=== PATIENT | female | born 1940 | race Caucasian/White ===

== ENCOUNTER 2017-02-24 09:08 | Emergency (ER) | payer OTHER, MEDICARE ==
[2017-02-24 09:20] VITALS: BP 153/80; PULSE 53; TEMP 98.2; BMI 24.5
--- NOTE | 2017-02-24 10:25 | PDOC ---
Attending Attestation - HPI HPI: 02/24/17 10:55 77 y/o F with a PMHx of HTN, DM presents to the ED with intermittent nasal bleeding since yesterday. Patient has no other complaints. Denies chest pain, SOB. Denies nausea, vomiting, diarrhea. Denies headache, dizziness. - Physicial Exam PE: 02/24/17 10:55 Vitals: Triage Vital signs reviewed General Appearance: no acute distress, well nourished well developed Nose: no active bleeding, left nostril with dried blood Throat: Posterior oropharynx without erythema, mucous membranes moist, No bleeding or dripping into the posterior oropharynx - Medical Decision Making 02/24/17 10:55 Documentation prepared by Tamia Barreto, acting as medical editor for Babar Mendoza MD. <Tamia Barreto - Last Filed: 02/24/17 10:55> - Resident Resident Name: Dick Singh - ED Attending Attestation I have performed the following: I have examined & evaluated the patient, The case was reviewed & discussed with the resident, I agree w/resident's findings & plan, Exceptions are as noted - Medical Decision Making 02/24/17 18:06 Well appearing no apparent distress no active bleeding no indication for packing at this time. Patient provided with ENT follow-up and strict return instructions Findings, the need for follow-up and strict return instructions discussed with patient. <Babar Mendoza - Last Filed: 02/24/17 18:06>
--- NOTE | 2017-02-24 10:27 | PDOC ---
History of Present Illness - General Chief Complaint: Nasal Bleeding Stated Complaint: NASAL BLEED Time Seen by Provider: 02/24/17 09:52 History Source: Patient, Significant Other Exam Limitations: No Limitations - History of Present Illness Initial Comments: 02/24/17 10:26 Patient is a 77 year old with history of Afib (on eloquist), NIDDM, GERD, HLD and Parkinson's presented to the ED with 1 day of nose bleeding. Patient states the bleeding started 22 hours ago while she was grooming her nose hairs. She attempted peroxide, and cotton packing and was able to stop the bleeding but it kept returning when she removed the packing. Did not bleed significantly overnight but restarted this AM after removed the packing. Denies history of nose bleeds. Denies fever, chills, chest pain, abdominal pain, nausea, vomiting , diarrhes, diaphoresis. Past History - Past Medical History Allergies/Adverse Reactions: Allergies Allergy/AdvReac Type Severity Reaction Status Date / Time No Known Drug Allergies Allergy Verified 02/24/17 09:16 Home Medications: Ambulatory Orders Atorvastatin Ca [Lipitor] 20 mg PO HS 11/02/11 Metformin HCl [Glucophage Xr] 500 mg PO DAILY 11/02/11 Zolpidem Tartrate [Ambien] 10 mg PO HS 10/23/15 Diltiazem HCl [Diltiazem 24Hr Cd] 120 mg PO BID #0 cap.er.24h 10/24/15 Apixaban [Eliquis] 5 mg PO DAILY 02/24/17 Carbidopa/Levodopa [Carbidopa-Levo ER 50-200 Tab] 1 each PO TID 02/24/17 Furosemide [Lasix -] 20 mg PO DAILY 02/24/17 Pramipexole Dihydrochloride [Mirapex -] 5 mg PO DAILY 02/24/17 Anemia: No Asthma: No Cancer: No Cardiac Disorders: Yes CVA: No COPD: No CHF: No Dementia: No Diabetes: Yes GI Disorders: No Disorders: No HTN: Yes Hypercholesterolemia: No Liver Disease: No Seizures: No Thyroid Disease: No - Surgical History Abdominal Surgery: No Appendectomy: No Cardiac Surgery: No Cholecystectomy: No Lung Surgery: No Neurologic Surgery: Yes (BRAIN TUMOR REMOVED 2008) Orthopedic Surgery: No - Suicide/Smoking/Psychosocial Hx Smoking History: Never smoked Have you smoked in the past 12 months: No Hx Alcohol Use: No Drug/Substance Use Hx: No Substance Use Type: None Hx Substance Use Treatment: No Review of Systems - Review of Systems Able to Perform ROS?: Yes Comments:: GEN: Denies fever, chills, recent illness HEENTM: Denies sore throat, neck pain, changes in vision, changes in hearing, ear pain, tinnitus Respiratory: +shortness of breath Denies cough, wheezing Cardiac: Denies chest pain, palpitations, lightheadedness, diaphoresis ABD/GI: +constipation; Denies abdominal pain, nausea, vomiting, diarrhea : Denies dysuria, burning on urination, increased frequency of urination Musculoskeletal: Denies pain and swelling of muscles and joints Integumentary: Denies rashes, bruises Neurological: Denies WEST, weakness, dizziness, loss of consciousness, tingling, numbness Hematologic/Lymphatic: Denies anemia, easy bleeding, history of blood clots. All Other Systems Reviewed and Negative Is the patient limited Fijian proficient: No *Physical Exam - Vital Signs Last Vital Signs Temp Pulse Resp BP Pulse Ox 98.2 F 53 L 19 153/80 96 02/24/17 09:16 02/24/17 09:16 02/24/17 09:16 02/24/17 09:16 02/24/17 09:16 - Physical Exam Comments: GENERAL: AAOx3, nourished and generally well appearing, NAD HEAD: NCAT EYES: PERRLA, EOMI, sclera anicteric, conjunctiva clear ENT: Auricles normal inspection, hearing grossly normal, right naris patent, left naris clotted with dried blood, no active bleeding, oropharynx clear without exudates, mild blood in posterior oropharynx, MMM NECK: supple, normal ROM, no LAD, no JVD, no masses RESP: speaking in full sentences, lungs CTAB, symmetrical chest expansion, no respiratory distress HEART: Bradycardic (56), regular rhythm, normal S1-S2, no MRG, peripheral pulses normal and equal bilaterally ABDOMEN: soft, NTND, nlBSx4, no guarding, no rebound, no masses MUSCULOSKELETAL: no CVA Tenderness EXTREMITIES: normal inspection, moving all extremities, full ROM, strength 5/5, sensation grossly intact NEUROLOGICAL: CN II-XII grossly intact, normal speech, normal gait, no focal sensorimotor deficits SKIN: warm, dry, normal turgor, no rashes or lesions noted. Medical Decision Making - Medical Decision Making 77 year old female on blood thinner with intermittent traumatic epistaxis for one day. Bleeding spontaneously stops with packing and restarts when disturbed. No active bleeding on physical exam ddx includes but is not limited to anterior epistaxis monitor and reassess educate patient on proper techniques to stop bleeding. Instruct patient to not disturb discharge with ENT followup Patient educated on applying pressure and to not clear or clean nose for several days Return precautions given and patient expressed understanding and agreement with the plan ENT referral given *DC/Admit/Observation/Transfer Diagnosis at time of Disposition: Anterior epistaxis - Discharge Dispostion Disposition: HOME Admit: No - Referrals Referrals: Denis Kelley MD [Primary Care Provider] - Khadar Christopher MD [Staff Physician] - - Patient Instructions Printed Discharge Instructions: DI for Nosebleed Additional Instructions: Make an appointment with Dr. Christophre for an ENT evaluation If you nose starts to bleed again you should place pressure on your nose as instructed in the ED for at least 30 mintues. Do not clean or blow your nose once the bleeding stops. Do not drink with straws. Avoid coughing and sneezing. If you are unable to stop the bleeding with pressure after several attempts or you become weak or dizzy or loose consciousness you need to return to the emergency room immediately. Print Language: GUAMANIAN
== END 2017-02-24 10:45 | disposition home or self-care (01) ==
LOC: JER 09:08 → SUPCPDRO 09:08 → JER 10:45
PROC: 2Y41X5Z Packing of Nasal Region using Packing Material (ICD-10-PCS; principal; 2017-02-24)
DX: R04.0 Epistaxis (principal); I48.91 Unspecified atrial fibrillation; Z79.01 Long term (current) use of anticoagulants; E11.9 Type 2 diabetes mellitus without complications; Z79.84 Long term (current) use of oral hypoglycemic drugs; K21.9 Gastro-esophageal reflux disease without esophagitis; E78.00 Pure hypercholesterolemia, unspecified; G20 Parkinson's disease
CPT/HCPCS: 99281-25

== ENCOUNTER 2017-04-29 16:36 | Inpatient (IN) | payer OTHER, MEDICARE ==
--- NOTE | 2017-04-29 16:45 | PDOC ---
Rapid Medical Evaluation Time Seen by Provider: 04/29/17 16:42 Medical Evaluation: Allergies Allergy/AdvReac Type Severity Reaction Status Date / Time No Known Drug Allergies Allergy Verified 04/29/17 16:41 04/29/17 16:42 I have performed a brief in-person evaluation of this patient. The patient presents with a chief complaint of: sent for evaluation of Afib with RVR Pertinent physical exam findings: CARD: irregularly irregular. 2+ pedal edema. No murmurs. PULM: Respirations even and unlabored. Lungs CTAB I have ordered the following: EKG, cardiac profile, coags, cbc, cmp, mg, ua, u cx, cxr The patient will proceed to the ED for further evaluation. Discharge Disposition - Diagnosis SOB (shortness of breath) - Referrals - Patient Instructions - Post Discharge Activity
--- NOTE | 2017-04-29 16:52 | PDOC ---
History of Present Illness - General Chief Complaint: Irregular Heart Beat Stated Complaint: FATIGUE Time Seen by Provider: 04/29/17 16:42 - History of Present Illness Initial Comments: 04/29/17 17:15 The patient is a 77 year old female with a history of parkinson's and afib who presents from urgent care for evaluation of afib with RVR. The patient reports that she has a recent URI with cough and began feeling more fatigued over the past 2-3 days prompting her to present to urgent care where she was found to be in afib with RVR. She reports previous admissions for afib with RVR and takes her diltiazem and elaquis on a daily basis. She denies chest pain, fevers, chills, SOB, abdominal pain, nausea, vomiting, or changes with urination or bowel movements. Past History - Past Medical History Allergies/Adverse Reactions: Allergies Allergy/AdvReac Type Severity Reaction Status Date / Time No Known Drug Allergies Allergy Verified 04/29/17 16:41 Home Medications: Ambulatory Orders Atorvastatin Ca [Lipitor] 20 mg PO HS 11/02/11 Metformin HCl [Glucophage Xr] 500 mg PO DAILY 11/02/11 Zolpidem Tartrate [Ambien] 10 mg PO HS 10/23/15 Diltiazem HCl [Diltiazem 24Hr Cd] 120 mg PO BID #0 cap.er.24h 10/24/15 Apixaban [Eliquis] 5 mg PO DAILY 02/24/17 Carbidopa/Levodopa [Carbidopa-Levo ER 50-200 Tab] 1 each PO TID 02/24/17 Furosemide [Lasix -] 20 mg PO DAILY 02/24/17 Pramipexole Dihydrochloride [Mirapex -] 5 mg PO DAILY 02/24/17 Anemia: No Asthma: No Cancer: No Cardiac Disorders: Yes (A Fib) CVA: No COPD: No CHF: No DVT: No Dementia: No Diabetes: Yes GI Disorders: No Disorders: No HTN: Yes Hypercholesterolemia: No Liver Disease: No Seizures: No Thyroid Disease: No Other medical history: [place]'s - Surgical History Abdominal Surgery: No Appendectomy: No Cardiac Surgery: No Cholecystectomy: No Lung Surgery: No Neurologic Surgery: Yes (BRAIN TUMOR REMOVED 2008) Orthopedic Surgery: No - Suicide/Smoking/Psychosocial Hx Smoking History: Never smoked Have you smoked in the past 12 months: No Information on smoking cessation initiated: No Hx Alcohol Use: No Drug/Substance Use Hx: No Substance Use Type: None Hx Substance Use Treatment: No Review of Systems - Review of Systems Comments:: 04/29/17 17:19 Constitutional: Fatigue. No fevers, chills, malaise HEENT: No Rhinorrhea, nasal congestion, visual changes Cardiovascular: Palpitations. No chest pain, syncope, lightheadedness Respiratory: Cough. No SOB, Hemoptysis, Gastrointestinal: No Abdominal pain, Nausea, Vomiting, Constipation, Diarrhea, Melena Genitourinary: No Dysuria, Frequency, Urgency, Hesitancy, Hematuria, Flank pain Musculoskeletal: No Myalgia, arthralgia Skin: No rashes, bruising, pallor Neurologic: No Headache, Dizziness, Numbness, Weakness, or Tingling Psychiatric: No Hallucinations. No SI or HI *Physical Exam - Vital Signs Last Vital Signs Temp Pulse Resp BP Pulse Ox 97.5 F L 138 H 18 148/81 97 04/29/17 16:41 04/29/17 16:41 04/29/17 16:41 04/29/17 16:41 04/29/17 16:41 - Physical Exam Comments: 04/29/17 17:20 General Appearance: Nourished. No Apparent Distress HEENT: EOMI, CHELSEY. No Pharyngeal Erythema, Tonsillar Exudate, Tonsillar Erythema Neck: No Cervical Lymphadenopathy Respiratory/Chest: Lungs Clear, Normal Breath Sounds. No Crackles, Rales, Rhonchi, Wheezing Cardiovascular: Tachycardic with irregularly irregular rhythm. No Murmur, Gallops, Rubs Gastrointestinal/Abdominal: Normal Bowel Sounds, Soft. No Guarding, Rebound, Tenderness Musculoskeletal: No CVA Tenderness Extremity: Normal Capillary Refill Integumentary: Normal Color, Dry, Warm Neurologic: Fully Oriented, Alert, Normal Mood/Affect, Normal Response, Heart Score/ECG Review #1 ECG reviewed & interpreted by me at: 17:00 (Afib with RVR Rate of 178) General ECG Interpretation: Normal Intervals, No acute ischemic changes ED Treatment Course - LABORATORY CBC & Chemistry Diagram: 04/30/17 05:15 04/30/17 05:15 Medical Decision Making - Medical Decision Making 04/29/17 17:20 The patient is a 77 year old female with a history of parkinson's and afib who presents from urgent care for evaluation of afib with RVR. EKG done in triage demonstrates afib with rvr with a ventricular rate of 178. The patient's bp is stable and mildly hypertensive. Her symptoms are likely due to her URI instigating her afib. We will obtain a cbc, cmp, troponin, bnp, chest plain film, ua to evaluate for other possible etiologies. We will treat the patient with 20mg of iv diltiazem and a diltiazem drip as well as iv fluids. We will continue to monitor and reassess. The patient will likely require admission for further management. 04/29/17 18:00 Patient's BP has dropped to 90s systolic after dose of diltiazem and diltiazem drip. We have discussed the case with Dr. Jordan who recommended that we continue to hydrate the patient with IV fluids. If the patient's BP improves with fluids, we can restart the diltiazem drip. Otherwise we may start Digoxen 0.5. CBC demonstrates an elevated wbc to 16. Cmp, troponin is unremarkable. BNP is elevated to 3000+. We will continue to monitor and reassess. 04/29/17 19:05 Discussed the case with Dr. Kelley who accepted the patient for admission. 04/29/17 20:57 Patient's BP improved after second bolus of iv fluids. Diltiazem drip restarted without improvement in HR. Will give second bolus of 10mg diltiazem and if unsuccessful, will start digoxen per cardiology recs. Chest plain film demonstrates concerns for pneumonia which could have contributed to the patient' s afib with rvr. We will start ceftriaxone and azithromycin to treat and obtain blood cultures. Will reassess and monitor. 04/29/17 23:11 Patient's HR continues to be elevated to 160s despite second bolus of diltiazem and drip at 10mg. Patient's bp continued to drop to systolics of 80s. We have stopped the patient's diltiazem drip and will start digoxen 0.5. Given the patient's persistent tachycardia despite treatment, we believe that she requires ICU management at this time. 04/29/17 23:42 Discussed with the ICU team who accepted the patient for ICU. *DC/Admit/Observation/Transfer Diagnosis at time of Disposition: SOB (shortness of breath), Atrial fibrillation with rapid ventricular response - Discharge Dispostion Condition at time of disposition: Guarded Admit: Yes - Referrals - Patient Instructions - Post Discharge Activity
--- NOTE | 2017-04-29 16:55 | PDOC ---
Attending Attestation - HPI HPI: 04/29/17 17:15 The patient is a 77 year old female presenting with her , with a significant past medical history of Afib (on eloquist), NIDDM, GERD, HTN, HLD and Parkinson's, who presents to the emergency department with shortness of breath and fatigue. She reports that she went to urgent care center for evaluation and was sent to the ED for further evaluation of AFIB with RVR. She reports that she has had these kind of symptoms in the past and has been worked up previously, with the first time being last year. She notes that she was recently sick with an upper respiratory infection which is what prompted her to go to the urgent care. She does report a dry cough associated with her chief complaint, as well as bilateral lower extremity swelling. She denies any recent travel. The patient denies chest pain, headache and dizziness. Denies fever, chills, nausea, vomit, diarrhea and constipation. Denies dysuria, frequency, urgency and hematuria. Allergies: None Past surgical history: Brain tumor removal Social history: No alcohol, tobacco or drug use reported PMD: Dr. Denis Kelley - Physicial Exam PE: 04/29/17 17:15 Vitals: Triage vital signs reviewed General Appearance: No acute distress, well nourished, well developed Head: Atraumatic Neck: Supple; No nuchal rigidity Chest Wall: Nontender Cardiac: (+) Irregularly irregular, no murmurs, no rubs, no gallops Lungs: Clear to auscultation bilateral, good air movement bilaterally Abdomen: Soft, nondistended, normal bowel sounds, nontender to palpation Genitourinary: Rectal: Exam deferred Extremities: Full range of motion to all extremities, no cyanosis, clubbing, or edema Skin: Warm and dry, no rashes or lesions, no rash, no petechiae Neuro: AOX3; Cranial Nerves 2-12 grossly intact, Strength intact to all extremities, Sensation intact to all extremities Psych: Normal mood, normal affect - Medical Decision Making 04/29/17 17:18 The patient is a 77 year old female presenting with her , with a significant past medical history of Afib (on eloquist), NIDDM, GERD, HTN, HLD and Parkinson's, who presents to the emergency department with shortness of breath and fatigue. <Olman Jarrett - Last Filed: 04/29/17 17:14> - Resident Resident Name: Sarabjit Maldonado - ED Attending Attestation I have performed the following: I have examined & evaluated the patient, The case was reviewed & discussed with the resident, I agree w/resident's findings & plan, Exceptions are as noted - Critical Care Time Total Critical Care Time: 45 Critical Care Statement: The care of this patient involved high complexity decision making to prevent further life threatening deterioration of the patient 's condition and/or to evaluate & treat vital organ system(s) failure or risk of failure. - Medical Decision Making 04/29/17 20:57 A. fib with RVR diltiazem bolus diltiazem drip ordered X-ray with evidence of infiltrate given infiltrate white count and + symptoms we 'll treat for community acquired pneumonia with ceftriaxone and azithromycin. Reevaluation patient became transiently hypotensive with systolic of 90 diltiazem drip stopped after IV fluids patient on normotensive in the 120s case discussed with cardiology Recommends repeat bolus of diltiazem. If no improvement after repeat bolus of diltiazem we'll try digoxin Status post placing patient back on diltiazem drip no improvement in heart rate Reevaluation status post second dose IV diltiazem, patient again became transiently hyptensive Additional IV fluids ordered. At this time patient's heart rate does not seem to be improving with diltiazem. We'll stop diltiazem at this point IV load with Digoxin period. Given persistence of A. fib with RVR with persistent tachycardia and borderline hypotension we'll admit to ICU for further management. Cardiology to consult, Dr. Jordan 04/30/17 01:34 <Babar Mendoza - Last Filed: 04/30/17 01:35>
[2017-04-29] MEDS ORDERED: dilTIAZem HCL 50 MG/10 ML - 10 ML VIAL IVPUSH ONE ×2 (17:03→20:47)
[2017-04-29] MEDS ORDERED: SODIUM CHLORIDE 1,000 ML IV STA ×3 (17:03→22:50)
[2017-04-29] MEDS ORDERED: DILTIAZEM INJECTION 125 MG in DEXTROSE 5%-WATER - 100 ML IVPB SCH (17:15)
[2017-04-29] MEDS ORDERED: dilTIAZem HCL 50 MG/10 ML - 10 ML VIAL ONE (17:18)
[2017-04-29] MEDS ORDERED: dilTIAZem HCL 125 MG/25 ML - 25 ML VIAL ONE ×2 (17:18→21:56)
[2017-04-29 17:28] LABS: BASO % 0.7 % (0-2.0); EOS % 0.4 % (0-4.5); HEMATOCRIT 42.3 % (32.4-45.2); HEMOGLOBIN 14.2 GM/dL (10.7-15.3); LYMPH % 13.9 % (8-40); MCH 32.1 pg (25.7-33.7); MCHC 33.5 g/dl (32.0-36.0); MEAN CELL VOLUME 95.9 fl (80-96); MEAN PLT VOLUME 9.7 fl (7.5-11.1); MONO % 8.4 % (3.8-10.2); NEUT % 76.6 % (42.8-82.8); PLATELET COUNT 359 K/MM3 (134-434); RBC 4.41 M/mm3 (3.60-5.2); RDW 13.1 % (11.6-15.6)
[2017-04-29 17:45] LABS: INR 1.81 (0.82-1.09); PROTHROMBIN TIME (PATIENT) 20.4 SEC (9.98-11.88)
[2017-04-29] MEDS ORDERED: ONDANSETRON 4 MG/2 ML VIAL IVPUSH ONE (18:02)
[2017-04-29 18:06] LABS: ALBUMIN 3.2 g/dl (3.4-5.0); ANION GAP 12 (8-16); BILIRUBIN,TOTAL 0.6 mg/dL (0.2-1.0); BLOOD UREA NITROGEN 42 mg/dL (7-18); CALCIUM 8.7 mg/dL (8.5-10.1); CHLORIDE 104 mmol/L (98-107); CO2 21 mmol/L (21-32); CREATININE 0.9 mg/dL (0.55-1.02); GLUCOSE,RANDOM 259 mg/dL (74-106); SGPT/ALT 30 U/L (12-78); SODIUM 137 mmol/L (136-145); TOT PROT 6.5 g/dl (6.4-8.2)
[2017-04-29 18:08] LABS: ALK PHOS 177 U/L (45-117); N-TERMINAL BNP 3145.73 pg/ml (5-450)
[2017-04-29 18:11] LABS: MAGNESIUM 2.1 mg/dL (1.8-2.4); SGOT/AST 97 U/L (15-37)
[2017-04-29 18:12] LABS: POTASSIUM 4.5 mmol/L (3.5-5.1)
[2017-04-29] MEDS ORDERED: ONDANSETRON 4 MG/2 ML VIAL ONE (18:38)
[2017-04-29] MEDS ORDERED: CEFTRIAXONE 1 GM in DEXTROSE 5%-WATER - 50 ML IVPB ONE (21:14)
[2017-04-29] MEDS ORDERED: AZITHROMYCIN IVPB 500 MG in DEXTROSE 5%-WATER - 250 ML IVPB ONE (21:14)
[2017-04-29] MEDS ORDERED: AZITHROMYCIN IVPB 250 ML IVPB ONE ×2 (21:56→21:57)
[2017-04-29] MEDS ORDERED: CEFTRIAXONE 1 GM/50 ML BAG ONE ×2 (21:56→21:58)
[2017-04-29] MEDS ORDERED: DIGOXIN 0.5 MG/2 ML AMPUL IVPUSH ONE (22:25)
[2017-04-29] MEDS ORDERED: DIGOXIN 0.5 MG/2 ML AMPUL ONE (22:48)
[2017-04-30] MEDS ORDERED: AMIODARONE HCL 150 MG/3 ML VIAL ONE (01:50)
--- NOTE | 2017-04-30 02:03 | CONSULT ---
Consult Consult Specialty:: Pulm/CCM Reason for Consultation:: A-fib with RVR - History of Present Illness Chief Complaint: Cough History of Present Illness: 77yow with PMHx of Afib (on eloquist), NIDDM, GERD, HTN, HLD and Parkinson's, who presents to the emergency department with c/o SOB and fatigue. She initially went to urgent care facility with c/o cough and SOB adn was referred to ED. In ED found to be in A-fib with RVR to 170's refractory to diltiazem pushes and c/b hypotension. Cardiology consulted. Digoxin load initiated without result. labs Notable for WBC 16.0, BNP 3145. Fluid boluses given for hypotension. She was transferred to ICU for further management. 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: Other (Parkinson's disease) Cardio/Vascular: Yes: AFIB, HTN Gastrointestinal: Yes: Constipation Psych: Yes: Depression Musculoskeletal: Yes: Other (right leg and lower back pains blamed on Parkinson' s disease) Endocrine: Yes: Diabetes Mellitus Dermatology: Yes: Squamous Cell - Past Surgical History Past Surgical History: Yes: Colonoscopy, Upper Endoscopy - Alcohol/Substance Use Hx Alcohol Use: No History of Substance Use: reports: None - Smoking History Smoking history: Never smoked Have you smoked in the past 12 months: No - Social History Usual Living Arrangement: With Spouse Home Medications - Allergies Allergies/Adverse Reactions: Allergies Allergy/AdvReac Type Severity Reaction Status Date / Time No Known Drug Allergies Allergy Verified 04/29/17 16:41 - Home Medications Home Medications: Ambulatory Orders Atorvastatin Ca [Lipitor] 20 mg PO HS 11/02/11 Metformin HCl [Glucophage Xr] 500 mg PO DAILY 11/02/11 Zolpidem Tartrate [Ambien] 10 mg PO HS 10/23/15 Diltiazem HCl [Diltiazem 24Hr Cd] 120 mg PO BID #0 cap.er.24h 10/24/15 Apixaban [Eliquis] 5 mg PO DAILY 02/24/17 Carbidopa/Levodopa [Carbidopa-Levo ER 50-200 Tab] 1 each PO TID 02/24/17 Furosemide [Lasix -] 20 mg PO DAILY 02/24/17 Pramipexole Dihydrochloride [Mirapex -] 5 mg PO DAILY 02/24/17 Family Disease History - Family Disease History Family Disease History: CA: Daughter (b reast) Review of Systems - Review of Systems Constitutional: reports: Weakness Eyes: reports: No Symptoms HENT: reports: No Symptoms Neck: reports: No Symptoms Cardiovascular: reports: No Symptoms Respiratory: reports: Cough, SOB Gastrointestinal: reports: No Symptoms Genitourinary: reports: No Symptoms Musculoskeletal: reports: No Symptoms Integumentary: reports: No Symptoms Neurological: reports: No Symptoms Endocrine: reports: No Symptoms Hematology/Lymphatic: reports: No Symptoms Psychiatric: reports: No Symptoms Physical Exam Vital Signs: Vital Signs Temperature 98.1 F 04/30/17 01:22 Pulse Rate 142 H 04/30/17 01:22 Respiratory Rate 24 04/30/17 01:22 Blood Pressure 127/92 04/30/17 01:22 O2 Sat by Pulse Oximetry (%) 98 04/30/17 01:22 Constitutional: Yes: Well Nourished, No Distress, Calm Eyes: Yes: Conjunctiva Clear HENT: Yes: Atraumatic, Normocephalic Neck: Yes: Supple, Trachea Midline Cardiovascular: Yes: Tachycardia, Pulse Irregular, S1, S2 Respiratory: Yes: On Nasal O2, Rales Gastrointestinal: Yes: Normal Bowel Sounds, Soft Musculoskeletal: Yes: WNL Edema: Yes Edema: LLE: 2+, RLE: 2+ Peripheral Pulses WNL: Yes Integumentary: Yes: WNL Neurological: Yes: Alert, Oriented ...Motor Strength: WNL Psychiatric: Yes: Alert, Oriented Labs: CBC, BMP 04/29/17 17:00 04/29/17 17:00 CBC,CMP WBC 16.0 K/mm3 (4.0-10.0) H D 04/29/17 17:00 RBC 4.41 M/mm3 (3.60-5.2) 04/29/17 17:00 Hgb 14.2 GM/dL (10.7-15.3) 04/29/17 17:00 Hct 42.3 % (32.4-45.2) 04/29/17 17:00 MCV 95.9 fl (80-96) 04/29/17 17:00 MCH 32.1 pg (25.7-33.7) 04/29/17 17:00 MCHC 33.5 g/dl (32.0-36.0) 04/29/17 17:00 RDW 13.1 % (11.6-15.6) 04/29/17 17:00 Plt Count 359 K/MM3 (134-434) 04/29/17 17:00 MPV 9.7 fl (7.5-11.1) D 04/29/17 17:00 Neutrophils % 76.6 % (42.8-82.8) D 04/29/17 17:00 Lymphocytes % 13.9 % (8-40) D 04/29/17 17:00 Monocytes % 8.4 % (3.8-10.2) 04/29/17 17:00 Eosinophils % 0.4 % (0-4.5) 04/29/17 17:00 Basophils % 0.7 % (0-2.0) 04/29/17 17:00 Sodium 137 mmol/L (136-145) 04/29/17 17:00 Potassium 4.5 mmol/L (3.5-5.1) 04/29/17 17:00 Chloride 104 mmol/L (98-107) 04/29/17 17:00 Carbon Dioxide 21 mmol/L (21-32) 04/29/17 17:00 Anion Gap 12 (8-16) 04/29/17 17:00 BUN 42 mg/dL (7-18) H D 04/29/17 17:00 Creatinine 0.9 mg/dL (0.55-1.02) D 04/29/17 17:00 Creat Clearance w eGFR > 60 (>60) 04/29/17 17:00 Random Glucose 259 mg/dL (74-106) H D 04/29/17 17:00 Calcium 8.7 mg/dL (8.5-10.1) 04/29/17 17:00 Magnesium 2.1 mg/dL (1.8-2.4) 04/29/17 17:00 Total Bilirubin 0.6 mg/dL (0.2-1.0) D 04/29/17 17:00 AST 97 U/L (15-37) H D 04/29/17 17:00 ALT 30 U/L (12-78) D 04/29/17 17:00 Alkaline Phosphatase 177 U/L (45-117) H D 04/29/17 17:00 Creatine Kinase 118 IU/L (26-192) 04/29/17 17:00 Troponin I < 0.02 ng/ml (0.00-0.05) 04/29/17 17:00 B-Natriuretic Peptide 3145.73 pg/ml (5-450) H 04/29/17 17:00 Total Protein 6.5 g/dl (6.4-8.2) 04/29/17 17:00 Albumin 3.2 g/dl (3.4-5.0) L 04/29/17 17:00 TSH 1.68 uIU/ml (0.358-3.74) D 04/29/17 17:00 Initial Vital Signs Temp Pulse Resp BP Pulse Ox 97.5 F L 138 H 18 148/81 97 04/29/17 16:41 04/29/17 16:41 04/29/17 16:41 04/29/17 16:41 04/29/17 16:41 Active Medications Diltiazem HCl 125 mg/ Dextrose 125 mls @ 5 mls/hr IVPB TITR PALMER; 5 MG/HR PRN Reason: Protocol Last Titration: 04/29/17 22:58 Dose: 0 mg/hr, 0 mls/hr Amiodarone HCl/Dextrose (Nexterone 360 Mg/200 Ml Bag) 360 mg in 200 mls @ 33.333 mls/hr IVPB TITR PALMER; 1 MG/MIN PRN Reason: Protocol Imaging - Results Chest X-ray: Report Reviewed EKG: Report Reviewed Problem List - Problems (1) Atrial fibrillation with rapid ventricular response Code(s): I48.91 - UNSPECIFIED ATRIAL FIBRILLATION (2) SOB (shortness of breath) Code(s): R06.02 - SHORTNESS OF BREATH (3) CHF (congestive heart failure) Code(s): I50.9 - HEART FAILURE, UNSPECIFIED (4) Diabetes Code(s): E11.9 - TYPE 2 DIABETES MELLITUS WITHOUT COMPLICATIONS (5) Paroxysmal atrial fibrillation Code(s): I48.0 - PAROXYSMAL ATRIAL FIBRILLATION Assessment/Plan 77yow with PMHx of Afib (on eloquist), NIDDM, GERD, HTN, HLD and Parkinson's now admitted to ICU with A-fib with RVR in the setting of an CAP c/b CHF exacerbation. Plan: CV: A-fib with RVR: on Eliquis; CHF exacerbation -Cardiology consult -Amiodarone bolus and drip x24h load -Lasix drip for net neg -Cont Eliquis -Hold anti HTN meds while hypotensive -ECG -TTE Pulm/ID: Leukocytosis e/o CAP -NC O2 support for O2sat>92% -f/u cultures and viral/Flu swab -Cont empiric Azithro and Ceftriaxone -Pulm toilet Endo: DMII -Cont DM regimen Proph: DVT and GI Allison Zacarias, ACNP CC time 35mins
[2017-04-30] MEDS ORDERED: AMIODARONE HCL 150 MG/3 ML VIAL IVPUSH ONE (02:04)
[2017-04-30] MEDS ORDERED: FUROSEMIDE 40 MG/4 ML INJECTABLE VIAL IVPUSH ONE (02:05)
[2017-04-30 02:10] VITALS: BMI 21.0
[2017-04-30] MEDS ORDERED: AMIODARONE IN DEXTROSE,ISO-OSM 360 MG/200 ML BAG IVPB SCH ×2 (02:15→04:15)
[2017-04-30] MEDS ORDERED: AMIODARONE HCL INJECTION 450 MG in DEXTROSE 5%-WATER - 241 ML IVPB SCH (02:30)
[2017-04-30] MEDS ORDERED: BISACODYL 10 MG SUPP.RECT PR ONE (04:48)
[2017-04-30 06:40] LABS: HEMATOCRIT 41.9 % (32.4-45.2); MCHC 33.3 g/dl (32.0-36.0); MEAN CELL VOLUME 96.1 fl (80-96); PLATELET COUNT 363 K/MM3 (134-434); RBC 4.37 M/mm3 (3.60-5.2); RDW 13.4 % (11.6-15.6); WHITE BLOOD COUNT 17.4 K/mm3 (4.0-10.0)
[2017-04-30 07:01] LABS: ALBUMIN 2.9 g/dl (3.4-5.0); ALK PHOS 197 U/L (45-117); ANION GAP 8 (8-16); BILIRUBIN,TOTAL 0.7 mg/dL (0.2-1.0); BLOOD UREA NITROGEN 31 mg/dL (7-18); CALCIUM 7.9 mg/dL (8.5-10.1); CHLORIDE 106 mmol/L (98-107); CO2 25 mmol/L (21-32); CREATININE 0.8 mg/dL (0.55-1.02); GLUCOSE,RANDOM 223 mg/dL (74-106); POTASSIUM 4.2 mmol/L (3.5-5.1); SGOT/AST 118 U/L (15-37); SGPT/ALT 123 U/L (12-78); SODIUM 139 mmol/L (136-145); TOT PROT 5.8 g/dl (6.4-8.2)
[2017-04-30 07:48] LABS: N-TERMINAL BNP 2566.42 pg/ml (5-450)
--- NOTE | 2017-04-30 07:53 | PN ---
Progress Note, Physician Chief Complaint: ID Full note dictated Patient admitted to ICU not felling well with rapid atrial fibrillation Complains of lower abd pain and constitpation for 5 days No fever or chills but WBC up 17 K - Current Medication List Current Medications: Active Medications Apixaban (Eliquis -) 5 mg PO BID PALMER Atorvastatin Calcium (Lipitor -) 20 mg PO HS PALMER Carbidopa/Levodopa (Sinemet *Cr* 25/100 -) 1 combo PO TID PALMER Diltiazem HCl 125 mg/ Dextrose 125 mls @ 5 mls/hr IVPB TITR PALMER; 5 MG/HR PRN Reason: Protocol Last Titration: 04/29/17 22:58 Dose: 0 mg/hr, 0 mls/hr Amiodarone HCl/Dextrose (Nexterone 360 Mg/200 Ml Bag) 360 mg in 200 mls @ 33.333 mls/hr IVPB TITR PALMER; 1 MG/MIN PRN Reason: Protocol - Objective Vital Signs: Vital Signs Temperature 98.1 F 04/30/17 01:22 Pulse Rate 146 H 04/30/17 06:00 Respiratory Rate 28 H 04/30/17 06:00 Blood Pressure 83/62 04/30/17 06:00 O2 Sat by Pulse Oximetry (%) 98 04/30/17 01:22 Constitutional: Yes: Mild Distress Neck: Yes: WNL, Supple Cardiovascular: Yes: Tachycardia, S1, S2 Respiratory: Yes: WNL, Regular, CTA Bilaterally. No: Rales, Rhonchi Gastrointestinal: Yes: Normal Bowel Sounds, Soft, Tenderness. No: Tenderness, Rebound Labs: CBC, BMP 04/30/17 05:15 04/30/17 05:15 INR, PTT INR 1.81 (0.82-1.09) H D 04/29/17 17:00 Problem List - Problems (1) Sepsis Code(s): A41.9 - SEPSIS, UNSPECIFIED ORGANISM (2) Diabetes Code(s): E11.9 - TYPE 2 DIABETES MELLITUS WITHOUT COMPLICATIONS (3) Abdominal pain Code(s): R10.9 - UNSPECIFIED ABDOMINAL PAIN Assessment/Plan Laboratory Tests 04/30/17 04/30/17 05:15 05:15 WBC 17.4 H Hgb 14.0 Plt Count 363 AST 118 H D Alkaline Phosphatase 197 H Assessment Rapid atrial fibrillation possibly precipitated by acute intrabdominal infection Differential diagnosis would include Diverticulitis Cholecystitis Appendicitis I do not think this is a pulmonary infection or pneumonia She is diabetic and high risk for infection Plan Lactic acid CRP Cover with Zosyn CT abd pelvis Blood and urine c/s Discussed with Dr Kelley Critical care time spent 40 minutes Lawson CHANG
--- NOTE | 2017-04-30 09:33 | CON.CARD ---
Consult Consult Specialty:: cardiology Reason for Consultation:: AF with RVR; BP fluctuation - History of Present Illness Chief Complaint: Pt alert; anxious; no chest pain;; occasional abdominal discomfort History of Present Illness: The patient is a 77 year old female (mesfin Ballard), with a history of parkinson' s and afib, who presents from urgent care for evaluation of afib with RVR. The patient reports that she has a recent URI with cough and began feeling more fatigued over the past 2-3 days prompting her to present to urgent care where she was found to be in afib with RVR. She reports previous admissions for this , and takes diltiazem and apixaban on a daily basis. She denies chest pain, fevers, chills, SOB, abdominal pain, nausea, vomiting, or changes with urination or bowel movements. 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: Other (Parkinson's disease) Cardio/Vascular: Yes: AFIB, HTN Gastrointestinal: Yes: Constipation ...: No Psych: Yes: Depression Musculoskeletal: Yes: Other (right leg and lower back pains blamed on Parkinson' s disease) Endocrine: Yes: Diabetes Mellitus Dermatology: Yes: Squamous Cell - Past Surgical History Past Surgical History: Yes: Colonoscopy, Upper Endoscopy - Alcohol/Substance Use Hx Alcohol Use: No History of Substance Use: reports: None - Smoking History Smoking history: Never smoked Have you smoked in the past 12 months: No - Social History Usual Living Arrangement: With Spouse Home Medications - Allergies Allergies/Adverse Reactions: Allergies Allergy/AdvReac Type Severity Reaction Status Date / Time No Known Drug Allergies Allergy Verified 04/29/17 16:41 - Home Medications Home Medications: Ambulatory Orders Atorvastatin Ca [Lipitor] 20 mg PO HS 11/02/11 Metformin HCl [Glucophage Xr] 500 mg PO DAILY 11/02/11 Zolpidem Tartrate [Ambien] 10 mg PO HS 10/23/15 Diltiazem HCl [Diltiazem 24Hr Cd] 120 mg PO BID #0 cap.er.24h 10/24/15 Apixaban [Eliquis] 5 mg PO DAILY 02/24/17 Carbidopa/Levodopa [Carbidopa-Levo ER 50-200 Tab] 1 each PO TID 02/24/17 Furosemide [Lasix -] 20 mg PO DAILY 02/24/17 Pramipexole Dihydrochloride [Mirapex -] 5 mg PO DAILY 02/24/17 Family Disease History - Family Disease History Family Disease History: CA: Daughter (b reast) Vital Signs: Vital Signs Temperature 98.0 F 04/30/17 06:00 Pulse Rate 128 H 04/30/17 08:00 Respiratory Rate 28 H 04/30/17 08:00 Blood Pressure 118/85 04/30/17 08:00 O2 Sat by Pulse Oximetry (%) 98 04/30/17 01:22 - Other Data Labs, Other Data: CBC, BMP 04/30/17 05:15 04/30/17 05:15 INR, PTT INR 1.81 (0.82-1.09) H D 04/29/17 17:00 Troponin, BNP 04/29/17 04/30/17 04/30/17 17:00 05:15 05:15 Troponin I < 0.02 < 0.02 B-Natriuretic Peptide 3145.73 H 2566.42 H Troponin, BNP 04/29/17 04/30/17 04/30/17 17:00 05:15 05:15 Troponin I < 0.02 < 0.02 B-Natriuretic Peptide 3145.73 H 2566.42 H
--- NOTE | 2017-04-30 09:46 | CON.CARD ---
Consult Consult Specialty:: cardiology Reason for Consultation:: AF with RVR; BP flucturation - History of Present Illness Chief Complaint: A&Ox3; anxious; productive cough with occasional sharp chest pain when she coughs. History of Present Illness: The patient is a 77 year old woman (mesfin Ballard), with a PMhistory of parkinson' s, afib\\, HTN, who presents from urgent care for evaluation of afib with RVR. The patient reports that she has a recent URI with cough and began feeling more fatigued over the past 2-3 days prompting her to present to urgent care where she was found to be in afib with RVR. She reports previous admissions for AF, and takes diltiazem and elaquis on a daily basis (reportedly did not take diltiazem today). She denies chest pain, fevers, chills, SOB, nausea, vomiting , or changes with urination or bowel movements; occasssional abdominal discomfort for "gallbladder problem". 10/2015: Persantine stress MIBI negative for ischemia; normal LVEF 10/2015 ECHO: normal LVEF; mild aortic root dilatation; moderate MR and TR; mild MN; mild biatrial enlargement. 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: Other (Parkinson's) Cardio/Vascular: Yes: AFIB, CHF, HTN Gastrointestinal: Yes: Constipation Renal/: Yes: Renal Inusuff Reproductive: Yes: Postmenopausal ...: No Psych: Yes: Depression Musculoskeletal: Yes: Other (right leg and lower back pains blamed on Parkinson' s disease) Endocrine: Yes: Diabetes Mellitus Dermatology: Yes: Squamous Cell - Past Surgical History Past Surgical History: Yes: Colonoscopy, Upper Endoscopy - Alcohol/Substance Use Hx Alcohol Use: No History of Substance Use: reports: None - Smoking History Smoking history: Never smoked Have you smoked in the past 12 months: No - Social History Usual Living Arrangement: With Spouse Home Medications - Allergies Allergies/Adverse Reactions: Allergies Allergy/AdvReac Type Severity Reaction Status Date / Time No Known Drug Allergies Allergy Verified 04/29/17 16:41 - Home Medications Home Medications: Ambulatory Orders Atorvastatin Ca [Lipitor] 20 mg PO HS 11/02/11 Metformin HCl [Glucophage Xr] 500 mg PO DAILY 11/02/11 Zolpidem Tartrate [Ambien] 10 mg PO HS 10/23/15 Diltiazem HCl [Diltiazem 24Hr Cd] 120 mg PO BID #0 cap.er.24h 10/24/15 Apixaban [Eliquis] 5 mg PO DAILY 02/24/17 Carbidopa/Levodopa [Carbidopa-Levo ER 50-200 Tab] 1 each PO TID 02/24/17 Furosemide [Lasix -] 20 mg PO DAILY 02/24/17 Pramipexole Dihydrochloride [Mirapex -] 5 mg PO DAILY 02/24/17 Family Disease History - Family Disease History Family Disease History: CA: Daughter (b reast) Review of Systems - Review of Systems Constitutional: reports: Diaphoresis, Loss of Appetite Eyes: reports: No Symptoms HENT: reports: No Symptoms Neck: reports: No Symptoms Cardiovascular: reports: Palpitations, Shortness of Breath Respiratory: reports: Cough, SOB on Exertion. denies: Wheezing Gastrointestinal: reports: Abdominal Pain Genitourinary: reports: No Symptoms Breasts: reports: No Symptoms Reported Musculoskeletal: reports: Muscle Pain, Muscle Weakness Neurological: reports: Weakness Psychiatric: reports: Anxiety - Risk Factors Known Risk Factors: Yes: Age, Hypertension, Physical Inactivity, Other (AF; CHF) Vital Signs: Vital Signs Temperature 98.0 F 04/30/17 06:00 Pulse Rate 128 H 04/30/17 08:00 Respiratory Rate 28 H 04/30/17 08:00 Blood Pressure 118/85 04/30/17 08:00 O2 Sat by Pulse Oximetry (%) 98 04/30/17 01:22 Constitutional: Yes: Anxious Eyes: Yes: WNL HENT: Yes: WNL Neck: Yes: WNL Respiratory: Yes: Diminished, SOB on Exertion Gastrointestinal: Yes: Soft Renal/: No: Anuria Cardiovascular: Yes: Tachycardia, Pulse Irregular JVD: Yes Carotid Bruit: No PMI: Non-Displaced Heart Sounds: Yes: S1 (varies in intensity) Murmur: Yes: Systolic Murmur (2/6 systolic murmur, LSB-->apex) Musculoskeletal: Yes: Muscle Weakness Extremities: Yes: Cool Edema: Yes Edema: LLE: 1+, RLE: 1+ Peripheral Pulses WNL: Yes Integumentary: Yes: Venous Stasis Changes Neurological: Yes: Alert, Oriented, Weakness Psychiatric: Yes: WNL - Other Data Labs, Other Data: CBC, BMP 04/30/17 05:15 04/30/17 05:15 INR, PTT INR 1.81 (0.82-1.09) H D 04/29/17 17:00 Troponin, BNP 04/29/17 04/30/17 04/30/17 17:00 05:15 05:15 Troponin I < 0.02 < 0.02 B-Natriuretic Peptide 3145.73 H 2566.42 H Troponin, BNP 04/29/17 04/30/17 04/30/17 17:00 05:15 05:15 Troponin I < 0.02 < 0.02 B-Natriuretic Peptide 3145.73 H 2566.42 H Imaging - Results Chest X-ray: Image Reviewed (CHF) EKG: Image Reviewed (AF with RVR) Problem List - Problems (1) Abdominal pain Code(s): R10.9 - UNSPECIFIED ABDOMINAL PAIN (2) Atrial fibrillation with rapid ventricular response Assessment/Plan: Pt did not take morning diltiazem. Would continue IV diltiazem; if BP drops, consider digoxin loading. (Amiodarone may be problematic in the face of elevated LFTs; if this medication is started, f/u LFTs serially). TSH WNL. ECHO 2015 showed LVEF WNL; would repeat this study. F/u BUN/Cr, electrolytes, I and Os, daily weight. Code(s): I48.91 - UNSPECIFIED ATRIAL FIBRILLATION (3) SOB (shortness of breath) Code(s): R06.02 - SHORTNESS OF BREATH (4) Sepsis Assessment/Plan: Antibiotics per pulmonary and ID. Code(s): A41.9 - SEPSIS, UNSPECIFIED ORGANISM (5) CHF (congestive heart failure) Assessment/Plan: see "AF" Code(s): I50.9 - HEART FAILURE, UNSPECIFIED (6) Depressed affect Code(s): R45.89 - OTHER SYMPTOMS AND SIGNS INVOLVING EMOTIONAL STATE (7) Diabetes Code(s): E11.9 - TYPE 2 DIABETES MELLITUS WITHOUT COMPLICATIONS (8) Hyperlipidemia Assessment/Plan: f/u lipid panel Code(s): E78.5 - HYPERLIPIDEMIA, UNSPECIFIED (9) Insomnia Code(s): G47.00 - INSOMNIA, UNSPECIFIED (10) Leukocytosis Code(s): D72.829 - ELEVATED WHITE BLOOD CELL COUNT, UNSPECIFIED (11) Parkinson disease Code(s): G20 - PARKINSON'S DISEASE (12) Elevated LFTs Assessment/Plan: f/u serially Consider abdominal studies to r/o GB disease. TSH WNL. Caution if considering amiodarone for AF control. Code(s): R79.89 - OTHER SPECIFIED ABNORMAL FINDINGS OF BLOOD CHEMISTRY
--- NOTE | 2017-04-30 10:16 | PN ---
Progress Note, Physician Chief Complaint: Pt A&Ox3; anxious; no chest pain except when she coughs. Shortness of breath on mild exertion. History of Present Illness: The patient is a 77 year old woman (mesfin Ballard), with a PMhistory of parkinson' s, afib\\, HTN, who presents from urgent care for evaluation of afib with RVR. The patient reports that she has a recent URI with cough and began feeling more fatigued over the past 2-3 days prompting her to present to urgent care where she was found to be in afib with RVR. She reports previous admissions for AF, and takes diltiazem and elaquis on a daily basis (reportedly did not take diltiazem today). She denies chest pain, fevers, chills, SOB, nausea, vomiting , or changes with urination or bowel movements; occasssional abdominal discomfort for "gallbladder problem". 10/2015: Persantine stress MIBI negative for ischemia; normal LVEF 10/2015 ECHO: normal LVEF; mild aortic root dilatation; moderate MR and TR; mild RI; mild biatrial enlargement. - Current Medication List Current Medications: Active Medications Apixaban (Eliquis -) 5 mg PO BID PALMER Atorvastatin Calcium (Lipitor -) 20 mg PO HS PALMER Carbidopa/Levodopa (Sinemet *Cr* 25/100 -) 1 combo PO TID PALMER Diltiazem HCl 125 mg/ Dextrose 125 mls @ 5 mls/hr IVPB TITR PALMER; 5 MG/HR PRN Reason: Protocol Last Titration: 04/29/17 22:58 Dose: 0 mg/hr, 0 mls/hr Amiodarone HCl/Dextrose (Nexterone 360 Mg/200 Ml Bag) 360 mg in 200 mls @ 33.333 mls/hr IVPB TITR PALMER; 1 MG/MIN PRN Reason: Protocol Piperacillin/Tazobactam/Dextrose (Zosyn 4.5gm Ivpb (Premix)) 4.5 gm in 100 mls @ 200 mls/hr IVPB Q8H-IV PALMER PRN Reason: Protocol - Objective Vital Signs: Vital Signs Temperature 97.6 F 04/30/17 10:00 Pulse Rate 123 H 04/30/17 10:00 Respiratory Rate 28 H 04/30/17 10:00 Blood Pressure 111/69 04/30/17 10:00 O2 Sat by Pulse Oximetry (%) 98 04/30/17 01:22 Constitutional: Yes: Anxious Eyes: Yes: WNL HENT: Yes: WNL Neck: Yes: WNL Cardiovascular: Yes: S1 (varies in intensity), S2 Respiratory: Yes: Tachypnea Gastrointestinal: Yes: Soft Labs: CBC, BMP 04/30/17 05:15 04/30/17 05:15 INR, PTT INR 1.81 (0.82-1.09) H D 04/29/17 17:00 Problem List - Problems (1) Abdominal pain Code(s): R10.9 - UNSPECIFIED ABDOMINAL PAIN (2) Atrial fibrillation with rapid ventricular response Assessment/Plan: Diltiazem IV was stopped yesterday, and amiodarone started due to relative hypotension. LFTs are rising; BP now WNL. Will d/c amiodarone and restart diltiazem. . Code(s): I48.91 - UNSPECIFIED ATRIAL FIBRILLATION (3) SOB (shortness of breath) Code(s): R06.02 - SHORTNESS OF BREATH (4) Sepsis Assessment/Plan: Antibiotics per pulmonary and ID. Code(s): A41.9 - SEPSIS, UNSPECIFIED ORGANISM (5) CHF (congestive heart failure) Code(s): I50.9 - HEART FAILURE, UNSPECIFIED (6) Depressed affect Code(s): R45.89 - OTHER SYMPTOMS AND SIGNS INVOLVING EMOTIONAL STATE (7) Diabetes Code(s): E11.9 - TYPE 2 DIABETES MELLITUS WITHOUT COMPLICATIONS (8) Hyperlipidemia Code(s): E78.5 - HYPERLIPIDEMIA, UNSPECIFIED (9) Insomnia Code(s): G47.00 - INSOMNIA, UNSPECIFIED (10) Leukocytosis Code(s): D72.829 - ELEVATED WHITE BLOOD CELL COUNT, UNSPECIFIED (11) Parkinson disease Code(s): G20 - PARKINSON'S DISEASE (12) Elevated LFTs Code(s): R79.89 - OTHER SPECIFIED ABNORMAL FINDINGS OF BLOOD CHEMISTRY
[2017-04-30] MEDS: PIPERACILLIN/TAZOB 4.5 GM 4.5 GM/100 ML BAG IVPB SCH ×2 (10:20→18:04)
[2017-04-30] MEDS ORDERED: dilTIAZem HCL 50 MG/10 ML - 10 ML VIAL IVPUSH ONE (11:20)
[2017-04-30 11:47] LABS: MAGNESIUM 1.8 mg/dL (1.8-2.4)
[2017-04-30] MEDS: DILTIAZEM INJECTION 125 MG in DEXTROSE 5%-WATER - 100 ML IVPB SCH (12:20)
[2017-04-30] MEDS ORDERED: dilTIAZem HCL 125 MG/25 ML - 5 ML VIAL ONE ×2 (14:14→23:02)
[2017-04-30 15:43] LABS: URINE APPEARANCE CLEAR; URINE BILIRUBIN NEGATIVE (NEGATIVE); URINE BLOOD NEGATIVE (NEGATIVE); URINE COLOR LTYELLOW; URINE GLUCOSE (UA) 2+ (NEGATIVE); URINE KETONE NEGATIVE (NEGATIVE); URINE LEUK ESTERASE NEGATIVE (NEGATIVE); URINE NITRITE NEGATIVE (NEGATIVE); URINE PROTEIN NEGATIVE (NEGATIVE); URINE UROBILINOGEN NEGATIVE mg/dL (0.2-1.0)
--- NOTE | 2017-04-30 15:49 | CONS ---
INFECTIOUS DISEASE CONSULTATION DATE OF CONSULTATION: 04/30/2017 This is a 77-year-old diabetic female with a history of hypertension and atrial fibrillation who I am asked to see in the ICU for evaluation of an elevated WBC count. She lives at home with her and had apparently gone to an urgent care center with complaints of shortness of breath and generalized weakness for several days. Mention is made of cough in her admitting notes, but the patient denied any cough, coryza, sore throat, fever or chills to me. In the emergency room, she was found to be in atrial fibrillation with a ventricular response in the 170s refractory to diltiazem pushes and also intermittently hypotensive. Her white count was notable for 16,000. She was seen by the nurse practitioner overnight and thought perhaps to have a respiratory infection with pneumonia and given a dose of ceftriaxone and azithromycin. Today, her white count remains elevated at 17,000. She is still short of breath, in rapid atrial fibrillation. She denies any chest pain, palpitations, or syncope. She does complain of constipation and lower abdominal discomfort which she says has been present for about 5 days. Note is made of the fact that on admission, her liver enzymes were noted to be elevated, particularly the alkaline phosphatase. She has no history of prior gallbladder surgery and her only other surgery was a hysterectomy. PAST MEDICAL HISTORY: Includes [id number]-[id number] diabetes, atrial fibrillation, GERD, hypertension, hyperlipidemia, and Parkinson disease. MEDICATIONS: Atorvastatin; metformin; diltiazem; Eliquis; Sinemet; Lasix; Mirapex. ALLERGIES: None known. SOCIAL HISTORY: Lives with her . Never smoked. No history of alcohol use. FAMILY HISTORY: Reviewed and to the extent patient can remember noncontributory. REVIEW OF SYSTEMS: Respiratory: Shortness of breath. No cough, hemoptysis. Cardiac: No chest pain, palpitations, syncope. History of atrial fibrillation. Gastrointestinal: Constipation. Lower abdominal discomfort. No vomiting, diarrhea, blood per rectum. Genitourinary: No dysuria, hematuria, or urinary frequency. PHYSICAL EXAMINATION: General: She was an elderly woman lying in bed in mild respiratory distress. Vital signs: The temperature was 98.1, pulse 150, blood pressure 83/62, and respirations 28. Neck: Supple without adenopathy. Lungs: Clear to percussion with diminished breath sounds, but no rales or rhonchi noted. Heart: S1, S2. Tachycardiac without audible murmur. Abdomen: Soft. Positive bowel sounds. Tenderness noted on direct palpation in the lower quadrants and suprapubic area, but no guarding or rebound. Extremities: Without clubbing, cyanosis, or edema. The white count was 17.4, with a hemoglobin of 14, and a platelet count of 363. BUN of 31, creatinine 0.8, glucose 223. Bilirubin 0.7, AST 118, ALT 123, alkaline phosphatase 197. TSH 168. Urinalysis has not been yet obtained. Chest x-ray was reviewed. Shows a small pleural effusion with some pulmonary congestion and no obvious infiltrate seen. ASSESSMENT: A 77-year-old lady presents with rapid atrial fibrillation from home, complaining of constipation and lower abdominal discomfort with mild tenderness on examination. This is significant, in light of her elevated white blood cell count, and may represent an acute intra-abdominal process. The differential diagnosis would include acute diverticulitis, as well as acute cholecystitis, and appendicitis. I do not think that the source of the infection is related to a pneumonia. She will be empirically treated, after blood and urine cultures, with piperacillin and tazobactam, to cover intra-abdominal organisms. A CRP and a lactic acid will be obtained, as part of a sepsis protocol, and a CAT scan of the abdomen and pelvis has been ordered this morning. My findings were discussed with Dr. Kelley by phone who was in agreement with the recommendations. Critical Care time spent today 40 minutes. CARMEN HARO M.D. [id number]
--- NOTE | 2017-04-30 16:28 | EKG ---
Test Reason : Blood Pressure : / mmHG Vent. Rate : 178 BPM Atrial Rate : 133 BPM P-R Int : 000 ms QRS Dur : 094 ms QT Int : 248 ms P-R-T Axes : 000 -23 -11 degrees QTc Int : 426 ms ATRIAL FIBRILLATION WITH RAPID VENTRICULAR RESPONSE INCOMPLETE RIGHT BUNDLE BRANCH BLOCK NONSPECIFIC ST AND T WAVE ABNORMALITY ABNORMAL ECG WHEN COMPARED WITH ECG OF 24-OCT-2015 08:37, ATRIAL FIBRILLATION HAS REPLACED SINUS RHYTHM VENT. RATE HAS INCREASED BY 123 BPM INCOMPLETE RIGHT BUNDLE BRANCH BLOCK IS NOW PRESENT Confirmed by SILVERIO LINDSEY MD ([id number]) on 04/30/2017 4:28:22 PM Referred By: Confirmed By:SILVERIO LINDSEY MD
--- NOTE | 2017-04-30 17:42 | HP ---
Admitting History and Physical - Primary Care Physician PCP: Denis Kelley - Admission Chief Complaint: Rapid Afib. Generalized weakness. Leukocytosis History of Present Illness: 77 y/o white female who went to urgent care for cough and not feeling well.She was referred to ED from urgent care due to rapid AFib. She denies any fever ,shaking chills, abdominal pain ,N/V. Has been constipated.Lab showed leukocytosis [id number].LFTs were elevated but US of GB was negative and liver did not show any abnormality. Was seen by BREANNA Jones who felt could be abdominal pathology and ordered a CT of abdomen whi was performed this afternoon. She is a known diabetic, Parkinson's disease, HLD and severe osteoarthritis of the LS spine. 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 - Smoking History Smoking history: Never smoked Have you smoked in the past 12 months: No - Alcohol/Substance Use Hx Alcohol Use: No History of Substance Use: reports: None Home Medications - Allergies Allergies/Adverse Reactions: Allergies Allergy/AdvReac Type Severity Reaction Status Date / Time No Known Drug Allergies Allergy Verified 04/29/17 16:41 - Home Medications Home Medications: Ambulatory Orders Atorvastatin Ca [Lipitor] 20 mg PO HS 11/02/11 Metformin HCl [Glucophage Xr] 500 mg PO DAILY 11/02/11 Zolpidem Tartrate [Ambien] 10 mg PO HS 10/23/15 Diltiazem HCl [Diltiazem 24Hr Cd] 120 mg PO BID #0 cap.er.24h 10/24/15 Apixaban [Eliquis] 5 mg PO DAILY 02/24/17 Carbidopa/Levodopa [Carbidopa-Levo ER 50-200 Tab] 1 each PO TID 02/24/17 Furosemide [Lasix -] 20 mg PO DAILY 02/24/17 Pramipexole Dihydrochloride [Mirapex -] 5 mg PO DAILY 02/24/17 Apixaban [Eliquis -] 5 mg PO BID tablet 05/08/17 Diltiazem [Cardizem -] 30 mg PO TID #90 tablet 05/08/17 Metformin Xr [Glucophage Xr -] 500 mg PO DAILY@0700 tab.sr.24h 05/08/17 Potassium Chloride [K-Dur -] 20 meq PO DAILY #90 tablet.er 05/08/17 Family Disease History - Family Disease History Family Disease History: CA: Daughter (b reast) Review of Systems - Review of Systems Constitutional: reports: Weakness Eyes: reports: No Symptoms HENT: reports: Throat Pain Neck: reports: No Symptoms Cardiovascular: reports: Palpitations Respiratory: reports: Cough Gastrointestinal: reports: Constipation Genitourinary: reports: No Symptoms Breasts: reports: No Symptoms Reported Musculoskeletal: reports: Back Pain Integumentary: reports: No Symptoms Neurological: reports: No Symptoms Endocrine: reports: Increased Thirst Hematology/Lymphatic: reports: No Symptoms Psychiatric: reports: Depression Physical Examination Vital Signs: Vital Signs Temperature 97.6 F 04/30/17 10:00 Pulse Rate 148 H 04/30/17 14:00 Respiratory Rate 28 H 04/30/17 14:00 Blood Pressure 114/87 04/30/17 14:00 O2 Sat by Pulse Oximetry (%) 98 04/30/17 10:00 Constitutional: Yes: Well Nourished, Calm Eyes: Yes: WNL HENT: Yes: Pharyngeal Erythema Neck: Yes: Supple Cardiovascular: Yes: Tachycardia, S1, S2 Respiratory: Yes: CTA Bilaterally Gastrointestinal: Yes: Soft, Tenderness, Other (slight right lower quadrant tenderness) Renal/: Yes: WNL Breast(s): Yes: WNL Musculoskeletal: Yes: Back Pain Extremities: Yes: WNL Edema: No Peripheral Pulses WNL: Yes Integumentary: Yes: WNL Neurological: Yes: Alert, Oriented ...Motor Strength: WNL Psychiatric: Yes: Alert, Oriented Labs: CBC, BMP 04/30/17 05:15 04/30/17 05:15 Imaging - Results Chest X-ray: Report Reviewed, Image Reviewed Cat Scan: Pending Ultrasound: Report Reviewed EKG: Report Reviewed, Image Reviewed Problem List - Problems (1) Atrial fibrillation with rapid ventricular response Assessment/Plan: To continue IV Diltiazem for control of VR Code(s): I48.91 - UNSPECIFIED ATRIAL FIBRILLATION (2) Elevated LFTs Assessment/Plan: LFT s are elevated suggestive of possible GB or CBD disease ,CT scan of abdomen ordered Code(s): R79.89 - OTHER SPECIFIED ABNORMAL FINDINGS OF BLOOD CHEMISTRY (3) SOB (shortness of breath) Assessment/Plan: Has CHF with pulmonary congestion with elevated BNP and small peural effusion Code(s): R06.02 - SHORTNESS OF BREATH (4) Sepsis Assessment[place] [id number] being treated with IV Zosyn Code(s): A41.9 - SEPSIS, UNSPECIFIED ORGANISM (5) CHF (congestive heart failure) Code(s): I50.9 - HEART FAILURE, UNSPECIFIED Assessment/Plan To continue IV Zosyn, case discussed with To continue Diltiazem to control HR and IV Lasix for CHF.
[2017-04-30] MEDS ORDERED: DEXTROSE 5%-0.45% SALINE 1,000 ML IV SCH (17:45)
[2017-04-30] MEDS: METOPROLOL SUCCINATE 25 MG TAB.SR.24H (FP) PO SCH ×2 (17:58→21:45)
[2017-04-30] MEDS ORDERED: PT OWN MED DRAWER 7, Y5N ONE ×3 (18:01→21:15)
--- NOTE | 2017-04-30 19:28 | CON.GI ---
Consult Consult Specialty:: Gastroenterology Referred by:: Dr Bansal - History of Present Illness History of Present Illness: 77 y/o F was assked to be seen because of abdominal pain. SHe was admitted with rapid AFIB associated with hypotension and abominal pain. She vomited her clear liquid diet this evening. She denies abdominal pain, rectal bleeding and melena. SHe is chonically constipated associated with excessive boating. Catscan was reviewed awaiting officail reading. Patient has bilateral infiltrates with bilateral effusion. There were was no evidence of appendicitis and mesenteric ischemia. 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 Cardio/Vascular: Yes: AFIB, CHF, HTN, Hyperlipdemia Gastrointestinal: Yes: Constipation Renal/: Yes: Renal Inusuff ...: No Psych: Yes: Depression Musculoskeletal: Yes: Other (right leg and lower back pains blamed on Parkinson' s disease) Endocrine: Yes: Diabetes Mellitus Dermatology: Yes: Squamous Cell - Past Surgical History Past Surgical History: Yes: Colonoscopy, Upper Endoscopy - Alcohol/Substance Use Hx Alcohol Use: No History of Substance Use: reports: None - Smoking History Smoking history: Never smoked Have you smoked in the past 12 months: No - Social History Usual Living Arrangement: With Spouse Home Medications - Allergies Allergies/Adverse Reactions: Allergies Allergy/AdvReac Type Severity Reaction Status Date / Time No Known Drug Allergies Allergy Verified 04/29/17 16:41 - Home Medications Home Medications: Ambulatory Orders Atorvastatin Ca [Lipitor] 20 mg PO HS 11/02/11 Metformin HCl [Glucophage Xr] 500 mg PO DAILY 11/02/11 Zolpidem Tartrate [Ambien] 10 mg PO HS 10/23/15 Diltiazem HCl [Diltiazem 24Hr Cd] 120 mg PO BID #0 cap.er.24h 10/24/15 Apixaban [Eliquis] 5 mg PO DAILY 02/24/17 Carbidopa/Levodopa [Carbidopa-Levo ER 50-200 Tab] 1 each PO TID 02/24/17 Furosemide [Lasix -] 20 mg PO DAILY 02/24/17 Pramipexole Dihydrochloride [Mirapex -] 5 mg PO DAILY 02/24/17 Family Disease History - Family Disease History Family Disease History: CA: Daughter (b reast) Physical Exam-GI Vital Signs: Vital Signs Temperature 97.6 F 04/30/17 10:00 Pulse Rate 144 H 04/30/17 18:00 Respiratory Rate 20 04/30/17 18:00 Blood Pressure 109/83 04/30/17 18:00 O2 Sat by Pulse Oximetry (%) 98 04/30/17 10:00 Constitutional: Yes: Well Nourished Eyes: Yes: Conjunctiva Clear HENT: Yes: Atraumatic Neck: Yes: Trachea Midline Cardiovascular: Yes: Regular Rate and Rhythm Respiratory: Yes: CTA Bilaterally Gastrointestinal Inspection: No: Distention ...Palpate: Yes: Soft. No: Firm/Rigid, Guarding, Hepatomegaly, Mass, Pulsatile Mass, Splenomegaly, Tenderness, Tenderness, Epigastium, Tenderness, Rebound ...Percussion: Yes: Tympanitic Labs: CBC, BMP 04/30/17 05:15 04/30/17 05:15 INR, PTT INR 1.81 (0.82-1.09) H D 04/29/17 17:00 Imaging - Results Cat Scan: Image Reviewed ( await official read see above) Problem List - Problems (1) Dyspepsia Assessment/Plan: R> Famotidine 150mg daily Reglan 5mg 30 min ac Code(s): R10.13 - EPIGASTRIC PAIN (2) IBS (irritable bowel syndrome) Assessment/Plan: Miralax 34 grams daily clear liquids advance as tolerated Code(s): K58.9 - IRRITABLE BOWEL SYNDROME WITHOUT DIARRHEA
[2017-04-30] MEDS: RANITIDINE HCL 150 MG TABLET (FP) PO SCH (21:45)
[2017-04-30] MEDS: METOCLOPRAMIDE HCL 10 MG TABLET (FP) PO SCH (21:45)
[2017-04-30] MEDS ORDERED: ATORVASTATIN CA 20 MG TABLET (FP) PO SCH (22:00)
[2017-05-01] MEDS: PIPERACILLIN/TAZOB 4.5 GM 4.5 GM/100 ML BAG IVPB SCH ×3 (01:30→17:07)
[2017-05-01 06:29] LABS: BASO % 0.5 % (0-2.0); EOS % 1.1 % (0-4.5); HEMATOCRIT 37.9 % (32.4-45.2); HEMOGLOBIN 12.8 GM/dL (10.7-15.3); LYMPH % 13.7 % (8-40); MCH 32.2 pg (25.7-33.7); MCHC 33.7 g/dl (32.0-36.0); MEAN CELL VOLUME 95.7 fl (80-96); MEAN PLT VOLUME 9.1 fl (7.5-11.1); MONO % 8.7 % (3.8-10.2); PLATELET COUNT 312 K/MM3 (134-434); RBC 3.96 M/mm3 (3.60-5.2); RDW 13.3 % (11.6-15.6); WHITE BLOOD COUNT 12.2 K/mm3 (4.0-10.0)
[2017-05-01] MEDS: METOCLOPRAMIDE HCL 10 MG TABLET (FP) PO SCH ×3 (06:35→15:34)
[2017-05-01 06:55] LABS: ALBUMIN 2.4 g/dl (3.4-5.0); ANION GAP 11 (8-16); BLOOD UREA NITROGEN 13 mg/dL (7-18); CALCIUM 7.8 mg/dL (8.5-10.1); CHLORIDE 104 mmol/L (98-107); CO2 24 mmol/L (21-32); GLUCOSE,RANDOM 200 mg/dL (74-106); MAGNESIUM 1.9 mg/dL (1.8-2.4); POTASSIUM 3.6 mmol/L (3.5-5.1); SODIUM 139 mmol/L (136-145)
[2017-05-01 06:59] LABS: ALK PHOS 139 U/L (45-117); BILIRUBIN,TOTAL 0.8 mg/dL (0.2-1.0); CREATININE 0.6 mg/dL (0.55-1.02); SGOT/AST 46 U/L (15-37); SGPT/ALT 36 U/L (12-78)
--- NOTE | 2017-05-01 07:21 | PN ---
Progress Note, Physician Chief Complaint: ID Pulse rate still rapid Offers no complaints Denies abd pain today Afebrile Zosyn day 2 - Current Medication List Current Medications: Active Medications Apixaban (Eliquis -) 5 mg PO BID [facility] Carbidopa/Levodopa (Sinemet *Cr* 25/100 -) 1 combo PO TID [facility] Last Admin: 05/01/17 06:35 Dose: 1 combo Piperacillin/Tazobactam/Dextrose (Zosyn 4.5gm Ivpb (Premix)) 4.5 gm in 100 mls @ 200 mls/hr IVPB Q8H-IV [facility] PRN Reason: Protocol Last Admin: 05/01/17 01:30 Dose: 200 mls/hr Diltiazem HCl 125 mg/ Dextrose 125 mls @ 5 mls/hr IVPB TITR [facility]; 5 MG/HR PRN Reason: Protocol Last Admin: 04/30/17 12:20 Dose: 10 mg/hr, 10 mls/hr Dextrose/Sodium Chloride (D5-1/2ns -) 1,000 mls @ 75 mls/hr IV ASDIR [facility] Last Admin: 04/30/17 17:58 Dose: 75 mls/hr Metoclopramide HCl (Reglan -) 5 mg PO TIDAC [facility] Last Admin: 05/01/17 06:35 Dose: 5 mg Metoprolol Succinate (Toprol Xl -) 25 mg PO BID [facility] Last Admin: 04/30/17 21:45 Dose: 25 mg Ranitidine HCl (Zantac -) 150 mg PO BID [facility] Last Admin: 04/30/17 21:45 Dose: 150 mg - Objective Vital Signs: Vital Signs Temperature 98.2 F 05/01/17 06:00 Pulse Rate 142 H 05/01/17 06:00 Respiratory Rate 20 05/01/17 06:00 Blood Pressure 90/70 05/01/17 06:00 O2 Sat by Pulse Oximetry (%) 98 04/30/17 21:00 Constitutional: Yes: Well Nourished, No Distress HENT: Yes: WNL, Atraumatic, Other (facial erythema) Neck: Yes: WNL, Supple Cardiovascular: Yes: Tachycardia, S1, S2. No: Murmur Respiratory: Yes: WNL, Regular, CTA Bilaterally. No: Rales, Rhonchi Gastrointestinal: Yes: WNL, Normal Bowel Sounds, Soft. No: Distention, Tenderness, Tenderness, Rebound Extremities: No: Cold, Cool, Cyanosis Edema: Yes Labs: CBC, BMP 05/01/17 05:00 05/01/17 05:00 INR, PTT INR 1.81 (0.82-1.09) H D 04/29/17 17:00 Problem List - Problems (1) Sepsis Code(s): A41.9 - SEPSIS, UNSPECIFIED ORGANISM (2) Diabetes Code(s): E11.9 - TYPE 2 DIABETES MELLITUS WITHOUT COMPLICATIONS (3) Abdominal pain Code(s): R10.9 - UNSPECIFIED ABDOMINAL PAIN Assessment/Plan Microbiology 04/30/17 02:51 Nasopharyngeal Swab Influenza Types A,B Antigen (JORGE) - Final 04/30/17 02:51 Nasopharyngeal Swab - Final 04/29/17 22:16 Blood - Peripheral Venous Blood Culture - Preliminary NO GROWTH OBTAINED AFTER 24 HOURS, INCUBATION TO CONTINUE FOR 4 DAYS. 04/29/17 22:16 Blood - Peripheral Venous Blood Culture - Preliminary NO GROWTH OBTAINED AFTER 24 HOURS, INCUBATION TO CONTINUE FOR 4 DAYS. Laboratory Tests 04/30/17 05/01/17 05/01/17 05:15 05:00 05:00 WBC 17.4 H 12.2 H Hgb 12.8 Hct 37.9 Plt Count 312 Total Bilirubin 0.8 Alkaline Phosphatase 139 H D Assessment Major issue rapid atrial fibrillation Leukocytosis ? respiratory CT reviewed unofficial shows bilateral pleural effusions minimal infiltrate Lactic acid normal LFTs improving SONO neg stones Plan Continue Zosyn another day then can switch po Await reading on CT scan lesia Pathak MD
--- NOTE | 2017-05-01 09:06 | PN ---
Progress Note, Physician Chief Complaint: Pt A&Ox3; less anxious; no palpitations. Slept well; good appetite. History of Present Illness: The patient is a 77 year old woman (mesfin Ballard), with a PMhistory of parkinson' s, afib\\, HTN, who presents from urgent care for evaluation of afib with RVR. The patient reports that she has a recent URI with cough and began feeling more fatigued over the past 2-3 days prompting her to present to urgent care where she was found to be in afib with RVR. She reports previous admissions for AF, and takes diltiazem and elaquis on a daily basis (reportedly did not take diltiazem today). She denies chest pain, fevers, chills, SOB, nausea, vomiting , or changes with urination or bowel movements; occasssional abdominal discomfort for "gallbladder problem". 10/2015: Persantine stress MIBI negative for ischemia; normal LVEF 10/2015 ECHO: normal LVEF; mild aortic root dilatation; moderate MR and TR; mild AK; mild biatrial enlargement. - Current Medication List Current Medications: Active Medications Apixaban (Eliquis -) 5 mg PO BID [facility] Carbidopa/Levodopa (Sinemet *Cr* 25/100 -) 1 combo PO TID [facility] Last Admin: 05/01/17 06:35 Dose: 1 combo Piperacillin/Tazobactam/Dextrose (Zosyn 4.5gm Ivpb (Premix)) 4.5 gm in 100 mls @ 200 mls/hr IVPB Q8H-IV [facility] PRN Reason: Protocol Last Admin: 05/01/17 01:30 Dose: 200 mls/hr Diltiazem HCl 125 mg/ Dextrose 125 mls @ 5 mls/hr IVPB TITR [facility]; 5 MG/HR PRN Reason: Protocol Last Admin: 04/30/17 12:20 Dose: 10 mg/hr, 10 mls/hr Dextrose/Sodium Chloride (D5-1/2ns -) 1,000 mls @ 75 mls/hr IV ASDIR [facility] Last Admin: 04/30/17 17:58 Dose: 75 mls/hr Metoclopramide HCl (Reglan -) 5 mg PO TIDAC [facility] Last Admin: 05/01/17 06:35 Dose: 5 mg Metoprolol Succinate (Toprol Xl -) 25 mg PO BID [facility] Last Admin: 04/30/17 21:45 Dose: 25 mg Ranitidine HCl (Zantac -) 150 mg PO BID [facility] Last Admin: 04/30/17 21:45 Dose: 150 mg - Objective Vital Signs: Vital Signs Temperature 97.5 F L 05/01/17 07:46 Pulse Rate 135 H 05/01/17 07:46 Respiratory Rate 18 05/01/17 07:46 Blood Pressure 86/57 05/01/17 07:46 O2 Sat by Pulse Oximetry (%) 95 05/01/17 07:55 Constitutional: Yes: Anxious Eyes: Yes: WNL HENT: Yes: WNL Neck: Yes: WNL Cardiovascular: Yes: Tachycardia, Pulse Irregular, S1 (varies) Respiratory: Yes: Diminished Gastrointestinal: Yes: Soft ...Rectal Exam: Yes: Deferred Genitourinary: No: Anuria Breast(s): Yes: WNL Musculoskeletal: Yes: Muscle Weakness Extremities: Yes: WNL Edema: No Peripheral Pulses WNL: Yes Integumentary: Yes: WNL Neurological: Yes: WNL Psychiatric: Yes: WNL Labs: CBC, BMP 05/01/17 05:00 05/01/17 05:00 INR, PTT INR 1.81 (0.82-1.09) H D 04/29/17 17:00 Abnormal Lab Results 05/01/17 05/01/17 05:00 05:00 WBC 12.2 H Random Glucose 200 H Calcium 7.8 L AST 46 H D Alkaline Phosphatase 139 H D Total Protein 5.0 L Albumin 2.4 L - ....Imaging Chest X-ray: Image Reviewed (significant CHF (increased from yesterday)) Other: Image Reviewed (telemetry: AF; generally rapid VR to 150 bpm) Problem List - Problems (1) Abdominal pain Code(s): R10.9 - UNSPECIFIED ABDOMINAL PAIN (2) Atrial fibrillation with rapid ventricular response Assessment/Plan: On diltiazem IV; metoprolol ER 25 mg bid PO was added last night. LFTs have improved; pt has been off amiodarone since last night. Will add digoxin (normal renal parameters); will load 0.5 mg IV x 1, followed by 0.25 mg q6hr x 3, then start 0.125 mg PO in am (when levels are checked, keep at 0.5-1.0). Keep K 4-4.5, Mg 2-2.3, PO4 2.5-3.5 (supplements given). Continue apixaban. CXR showed significant CHF. Discontinue IV fluids; give furosemide. Serial Is and Os, BUN/Cr; daily weight, electrolytes. . Code(s): I48.91 - UNSPECIFIED ATRIAL FIBRILLATION (3) SOB (shortness of breath) Code(s): R06.02 - SHORTNESS OF BREATH (4) Sepsis Assessment/Plan: Antibiotics per pulmonary and ID. Code(s): A41.9 - SEPSIS, UNSPECIFIED ORGANISM (5) CHF (congestive heart failure) Assessment/Plan: see "AF" Code(s): I50.9 - HEART FAILURE, UNSPECIFIED (6) Depressed affect Code(s): R45.89 - OTHER SYMPTOMS AND SIGNS INVOLVING EMOTIONAL STATE (7) Diabetes Code(s): E11.9 - TYPE 2 DIABETES MELLITUS WITHOUT COMPLICATIONS (8) Hyperlipidemia Assessment/Plan: Total cholesterol 101 mg/dL (apparently not on medication). Code(s): E78.5 - HYPERLIPIDEMIA, UNSPECIFIED (9) Insomnia Code(s): G47.00 - INSOMNIA, UNSPECIFIED (10) Leukocytosis Code(s): D72.829 - ELEVATED WHITE BLOOD CELL COUNT, UNSPECIFIED (11) Parkinson disease Code(s): G20 - PARKINSON'S DISEASE (12) Elevated LFTs Code(s): R79.89 - OTHER SPECIFIED ABNORMAL FINDINGS OF BLOOD CHEMISTRY
[2017-05-01] MEDS: METOPROLOL SUCCINATE 25 MG TAB.SR.24H (FP) PO SCH ×2 (09:14→21:26)
[2017-05-01] MEDS: RANITIDINE HCL 150 MG TABLET (FP) PO SCH ×2 (09:14→21:24)
[2017-05-01] MEDS ORDERED: PT OWN MED DRAWER 7, Y5N ONE ×3 (09:21→20:36)
[2017-05-01] MEDS: APIXABAN 5 MG TABLET PO SCH ×2 (09:22→21:47)
[2017-05-01] MEDS ORDERED: DIGOXIN 0.5 MG/2 ML AMPUL IVPUSH ONE (10:00)
[2017-05-01] MEDS ORDERED: POTASSIUM CHLORIDE TABS 20 MEQ TABLET.ER (FP) PO SCH (10:00)
--- NOTE | 2017-05-01 10:26 | PN ---
Progress Note (short form) - Note Progress Note: PULMONARY/CCM Pt seen and examined in the ICU. Abdominal pain improving. Heart rates still rapid. Some shortness of breath. Last Vital Signs Temp Pulse Resp BP Pulse Ox 97.5 F L 138 H 18 100/86 95 05/01/17 07:46 05/01/17 09:32 05/01/17 07:46 05/01/17 09:01 05/01/17 07:55 Intake & Output 04/28/17 04/29/17 04/30/17 05/01/17 23:59 23:59 23:59 23:59 Intake Total 2250 585 695 Output Total 2100 1200 Balance 2250 -2355 -505 Weight 55.6 kg 54.119 kg Gen: mildly tachypneic at rest Heart: tachycardic, irregular Lung: basilar rales, rhonchi Abd: soft, nontender Ext: + edema CBC, BMP 05/01/17 05:00 05/01/17 05:00 Active Medications Apixaban (Eliquis -) 5 mg PO BID [facility] Last Admin: 05/01/17 09:22 Dose: 5 mg Carbidopa/Levodopa (Sinemet *Cr* 25/100 -) 1 combo PO TID [facility] Last Admin: 05/01/17 06:35 Dose: 1 combo Piperacillin/Tazobactam/Dextrose (Zosyn 4.5gm Ivpb (Premix)) 4.5 gm in 100 mls @ 200 mls/hr IVPB Q8H-IV [facility] PRN Reason: Protocol Last Admin: 05/01/17 09:14 Dose: 200 mls/hr Diltiazem HCl 125 mg/ Dextrose 125 mls @ 5 mls/hr IVPB TITR [facility]; 5 MG/HR PRN Reason: Protocol Last Admin: 04/30/17 12:20 Dose: 10 mg/hr, 10 mls/hr Magnesium Oxide (Mag-Ox -) 400 mg PO ONCE ONE Stop: 05/01/17 11:01 Last Admin: 05/01/17 10:21 Dose: 400 mg Metoclopramide HCl (Reglan -) 5 mg PO TIDAC [facility] Last Admin: 05/01/17 10:21 Dose: 5 mg Metoprolol Succinate (Toprol Xl -) 25 mg PO BID [facility] Last Admin: 05/01/17 09:14 Dose: 25 mg Potassium Chloride (K-Dur -) 20 meq PO BID [facility] Stop: 05/01/17 22:01 Last Admin: 05/01/17 10:21 Dose: 20 meq Ranitidine HCl (Zantac -) 150 mg PO BID [facility] Last Admin: 05/01/17 09:14 Dose: 150 mg A/P Acute on Chronic Diastolic Heart Failure Atrial Fibrillation with RVR HTN DM Hyperlipidemia Parkinsons Disease Elevated LFTs improving - on empiric antibiotics - f/u cultures - rate control with cardizem gtt, metoprolol - agree with starting digoxin - IV lasix today - continue anticoagulation - replete lytes - O2 to keep SpO2 >90% - continue ICU monitoring critical care time spent in reviewing chart, evaluating patient and formulating pln 35 min
[2017-05-01] MEDS ORDERED: MAGNESIUM OXIDE 400 MG TABLET (FP) PO ONE (11:00)
[2017-05-01] MEDS ORDERED: dilTIAZem HCL 125 MG/25 ML - 5 ML VIAL ONE (12:21)
[2017-05-01] MEDS: DILTIAZEM INJECTION 125 MG in DEXTROSE 5%-WATER - 100 ML IVPB SCH (12:44)
[2017-05-01] MEDS: DIGOXIN 0.5 MG/2 ML AMPUL IVPUSH SCH ×2 (15:31→21:46)
[2017-05-01] MEDS ORDERED: FUROSEMIDE 40 MG/4 ML INJECTABLE VIAL IVPUSH STA (16:04)
--- NOTE | 2017-05-01 18:28 | PN ---
Progress Note, Physician History of Present Illness: Has been hoarse and coughing up yellow purulent sputum. Denies any wheezing or SOB. Denies any chest pain. - Current Medication List Current Medications: Active Medications Apixaban (Eliquis -) 5 mg PO BID [facility] Last Admin: 05/01/17 09:22 Dose: 5 mg Carbidopa/Levodopa (Sinemet *Cr* 25/100 -) 1 combo PO TID [facility] Last Admin: 05/01/17 13:10 Dose: 1 combo Digoxin (Lanoxin Injection -) 0.25 mg IVPUSH Q6H [facility] Last Admin: 05/01/17 15:31 Dose: 0.25 mg Digoxin (Lanoxin -) 0.125 mg PO DAILY [facility] Piperacillin/Tazobactam/Dextrose (Zosyn 4.5gm Ivpb (Premix)) 4.5 gm in 100 mls @ 200 mls/hr IVPB Q8H-IV [facility] PRN Reason: Protocol Last Admin: 05/01/17 17:07 Dose: 200 mls/hr Metoclopramide HCl (Reglan -) 5 mg PO TIDAC [facility] Last Admin: 05/01/17 15:34 Dose: 5 mg Metoprolol Succinate (Toprol Xl -) 25 mg PO BID [facility] Last Admin: 05/01/17 09:14 Dose: 25 mg Potassium Chloride (K-Dur -) 20 meq PO DAILY [facility] Ranitidine HCl (Zantac -) 150 mg PO BID [facility] Last Admin: 05/01/17 09:14 Dose: 150 mg - Objective Vital Signs: Vital Signs Temperature 98 F 05/01/17 18:18 Pulse Rate 130 H 05/01/17 18:18 Respiratory Rate 18 05/01/17 18:18 Blood Pressure 131/88 05/01/17 18:18 O2 Sat by Pulse Oximetry (%) 95 05/01/17 07:55 Constitutional: Yes: No Distress, Calm Eyes: Yes: WNL HENT: Yes: WNL Neck: Yes: Supple Cardiovascular: Yes: Tachycardia, S1, S2 Respiratory: Yes: Regular, Rales Gastrointestinal: Yes: Normal Bowel Sounds, Soft Genitourinary: Yes: WNL Breast(s): Yes: WNL Musculoskeletal: Yes: Back Pain Extremities: Yes: WNL Edema: No Peripheral Pulses WNL: Yes Integumentary: Yes: WNL ...Motor Strength: WNL Psychiatric: Yes: Alert, Oriented Labs: CBC, BMP 05/01/17 05:00 05/01/17 05:00 INR, PTT INR 1.81 (0.82-1.09) H D 04/29/17 17:00 - ....Imaging Chest X-ray: Report Reviewed, Image Reviewed Problem List - Problems (1) Atrial fibrillation with rapid ventricular response Assessment/Plan: VR continues to be rapid inspita of Toprol. Not responding to Cardizem drip and it D/C.Digoxin added. Code(s): I48.91 - UNSPECIFIED ATRIAL FIBRILLATION (2) Elevated LFTs Assessment/Plan: LFTs have improved.Etioogy to be determined. Code(s): R79.89 - OTHER SPECIFIED ABNORMAL FINDINGS OF BLOOD CHEMISTRY (3) SOB (shortness of breath) Assessment/Plan: CHF is worse as chest XRay shows more biletarl fluid. IV Lasix given. Code(s): R06.02 - SHORTNESS OF BREATH (4) Sepsis Assessment/Plan: Cultures are negative so far. Most likely URI or possibility of pneumonia Code(s): A41.9 - SEPSIS, UNSPECIFIED ORGANISM (5) CHF (congestive heart failure) Assessment/Plan: IV Lasix given as chest XRAY shows worsening effusion. Code(s): I50.9 - HEART FAILURE, UNSPECIFIED Assessment/Plan Continue IV antibiotics with Zosyn as leukocytosis improving and she remains afebrile. AFIB with RVR being controlled with Toprol and Dig. Co
[2017-05-01] MEDS ORDERED: dilTIAZem HCL 50 MG/10 ML - 10 ML VIAL IVPUSH ONE (20:15)
[2017-05-01] MEDS ORDERED: METOPROLOL SUCCINATE 25 MG TAB.SR.24H (FP) PO STA (23:47)
[2017-05-02] MEDS ORDERED: FUROSEMIDE 40 MG/4 ML INJECTABLE VIAL IVPUSH ONE ×2 (00:07→18:00)
[2017-05-02] MEDS: PIPERACILLIN/TAZOB 4.5 GM 4.5 GM/100 ML BAG IVPB SCH ×3 (02:38→18:01)
[2017-05-02] MEDS ORDERED: dilTIAZem HCL 50 MG/10 ML - 10 ML VIAL IVPUSH ONE (02:50)
[2017-05-02] MEDS: DIGOXIN 0.5 MG/2 ML AMPUL IVPUSH SCH (03:12)
[2017-05-02 05:55] LABS: BASO % 0.5 % (0-2.0); EOS % 0.7 % (0-4.5); HEMOGLOBIN 13.9 GM/dL (10.7-15.3); LYMPH % 9.9 % (8-40); MCHC 33.8 g/dl (32.0-36.0); MEAN CELL VOLUME 94.6 fl (80-96); MEAN PLT VOLUME 8.5 fl (7.5-11.1); MONO % 8.1 % (3.8-10.2); NEUT % 80.8 % (42.8-82.8); PLATELET COUNT 357 K/MM3 (134-434); RBC 4.34 M/mm3 (3.60-5.2); RDW 13.1 % (11.6-15.6); WHITE BLOOD COUNT 14.6 K/mm3 (4.0-10.0)
[2017-05-02] MEDS ORDERED: PT OWN MED DRAWER 7, Y5N ONE ×6 (06:07→21:06)
[2017-05-02 06:19] LABS: ALBUMIN 2.6 g/dl (3.4-5.0); ANION GAP 12 (8-16); BLOOD UREA NITROGEN 10 mg/dL (7-18); CALCIUM 8.6 mg/dL (8.5-10.1); CHLORIDE 97 mmol/L (98-107); CO2 28 mmol/L (21-32); GLUCOSE,RANDOM 200 mg/dL (74-106); MAGNESIUM 1.7 mg/dL (1.8-2.4); PHOSPHOROUS 3.8 mg/dL (2.5-4.9); POTASSIUM 3.9 mmol/L (3.5-5.1); SODIUM 137 mmol/L (136-145)
[2017-05-02 06:22] LABS: ALK PHOS 136 U/L (45-117); BILIRUBIN,TOTAL 0.8 mg/dL (0.2-1.0); CREATININE 0.7 mg/dL (0.55-1.02); SGOT/AST 27 U/L (15-37); SGPT/ALT 34 U/L (12-78); TOT PROT 5.4 g/dl (6.4-8.2)
[2017-05-02] MEDS: METOCLOPRAMIDE HCL 10 MG TABLET (FP) PO SCH ×3 (06:35→18:00)
[2017-05-02] MEDS ORDERED: FUROSEMIDE 40 MG/4 ML INJECTABLE VIAL IVPUSH STA ×2 (08:08→09:03)
[2017-05-02] MEDS: DIGOXIN 0.125 MG TABLET (FP) PO SCH (09:38)
[2017-05-02] MEDS: METOPROLOL SUCCINATE 25 MG TAB.SR.24H (FP) PO SCH (09:39)
[2017-05-02] MEDS: RANITIDINE HCL 150 MG TABLET (FP) PO SCH ×2 (09:39→21:42)
[2017-05-02] MEDS: POTASSIUM CHLORIDE TABS 20 MEQ TABLET.ER (FP) PO SCH (09:39)
[2017-05-02] MEDS ORDERED: METOPROLOL TARTRATE 5 MG/5 ML VIAL IVPUSH ONE (09:45)
--- NOTE | 2017-05-02 09:50 | PN ---
Progress Note (short form) - Note Progress Note: PULMONARY/CCM Pt seen and examined in the ICU. Heart rates remain rapid, cardizem gtt stopped. Diuresed well with lasix, states breathing is better. Denies chest pain. Abdominal pain resolved. Last Vital Signs Temp Pulse Resp BP Pulse Ox 99 F 144 H 21 114/46 95 05/02/17 06:00 05/02/17 09:42 05/02/17 06:00 05/02/17 06:00 05/01/17 21:00 Intake & Output 04/29/17 04/30/17 05/01/17 05/02/17 23:59 23:59 23:59 23:59 Intake Total 2250 585 1815 200 Output Total 2100 4200 1700 Balance 2250 -1515 -2385 -1500 Weight 55.6 kg 54.119 kg 68.991 kg Gen: mildly tachypneic at rest Heart: tachycardic, irregular Lung: basilar rales, rhonchi Abd: soft, nontender Ext: + edema CBC, BMP 05/02/17 05:10 05/02/17 05:10 Active Medications Apixaban (Eliquis -) 5 mg PO BID [facility] Last Admin: 05/01/17 21:47 Dose: 5 mg Carbidopa/Levodopa (Sinemet *Cr* 25/100 -) 1 combo PO TID [facility] Last Admin: 05/02/17 06:12 Dose: 1 combo Digoxin (Lanoxin -) 0.125 mg PO DAILY [facility] Last Admin: 05/02/17 09:38 Dose: 0.125 mg Piperacillin/Tazobactam/Dextrose (Zosyn 4.5gm Ivpb (Premix)) 4.5 gm in 100 mls @ 200 mls/hr IVPB Q8H-IV [facility] PRN Reason: Protocol Last Admin: 05/02/17 09:39 Dose: 200 mls/hr Metoclopramide HCl (Reglan -) 5 mg PO TIDAC [facility] Last Admin: 05/02/17 06:35 Dose: 5 mg Metoprolol Succinate (Toprol Xl -) 25 mg PO BID [facility] Last Admin: 05/02/17 09:39 Dose: 25 mg Mirtazapine (Remeron -) 45 mg PO [facility] Potassium Chloride (K-Dur -) 20 meq PO DAILY [facility] Last Admin: 05/02/17 09:39 Dose: 20 meq Ranitidine HCl (Zantac -) 150 mg PO BID [facility] Last Admin: 05/02/17 09:39 Dose: 150 mg A/P Acute on Chronic Diastolic Heart Failure Atrial Fibrillation with RVR HTN DM Hyperlipidemia Parkinsons Disease Elevated LFTs improving - on empiric antibiotics - f/u cultures - rate control, titrate metoprolol up - continue digoxin - continue IV lasix today - continue anticoagulation - replete lytes - O2 to keep SpO2 >90% - continue ICU monitoring critical care time spent in reviewing chart, evaluating patient and formulating plan 35 min
[2017-05-02] MEDS ORDERED: METOPROLOL TARTRATE 5 MG/5 ML VIAL IVPUSH PRN (09:51)
[2017-05-02] MEDS ORDERED: MAGNESIUM OXIDE 400 MG TABLET (FP) PO ONE (10:00)
[2017-05-02] MEDS ORDERED: MAGNESIUM SULF 50% (8.12 MEQ/2 ML-1 GM VIAL) IVPB ONE (10:00)
--- NOTE | 2017-05-02 10:13 | PN ---
Progress Note, Physician Chief Complaint: Pt A&Ox3; denies shortness of breath, palpitations, or chest pain. History of Present Illness: The patient is a 77 year old woman (mesfin Nellie), with a PMhistory of parkinson' s, afib\\, HTN, who presents from urgent care for evaluation of afib with RVR. The patient reports that she has a recent URI with cough and began feeling more fatigued over the past 2-3 days prompting her to present to urgent care where she was found to be in afib with RVR. She reports previous admissions for AF, and takes diltiazem and elaquis on a daily basis (reportedly did not take diltiazem today). She denies chest pain, fevers, chills, SOB, nausea, vomiting , or changes with urination or bowel movements; occasssional abdominal discomfort for "gallbladder problem". 10/2015: Persantine stress MIBI negative for ischemia; normal LVEF 10/2015 ECHO: normal LVEF; mild aortic root dilatation; moderate MR and TR; mild MO; mild biatrial enlargement. - Current Medication List Current Medications: Active Medications Apixaban (Eliquis -) 5 mg PO BID [facility] Last Admin: 05/01/17 21:47 Dose: 5 mg Carbidopa/Levodopa (Sinemet *Cr* 25/100 -) 1 combo PO TID [facility] Last Admin: 05/02/17 06:12 Dose: 1 combo Digoxin (Lanoxin -) 0.125 mg PO DAILY [facility] Last Admin: 05/02/17 09:38 Dose: 0.125 mg Furosemide (Lasix Injection -) 40 mg IVPUSH ONCE ONE Stop: 05/02/17 18:01 Piperacillin/Tazobactam/Dextrose (Zosyn 4.5gm Ivpb (Premix)) 4.5 gm in 100 mls @ 200 mls/hr IVPB Q8H-IV [facility] PRN Reason: Protocol Last Admin: 05/02/17 09:39 Dose: 200 mls/hr Metoclopramide HCl (Reglan -) 5 mg PO TIDAC [facility] Last Admin: 05/02/17 06:35 Dose: 5 mg Metoprolol Tartrate (Lopressor -) 50 mg PO TID [facility] Metoprolol Tartrate (Lopressor Injection -) 5 mg IVPUSH Q4H PRN PRN Reason: HR > 120 Mirtazapine (Remeron -) 45 mg PO HS [facility] Potassium Chloride (K-Dur -) 20 meq PO DAILY [facility] Last Admin: 05/02/17 09:39 Dose: 20 meq Ranitidine HCl (Zantac -) 150 mg PO BID [facility] Last Admin: 05/02/17 09:39 Dose: 150 mg Zolpidem Tartrate (Ambien -) 5 mg PO HS PRN PRN Reason: INSOMNIA - Objective Vital Signs: Vital Signs Temperature 99 F 05/02/17 06:00 Pulse Rate 144 H 05/02/17 09:42 Respiratory Rate 20 05/02/17 10:00 Blood Pressure 115/66 05/02/17 09:00 O2 Sat by Pulse Oximetry (%) 95 05/02/17 10:00 Constitutional: Yes: Anxious Eyes: Yes: WNL HENT: Yes: WNL Neck: Yes: WNL Cardiovascular: Yes: S1 (varies in intensity), S2 Respiratory: Yes: Diminished Gastrointestinal: Yes: Soft ...Rectal Exam: Yes: Deferred Genitourinary: No: Anuria Musculoskeletal: Yes: Muscle Weakness Extremities: Yes: Cool Edema: No Peripheral Pulses WNL: No Integumentary: Yes: WNL Neurological: Yes: Weakness Psychiatric: Yes: Alert, Oriented Labs: CBC, BMP 05/02/17 05:10 05/02/17 05:10 INR, PTT INR 1.81 (0.82-1.09) H D 04/29/17 17:00 Problem List - Problems (1) Abdominal pain Code(s): R10.9 - UNSPECIFIED ABDOMINAL PAIN (2) Atrial fibrillation with rapid ventricular response Assessment/Plan: Off diltiazem; continue metoprolol and digoxin. Pt for furosemide bid today (remains with significant CXR CHF changes, though comfortable (not dyspneic), no JVD). . Code(s): I48.91 - UNSPECIFIED ATRIAL FIBRILLATION (3) SOB (shortness of breath) Code(s): R06.02 - SHORTNESS OF BREATH (4) Sepsis Assessment/Plan: Antibiotics per pulmonary and ID. Code(s): A41.9 - SEPSIS, UNSPECIFIED ORGANISM (5) CHF (congestive heart failure) Assessment/Plan: see "AF" Code(s): I50.9 - HEART FAILURE, UNSPECIFIED (6) Depressed affect Code(s): R45.89 - OTHER SYMPTOMS AND SIGNS INVOLVING EMOTIONAL STATE (7) Diabetes Code(s): E11.9 - TYPE 2 DIABETES MELLITUS WITHOUT COMPLICATIONS (8) Hyperlipidemia Assessment/Plan: Total cholesterol 101 mg/dL (apparently not on medication). Code(s): E78.5 - HYPERLIPIDEMIA, UNSPECIFIED (9) Insomnia Code(s): G47.00 - INSOMNIA, UNSPECIFIED (10) Leukocytosis Code(s): D72.829 - ELEVATED WHITE BLOOD CELL COUNT, UNSPECIFIED (11) Parkinson disease Code(s): G20 - PARKINSON'S DISEASE (12) Elevated LFTs Code(s): R79.89 - OTHER SPECIFIED ABNORMAL FINDINGS OF BLOOD CHEMISTRY
[2017-05-02] MEDS: APIXABAN 5 MG TABLET PO SCH ×2 (11:16→21:41)
[2017-05-02] MEDS: METOPROLOL TARTRATE 50 MG TABLET (FP) PO SCH ×2 (15:09→21:40)
--- NOTE | 2017-05-02 15:21 | EKG ---
Test Reason : Blood Pressure : / mmHG Vent. Rate : 148 BPM Atrial Rate : 159 BPM P-R Int : 000 ms QRS Dur : 092 ms QT Int : 274 ms P-R-T Axes : 000 007 -59 degrees QTc Int : 430 ms ATRIAL FIBRILLATION WITH RAPID VENTRICULAR RESPONSE NONSPECIFIC T WAVE ABNORMALITY ABNORMAL ECG WHEN COMPARED WITH ECG OF 29-APR-2017 16:44, NO SIGNIFICANT CHANGE WAS FOUND Confirmed by MARYBETH ADAIR MD ([id number]) on 05/02/2017 3:21:04 PM Referred By: SILVERIO CASTORENA Confirmed By:MARYBETH ADAIR MD
[2017-05-02] MEDS ORDERED: LEVOFLOXACIN 500 MG IVPB 500 MG/100 ML BAG IVPB ONE (15:30)
[2017-05-02] MEDS: MIRTAZAPINE 15 MG TABLET (FP) PO SCH (21:40)
[2017-05-02] MEDS: ZOLPIDEM TARTRATE 5 MG TABLET PO PRN (21:41)
[2017-05-03] MEDS: PIPERACILLIN/TAZOB 4.5 GM 4.5 GM/100 ML BAG IVPB SCH (02:51)
[2017-05-03] MEDS: METOPROLOL TARTRATE 50 MG TABLET (FP) PO SCH ×3 (06:10→21:25)
[2017-05-03 06:17] LABS: BASO % 0.5 % (0-2.0); EOS % 1.6 % (0-4.5); HEMATOCRIT 43.2 % (32.4-45.2); HEMOGLOBIN 14.5 GM/dL (10.7-15.3); MCH 32.1 pg (25.7-33.7); MCHC 33.6 g/dl (32.0-36.0); MEAN CELL VOLUME 95.5 fl (80-96); MEAN PLT VOLUME 8.6 fl (7.5-11.1); MONO % 9.7 % (3.8-10.2); NEUT % 73.2 % (42.8-82.8); PLATELET COUNT 420 K/MM3 (134-434); RBC 4.52 M/mm3 (3.60-5.2); RDW 13.3 % (11.6-15.6); WHITE BLOOD COUNT 14.1 K/mm3 (4.0-10.0)
[2017-05-03 06:26] LABS: ALBUMIN 2.5 g/dl (3.4-5.0); ANION GAP 11 (8-16); BLOOD UREA NITROGEN 15 mg/dL (7-18); CALCIUM 8.7 mg/dL (8.5-10.1); CHLORIDE 97 mmol/L (98-107); CO2 30 mmol/L (21-32); GLUCOSE,RANDOM 216 mg/dL (74-106); MAGNESIUM 2.2 mg/dL (1.8-2.4); PHOSPHOROUS 4.4 mg/dL (2.5-4.9); POTASSIUM 3.8 mmol/L (3.5-5.1); SGOT/AST 23 U/L (15-37); SODIUM 138 mmol/L (136-145)
[2017-05-03 06:28] LABS: ALK PHOS 128 U/L (45-117); BILIRUBIN,TOTAL 0.8 mg/dL (0.2-1.0); CREATININE 0.7 mg/dL (0.55-1.02); SGPT/ALT 22 U/L (12-78); TOT PROT 5.6 g/dl (6.4-8.2)
[2017-05-03] MEDS: METOCLOPRAMIDE HCL 10 MG TABLET (FP) PO SCH ×3 (07:28→17:30)
--- NOTE | 2017-05-03 09:35 | PN ---
Progress Note (short form) - Note Progress Note: no abdominal pain less sob still with cough with yellow sputum Vital Signs Period Temp Pulse Resp BP Sys/Jerry Pulse Ox Last 24 Hr 98.6 F-98.8 F 108-151 17-21 93-120/46-81 95-95 cor-rrr, tachy llungs bilateral rhonchi abd soft,nt ext no edema CBC, BMP 05/03/17 05:05 05/03/17 05:05 Microbiology 04/29/17 22:16 Blood - Peripheral Venous Blood Culture - Preliminary NO GROWTH OBTAINED AFTER 72 HOURS, INCUBATION TO CONTINUE FOR 2 DAYS. 04/29/17 22:16 Blood - Peripheral Venous Blood Culture - Preliminary NO GROWTH OBTAINED AFTER 72 HOURS, INCUBATION TO CONTINUE FOR 2 DAYS. 04/30/17 02:51 Nasopharyngeal Swab Influenza Types A,B Antigen (JORGE) - Final 04/30/17 02:51 Nasopharyngeal Swab - Final Current Medications Apixaban (Eliquis -) 5 mg PO BID [facility] Last Admin: 05/02/17 21:41 Dose: 5 mg Carbidopa/Levodopa (Sinemet *Cr* 25/100 -) 1 combo PO TID [facility] Last Admin: 05/03/17 06:10 Dose: 1 combo Digoxin (Lanoxin -) 0.125 mg PO DAILY [facility] Last Admin: 05/02/17 09:38 Dose: 0.125 mg Piperacillin/Tazobactam/Dextrose (Zosyn 4.5gm Ivpb (Premix)) 4.5 gm in 100 mls @ 200 mls/hr IVPB Q8H-IV [facility] PRN Reason: Protocol Last Admin: 05/03/17 02:51 Dose: 200 mls/hr Levofloxacin (Levaquin 500 Mg Premixed Ivpb -) 500 mg in 100 mls @ 100 mls/hr IVPB DAILY [facility] Metoclopramide HCl (Reglan -) 5 mg PO TIDAC [facility] Last Admin: 05/03/17 07:28 Dose: 5 mg Metoprolol Tartrate (Lopressor -) 50 mg PO TID [facility] Last Admin: 05/03/17 06:10 Dose: 50 mg Metoprolol Tartrate (Lopressor Injection -) 5 mg IVPUSH Q4H PRN PRN Reason: HR > 120 Mirtazapine (Remeron -) 45 mg PO HS [facility] Last Admin: 05/02/17 21:40 Dose: 45 mg Potassium Chloride (K-Dur -) 20 meq PO DAILY [facility] Last Admin: 05/02/17 09:39 Dose: 20 meq Ranitidine HCl (Zantac -) 150 mg PO BID [facility] Last Admin: 05/02/17 21:42 Dose: 150 mg Zolpidem Tartrate (Ambien -) 5 mg PO HS PRN PRN Reason: INSOMNIA Last Admin: 05/02/17 21:41 Dose: [address] scan abd/pelvis- no acute process a/p lelukocytosis ?pneumonia CHF rapid afib started on levaquin yesterday d/c zosyn check sputum culture check legionella urinary antigen
[2017-05-03] MEDS ORDERED: LEVOFLOXACIN 500 MG IVPB 500 MG/100 ML BAG IVPB SCH (10:00)
[2017-05-03] MEDS ORDERED: CEFUROXIME AXETIL 500 MG TABLET PO SCH (10:45)
[2017-05-03] MEDS ORDERED: PT OWN MED DRAWER 7, Y5N ONE (10:46)
[2017-05-03] MEDS: APIXABAN 5 MG TABLET PO SCH ×2 (11:32→21:24)
[2017-05-03] MEDS: RANITIDINE HCL 150 MG TABLET (FP) PO SCH ×2 (11:32→21:29)
[2017-05-03] MEDS: POTASSIUM CHLORIDE TABS 20 MEQ TABLET.ER (FP) PO SCH (11:32)
[2017-05-03] MEDS: DIGOXIN 0.125 MG TABLET (FP) PO SCH (11:40)
[2017-05-03] MEDS: FUROSEMIDE 40 MG/4 ML INJECTABLE VIAL IVPUSH SCH (12:49)
--- NOTE | 2017-05-03 12:49 | PN ---
Teaching Attending Note Name of Resident: Anayeli Dupont ATTENDING PHYSICIAN STATEMENT I saw and evaluated the patient. I reviewed the resident's note and discussed the case with the resident. I agree with the resident's findings and plan as documented. SUBJECTIVE: Patient seen and examined in the ICU. Heart rates remain rapid. Diuresed well with lasix yesterday. Reports breathing is better. Denies chest pain. No abdominal pain. Intake & Output 04/30/17 05/01/17 05/02/17 05/03/17 23:59 23:59 23:59 23:59 Intake Total 585 1815 300 150 Output Total 2100 4200 4500 900 Balance -1515 -2385 -4200 -750 Weight 119 lb 5 oz 152 lb 1.6 oz 145 lb 1.027 oz Last Vital Signs Temp Pulse Resp BP Pulse Ox 98.6 F 135 H 20 93/46 95 05/03/17 05:58 05/03/17 11:40 05/03/17 05:58 05/03/17 05:58 05/02/17 21:00 Active Medications Apixaban (Eliquis -) 5 mg PO BID [facility] Last Admin: 05/03/17 11:32 Dose: 5 mg Carbidopa/Levodopa (Sinemet *Cr* 25/100 -) 1 combo PO TID [facility] Last Admin: 05/03/17 06:10 Dose: 1 combo Cefuroxime Axetil (Ceftin -) 500 mg PO BID [facility] Last Admin: 05/03/17 11:40 Dose: 500 mg Digoxin (Lanoxin -) 0.125 mg PO DAILY [facility] Last Admin: 05/03/17 11:40 Dose: 0.125 mg Furosemide (Lasix Injection -) 40 mg IVPUSH DAILY [facility] Insulin Aspart (Novolog Vial Sliding Scale -) 1 vial SQ ACHS [facility] PRN Reason: Protocol Metoclopramide HCl (Reglan -) 5 mg PO TIDAC [facility] Last Admin: 05/03/17 11:33 Dose: 5 mg Metoprolol Tartrate (Lopressor -) 50 mg PO TID [facility] Last Admin: 05/03/17 06:10 Dose: 50 mg Metoprolol Tartrate (Lopressor Injection -) 5 mg IVPUSH Q4H PRN PRN Reason: HR > 120 Mirtazapine (Remeron -) 45 mg PO HS [facility] Last Admin: 05/02/17 21:40 Dose: 45 mg Potassium Chloride (K-Dur -) 20 meq PO DAILY [facility] Last Admin: 05/03/17 11:32 Dose: 20 meq Ranitidine HCl (Zantac -) 150 mg PO BID [facility] Last Admin: 05/03/17 11:32 Dose: 150 mg Zolpidem Tartrate (Ambien -) 5 mg PO HS PRN PRN Reason: INSOMNIA Last Admin: 05/02/17 21:41 Dose: 5 mg Gen: Awake and alert, mildly tachypneic at rest Heart: tachycardic, irregular Lung: basilar rales, rhonchi Abd: soft, nontender Ext: + edema Laboratory Results - last 24 hr 05/03/17 05/03/17 05:05 05:05 WBC 14.1 H RBC 4.52 Hgb 14.5 Hct 43.2 MCV 95.5 MCH 32.1 MCHC 33.6 RDW 13.3 Plt Count 420 MPV 8.6 Neutrophils % 73.2 Lymphocytes % 15.0 D Monocytes % 9.7 Eosinophils % 1.6 D Basophils % 0.5 Sodium 138 Potassium 3.8 Chloride 97 L Carbon Dioxide 30 Anion Gap 11 BUN 15 D Creatinine 0.7 Creat Clearance w eGFR > 60 Random Glucose 216 H Calcium 8.7 Phosphorus 4.4 Magnesium 2.2 D Total Bilirubin 0.8 AST 23 ALT 22 D Alkaline Phosphatase 128 H Total Protein 5.6 L Albumin 2.5 L IMP: Acute on Chronic Diastolic Heart Failure Atrial Fibrillation with RVR HTN DM Hyperlipidemia Parkinsons Disease Elevated LFTs improving - Ceftin PO - f/u cultures - rate control per Cardiology - continue digoxin - continue IV lasix today - continue anticoagulation - replete lytes - O2 to keep SpO2 >90% - Cardiac Telemetry monitoring Dr Calhoun Critical care time spent in reviewing chart, evaluating patient and formulating plan 40 min
--- NOTE | 2017-05-03 13:20 | PN ---
Physical Exam: SUBJECTIVE: Patient seen and examined. No more abdominal pain, no chest pain. Still has productive cough OBJECTIVE: Vital Signs Period Temp Pulse Resp BP Sys/Jerry Pulse Ox Last 24 Hr 98.6 F-98.8 F 108-151 17-21 93-120/46-81 95 GENERAL: The patient is awake, alert, and fully oriented, in no acute distress. HEAD: Normal with no signs of trauma. EYES: PERRL, anicteric, not pale ENT: oropharynx clear without exudates, moist mucous membranes. NECK: No elevated JVD, full range of motion, supple. LUNGS: Breath sounds equal, clear to auscultation bilaterally, no wheezes, no crackles, no accessory muscle use. HEART: Tachycardic, S1, S2 without murmur, rub or gallop. ABDOMEN: Soft, nontender, nondistended, normoactive bowel sounds EXTREMITIES: 2+ pulses, warm, well-perfused, no edema. NEUROLOGICAL: Muscle strength 4/5 RLE, 5/5 LLE, Normal speech, gait not observed. PSYCH: Normal mood, normal affect. SKIN: Warm, dry, normal turgor, no rashes or lesions noted : Cantrell catheter in place- Laboratory Results - last 24 hr 05/03/17 05/03/17 05:05 05:05 WBC 14.1 H RBC 4.52 Hgb 14.5 Hct 43.2 MCV 95.5 MCH 32.1 MCHC 33.6 RDW 13.3 Plt Count 420 MPV 8.6 Neutrophils % 73.2 Lymphocytes % 15.0 D Monocytes % 9.7 Eosinophils % 1.6 D Basophils % 0.5 Sodium 138 Potassium 3.8 Chloride 97 L Carbon Dioxide 30 Anion Gap 11 BUN 15 D Creatinine 0.7 Creat Clearance w eGFR > 60 Random Glucose 216 H Calcium 8.7 Phosphorus 4.4 Magnesium 2.2 D Total Bilirubin 0.8 AST 23 ALT 22 D Alkaline Phosphatase 128 H Total Protein 5.6 L Albumin 2.5 L Active Medications Generic Name Dose Route Start Last Admin Trade Name Freq PRN Reason Stop Dose Admin Apixaban 5 mg 04/30/17 10:00 05/03/17 11:32 Eliquis - PO 5 mg BID [facility] Administration Carbidopa/Levodopa 1 combo 04/30/17 08:30 05/03/17 06:10 Sinemet *Cr* 25/100 - PO 1 combo TID [facility] Administration Cefuroxime Axetil 500 mg 05/03/17 10:45 05/03/17 11:40 Ceftin - PO 500 mg BID [facility] Administration Digoxin 0.125 mg 05/02/17 10:00 05/03/17 11:40 Lanoxin - PO 0.125 mg DAILY [facility] Administration Furosemide 40 mg 05/03/17 12:15 05/03/17 12:49 Lasix Injection - IVPUSH 40 mg DAILY [facility] Administration Metformin HCl 500 mg 05/03/17 13:00 Glucophage Xr - PO DAILY@0700 [facility] Metoclopramide HCl 5 mg 04/30/17 20:00 05/03/17 11:33 Reglan - PO 5 mg TIDAC [facility] Administration Metoprolol Tartrate 50 mg 05/02/17 14:00 05/03/17 06:10 Lopressor - PO 50 mg TID [facility] Administration Metoprolol Tartrate 5 mg 05/02/17 09:51 Lopressor Injection - IVPUSH Q4H PRN HR > 120 Mirtazapine 45 mg 05/02/17 22:00 05/02/17 21:40 Remeron - PO 45 mg HS [facility] Administration Potassium Chloride 20 meq 05/02/17 10:00 05/03/17 11:32 K-Dur - PO 20 meq DAILY [facility] Administration Ranitidine HCl 150 mg 04/30/17 22:00 05/03/17 11:32 Zantac - PO 150 mg BID [facility] Administration Zolpidem Tartrate 5 mg 05/02/17 09:57 05/02/17 21:41 Ambien - PO 5 mg HS PRN Administration INSOMNIA ASSESSMENT/PLAN: 77 yo F with PMHx of DM, Parkinson's disease, HLD and severe osteoarthritis of the LS spine being managed in ICU for Afib with RVR following a presentation of abdominal pain and s/p URTI. Cardio: Still in RVR Improved hypotension Pulmonary edema/CHF on CXR Improving symptoms on diuresis D/w Dr Calhoun and Dr Felton Continue Lopressor 50mg tid iv lopressor 5mg PRN Diltiazem on hold for now Continue digoxin 0.125mg daily iv digoxin 40mg daily Eliquis 5mg bid CXR Tele monitoring Cont Eliquis 5mg bid Lipitor 20mg daily Respiration: Remains extubated on 2L [place] oxygen Start ceftin 500mg bid (received zosyn x 3 days) Stop Levaquin (considering her afib in RVR) Neuro/psych AAOx 3 Parkinsons Carbidopa/levodopa 25/100 PO tid Ambien 5mg HS Mirtazapine 45 mg PO HS Endo: DM BGMs Patient declined ISS Continue Metformin 500mg daily / lytes/lines: Cantrell catheter- to be removed NC-2L peripheral lines Kdur 20meq PO BMP GI/Nutrition: zantac 150 PO bid Prophylaxis: Zantac Continue Eliquis Dispo: Transfer to telemetry Visit type - Emergency Visit Emergency Visit: Yes ED Registration Date: 04/29/17 Care time: The patient presented to the Emergency Department on the above date and was hospitalized for further evaluation of their emergent condition. - New Patient This patient is new to me today: Yes Date on this admission: 05/03/17 - Critical Care Critical Care patient: Yes Total Critical Care Time (in minutes): 41 Critical Care Statement: The care of this patient involved high complexity decision making to prevent further life threatening deterioration of the patient 's condition and/or to evaluate & treat vital organ system(s) failure or risk of failure. - Discharge Referral Referred to [facility] No
[2017-05-03] MEDS ORDERED: INSULIN SLIDING SCALE (NOVOLOG) 1 VIAL SQ SCH (16:30)
--- NOTE | 2017-05-03 18:27 | PN ---
Progress Note, Physician History of Present Illness: Continues to have cough with purulent sputum.No fever or shaking chills. AFIB with RVR continues but this morning rate had gone down to 105. - Current Medication List Current Medications: Active Medications Apixaban (Eliquis -) 5 mg PO BID [facility] Last Admin: 05/03/17 11:32 Dose: 5 mg Carbidopa/Levodopa (Sinemet *Cr* 25/100 -) 1 combo PO TID [facility] Last Admin: 05/03/17 06:10 Dose: 1 combo Digoxin (Lanoxin -) 0.125 mg PO DAILY [facility] Last Admin: 05/03/17 11:40 Dose: 0.125 mg Furosemide (Lasix Injection -) 40 mg IVPUSH DAILY [facility] Last Admin: 05/03/17 12:49 Dose: 40 mg Levofloxacin (Levaquin 500 Mg Premixed Ivpb -) 500 mg in 100 mls @ 100 mls/hr IVPB DAILY [facility] Metformin HCl (Glucophage Xr -) 500 mg PO DAILY@0700 [facility] Metoclopramide HCl (Reglan -) 5 mg PO TIDAC [facility] Last Admin: 05/03/17 11:33 Dose: 5 mg Metoprolol Tartrate (Lopressor -) 50 mg PO TID [facility] Last Admin: 05/03/17 06:10 Dose: 50 mg Metoprolol Tartrate (Lopressor Injection -) 5 mg IVPUSH Q4H PRN PRN Reason: HR > 120 Mirtazapine (Remeron -) 45 mg PO HS [facility] Last Admin: 05/02/17 21:40 Dose: 45 mg Potassium Chloride (K-Dur -) 20 meq PO DAILY [facility] Last Admin: 05/03/17 11:32 Dose: 20 meq Ranitidine HCl (Zantac -) 150 mg PO BID [facility] Last Admin: 05/03/17 11:32 Dose: 150 mg Zolpidem Tartrate (Ambien -) 5 mg PO HS PRN PRN Reason: INSOMNIA Last Admin: 05/02/17 21:41 Dose: 5 mg - Objective Vital Signs: Vital Signs Temperature 98.6 F 05/03/17 05:58 Pulse Rate 135 H 05/03/17 11:40 Respiratory Rate 20 05/03/17 05:58 Blood Pressure 93/46 05/03/17 05:58 O2 Sat by Pulse Oximetry (%) 96 05/03/17 09:00 Constitutional: Yes: Well Nourished, No Distress, Calm Eyes: Yes: Conjunctiva Clear HENT: Yes: WNL Neck: Yes: Supple Cardiovascular: Yes: Tachycardia, Pulse Irregular, S1, S2 Respiratory: Yes: Rales Gastrointestinal: Yes: Normal Bowel Sounds, Soft Genitourinary: Yes: WNL Musculoskeletal: Yes: Back Pain Extremities: Yes: WNL Edema: No Peripheral Pulses WNL: Yes Integumentary: Yes: WNL Neurological: Yes: Alert, Oriented ...Motor Strength: WNL Psychiatric: Yes: Alert, Oriented Labs: CBC, BMP 05/03/17 05:05 05/03/17 05:05 INR, PTT INR 1.81 (0.82-1.09) H D 04/29/17 17:00 - ....Imaging Chest X-ray: Report Reviewed, Image Reviewed Problem List - Problems (1) Atrial fibrillation with rapid ventricular response Assessment/Plan: AFib continues with RVR even with increasing doses of Toprol and Digoxin PO Code(s): I48.91 - UNSPECIFIED ATRIAL FIBRILLATION (2) Elevated LFTs Code(s): R79.89 - OTHER SPECIFIED ABNORMAL FINDINGS OF BLOOD CHEMISTRY (3) SOB (shortness of breath) Code(s): R06.02 - SHORTNESS OF BREATH (4) Sepsis Assessment/Plan: Blood cultures have been negativew and leukocytosis persists at 12 [place] [id number].Was on Zosyn which was d/c and switched to Levaquin for better coverage to include Mycoplasma Code(s): A41.9 - SEPSIS, UNSPECIFIED ORGANISM (5) CHF (congestive heart failure) Assessment/Plan: Continues to have bilateral pleural effusion and is being given IV Lasix 40mg BID Code(s): I50.9 - HEART FAILURE, UNSPECIFIED Assessment/Plan Continue IV Levaquin to include coverage for mycoplasma, cold agglutinins sent. Continue Toprol and Digoxin for control of RVR
[2017-05-03] MEDS: LEVOFLOXACIN 500 MG IVPB 500 MG/100 ML BAG IVPB SCH (19:07)
[2017-05-03] MEDS: MIRTAZAPINE 15 MG TABLET (FP) PO SCH (21:29)
[2017-05-03] MEDS: INSULIN SLIDING SCALE (NOVOLOG) 1 VIAL SQ SCH (22:00)
[2017-05-03] MEDS: ZOLPIDEM TARTRATE 5 MG TABLET PO PRN (22:14)
[2017-05-04 06:06] LABS: BASO % 0.8 % (0-2.0); HEMATOCRIT 43.9 % (32.4-45.2); HEMOGLOBIN 14.7 GM/dL (10.7-15.3); LYMPH % 18.4 % (8-40); MCH 31.7 pg (25.7-33.7); MCHC 33.5 g/dl (32.0-36.0); MEAN CELL VOLUME 94.7 fl (80-96); MONO % 9.7 % (3.8-10.2); NEUT % 69.1 % (42.8-82.8); PLATELET COUNT 441 K/MM3 (134-434); RBC 4.63 M/mm3 (3.60-5.2); RDW 13.1 % (11.6-15.6); WHITE BLOOD COUNT 12.8 K/mm3 (4.0-10.0)
[2017-05-04] MEDS: INSULIN SLIDING SCALE (NOVOLOG) 1 VIAL SQ SCH ×3 (06:20→17:00)
[2017-05-04 06:33] LABS: ALBUMIN 2.7 g/dl (3.4-5.0); ALK PHOS 119 U/L (45-117); ANION GAP 12 (8-16); BILIRUBIN,TOTAL 0.5 mg/dL (0.2-1.0); BLOOD UREA NITROGEN 23 mg/dL (7-18); CALCIUM 9.1 mg/dL (8.5-10.1); CHLORIDE 102 mmol/L (98-107); CO2 27 mmol/L (21-32); CREATININE 0.7 mg/dL (0.55-1.02); GLUCOSE,RANDOM 161 mg/dL (74-106); PHOSPHOROUS 4.1 mg/dL (2.5-4.9); POTASSIUM 4.1 mmol/L (3.5-5.1); SGOT/AST 30 U/L (15-37); SGPT/ALT 39 U/L (12-78); SODIUM 141 mmol/L (136-145); TOT PROT 5.7 g/dl (6.4-8.2)
[2017-05-04] MEDS: METOPROLOL TARTRATE 50 MG TABLET (FP) PO SCH ×3 (06:38→21:55)
[2017-05-04] MEDS: METOCLOPRAMIDE HCL 10 MG TABLET (FP) PO SCH ×3 (06:38→17:00)
--- NOTE | 2017-05-04 08:16 | PN ---
Progress Note, Physician Chief Complaint: Pt A&Ox3; family at bedside. Pt has cough with copious phlegm. History of Present Illness: The patient is a 77 year old woman (mesfin Ballard), with a PMhistory of parkinson' s, afib\\, HTN, who presents from urgent care for evaluation of afib with RVR. The patient reports that she has a recent URI with cough and began feeling more fatigued over the past 2-3 days prompting her to present to urgent care where she was found to be in afib with RVR. She reports previous admissions for AF, and takes diltiazem and elaquis on a daily basis (reportedly did not take diltiazem today). She denies chest pain, fevers, chills, SOB, nausea, vomiting , or changes with urination or bowel movements; occasssional abdominal discomfort for "gallbladder problem". 10/2015: Persantine stress MIBI negative for ischemia; normal LVEF 10/2015 ECHO: normal LVEF; mild aortic root dilatation; moderate MR and TR; mild OH; mild biatrial enlargement. - Current Medication List Current Medications: Active Medications Apixaban (Eliquis -) 5 mg PO BID [facility] Last Admin: 05/03/17 21:24 Dose: 5 mg Carbidopa/Levodopa (Sinemet *Cr* 25/100 -) 1 combo PO TID [facility] Last Admin: 05/04/17 06:38 Dose: 1 combo Digoxin (Lanoxin -) 0.125 mg PO DAILY [facility] Last Admin: 05/03/17 11:40 Dose: 0.125 mg Furosemide (Lasix Injection -) 40 mg IVPUSH DAILY [facility] Last Admin: 05/03/17 12:49 Dose: 40 mg Levofloxacin (Levaquin 500 Mg Premixed Ivpb -) 500 mg in 100 mls @ 100 mls/hr IVPB DAILY [facility] Last Admin: 05/03/17 19:07 Dose: 100 mls/hr Insulin Aspart (Novolog Vial Sliding Scale -) 1 vial SQ TIDAC [facility] PRN Reason: Protocol Last Admin: 05/04/17 06:20 Dose: Not Given Metoclopramide HCl (Reglan -) 5 mg PO TIDAC [facility] Last Admin: 05/04/17 06:38 Dose: 5 mg Metoprolol Tartrate (Lopressor -) 50 mg PO TID [facility] Last Admin: 05/04/17 06:38 Dose: 50 mg Metoprolol Tartrate (Lopressor Injection -) 5 mg IVPUSH Q4H PRN PRN Reason: HR > 120 Mirtazapine (Remeron -) 45 mg PO HS [facility] Last Admin: 05/03/17 21:29 Dose: 45 mg Potassium Chloride (K-Dur -) 20 meq PO DAILY [facility] Last Admin: 05/03/17 11:32 Dose: 20 meq Ranitidine HCl (Zantac -) 150 mg PO BID [facility] Last Admin: 05/03/17 21:29 Dose: 150 mg Zolpidem Tartrate (Ambien -) 5 mg PO HS PRN PRN Reason: INSOMNIA Last Admin: 05/03/17 22:14 Dose: 5 mg - Objective Vital Signs: Vital Signs Temperature 98.9 F 05/04/17 06:00 Pulse Rate 130 H 05/04/17 06:00 Respiratory Rate 22 05/04/17 06:00 Blood Pressure 88/66 05/04/17 06:00 O2 Sat by Pulse Oximetry (%) 96 05/03/17 20:07 Constitutional: Yes: Calm Eyes: Yes: WNL Cardiovascular: Yes: S1 (varies in intensity) Respiratory: Yes: Diminished Gastrointestinal: Yes: Soft ...Rectal Exam: Yes: Deferred Genitourinary: No: Anuria Breast(s): Yes: WNL Musculoskeletal: Yes: Muscle Weakness Extremities: Yes: Cool Edema: Yes Edema: LLE: Trace, RLE: Trace Peripheral Pulses WNL: No Neurological: Yes: WNL Psychiatric: Yes: WNL Labs: CBC, BMP 05/04/17 05:55 05/04/17 05:55 INR, PTT INR 1.81 (0.82-1.09) H D 04/29/17 17:00 Problem List - Problems (1) Abdominal pain Code(s): R10.9 - UNSPECIFIED ABDOMINAL PAIN (2) Atrial fibrillation with rapid ventricular response Assessment/Plan: Off diltiazem; continue metoprolol and digoxin (f/u level of digoxin, and keep at 0.5-1.0). Pt for furosemide bid IV (remains with significant CXR CHF changes, though comfortable (not dyspneic), no JVD). Increase metoprolol if HR does not respond to CHF therapy despite furosemide increase. Code(s): I48.91 - UNSPECIFIED ATRIAL FIBRILLATION (3) SOB (shortness of breath) Code(s): R06.02 - SHORTNESS OF BREATH (4) Sepsis Assessment/Plan: Antibiotic change per ID. Code(s): A41.9 - SEPSIS, UNSPECIFIED ORGANISM (5) CHF (congestive heart failure) Assessment/Plan: see "AF" Code(s): I50.9 - HEART FAILURE, UNSPECIFIED (6) Depressed affect Code(s): R45.89 - OTHER SYMPTOMS AND SIGNS INVOLVING EMOTIONAL STATE (7) Diabetes Code(s): E11.9 - TYPE 2 DIABETES MELLITUS WITHOUT COMPLICATIONS (8) Hyperlipidemia Assessment/Plan: Total cholesterol 101 mg/dL (apparently not on medication). Code(s): E78.5 - HYPERLIPIDEMIA, UNSPECIFIED (9) Insomnia Code(s): G47.00 - INSOMNIA, UNSPECIFIED (10) Leukocytosis Code(s): D72.829 - ELEVATED WHITE BLOOD CELL COUNT, UNSPECIFIED (11) Parkinson disease Code(s): G20 - PARKINSON'S DISEASE (12) Elevated LFTs Code(s): R79.89 - OTHER SPECIFIED ABNORMAL FINDINGS OF BLOOD CHEMISTRY
--- NOTE | 2017-05-04 09:05 | PN ---
Progress Note (short form) - Note Progress Note: oob in chair, less cough Vital Signs Period Temp Pulse Resp BP Sys/Jerry Pulse Ox Last 24 Hr 98.6 F-98.9 F 109-147 16- 88-124/54-85 96 cor-tachycardic lungs decreased bs at bases abd soft,nt ext no edema CBC, BMP 05/04/17 05:55 05/04/17 05:55 Microbiology 04/29/17 22:16 Blood - Peripheral Venous Blood Culture - Preliminary NO GROWTH OBTAINED AFTER 96 HOURS, INCUBATION TO CONTINUE FOR 1 DAYS. 04/29/17 22:16 Blood - Peripheral Venous Blood Culture - Preliminary NO GROWTH OBTAINED AFTER 96 HOURS, INCUBATION TO CONTINUE FOR 1 DAYS. 04/30/17 02:51 Nasopharyngeal Swab Influenza Types A,B Antigen (JORGE) - Final 04/30/17 02:51 Nasopharyngeal Swab - Final cxray improved ct scan abd/pelvis- no acute process a/p leukocytosis-improved ?pneumonia CHF improved rapid afib levaquin day #3 to continue check sputum culture check legionella urinary antigen
[2017-05-04] MEDS ORDERED: PT OWN MED DRAWER 7, Y5N ONE ×2 (09:21→14:33)
--- NOTE | 2017-05-04 10:41 | PN ---
Physical Exam: SUBJECTIVE: Patient seen and examined. No new complaint. Heart rate still high- up to 140 today. No chest pain. Patient did not get metformin and sugars were in 300s so received insulin. Now in agreement with insulin OBJECTIVE: Vital Signs Period Temp Pulse Resp BP Sys/Jerry Pulse Ox Last 24 Hr 98.6 F-98.9 F 109-147 16-23 88-124/54-85 96 GENERAL: The patient is awake, alert, and fully oriented, in no acute distress. Patient sitting up in chair HEAD: Normal with no signs of trauma. EYES: PERRL, anicteric, not pale ENT: oropharynx clear without exudates, moist mucous membranes. NECK: No elevated JVD, full range of motion, supple. LUNGS: Few coarse creps, more on L HEART: Tachycardic, irregular, S1, S2 without murmur, rub or gallop. ABDOMEN: Soft, nontender, nondistended, normoactive bowel sounds EXTREMITIES: 2+ pulses, warm, well-perfused, no edema. NEUROLOGICAL: Muscle strength 4/5 RLE, 5/5 LLE, Normal speech, gait not observed. PSYCH: Normal mood, normal affect. SKIN: Warm, dry, normal turgor, no rashes or lesions noted Laboratory Results - last 24 hr 05/03/17 05/03/17 05/03/17 05:26 12:08 21:50 WBC RBC Hgb Hct MCV MCH MCHC RDW Plt Count MPV Neutrophils % Lymphocytes % Monocytes % Eosinophils % Basophils % Sodium Potassium Chloride Carbon Dioxide Anion Gap BUN Creatinine Creat Clearance w eGFR POC Glucometer [phone] [phone] Random Glucose Calcium Phosphorus Magnesium Total Bilirubin AST ALT Alkaline Phosphatase Total Protein Albumin 05/04/17 05/04/17 05:55 05:55 WBC 12.8 H RBC 4.63 Hgb 14.7 Hct 43.9 MCV 94.7 MCH 31.7 MCHC 33.5 RDW 13.1 Plt Count 441 H MPV 8.0 Neutrophils % 69.1 Lymphocytes % 18.4 D Monocytes % 9.7 Eosinophils % 2.0 Basophils % 0.8 Sodium 141 Potassium 4.1 Chloride 102 Carbon Dioxide 27 Anion Gap 12 BUN 23 H D Creatinine 0.7 Creat Clearance w eGFR > 60 POC Glucometer Random Glucose 161 H D Calcium 9.1 Phosphorus 4.1 Magnesium 2.0 Total Bilirubin 0.5 D AST 30 D ALT 39 D Alkaline Phosphatase 119 H Total Protein 5.7 L Albumin 2.7 L Active Medications Generic Name Dose Route Start Last Admin Trade Name Freq PRN Reason Stop Dose Admin Apixaban 5 mg 04/30/17 10:00 05/03/17 21:24 Eliquis - PO 5 mg BID [facility] Administration Carbidopa/Levodopa 1 combo 04/30/17 08:30 05/04/17 06:38 Sinemet *Cr* 25/100 - PO 1 combo TID [facility] Administration Digoxin 0.125 mg 05/02/17 10:00 05/03/17 11:40 Lanoxin - PO 0.125 mg DAILY [facility] Administration Furosemide 40 mg 05/03/17 12:15 05/03/17 12:49 Lasix Injection - IVPUSH 40 mg DAILY [facility] Administration Levofloxacin 500 mg in 100 mls @ 100 mls/hr 05/03/17 17:35 05/03/17 19:07 Levaquin 500 Mg Premixed Ivpb - IVPB 100 mls/hr DAILY [facility] Administration Insulin Aspart 1 vial 05/03/17 22:00 05/04/17 06:20 Novolog Vial Sliding Scale - SQ Not Given TIDAC [facility] Protocol Metoclopramide HCl 5 mg 04/30/17 20:00 05/04/17 06:38 Reglan - PO 5 mg TIDAC [facility] Administration Metoprolol Tartrate 5 mg 05/02/17 09:51 Lopressor Injection - IVPUSH Q4H PRN HR > 120 Metoprolol Tartrate 75 mg 05/04/17 14:00 Lopressor - PO TID [facility] Mirtazapine 45 mg 05/02/17 22:00 05/03/17 21:29 Remeron - PO 45 mg HS [facility] Administration Potassium Chloride 20 meq 05/02/17 10:00 05/03/17 11:32 K-Dur - PO 20 meq DAILY [facility] Administration Ranitidine HCl 150 mg 04/30/17 22:00 05/03/17 21:29 Zantac - PO 150 mg BID [facility] Administration Zolpidem Tartrate 5 mg 05/02/17 09:57 05/03/17 22:14 Ambien - PO 5 mg HS PRN Administration INSOMNIA ASSESSMENT/PLAN: 77 yo F with PMHx of DM, Parkinson's disease, HLD , osteoarthritis of LS spine, in ICU for Afib with RVR following a presentation of abdominal pain and s/p URTI. 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 - to transition to PO digoxin 0.125mg daily- to stop per cardiology iv digoxin 40mg daily Eliquis 5mg bid CXR Tele monitoring Cont Eliquis 5mg bid Lipitor 20mg daily ECHO - shows biatrial dilatation, ventricles are normal and EF Check a dig level -pending (0.5-1 goal) per cardiology - Dr Felton Respiration: Levaquin continued by primary EKG- R/O long QTC Neuro/psych AAOx 3 Parkinsons Carbidopa/levodopa 25/100 PO tid Ambien 5mg HS Mirtazapine 45 mg PO HS Endo: DM BGMs Patient now on ISS / lytes/lines: NC-2L peripheral lines Kdur 20meq PO BMP GI/Nutrition: zantac 150 PO bid Prophylaxis: Zantac Continue Eliquis Dispo: Transfer to telemetry Visit type - Emergency Visit Emergency Visit: Yes ED Registration Date: 04/29/17 Care time: The patient presented to the Emergency Department on the above date and was hospitalized for further evaluation of their emergent condition. - New Patient This patient is new to me today: No - Critical Care Critical Care patient: Yes Total Critical Care Time (in minutes): 40 Critical Care Statement: The care of this patient involved high complexity decision making to prevent further life threatening deterioration of the patient 's condition and/or to evaluate & treat vital organ system(s) failure or risk of failure.
[2017-05-04] MEDS: LEVOFLOXACIN 500 MG IVPB 500 MG/100 ML BAG IVPB SCH (10:43)
[2017-05-04] MEDS: POTASSIUM CHLORIDE TABS 20 MEQ TABLET.ER (FP) PO SCH (10:50)
[2017-05-04] MEDS: APIXABAN 5 MG TABLET PO SCH ×2 (10:50→21:55)
[2017-05-04] MEDS: RANITIDINE HCL 150 MG TABLET (FP) PO SCH ×2 (10:51→21:56)
[2017-05-04] MEDS: DIGOXIN 0.125 MG TABLET (FP) PO SCH (10:51)
[2017-05-04] MEDS: FUROSEMIDE 40 MG/4 ML INJECTABLE VIAL IVPUSH SCH (11:10)
--- NOTE | 2017-05-04 11:25 | PN ---
Progress Note, Physician History of Present Illness: The patient is a 77 year old woman (mesfin Nellie), with a PMhistory of parkinson' s, afib\\, HTN, who presents from urgent care for evaluation of afib with RVR. The patient reports that she has a recent URI with cough and began feeling more fatigued over the past 2-3 days prompting her to present to urgent care where she was found to be in afib with RVR. She reports previous admissions for AF, and takes diltiazem and elaquis on a daily basis (reportedly did not take diltiazem today). She denies chest pain, fevers, chills, SOB, nausea, vomiting , or changes with urination or bowel movements; occasssional abdominal discomfort for "gallbladder problem". 10/2015: Persantine stress MIBI negative for ischemia; normal LVEF 10/2015 ECHO: normal LVEF; mild aortic root dilatation; moderate MR and TR; mild MI; mild biatrial enlargement. - Current Medication List Current Medications: Active Medications Apixaban (Eliquis -) 5 mg PO BID [facility] Last Admin: 05/04/17 10:50 Dose: 5 mg Carbidopa/Levodopa (Sinemet *Cr* 25/100 -) 1 combo PO TID [facility] Last Admin: 05/04/17 06:38 Dose: 1 combo Digoxin (Lanoxin -) 0.125 mg PO DAILY [facility] Last Admin: 05/04/17 10:51 Dose: 0.125 mg Furosemide (Lasix Injection -) 40 mg IVPUSH DAILY [facility] Last Admin: 05/04/17 11:10 Dose: 40 mg Levofloxacin (Levaquin 500 Mg Premixed Ivpb -) 500 mg in 100 mls @ 100 mls/hr IVPB DAILY [facility] Last Admin: 05/04/17 10:43 Dose: 100 mls/hr Insulin Aspart (Novolog Vial Sliding Scale -) 1 vial SQ TIDAC [facility] PRN Reason: Protocol Last Admin: 05/04/17 06:20 Dose: Not Given Metoclopramide HCl (Reglan -) 5 mg PO TIDAC [facility] Last Admin: 05/04/17 10:51 Dose: Not Given Metoprolol Tartrate (Lopressor Injection -) 5 mg IVPUSH Q4H PRN PRN Reason: HR > 120 Last Admin: 05/04/17 11:10 Dose: 5 mg Metoprolol Tartrate (Lopressor -) 75 mg PO TID [facility] Mirtazapine (Remeron -) 45 mg PO HS [facility] Last Admin: 05/03/17 21:29 Dose: 45 mg Potassium Chloride (K-Dur -) 20 meq PO DAILY [facility] Last Admin: 05/04/17 10:50 Dose: 20 meq Ranitidine HCl (Zantac -) 150 mg PO BID [facility] Last Admin: 05/04/17 10:51 Dose: 150 mg Zolpidem Tartrate (Ambien -) 5 mg PO HS PRN PRN Reason: INSOMNIA Last Admin: 05/03/17 22:14 Dose: 5 mg - Objective Vital Signs: Vital Signs Temperature 98.9 F 05/04/17 06:00 Pulse Rate 144 H 05/04/17 11:14 Respiratory Rate 20 05/04/17 10:00 Blood Pressure 113/97 05/04/17 11:10 O2 Sat by Pulse Oximetry (%) 95 05/04/17 11:14 Eyes: Yes: WNL, Conjunctiva Clear, EOM Intact HENT: Yes: WNL, Atraumatic, Normocephalic Neck: Yes: WNL, Supple, Trachea Midline Cardiovascular: Yes: Pulse Irregular, S1, S2 Respiratory: Yes: WNL, Regular, CTA Bilaterally Gastrointestinal: Yes: WNL, Normal Bowel Sounds Genitourinary: Yes: WNL Musculoskeletal: Yes: WNL Extremities: Yes: WNL Edema: No Integumentary: Yes: WNL Neurological: Yes: WNL, Alert, Oriented ...Motor Strength: WNL Psychiatric: Yes: WNL Labs: CBC, BMP 05/04/17 05:55 05/04/17 05:55 INR, PTT INR 1.81 (0.82-1.09) H D 04/29/17 17:00 Laboratory Tests 04/29/17 04/29/17 04/29/17 17:00 17:00 17:00 WBC 16.0 H D RBC 4.41 Hgb 14.2 Hct 42.3 MCV 95.9 MCH 32.1 MCHC 33.5 RDW 13.1 Plt Count 359 MPV 9.7 D Neutrophils % 76.6 D Lymphocytes % 13.9 D Monocytes % 8.4 Eosinophils % 0.4 Basophils % 0.7 PT with INR 20.40 H INR 1.81 H D Sodium 137 Potassium 4.5 Chloride 104 Carbon Dioxide 21 Anion Gap 12 BUN 42 H D Creatinine 0.9 D Creat Clearance w eGFR > 60 POC Glucometer Random Glucose 259 H D Lactic Acid Calcium 8.7 Phosphorus Magnesium 2.1 Total Bilirubin 0.6 D AST 97 H D ALT 30 D Alkaline Phosphatase 177 H D Creatine Kinase 118 Troponin I < 0.02 C-Reactive Protein B-Natriuretic Peptide 3145.73 H Total Protein 6.5 Albumin 3.2 L Triglycerides Cholesterol Total LDL Cholesterol HDL Cholesterol Total Amylase TSH Urine Color Urine Appearance Urine pH Ur Specific [place] Urine Protein Urine Glucose (UA) Urine Ketones Urine Blood Urine Nitrite Urine Bilirubin Urine Urobilinogen Ur Leukocyte Esterase 04/29/17 04/30/17 04/30/17 17:00 05:15 05:15 WBC 17.4 H RBC 4.37 Hgb 14.0 Hct 41.9 MCV 96.1 H MCH 32.0 MCHC 33.3 RDW 13.4 Plt Count 363 MPV 10.0 Neutrophils % Lymphocytes % Monocytes % Eosinophils % Basophils % PT with INR INR Sodium 139 Potassium 4.2 Chloride 106 Carbon Dioxide 25 Anion Gap 8 BUN 31 H D Creatinine 0.8 Creat Clearance w eGFR > 60 POC Glucometer Random Glucose 223 H Lactic Acid Calcium 7.9 L Phosphorus Magnesium Total Bilirubin 0.7 AST 118 H D ALT 123 H D Alkaline Phosphatase 197 H Creatine Kinase 80 Troponin I < 0.02 C-Reactive Protein B-Natriuretic Peptide Total Protein 5.8 L Albumin 2.9 L Triglycerides Cholesterol Total LDL Cholesterol HDL Cholesterol Total Amylase TSH 1.68 D Urine Color Urine Appearance Urine pH Ur Specific [place] Urine Protein Urine Glucose (UA) Urine Ketones Urine Blood Urine Nitrite Urine Bilirubin Urine Urobilinogen Ur Leukocyte Esterase 04/30/17 04/30/17 04/30/17 05:15 05:15 05:15 WBC RBC Hgb Hct MCV MCH MCHC RDW Plt Count MPV Neutrophils % Lymphocytes % Monocytes % Eosinophils % Basophils % PT with INR INR Sodium Potassium Chloride Carbon Dioxide Anion Gap BUN Creatinine Creat Clearance w eGFR POC Glucometer Random Glucose Lactic Acid Calcium Phosphorus Magnesium Total Bilirubin AST ALT Alkaline Phosphatase Creatine Kinase Troponin I C-Reactive Protein 9.0 H Cancelled B-Natriuretic Peptide 2566.42 H Total Protein Albumin Triglycerides Cholesterol Total LDL Cholesterol HDL Cholesterol Total Amylase 20 L Cancelled TSH Urine Color Urine Appearance Urine pH Ur Specific [place] Urine Protein Urine Glucose (UA) Urine Ketones Urine Blood Urine Nitrite Urine Bilirubin Urine Urobilinogen Ur Leukocyte Esterase 04/30/17 04/30/17 04/30/17 09:16 09:16 09:16 WBC RBC Hgb Hct MCV MCH MCHC RDW Plt Count MPV Neutrophils % Lymphocytes % Monocytes % Eosinophils % Basophils % PT with INR INR Sodium Potassium Chloride Carbon Dioxide Anion Gap BUN Creatinine Creat Clearance w eGFR POC Glucometer Random Glucose Lactic Acid 1.5 Calcium Phosphorus Magnesium 1.8 Cancelled Total Bilirubin AST ALT Alkaline Phosphatase Creatine Kinase Troponin I C-Reactive Protein B-Natriuretic Peptide Total Protein Albumin Triglycerides 115 D Cholesterol 101 D Total LDL Cholesterol 49 HDL Cholesterol 42 D Total Amylase TSH Urine Color Urine Appearance Urine pH Ur Specific [place] Urine Protein Urine Glucose (UA) Urine Ketones Urine Blood Urine Nitrite Urine Bilirubin Urine Urobilinogen Ur Leukocyte Esterase 04/30/17 05/01/17 05/01/17 13:14 05:00 05:00 WBC 12.2 H RBC 3.96 Hgb 12.8 Hct 37.9 MCV 95.7 MCH 32.2 MCHC 33.7 RDW 13.3 Plt Count 312 MPV 9.1 Neutrophils % 76.0 Lymphocytes % 13.7 Monocytes % 8.7 Eosinophils % 1.1 D Basophils % 0.5 PT with INR INR Sodium 139 Potassium 3.6 Chloride 104 Carbon Dioxide 24 Anion Gap 11 BUN 13 D Creatinine 0.6 D Creat Clearance w eGFR > 60 POC Glucometer Random Glucose 200 H Lactic Acid Calcium 7.8 L Phosphorus 3.0 Magnesium 1.9 Total Bilirubin 0.8 AST 46 H D ALT 36 D Alkaline Phosphatase 139 H D Creatine Kinase Troponin I C-Reactive Protein B-Natriuretic Peptide Total Protein 5.0 L Albumin 2.4 L Triglycerides Cholesterol Total LDL Cholesterol HDL Cholesterol Total Amylase TSH Urine Color Ltyellow Urine Appearance Clear Urine pH 5.0 D Ur Specific [place] 1.011 Urine Protein Negative Urine Glucose (UA) 2+ H Urine Ketones Negative Urine Blood Negative Urine Nitrite Negative Urine Bilirubin Negative Urine Urobilinogen Negative Ur Leukocyte Esterase Negative 05/02/17 05/02/17 05/03/17 05:10 05:10 05:05 WBC 14.6 H 14.1 H RBC 4.34 4.52 Hgb 13.9 14.5 Hct 41.0 43.2 MCV 94.6 95.5 MCH 32.0 32.1 MCHC 33.8 33.6 RDW 13.1 13.3 Plt Count 357 420 MPV 8.5 8.6 Neutrophils % 80.8 73.2 Lymphocytes % 9.9 D 15.0 D Monocytes % 8.1 9.7 Eosinophils % 0.7 1.6 D Basophils % 0.5 0.5 PT with INR INR Sodium 137 Potassium 3.9 Chloride 97 L Carbon Dioxide 28 Anion Gap 12 BUN 10 D Creatinine 0.7 Creat Clearance w eGFR > 60 POC Glucometer Random Glucose 200 H Lactic Acid Calcium 8.6 Phosphorus 3.8 D Magnesium 1.7 L Total Bilirubin 0.8 AST 27 D ALT 34 Alkaline Phosphatase 136 H Creatine Kinase Troponin I C-Reactive Protein B-Natriuretic Peptide Total Protein 5.4 L Albumin 2.6 L Triglycerides Cholesterol Total LDL Cholesterol HDL Cholesterol Total Amylase TSH Urine Color Urine Appearance Urine pH Ur Specific [place] Urine Protein Urine Glucose (UA) Urine Ketones Urine Blood Urine Nitrite Urine Bilirubin Urine Urobilinogen Ur Leukocyte Esterase 05/03/17 05/03/17 05/03/17 05:05 05:26 12:08 WBC RBC Hgb Hct MCV MCH MCHC RDW Plt Count MPV Neutrophils % Lymphocytes % Monocytes % Eosinophils % Basophils % PT with INR INR Sodium 138 Potassium 3.8 Chloride 97 L Carbon Dioxide 30 Anion Gap 11 BUN 15 D Creatinine 0.7 Creat Clearance w eGFR > 60 POC Glucometer 224.39559 305.24639 Random Glucose 216 H Lactic Acid Calcium 8.7 Phosphorus 4.4 Magnesium 2.2 D Total Bilirubin 0.8 AST 23 ALT 22 D Alkaline Phosphatase 128 H Creatine Kinase Troponin I C-Reactive Protein B-Natriuretic Peptide Total Protein 5.6 L Albumin 2.5 L Triglycerides Cholesterol Total LDL Cholesterol HDL Cholesterol Total Amylase TSH Urine Color Urine Appearance Urine pH Ur Specific [place] Urine Protein Urine Glucose (UA) Urine Ketones Urine Blood Urine Nitrite Urine Bilirubin Urine Urobilinogen Ur Leukocyte Esterase 05/03/17 05/04/17 05/04/17 21:50 05:55 05:55 WBC 12.8 H RBC 4.63 Hgb 14.7 Hct 43.9 MCV 94.7 MCH 31.7 MCHC 33.5 RDW 13.1 Plt Count 441 H MPV 8.0 Neutrophils % 69.1 Lymphocytes % 18.4 D Monocytes % 9.7 Eosinophils % 2.0 Basophils % 0.8 PT with INR INR Sodium 141 Potassium 4.1 Chloride 102 Carbon Dioxide 27 Anion Gap 12 BUN 23 H D Creatinine 0.7 Creat Clearance w eGFR > 60 POC Glucometer 356.97569 Random Glucose 161 H D Lactic Acid Calcium 9.1 Phosphorus 4.1 Magnesium 2.0 Total Bilirubin 0.5 D AST 30 D ALT 39 D Alkaline Phosphatase 119 H Creatine Kinase Troponin I C-Reactive Protein B-Natriuretic Peptide Total Protein 5.7 L Albumin 2.7 L Triglycerides Cholesterol Total LDL Cholesterol HDL Cholesterol Total Amylase TSH Urine Color Urine Appearance Urine pH Ur Specific [place] Urine Protein Urine Glucose (UA) Urine Ketones Urine Blood Urine Nitrite Urine Bilirubin Urine Urobilinogen Ur Leukocyte Esterase Problem List - Problems (1) Abdominal pain Code(s): R10.9 - UNSPECIFIED ABDOMINAL PAIN (2) Atrial fibrillation with rapid ventricular response Code(s): I48.91 - UNSPECIFIED ATRIAL FIBRILLATION (3) Dyspepsia Code(s): R10.13 - EPIGASTRIC PAIN (4) Elevated LFTs Code(s): R79.89 - OTHER SPECIFIED ABNORMAL FINDINGS OF BLOOD CHEMISTRY (5) IBS (irritable bowel syndrome) Code(s): K58.9 - IRRITABLE BOWEL SYNDROME WITHOUT DIARRHEA (6) SOB (shortness of breath) Code(s): R06.02 - SHORTNESS OF BREATH (7) Sepsis Code(s): A41.9 - SEPSIS, UNSPECIFIED ORGANISM (8) Anterior epistaxis Code(s): R04.0 - EPISTAXIS (9) CHF (congestive heart failure) Code(s): I50.9 - HEART FAILURE, UNSPECIFIED (10) Depressed affect Code(s): R45.89 - OTHER SYMPTOMS AND SIGNS INVOLVING EMOTIONAL STATE (11) Diabetes Code(s): E11.9 - TYPE 2 DIABETES MELLITUS WITHOUT COMPLICATIONS (12) Diabetes 1.5, managed as type 2 Code(s): E13.9 - OTHER SPECIFIED DIABETES MELLITUS WITHOUT COMPLICATIONS (13) HTN (hypertension) Code(s): I10 - ESSENTIAL (PRIMARY) HYPERTENSION (14) Hyperlipidemia Code(s): E78.5 - HYPERLIPIDEMIA, UNSPECIFIED (15) Insomnia Code(s): G47.00 - INSOMNIA, UNSPECIFIED (16) Leukocytosis Code(s): D72.829 - ELEVATED WHITE BLOOD CELL COUNT, UNSPECIFIED (17) Parkinson disease Code(s): G20 - PARKINSON'S DISEASE (18) Paroxysmal atrial fibrillation Code(s): I48.0 - PAROXYSMAL ATRIAL FIBRILLATION Assessment/Plan (1) Abdominal pain Code(s): R10.9 - UNSPECIFIED ABDOMINAL PAIN (2) Atrial fibrillation with rapid ventricular response Assessment/Plan: AF rate poorly controlled (VR 160-170) with metoprolol and digoxin (f/u level of digoxin, and keep at 0.5-1.0). Will add IV cardizem and transition to PO when rate is controlled BP stable, EF is normal. Since patient was on Cardizem prior to admission will restart cardizem PO will d/c digoxin cont furosemide Code(s): I48.91 - UNSPECIFIED ATRIAL FIBRILLATION (3) SOB (shortness of breath) Code(s): R06.02 - SHORTNESS OF BREATH (4) Sepsis Assessment/Plan: Antibiotic change per ID. Code(s): A41.9 - SEPSIS, UNSPECIFIED ORGANISM (5) CHF (congestive heart failure) Assessment/Plan: will need w/u to r/o Code(s): I50.9 - HEART FAILURE, UNSPECIFIED (6) Depressed affect Code(s): R45.89 - OTHER SYMPTOMS AND SIGNS INVOLVING EMOTIONAL STATE (7) Diabetes Code(s): E11.9 - TYPE 2 DIABETES MELLITUS WITHOUT COMPLICATIONS (8) Hyperlipidemia Assessment/Plan: Total cholesterol 101 mg/dL (apparently not on medication). Code(s): E78.5 - HYPERLIPIDEMIA, UNSPECIFIED (9) Insomnia Code(s): G47.00 - INSOMNIA, UNSPECIFIED (10) Leukocytosis Code(s): D72.829 - ELEVATED WHITE BLOOD CELL COUNT, UNSPECIFIED (11) Parkinson disease Code(s): G20 - PARKINSON'S DISEASE (12) Elevated LFTs Code(s): R79.89 - OTHER SPECIFIED ABNORMAL FINDINGS OF BLOOD CHEMISTRY
[2017-05-04] MEDS ORDERED: dilTIAZem HCL 50 MG/10 ML - 10 ML VIAL IVPUSH ONE (11:29)
[2017-05-04] MEDS ORDERED: DILTIAZEM INJECTION 125 MG in DEXTROSE 5%-WATER - 100 ML IVPB SCH (11:30)
--- NOTE | 2017-05-04 11:59 | PN ---
Teaching Attending Note Name of Resident: Anayeli Dupont ATTENDING PHYSICIAN STATEMENT I saw and evaluated the patient. I reviewed the resident's note and discussed the case with the resident. I agree with the resident's findings and plan as documented. SUBJECTIVE: Patient seen and examined in the ICU. Heart rates remain rapid. Diuresed well with lasix yesterday. Reports breathing is better. Denies chest pain. No abdominal pain. Intake & Output 05/01/17 05/02/17 05/03/17 05/04/17 23:59 23:59 23:59 23:59 Intake Total 1815 300 700 Output Total 4200 4500 1500 Balance -2385 -4200 -800 Weight 119 lb 5 oz 152 lb 1.6 oz 145 lb 1.027 oz 148 lb 1.6 oz Last Vital Signs Temp Pulse Resp BP Pulse Ox 98.9 F 144 H 20 113/97 95 05/04/17 06:00 05/04/17 11:14 05/04/17 10:00 05/04/17 11:10 05/04/17 11:14 Active Medications Apixaban (Eliquis -) 5 mg PO BID [facility] Last Admin: 05/04/17 10:50 Dose: 5 mg Carbidopa/Levodopa (Sinemet *Cr* 25/100 -) 1 combo PO TID [facility] Last Admin: 05/04/17 06:38 Dose: 1 combo Furosemide (Lasix Injection -) 40 mg IVPUSH DAILY [facility] Last Admin: 05/04/17 11:10 Dose: 40 mg Levofloxacin (Levaquin 500 Mg Premixed Ivpb -) 500 mg in 100 mls @ 100 mls/hr IVPB DAILY [facility] Last Admin: 05/04/17 10:43 Dose: 100 mls/hr Diltiazem HCl 125 mg/ Dextrose 125 mls @ 5 mls/hr IVPB TITR [facility]; 5 MG/HR PRN Reason: Protocol Insulin Aspart (Novolog Vial Sliding Scale -) 1 vial SQ TIDAC [facility] PRN Reason: Protocol Last Admin: 05/04/17 11:27 Dose: 8 units Metoclopramide HCl (Reglan -) 5 mg PO TIDAC [facility] Last Admin: 05/04/17 10:51 Dose: Not Given Metoprolol Tartrate (Lopressor Injection -) 5 mg IVPUSH Q4H PRN PRN Reason: HR > 120 Last Admin: 12/27/17 11:10 Dose: 5 mg Metoprolol Tartrate (Lopressor -) 75 mg PO TID [facility] Mirtazapine (Remeron -) 45 mg PO HS [facility] Last Admin: 05/03/17 21:29 Dose: 45 mg Potassium Chloride (K-Dur -) 20 meq PO DAILY [facility] Last Admin: 05/04/17 10:50 Dose: 20 meq Ranitidine HCl (Zantac -) 150 mg PO BID [facility] Last Admin: 05/04/17 10:51 Dose: 150 mg Zolpidem Tartrate (Ambien -) 5 mg PO HS PRN PRN Reason: INSOMNIA Last Admin: 05/03/17 22:14 Dose: 5 mg Gen: Awake and alert, Less tachypneic at rest Heart: tachycardic, irregular Lung: basilar rales, rhonchi Abd: soft, nontender Ext: + edema Laboratory Results - last 24 hr 05/03/17 05/03/17 05/03/17 05:26 12:08 21:50 WBC RBC Hgb Hct MCV MCH MCHC RDW Plt Count MPV Neutrophils % Lymphocytes % Monocytes % Eosinophils % Basophils % Sodium Potassium Chloride Carbon Dioxide Anion Gap BUN Creatinine Creat Clearance w eGFR POC Glucometer 224.78617 305.85924 356.72401 Random Glucose Calcium Phosphorus Magnesium Total Bilirubin AST ALT Alkaline Phosphatase Total Protein Albumin 05/04/17 05/04/17 05:55 05:55 WBC 12.8 H RBC 4.63 Hgb 14.7 Hct 43.9 MCV 94.7 MCH 31.7 MCHC 33.5 RDW 13.1 Plt Count 441 H MPV 8.0 Neutrophils % 69.1 Lymphocytes % 18.4 D Monocytes % 9.7 Eosinophils % 2.0 Basophils % 0.8 Sodium 141 Potassium 4.1 Chloride 102 Carbon Dioxide 27 Anion Gap 12 BUN 23 H D Creatinine 0.7 Creat Clearance w eGFR > 60 POC Glucometer Random Glucose 161 H D Calcium 9.1 Phosphorus 4.1 Magnesium 2.0 Total Bilirubin 0.5 D AST 30 D ALT 39 D Alkaline Phosphatase 119 H Total Protein 5.7 L Albumin 2.7 L IMP: Acute on Chronic Diastolic Heart Failure Atrial Fibrillation with RVR HTN DM Hyperlipidemia Parkinsons Disease Elevated LFTs improving - ABX per Primary team - f/u sputum cultures - rate control per Cardiology - continue digoxin - IV lasix - Anticoagulation - Replete lytes - O2 to keep SpO2 >90% - Cardiac Telemetry monitoring Dr Calhoun Critical care time spent in reviewing chart, evaluating patient and formulating plan 40 min
--- NOTE | 2017-05-04 13:10 | EKG ---
Test Reason : Blood Pressure : / mmHG Vent. Rate : 144 BPM Atrial Rate : 166 BPM P-R Int : 000 ms QRS Dur : 092 ms QT Int : 280 ms P-R-T Axes : 000 -12 -49 degrees QTc Int : 433 ms ATRIAL FIBRILLATION WITH RAPID VENTRICULAR RESPONSE ABNORMAL ECG WHEN COMPARED WITH ECG OF 02-MAY-2017 08:59, NO SIGNIFICANT CHANGE WAS FOUND PATIENT SITTING IN CHAIR DURING EKG Confirmed by LÓPEZ BRICE MD ([id number]) on 05/04/2017 1:09:44 PM Referred By: Michael AYERS Confirmed By:LÓPEZ BRICE MD
[2017-05-04] MEDS ORDERED: BISACODYL 10 MG SUPP.RECT PR ONE (13:37)
[2017-05-04] MEDS ORDERED: METOPROLOL TARTRATE 5 MG/5 ML VIAL IVPUSH PRN (13:37)
[2017-05-04] MEDS: dilTIAZem HCL 60 MG TABLET (FP) PO SCH (17:46)
--- NOTE | 2017-05-04 20:34 | PN ---
Progress Note, Physician History of Present Illness: Feels better with less cough and much less sputum. Denies chest pain, SOB. - Current Medication List Current Medications: Active Medications Apixaban (Eliquis -) 5 mg PO BID [facility] Carbidopa/Levodopa (Sinemet *Cr* 25/100 -) 1 combo PO TID [facility] Last Admin: 05/04/17 16:08 Dose: 1 combo Diltiazem HCl (Cardizem -) 60 mg PO Q6HPO [facility] Last Admin: 05/04/17 17:46 Dose: 60 mg Furosemide (Lasix Injection -) 40 mg IVPUSH DAILY [facility] Levofloxacin (Levaquin 500 Mg Premixed Ivpb -) 500 mg in 100 mls @ 100 mls/hr IVPB DAILY [facility] Last Admin: 05/04/17 10:43 Dose: 100 mls/hr Diltiazem HCl 125 mg/ Dextrose 125 mls @ 5 mls/hr IVPB TITR [facility]; 5 MG/HR PRN Reason: Protocol Last Admin: 05/04/17 12:15 Dose: 5 mg/hr, 5 mls/hr Insulin Aspart (Novolog Vial Sliding Scale -) 1 vial SQ TIDAC [facility] PRN Reason: Protocol Last Admin: 05/04/17 17:00 Dose: Not Given Metoclopramide HCl (Reglan -) 5 mg PO TIDAC [facility] Last Admin: 05/04/17 17:00 Dose: 5 mg Metoprolol Tartrate (Lopressor -) 75 mg PO TID [facility] Last Admin: 05/04/17 16:06 Dose: 75 mg Metoprolol Tartrate (Lopressor Injection -) 5 mg IVPUSH Q4H PRN PRN Reason: HR > 120 Mirtazapine (Remeron -) 45 mg PO HS [facility] Potassium Chloride (K-Dur -) 20 meq PO DAILY [facility] Ranitidine HCl (Zantac -) 150 mg PO BID [facility] Zolpidem Tartrate (Ambien -) 5 mg PO HS PRN PRN Reason: INSOMNIA - Objective Vital Signs: Vital Signs Temperature 98.2 F 05/04/17 14:00 Pulse Rate 85 05/04/17 16:00 Respiratory Rate 16 05/04/17 16:00 Blood Pressure 93/72 05/04/17 16:00 O2 Sat by Pulse Oximetry (%) 95 05/04/17 11:14 Constitutional: Yes: No Distress, Calm Eyes: Yes: WNL HENT: Yes: WNL Neck: Yes: Supple Cardiovascular: Yes: Pulse Irregular, S1, S2 Respiratory: Yes: Regular, CTA Bilaterally Gastrointestinal: Yes: Normal Bowel Sounds, Soft Genitourinary: Yes: WNL Musculoskeletal: Yes: Back Pain Extremities: Yes: WNL Edema: No Peripheral Pulses WNL: Yes Integumentary: Yes: WNL Neurological: Yes: Alert, Oriented ...Motor Strength: WNL Psychiatric: Yes: Alert, Oriented Labs: CBC, BMP 05/04/17 05:55 05/04/17 05:55 INR, PTT INR 1.81 (0.82-1.09) H D 04/29/17 17:00 - ....Imaging Chest X-ray: Report Reviewed Problem List - Problems (1) Atrial fibrillation with rapid ventricular response Assessment/Plan: VR is controlled with Metoprolol and diltiazem Code(s): I48.91 - UNSPECIFIED ATRIAL FIBRILLATION (2) Elevated LFTs Code(s): R79.89 - OTHER SPECIFIED ABNORMAL FINDINGS OF BLOOD CHEMISTRY (3) SOB (shortness of breath) Code(s): R06.02 - SHORTNESS OF BREATH (4) Sepsis Assessment/Plan: Was started on IV Levaquin and sputum has markedly improved as well as leukocytosis Code(s): A41.9 - SEPSIS, UNSPECIFIED ORGANISM (5) CHF (congestive heart failure) Assessment/Plan: Plumonary congestion as well as pleural effusion has improved Code(s): I50.9 - HEART FAILURE, UNSPECIFIED Assessment/Plan Continue Toprol and Diltiazem for control of VR Continue IV Leaquin.
[2017-05-04] MEDS ORDERED: HEMOQUE TEST 1 EACH EACH ONE (21:14)
[2017-05-04] MEDS: MIRTAZAPINE 15 MG TABLET (FP) PO SCH (21:55)
[2017-05-05] MEDS: dilTIAZem HCL 60 MG TABLET (FP) PO SCH ×2 (00:04→05:31)
[2017-05-05] MEDS: METOPROLOL TARTRATE 50 MG TABLET (FP) PO SCH (05:31)
[2017-05-05 06:26] LABS: BASO % 0.7 % (0-2.0); EOS % 1.4 % (0-4.5); HEMATOCRIT 41.2 % (32.4-45.2); HEMOGLOBIN 13.7 GM/dL (10.7-15.3); LYMPH % 16.1 % (8-40); MCH 31.5 pg (25.7-33.7); MCHC 33.2 g/dl (32.0-36.0); MEAN CELL VOLUME 94.9 fl (80-96); MEAN PLT VOLUME 8.1 fl (7.5-11.1); MONO % 8.4 % (3.8-10.2); NEUT % 73.4 % (42.8-82.8); PLATELET COUNT 475 K/MM3 (134-434); RBC 4.34 M/mm3 (3.60-5.2); RDW 13.2 % (11.6-15.6); WHITE BLOOD COUNT 12.6 K/mm3 (4.0-10.0)
[2017-05-05] MEDS: INSULIN SLIDING SCALE (NOVOLOG) 1 VIAL SQ SCH ×3 (06:28→17:04)
[2017-05-05] MEDS: METOCLOPRAMIDE HCL 10 MG TABLET (FP) PO SCH ×3 (06:29→17:05)
[2017-05-05 07:15] LABS: ALBUMIN 2.5 g/dl (3.4-5.0); ANION GAP 8 (8-16); BILIRUBIN,TOTAL 0.7 mg/dL (0.2-1.0); BLOOD UREA NITROGEN 24 mg/dL (7-18); CHLORIDE 102 mmol/L (98-107); CO2 28 mmol/L (21-32); CREATININE 0.7 mg/dL (0.55-1.02); GLUCOSE,RANDOM 251 mg/dL (74-106); MAGNESIUM 2.1 mg/dL (1.8-2.4); PHOSPHOROUS 3.3 mg/dL (2.5-4.9); POTASSIUM 4.3 mmol/L (3.5-5.1); SGOT/AST 20 U/L (15-37); SGPT/ALT 25 U/L (12-78); SODIUM 138 mmol/L (136-145); TOT PROT 5.5 g/dl (6.4-8.2)
[2017-05-05 07:16] LABS: ALK PHOS 103 U/L (45-117)
--- NOTE | 2017-05-05 07:47 | PN ---
Progress Note (short form) - Note Progress Note: ID Levofloxacin day 6 antibiotics Afebrile ( has been since admission) Selected Entries 05/05/17 06:00 Temperature 98.8 F Pulse Rate 54 L Respiratory 18 Rate Blood Pressure 118/66 Lung Clear P/A Cor S1 S2 RR Abd Soft nontender Ext No edema Laboratory Tests 05/05/17 05/05/17 05:10 05:10 WBC 12.6 H Plt Count 475 H BUN 24 H Assessment Source of this WBC elevation unclear PNA perhaps? Plan Finish Levoflox today Lawson CHANG Problem List - Problems (1) Sepsis Code(s): A41.9 - SEPSIS, UNSPECIFIED ORGANISM (2) Diabetes Code(s): E11.9 - TYPE 2 DIABETES MELLITUS WITHOUT COMPLICATIONS (3) Abdominal pain Code(s): R10.9 - UNSPECIFIED ABDOMINAL PAIN
[2017-05-05] MEDS ORDERED: LEVOFLOXACIN 250 MG TABLET (FP) PO ONE (08:15)
--- NOTE | 2017-05-05 09:39 | PN ---
Progress Note, Physician Chief Complaint: Pt A&Ox3; family at bedside.Feeling better (less dyspneic; no chest pain; good appetite). History of Present Illness: The patient is a 77 year old woman (rosalinaDomenico Ballard), with a PMhistory of parkinson' s, afib\\, HTN, who presents from urgent care for evaluation of afib with RVR. The patient reports that she has a recent URI with cough and began feeling more fatigued over the past 2-3 days prompting her to present to urgent care where she was found to be in afib with RVR. She reports previous admissions for AF, and takes diltiazem and elaquis on a daily basis (reportedly did not take diltiazem today). She denies chest pain, fevers, chills, SOB, nausea, vomiting , or changes with urination or bowel movements; occasssional abdominal discomfort for "gallbladder problem". 10/2015: Persantine stress MIBI negative for ischemia; normal LVEF 10/2015 ECHO: normal LVEF; mild aortic root dilatation; moderate MR and TR; mild [place]; mild biatrial enlargement. - Current Medication List Current Medications: Active Medications Apixaban (Eliquis -) 5 mg PO BID [facility] Last Admin: 05/04/17 21:55 Dose: 5 mg Carbidopa/Levodopa (Sinemet *Cr* 25/100 -) 1 combo PO TID [facility] Last Admin: 05/05/17 06:28 Dose: 1 combo Furosemide (Lasix Injection -) 40 mg IVPUSH DAILY [facility] Diltiazem HCl 125 mg/ Dextrose 125 mls @ 5 mls/hr IVPB TITR [facility]; 5 MG/HR PRN Reason: Protocol Last Titration: 05/05/17 07:10 Dose: 0 mg/hr, 0 mls/hr Insulin Aspart (Novolog Vial Sliding Scale -) 1 vial SQ TIDAC [facility] PRN Reason: Protocol Last Admin: 05/05/17 06:28 Dose: 4 units Metoclopramide HCl (Reglan -) 5 mg PO TIDAC [facility] Last Admin: 05/05/17 06:29 Dose: 5 mg Metoprolol Tartrate (Lopressor Injection -) 5 mg IVPUSH Q4H PRN PRN Reason: HR > 120 Mirtazapine (Remeron -) 45 mg PO HS [facility] Last Admin: 05/04/17 21:55 Dose: 45 mg Potassium Chloride (K-Dur -) 20 meq PO DAILY [facility] Ranitidine HCl (Zantac -) 150 mg PO BID [facility] Last Admin: 05/04/17 21:56 Dose: 150 mg Zolpidem Tartrate (Ambien -) 5 mg PO HS PRN PRN Reason: INSOMNIA - Objective Vital Signs: Vital Signs Temperature 98.8 F 05/05/17 06:00 Pulse Rate 54 L 05/05/17 06:00 Respiratory Rate 18 05/05/17 06:00 Blood Pressure 118/66 05/05/17 06:00 O2 Sat by Pulse Oximetry (%) 100 05/05/17 09:00 Constitutional: Yes: Calm Eyes: Yes: WNL HENT: Yes: WNL Neck: Yes: WNL Cardiovascular: Yes: Regular Rate and Rhythm Respiratory: Yes: Diminished Gastrointestinal: Yes: Soft ...Rectal Exam: Yes: Deferred Genitourinary: Yes: Anuria Breast(s): Yes: WNL Musculoskeletal: Yes: Muscle Weakness Extremities: Yes: Cool Edema: Yes Edema: LLE: Trace, RLE: Trace Peripheral Pulses WNL: Yes Integumentary: Yes: WNL Neurological: Yes: Alert, Oriented, Weakness Psychiatric: Yes: WNL Labs: CBC, BMP 05/05/17 05:10 05/05/17 05:10 INR, PTT INR 1.81 (0.82-1.09) H D 04/29/17 17:00 Abnormal Lab Results 05/07/17 06:15 Plt Count 470 H - ....Imaging Other: Image Reviewed (telemetry: sinus bradycardia) Problem List - Problems (1) Abdominal pain Code(s): R10.9 - UNSPECIFIED ABDOMINAL PAIN (2) Atrial fibrillation with rapid ventricular response Assessment/Plan: Now off digoxin, on diltiazem and metoprolol. AF has converted to sinus rhythm. Adjust medications accordingly (periods of marked bradycardia). Code(s): I48.91 - UNSPECIFIED ATRIAL FIBRILLATION (3) SOB (shortness of breath) Code(s): R06.02 - SHORTNESS OF BREATH (4) Sepsis Assessment/Plan: Antibiotic change per ID. Code(s): A41.9 - SEPSIS, UNSPECIFIED ORGANISM (5) CHF (congestive heart failure) Assessment/Plan: see "AF" Code(s): I50.9 - HEART FAILURE, UNSPECIFIED (6) Depressed affect Code(s): R45.89 - OTHER SYMPTOMS AND SIGNS INVOLVING EMOTIONAL STATE (7) Diabetes Code(s): E11.9 - TYPE 2 DIABETES MELLITUS WITHOUT COMPLICATIONS (8) Hyperlipidemia Assessment/Plan: Total cholesterol 101 mg/dL (apparently not on medication). Code(s): E78.5 - HYPERLIPIDEMIA, UNSPECIFIED (9) Insomnia Code(s): G47.00 - INSOMNIA, UNSPECIFIED (10) Leukocytosis Code(s): D72.829 - ELEVATED WHITE BLOOD CELL COUNT, UNSPECIFIED (11) Parkinson disease Code(s): G20 - PARKINSON'S DISEASE (12) Elevated LFTs Code(s): R79.89 - OTHER SPECIFIED ABNORMAL FINDINGS OF BLOOD CHEMISTRY
[2017-05-05] MEDS ORDERED: dilTIAZem HCL 30 MG TABLET (FP) PO SCH (10:00)
[2017-05-05] MEDS ORDERED: PT OWN MED DRAWER 7, Y5N ONE ×3 (10:15→21:47)
[2017-05-05] MEDS: POTASSIUM CHLORIDE TABS 20 MEQ TABLET.ER (FP) PO SCH (10:17)
[2017-05-05] MEDS: APIXABAN 5 MG TABLET PO SCH ×2 (10:17→22:57)
[2017-05-05] MEDS: METOPROLOL TARTRATE 25 MG TABLET (FP) PO SCH ×2 (10:19→22:57)
[2017-05-05] MEDS: RANITIDINE HCL 150 MG TABLET (FP) PO SCH ×2 (10:19→22:57)
[2017-05-05] MEDS: FUROSEMIDE 40 MG/4 ML INJECTABLE VIAL IVPUSH SCH (10:20)
--- NOTE | 2017-05-05 12:30 | EKG ---
Test Reason : Blood Pressure : / mmHG Vent. Rate : 056 BPM Atrial Rate : 056 BPM P-R Int : 156 ms QRS Dur : 108 ms QT Int : 430 ms P-R-T Axes : 042 -07 -56 degrees QTc Int : 414 ms SINUS BRADYCARDIA ABNORMAL ECG WHEN COMPARED WITH ECG OF 04-MAY-2017 11:41, SINUS RHYTHM HAS REPLACED ATRIAL FIBRILLATION VENT. RATE HAS DECREASED BY 88 BPM Confirmed by IRENA RODRIGES MD ([id number]) on 05/05/2017 12:30:37 PM Referred By: CÉSAR SAWYER DR Confirmed By:IRENA RODRIGES MD
[2017-05-05] MEDS: dilTIAZem HCL 30 MG TABLET (FP) PO SCH ×3 (14:10→23:24)
--- NOTE | 2017-05-05 19:20 | PN ---
Progress Note, Physician History of Present Illness: Feels much better. Denies any chest pain, SOB or any palpitations. No cough or any expectoration - Current Medication List Current Medications: Active Medications Apixaban (Eliquis -) 5 mg PO BID [facility] Last Admin: 05/05/17 10:17 Dose: 5 mg Carbidopa/Levodopa (Sinemet *Cr* 25/100 -) 1 combo PO TID [facility] Last Admin: 05/05/17 14:11 Dose: 1 combo Diltiazem HCl (Cardizem -) 30 mg PO Q6HPO [facility] Last Admin: 05/05/17 17:07 Dose: 30 mg Furosemide (Lasix Injection -) 40 mg IVPUSH DAILY [facility] Last Admin: 05/05/17 10:20 Dose: 40 mg Insulin Aspart (Novolog Vial Sliding Scale -) 1 vial SQ TIDAC [facility] PRN Reason: Protocol Last Admin: 05/05/17 17:04 Dose: Not Given Metoclopramide HCl (Reglan -) 5 mg PO TIDAC [facility] Last Admin: 05/05/17 17:05 Dose: 5 mg Metoprolol Tartrate (Lopressor Injection -) 5 mg IVPUSH Q4H PRN PRN Reason: HR > 120 Metoprolol Tartrate (Lopressor -) 25 mg PO BID [facility] Last Admin: 05/05/17 10:19 Dose: 25 mg Mirtazapine (Remeron -) 45 mg PO HS [facility] Last Admin: 05/04/17 21:55 Dose: 45 mg Potassium Chloride (K-Dur -) 20 meq PO DAILY [facility] Last Admin: 05/05/17 10:17 Dose: 20 meq Ranitidine HCl (Zantac -) 150 mg PO BID [facility] Last Admin: 05/05/17 10:19 Dose: 150 mg Zolpidem Tartrate (Ambien -) 5 mg PO HS PRN PRN Reason: INSOMNIA - Objective Vital Signs: Vital Signs Temperature 98.2 F 05/05/17 14:00 Pulse Rate 56 L 05/05/17 16:00 Respiratory Rate 18 05/05/17 16:00 Blood Pressure 99/68 05/05/17 16:00 O2 Sat by Pulse Oximetry (%) 100 05/05/17 09:00 Constitutional: Yes: Well Nourished, No Distress, Calm Eyes: Yes: Conjunctiva Clear, EOM Intact HENT: Yes: WNL Neck: Yes: Supple Cardiovascular: Yes: Regular Rate and Rhythm, S1, S2 Respiratory: Yes: Regular, CTA Bilaterally Gastrointestinal: Yes: Normal Bowel Sounds, Soft Genitourinary: Yes: WNL Musculoskeletal: Yes: Back Pain Extremities: Yes: WNL Edema: No Peripheral Pulses WNL: Yes Integumentary: Yes: WNL Neurological: Yes: Alert, Oriented ...Motor Strength: WNL Psychiatric: Yes: Alert, Oriented Labs: CBC, BMP 05/05/17 05:10 05/05/17 05:10 INR, PTT INR 1.81 (0.82-1.09) H D 04/29/17 17:00 - ....Imaging Chest X-ray: Report Reviewed, Image Reviewed EKG: Report Reviewed, Image Reviewed Problem List - Problems (1) Atrial fibrillation with rapid ventricular response Assessment/Plan: She is now in SR and HR has been between 55 and 70. Dose of Cardizem and Metoprolol adjusted by Code(s): I48.91 - UNSPECIFIED ATRIAL FIBRILLATION (2) Elevated LFTs Code(s): R79.89 - OTHER SPECIFIED ABNORMAL FINDINGS OF BLOOD CHEMISTRY (3) SOB (shortness of breath) Code(s): R06.02 - SHORTNESS OF BREATH (4) Sepsis Assessment/Plan: She responded well to Levaquin and now much improved. Code(s): A41.9 - SEPSIS, UNSPECIFIED ORGANISM (5) CHF (congestive heart failure) Assessment/Plan: She reponded well to IV Lasix and today's XRAY show complete clearance of congestion and pleural effusions Code(s): I50.9 - HEART FAILURE, UNSPECIFIED Assessment/Plan Levaquin was d/c as she has improved. Dose of Cardizem and Metoprolol being adjusted by . She is now in SR at 58 to 70/mt. Will be discharged home once this is done. EKG shows inverted T precordial leads and will get serial EKG
[2017-05-05] MEDS: MIRTAZAPINE 15 MG TABLET (FP) PO SCH (22:57)
[2017-05-05] MEDS: ZOLPIDEM TARTRATE 5 MG TABLET PO PRN (23:23)
[2017-05-06] MEDS: dilTIAZem HCL 30 MG TABLET (FP) PO SCH ×4 (06:29→21:36)
[2017-05-06] MEDS: INSULIN SLIDING SCALE (NOVOLOG) 1 VIAL SQ SCH ×3 (06:30→16:42)
[2017-05-06] MEDS: METOCLOPRAMIDE HCL 10 MG TABLET (FP) PO SCH ×3 (06:31→16:42)
[2017-05-06] MEDS ORDERED: PT OWN MED DRAWER 7, Y5N ONE ×2 (06:37→20:52)
--- NOTE | 2017-05-06 09:20 | EKG ---
Test Reason : Blood Pressure : / mmHG Vent. Rate : 052 BPM Atrial Rate : 052 BPM P-R Int : 158 ms QRS Dur : 110 ms QT Int : 448 ms P-R-T Axes : 043 -08 -25 degrees QTc Int : 416 ms SINUS BRADYCARDIA RIGHT BUNDLE BRANCH BLOCK NONSPECIFIC T WAVE ABNORMALITY ABNORMAL ECG Confirmed by SULEMA SUAREZ MD ([id number]) on 05/06/2017 9:19:35 AM Referred By: Confirmed By:SULEMA SUAREZ MD
[2017-05-06] MEDS: FUROSEMIDE 40 MG/4 ML INJECTABLE VIAL IVPUSH SCH (09:50)
[2017-05-06] MEDS: APIXABAN 5 MG TABLET PO SCH ×2 (09:50→22:18)
[2017-05-06] MEDS: RANITIDINE HCL 150 MG TABLET (FP) PO SCH ×2 (09:50→21:34)
[2017-05-06] MEDS: POTASSIUM CHLORIDE TABS 20 MEQ TABLET.ER (FP) PO SCH (09:50)
[2017-05-06] MEDS: METOPROLOL TARTRATE 25 MG TABLET (FP) PO SCH ×3 (10:56→21:34)
--- NOTE | 2017-05-06 12:53 | PN ---
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 History of Present Illness: The patient is a 77 year old woman (mesfin Nellie), with a PMhistory of parkinson' s, afib\\, HTN, who presents from urgent care for evaluation of afib with RVR. The patient reports that she has a recent URI with cough and began feeling more fatigued over the past 2-3 days prompting her to present to urgent care where she was found to be in afib with RVR. She reports previous admissions for AF, and takes diltiazem and elaquis on a daily basis (reportedly did not take diltiazem today). She denies chest pain, fevers, chills, SOB, nausea, vomiting , or changes with urination or bowel movements; occasssional abdominal discomfort for "gallbladder problem". 10/2015: Persantine stress MIBI negative for ischemia; normal LVEF 10/2015 ECHO: normal LVEF; mild aortic root dilatation; moderate MR and TR; mild [place]; mild biatrial enlargement. - Current Medication List Current Medications: Active Medications Apixaban (Eliquis -) 5 mg PO BID [facility] Last Admin: 05/06/17 09:50 Dose: 5 mg Carbidopa/Levodopa (Sinemet *Cr* 25/100 -) 1 combo PO TID [facility] Last Admin: 05/06/17 06:30 Dose: 1 combo Diltiazem HCl (Cardizem -) 30 mg PO Q6HPO [facility] Last Admin: 05/06/17 06:29 Dose: Not Given Furosemide (Lasix Injection -) 40 mg IVPUSH DAILY [facility] Last Admin: 05/06/17 09:50 Dose: 40 mg Insulin Aspart (Novolog Vial Sliding Scale -) 1 vial SQ TIDAC [facility] PRN Reason: Protocol Last Admin: 05/06/17 12:35 Dose: Not Given Metoclopramide HCl (Reglan -) 5 mg PO TIDAC [facility] Last Admin: 05/06/17 06:31 Dose: 5 mg Metoprolol Tartrate (Lopressor Injection -) 5 mg IVPUSH Q4H PRN PRN Reason: HR > 120 Metoprolol Tartrate (Lopressor -) 25 mg PO BID [facility] Last Admin: 05/06/17 10:56 Dose: Not Given Mirtazapine (Remeron -) 45 mg PO HS [facility] Last Admin: 05/05/17 22:57 Dose: 45 mg Potassium Chloride (K-Dur -) 20 meq PO DAILY [facility] Last Admin: 05/06/17 09:50 Dose: 20 meq Ranitidine HCl (Zantac -) 150 mg PO BID [facility] Last Admin: 05/06/17 09:50 Dose: 150 mg Zolpidem Tartrate (Ambien -) 5 mg PO HS PRN PRN Reason: INSOMNIA Last Admin: 05/05/17 23:23 Dose: 5 mg - Objective Vital Signs: Vital Signs Temperature 98.1 F 05/06/17 10:00 Pulse Rate 54 L 05/06/17 10:00 Respiratory Rate 18 05/06/17 10:00 Blood Pressure 112/62 05/06/17 10:00 O2 Sat by Pulse Oximetry (%) 94 L 05/06/17 10:00 Constitutional: Yes: No Distress Eyes: Yes: WNL HENT: Yes: WNL Neck: Yes: WNL Cardiovascular: Yes: Bradycardia Respiratory: Yes: Diminished Gastrointestinal: Yes: Soft ...Rectal Exam: Yes: Deferred Genitourinary: No: Anuria Breast(s): Yes: WNL Musculoskeletal: Yes: Muscle Weakness Extremities: Yes: Cool Edema: No Peripheral Pulses WNL: Yes Integumentary: Yes: WNL Neurological: Yes: Alert, Oriented, Weakness Psychiatric: Yes: WNL Labs: CBC, BMP 05/05/17 05:10 05/05/17 05:10 INR, PTT INR 1.81 (0.82-1.09) H D 04/29/17 17:00 Abnormal Lab Results 05/07/17 06:15 Plt Count 470 H - ....Imaging EKG: Image Reviewed (sinus bradycardia; RBBB; nonspecific T wave changes.) Other: Image Reviewed (telemetry: sinus bradycardia (usually in mid-50s bpm; 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 AF has converted to sinus rhythm. Adjust medications accordingly (periods of marked bradycardia while asleep in early am). Diltiazem lowered to 30 mg tid; metoprolol lowered to 12.5 mg bid. F/u HR overnight. Ideally, would assess HR response to ambulation. Code(s): I48.91 - UNSPECIFIED ATRIAL FIBRILLATION (3) SOB (shortness of breath) Code(s): R06.02 - SHORTNESS OF BREATH (4) Sepsis Assessment/Plan: Antibiotic change per ID. Code(s): A41.9 - SEPSIS, UNSPECIFIED ORGANISM (5) CHF (congestive heart failure) Code(s): I50.9 - HEART FAILURE, UNSPECIFIED (6) Depressed affect Code(s): R45.89 - OTHER SYMPTOMS AND SIGNS INVOLVING EMOTIONAL STATE (7) Diabetes Code(s): E11.9 - TYPE 2 DIABETES MELLITUS WITHOUT COMPLICATIONS (8) Hyperlipidemia Code(s): E78.5 - HYPERLIPIDEMIA, UNSPECIFIED (9) Insomnia Code(s): G47.00 - INSOMNIA, UNSPECIFIED (10) Leukocytosis Code(s): D72.829 - ELEVATED WHITE BLOOD CELL COUNT, UNSPECIFIED (11) Parkinson disease Code(s): G20 - PARKINSON'S DISEASE (12) Elevated LFTs Code(s): R79.89 - OTHER SPECIFIED ABNORMAL FINDINGS OF BLOOD CHEMISTRY
[2017-05-06] MEDS ORDERED: dilTIAZem HCL 30 MG TABLET (FP) PO SCH (14:00)
--- NOTE | 2017-05-06 15:31 | PN ---
Progress Note (short form) - Note Progress Note: Overall appears better. Some residual cough. No CP. Intake & Output 05/03/17 05/04/17 05/05/17 05/06/17 23:59 23:59 23:59 23:59 Intake Total 700 560 300 330 Output Total 1500 Balance -800 560 300 330 Weight 145 lb 1.027 oz 148 lb 1.6 oz 144 lb 142 lb 10.225 oz Last Vital Signs Temp Pulse Resp BP Pulse Ox 98.1 F 54 L 18 112/62 94 L 05/06/17 10:00 05/06/17 10:00 05/06/17 10:00 05/06/17 10:00 05/06/17 10:00 Active Medications Apixaban (Eliquis -) 5 mg PO BID [facility] Last Admin: 05/06/17 09:50 Dose: 5 mg Carbidopa/Levodopa (Sinemet *Cr* 25/100 -) 1 combo PO TID [facility] Last Admin: 05/06/17 14:14 Dose: 1 combo Diltiazem HCl (Cardizem -) 30 mg PO TID [facility] Furosemide (Lasix Injection -) 40 mg IVPUSH DAILY [facility] Last Admin: 05/06/17 09:50 Dose: 40 mg Insulin Aspart (Novolog Vial Sliding Scale -) 1 vial SQ TIDAC [facility] PRN Reason: Protocol Last Admin: 05/06/17 12:35 Dose: Not Given Metoclopramide HCl (Reglan -) 5 mg PO TIDAC [facility] Last Admin: 05/06/17 13:45 Dose: Not Given Metoprolol Tartrate (Lopressor Injection -) 5 mg IVPUSH Q4H PRN PRN Reason: HR > 120 Metoprolol Tartrate (Lopressor -) 12.5 mg PO BID [facility] Last Admin: 05/06/17 14:14 Dose: 12.5 mg Mirtazapine (Remeron -) 45 mg PO HS [facility] Last Admin: 05/05/17 22:57 Dose: 45 mg Potassium Chloride (K-Dur -) 20 meq PO DAILY [facility] Last Admin: 05/06/17 09:50 Dose: 20 meq Ranitidine HCl (Zantac -) 150 mg PO BID [facility] Last Admin: 05/06/17 09:50 Dose: 150 mg Zolpidem Tartrate (Ambien -) 5 mg PO HS PRN PRN Reason: INSOMNIA Last Admin: 05/05/17 23:23 Dose: 5 mg Gen: Awake and alert, NAD Heart: irregular Lung: scattered basilar rales, rhonchi Abd: soft, nontender Ext: less edema Laboratory Results - last 24 hr 05/06/17 06:17 POC Glucometer [id number] IMP: Acute on Chronic Diastolic Heart Failure Atrial Fibrillation with RVR HTN DM Hyperlipidemia Parkinsons Disease Elevated LFTs improving - ABX per Primary team/ID - rate control per Cardiology - Lasix - AC - O2 to keep SpO2 >90% Dr Calhoun
--- NOTE | 2017-05-06 18:20 | PN ---
Progress Note, Physician History of Present Illness: Feels better. Denies chest pain, SOB or PND. - Current Medication List Current Medications: Active Medications Apixaban (Eliquis -) 5 mg PO BID [facility] Last Admin: 05/06/17 09:50 Dose: 5 mg Carbidopa/Levodopa (Sinemet *Cr* 25/100 -) 1 combo PO TID [facility] Last Admin: 05/06/17 14:14 Dose: 1 combo Diltiazem HCl (Cardizem -) 30 mg PO TID [facility] Last Admin: 05/06/17 16:41 Dose: 30 mg Furosemide (Lasix Injection -) 40 mg IVPUSH DAILY [facility] Last Admin: 05/06/17 09:50 Dose: 40 mg Insulin Aspart (Novolog Vial Sliding Scale -) 1 vial SQ TIDAC [facility] PRN Reason: Protocol Last Admin: 05/06/17 16:42 Dose: Not Given Metoclopramide HCl (Reglan -) 5 mg PO TIDAC [facility] Last Admin: 05/06/17 16:42 Dose: 5 mg Metoprolol Tartrate (Lopressor Injection -) 5 mg IVPUSH Q4H PRN PRN Reason: HR > 120 Metoprolol Tartrate (Lopressor -) 12.5 mg PO BID [facility] Last Admin: 05/06/17 14:14 Dose: 12.5 mg Mirtazapine (Remeron -) 45 mg PO HS [facility] Last Admin: 05/05/17 22:57 Dose: 45 mg Potassium Chloride (K-Dur -) 20 meq PO DAILY [facility] Last Admin: 05/06/17 09:50 Dose: 20 meq Ranitidine HCl (Zantac -) 150 mg PO BID [facility] Last Admin: 05/06/17 09:50 Dose: 150 mg Zolpidem Tartrate (Ambien -) 5 mg PO HS PRN PRN Reason: INSOMNIA Last Admin: 05/05/17 23:23 Dose: 5 mg - Objective Vital Signs: Vital Signs Temperature 98.1 F 05/06/17 10:00 Pulse Rate 54 L 05/06/17 10:00 Respiratory Rate 18 05/06/17 10:00 Blood Pressure 112/62 05/06/17 10:00 O2 Sat by Pulse Oximetry (%) 94 L 05/06/17 10:00 Constitutional: Yes: Well Nourished, No Distress, Calm Eyes: Yes: WNL HENT: Yes: WNL Neck: Yes: Supple Cardiovascular: Yes: Regular Rate and Rhythm, S1, S2 Respiratory: Yes: Regular, CTA Bilaterally Gastrointestinal: Yes: Normal Bowel Sounds, Soft Genitourinary: Yes: WNL Musculoskeletal: Yes: Back Pain Extremities: Yes: WNL Edema: No Peripheral Pulses WNL: Yes Labs: CBC, BMP 05/05/17 05:10 05/05/17 05:10 INR, PTT INR 1.81 (0.82-1.09) H D 04/29/17 17:00 Problem List - Problems (1) Atrial fibrillation with rapid ventricular response Assessment/Plan: she is now in SR at 54 /mt. Code(s): I48.91 - UNSPECIFIED ATRIAL FIBRILLATION (2) Elevated LFTs Code(s): R79.89 - OTHER SPECIFIED ABNORMAL FINDINGS OF BLOOD CHEMISTRY (3) SOB (shortness of breath) Code(s): R06.02 - SHORTNESS OF BREATH (4) Sepsis Code(s): A41.9 - SEPSIS, UNSPECIFIED ORGANISM (5) CHF (congestive heart failure) Assessment/Plan: CHF well controlled with IV Lasix. Code(s): I50.9 - HEART FAILURE, UNSPECIFIED (6) Diabetes 1.5, managed as type 1 Code(s): E10.9 - TYPE 1 DIABETES MELLITUS WITHOUT COMPLICATIONS (7) Diabetes Assessment/Plan: Has been on Metformin and BGM are slightly elevated Code(s): E11.9 - TYPE 2 DIABETES MELLITUS WITHOUT COMPLICATIONS (8) Diabetes Code(s): E11.9 - TYPE 2 DIABETES MELLITUS WITHOUT COMPLICATIONS Assessment/Plan Continues to be bradycardic , last night HR went down to 40 and presently around 54. Case discussed with , who has decreased the dose of toprol to 12.5 BID and cardizem to 30 mg Q8H.Patient denies any dizzinesss and is fully alert. Started to cough again with some sputum and have restarted PO Levaquin 500mg. Plan is to discharge home once HR is controlled.
[2017-05-06] MEDS: MIRTAZAPINE 15 MG TABLET (FP) PO SCH (21:34)
[2017-05-06] MEDS: LEVOFLOXACIN 500 MG TABLET (FP) PO SCH (21:34)
[2017-05-06] MEDS ORDERED: METOPROLOL TARTRATE 25 MG TABLET (FP) PO SCH (22:00)
[2017-05-06] MEDS: ZOLPIDEM TARTRATE 5 MG TABLET PO PRN (22:18)
[2017-05-07] MEDS: METOCLOPRAMIDE HCL 10 MG TABLET (FP) PO SCH ×2 (06:30→13:00)
[2017-05-07] MEDS: INSULIN SLIDING SCALE (NOVOLOG) 1 VIAL SQ SCH ×2 (06:31→12:56)
[2017-05-07] MEDS: dilTIAZem HCL 30 MG TABLET (FP) PO SCH ×3 (06:31→22:17)
[2017-05-07 06:38] LABS: BASO % 0.9 % (0-2.0); EOS % 2.3 % (0-4.5); HEMATOCRIT 42.3 % (32.4-45.2); HEMOGLOBIN 14.3 GM/dL (10.7-15.3); LYMPH % 16.9 % (8-40); MCH 32.1 pg (25.7-33.7); MCHC 33.9 g/dl (32.0-36.0); MEAN CELL VOLUME 94.9 fl (80-96); MEAN PLT VOLUME 7.8 fl (7.5-11.1); MONO % 9.4 % (3.8-10.2); NEUT % 70.5 % (42.8-82.8); PLATELET COUNT 470 K/MM3 (134-434); RBC 4.46 M/mm3 (3.60-5.2); RDW 13.1 % (11.6-15.6); WHITE BLOOD COUNT 9.5 K/mm3 (4.0-10.0)
[2017-05-07 07:17] LABS: ALBUMIN 2.8 g/dl (3.4-5.0); ANION GAP 7 (8-16); BLOOD UREA NITROGEN 25 mg/dL (7-18); CALCIUM 8.5 mg/dL (8.5-10.1); CHLORIDE 103 mmol/L (98-107); CO2 28 mmol/L (21-32); CREATININE 0.8 mg/dL (0.55-1.02); GLUCOSE,RANDOM 164 mg/dL (74-106); POTASSIUM 4.5 mmol/L (3.5-5.1); SGOT/AST 21 U/L (15-37); SGPT/ALT 22 U/L (12-78); SODIUM 138 mmol/L (136-145)
[2017-05-07 07:19] LABS: ALK PHOS 98 U/L (45-117); BILIRUBIN,TOTAL 0.5 mg/dL (0.2-1.0); TOT PROT 5.9 g/dl (6.4-8.2)
[2017-05-07] MEDS ORDERED: PT OWN MED DRAWER 7, Y5N ONE ×2 (09:12→12:59)
[2017-05-07] MEDS: FUROSEMIDE 40 MG/4 ML INJECTABLE VIAL IVPUSH SCH (09:14)
[2017-05-07] MEDS: METOPROLOL TARTRATE 25 MG TABLET (FP) PO SCH ×2 (09:15→23:33)
[2017-05-07] MEDS: POTASSIUM CHLORIDE TABS 20 MEQ TABLET.ER (FP) PO SCH (09:15)
[2017-05-07] MEDS: RANITIDINE HCL 150 MG TABLET (FP) PO SCH ×2 (09:15→23:33)
[2017-05-07] MEDS: LEVOFLOXACIN 500 MG TABLET (FP) PO SCH (09:15)
[2017-05-07] MEDS: APIXABAN 5 MG TABLET PO SCH ×2 (09:16→22:17)
--- NOTE | 2017-05-07 12:05 | PN ---
Progress Note (short form) - Note Progress Note: Overall better. Some residual cough. No CP. Intake & Output 05/04/17 05/05/17 05/06/17 05/07/17 23:59 23:59 23:59 23:59 Intake Total 560 300 330 240 Balance 560 300 330 240 Weight 148 lb 1.6 oz 144 lb 142 lb 10.225 oz 142 lb 11.2 oz Last Vital Signs Temp Pulse Resp BP Pulse Ox 98.7 F 63 18 117/56 94 L 05/07/17 06:47 05/07/17 06:47 05/07/17 09:00 05/07/17 06:47 05/07/17 09:00 Active Medications Apixaban (Eliquis -) 5 mg PO BID [facility] Last Admin: 05/07/17 09:16 Dose: 5 mg Carbidopa/Levodopa (Sinemet *Cr* 25/100 -) 1 combo PO TID [facility] Last Admin: 05/07/17 06:31 Dose: 1 combo Diltiazem HCl (Cardizem -) 30 mg PO TID [facility] Last Admin: 05/07/17 06:31 Dose: 30 mg Furosemide (Lasix Injection -) 40 mg IVPUSH DAILY [facility] Last Admin: 05/07/17 09:14 Dose: 40 mg Insulin Aspart (Novolog Vial Sliding Scale -) 1 vial SQ TIDAC [facility] PRN Reason: Protocol Last Admin: 05/07/17 06:31 Dose: Not Given Levofloxacin (Levaquin -) 500 mg PO DAILY [facility] Last Admin: 05/07/17 09:15 Dose: 500 mg Metformin HCl (Glucophage Xr -) 500 mg PO DAILY@0700 [facility] Last Admin: 05/07/17 06:31 Dose: 500 mg Metoclopramide HCl (Reglan -) 5 mg PO TIDAC [facility] Last Admin: 05/07/17 06:30 Dose: 5 mg Metoprolol Tartrate (Lopressor Injection -) 5 mg IVPUSH Q4H PRN PRN Reason: HR > 120 Metoprolol Tartrate (Lopressor -) 12.5 mg PO BID [facility] Last Admin: 05/07/17 09:15 Dose: 12.5 mg Mirtazapine (Remeron -) 45 mg PO HS [facility] Last Admin: 05/06/17 21:34 Dose: 45 mg Potassium Chloride (K-Dur -) 20 meq PO DAILY [facility] Last Admin: 05/07/17 09:15 Dose: 20 meq Ranitidine HCl (Zantac -) 150 mg PO BID [facility] Last Admin: 05/07/17 09:15 Dose: 150 mg Zolpidem Tartrate (Ambien -) 5 mg PO HS PRN PRN Reason: INSOMNIA Last Admin: 05/06/17 22:18 Dose: 5 mg Gen: Awake and alert, NAD Heart: irregular Lung: scattered basilar rales, rhonchi Abd: soft, nontender Ext: less edema Laboratory Results - last 24 hr 05/07/17 05/07/17 06:15 06:15 WBC 9.5 RBC 4.46 Hgb 14.3 Hct 42.3 MCV 94.9 MCH 32.1 MCHC 33.9 RDW 13.1 Plt Count 470 H MPV 7.8 Neutrophils % 70.5 Lymphocytes % 16.9 Monocytes % 9.4 Eosinophils % 2.3 Basophils % 0.9 Sodium 138 Potassium 4.5 Chloride 103 Carbon Dioxide 28 Anion Gap 7 L BUN 25 H Creatinine 0.8 Creat Clearance w eGFR > 60 Random Glucose 164 H D Calcium 8.5 Total Bilirubin 0.5 D AST 21 ALT 22 Alkaline Phosphatase 98 Total Protein 5.9 L Albumin 2.8 L IMP: Acute on Chronic Diastolic Heart Failure Atrial Fibrillation with RVR HTN DM Hyperlipidemia Parkinsons Disease Elevated LFTs improving - ABX per Primary team/ID - rate control per Cardiology - Lasix - AC - O2 to keep SpO2 >90% Dr Calhoun
--- NOTE | 2017-05-07 13:09 | PN ---
Progress Note, Physician History of Present Illness: seen and examined today in nad. no overnight events. no new complaints. - Current Medication List Current Medications: Active Medications Apixaban (Eliquis -) 5 mg PO BID [facility] Last Admin: 05/07/17 09:16 Dose: 5 mg Carbidopa/Levodopa (Sinemet *Cr* 25/100 -) 1 combo PO TID [facility] Last Admin: 05/07/17 13:01 Dose: 1 combo Diltiazem HCl (Cardizem -) 30 mg PO TID [facility] Last Admin: 05/07/17 13:00 Dose: 30 mg Furosemide (Lasix Injection -) 40 mg IVPUSH DAILY [facility] Last Admin: 05/07/17 09:14 Dose: 40 mg Insulin Aspart (Novolog Vial Sliding Scale -) 1 vial SQ TIDAC [facility] PRN Reason: Protocol Last Admin: 05/07/17 12:56 Dose: 4 units Levofloxacin (Levaquin -) 500 mg PO DAILY [facility] Last Admin: 05/07/17 09:15 Dose: 500 mg Metformin HCl (Glucophage Xr -) 500 mg PO DAILY@0700 [facility] Last Admin: 05/07/17 06:31 Dose: 500 mg Metoclopramide HCl (Reglan -) 5 mg PO TIDAC [facility] Last Admin: 05/07/17 13:00 Dose: 5 mg Metoprolol Tartrate (Lopressor Injection -) 5 mg IVPUSH Q4H PRN PRN Reason: HR > 120 Metoprolol Tartrate (Lopressor -) 12.5 mg PO BID [facility] Last Admin: 05/07/17 09:15 Dose: 12.5 mg Mirtazapine (Remeron -) 45 mg PO HS [facility] Last Admin: 05/06/17 21:34 Dose: 45 mg Potassium Chloride (K-Dur -) 20 meq PO DAILY [facility] Last Admin: 05/07/17 09:15 Dose: 20 meq Ranitidine HCl (Zantac -) 150 mg PO BID [facility] Last Admin: 05/07/17 09:15 Dose: 150 mg Zolpidem Tartrate (Ambien -) 5 mg PO HS PRN PRN Reason: INSOMNIA Last Admin: 05/06/17 22:18 Dose: 5 mg - Objective Vital Signs: Vital Signs Temperature 98.7 F 05/07/17 06:47 Pulse Rate 63 05/07/17 06:47 Respiratory Rate 18 05/07/17 09:00 Blood Pressure 117/56 05/07/17 06:47 O2 Sat by Pulse Oximetry (%) 94 L 05/07/17 09:00 Constitutional: Yes: No Distress, Calm Eyes: Yes: Conjunctiva Clear, EOM Intact HENT: Yes: Atraumatic, Normocephalic Neck: Yes: Supple, Trachea Midline Cardiovascular: Yes: Regular Rate and Rhythm, S1, S2. No: Bradycardia, Tachycardia, Pulse Irregular, Bruit, JVD, Gallop, Murmur, Rub, S3, S4, Varicosities Respiratory: Yes: Regular, CTA Bilaterally. No: Rales, Rhonchi, Wheezes Gastrointestinal: Yes: Normal Bowel Sounds, Soft. No: Distention, Tenderness Extremities: Yes: WNL Edema: No Peripheral Pulses WNL: Yes Neurological: Yes: Alert, Oriented Psychiatric: Yes: Alert, Oriented Labs: CBC, BMP 05/07/17 06:15 05/07/17 06:15 INR, PTT INR 1.81 (0.82-1.09) H D 04/29/17 17:00 - ....Imaging Chest X-ray: Report Reviewed, Image Reviewed EKG: Report Reviewed, Image Reviewed Other: Report Reviewed, Image Reviewed (tele-nsr, pvcs, apcs) Assessment/Plan 77 year old woman with a history of parkinson's, pafib, HTN, admitted with afib with RVR. Atrial fibrillation with rapid ventricular response -back on NSR -bradycardia yesterday -Now off digoxin, on diltiazem and metoprolol. -Diltiazem was lowered to 30 mg tid; metoprolol was lowered to 12.5 mg bid. -assess HR response to ambulation. -if HR remains adequately controlled pt can be followed closely as outpatient -cont eliquis 5mg bid SOB-acute diastolic chf likely due to afib with RVR -currently euvolemic -can transition to po lasix HTN-low normal -cont current medical regimen
--- NOTE | 2017-05-07 15:58 | PN ---
Progress Note, Physician History of Present Illness: Feel better with very occasional cough without sputum. Denies chest pain, SOB or palpitations - Current Medication List Current Medications: Active Medications Apixaban (Eliquis -) 5 mg PO BID [facility] Last Admin: 05/07/17 09:16 Dose: 5 mg Carbidopa/Levodopa (Sinemet *Cr* 25/100 -) 1 combo PO TID [facility] Last Admin: 05/07/17 13:01 Dose: 1 combo Diltiazem HCl (Cardizem -) 30 mg PO TID [facility] Last Admin: 05/07/17 13:00 Dose: 30 mg Furosemide (Lasix -) 40 mg PO DAILY [facility] Levofloxacin (Levaquin -) 500 mg PO DAILY [facility] Last Admin: 05/07/17 09:15 Dose: 500 mg Metformin HCl (Glucophage Xr -) 500 mg PO DAILY@0700 [facility] Last Admin: 05/07/17 06:31 Dose: 500 mg Metoprolol Tartrate (Lopressor Injection -) 5 mg IVPUSH Q4H PRN PRN Reason: HR > 120 Metoprolol Tartrate (Lopressor -) 12.5 mg PO BID [facility] Last Admin: 05/07/17 09:15 Dose: 12.5 mg Mirtazapine (Remeron -) 45 mg PO HS [facility] Last Admin: 05/06/17 21:34 Dose: 45 mg Potassium Chloride (K-Dur -) 20 meq PO DAILY [facility] Last Admin: 05/07/17 09:15 Dose: 20 meq Ranitidine HCl (Zantac -) 150 mg PO BID [facility] Last Admin: 05/07/17 09:15 Dose: 150 mg - Objective Vital Signs: Vital Signs Temperature 98.1 F 05/07/17 14:00 Pulse Rate 55 L 05/07/17 14:00 Respiratory Rate 20 05/07/17 14:00 Blood Pressure 124/71 05/07/17 14:00 O2 Sat by Pulse Oximetry (%) 94 L 05/07/17 09:00 Constitutional: Yes: Well Nourished, No Distress, Calm Eyes: Yes: WNL HENT: Yes: WNL Neck: Yes: Supple Cardiovascular: Yes: Regular Rate and Rhythm, S1, S2 Respiratory: Yes: Regular, CTA Bilaterally Gastrointestinal: Yes: Normal Bowel Sounds, Soft Genitourinary: Yes: WNL Musculoskeletal: Yes: Back Pain Extremities: Yes: WNL Edema: No Peripheral Pulses WNL: Yes Integumentary: Yes: WNL Neurological: Yes: Alert, Oriented ...Motor Strength: WNL Psychiatric: Yes: Alert, Oriented Labs: CBC, BMP 05/07/17 06:15 05/07/17 06:15 INR, PTT INR 1.81 (0.82-1.09) H D 04/29/17 17:00 Problem List - Problems (1) Atrial fibrillation with rapid ventricular response Assessment/Plan: Continues to be in SR at VR of 55 to 58 on Diltiazem and Toprol Code(s): I48.91 - UNSPECIFIED ATRIAL FIBRILLATION (2) Elevated LFTs Code(s): R79.89 - OTHER SPECIFIED ABNORMAL FINDINGS OF BLOOD CHEMISTRY (3) SOB (shortness of breath) Code(s): R06.02 - SHORTNESS OF BREATH (4) Sepsis Assessment/Plan: URI controlled with Levaquin with normal CBC Code(s): A41.9 - SEPSIS, UNSPECIFIED ORGANISM (5) CHF (congestive heart failure) Assessment/Plan: CHF is well controlled with CXRAY without any congestion Code(s): I50.9 - HEART FAILURE, UNSPECIFIED (6) Diabetes 1.5, managed as type 1 Code(s): E10.9 - TYPE 1 DIABETES MELLITUS WITHOUT COMPLICATIONS (7) Diabetes Assessment/Plan: Controlled with Metformin Code(s): E11.9 - TYPE 2 DIABETES MELLITUS WITHOUT COMPLICATIONS Assessment/Plan Will observe next 24 hours and D?C in AM if stable
[2017-05-07] MEDS: MIRTAZAPINE 15 MG TABLET (FP) PO SCH (22:20)
[2017-05-08] MEDS: dilTIAZem HCL 30 MG TABLET (FP) PO SCH (06:16)
[2017-05-08] MEDS: APIXABAN 5 MG TABLET PO SCH (09:29)
[2017-05-08] MEDS: RANITIDINE HCL 150 MG TABLET (FP) PO SCH (09:29)
[2017-05-08] MEDS: METOPROLOL TARTRATE 25 MG TABLET (FP) PO SCH (09:29)
[2017-05-08] MEDS: LEVOFLOXACIN 500 MG TABLET (FP) PO SCH (09:29)
[2017-05-08] MEDS: POTASSIUM CHLORIDE TABS 20 MEQ TABLET.ER (FP) PO SCH (09:29)
[2017-05-08 09:33] VITALS: BP 136/62; TEMP 98
[2017-05-08] MEDS ORDERED: FUROSEMIDE 40 MG TABLET (FP) PO SCH (10:00)
[2017-05-08 10:06] VITALS: PULSE 53
--- NOTE | 2017-05-08 10:11 | PN ---
Progress Note (short form) - Note Progress Note: Overall better. Some residual cough. No CP. Intake & Output 05/05/17 05/06/17 05/07/17 05/08/17 23:59 23:59 23:59 23:59 Intake Total 076 429 5210 Balance 175 813 3822 Weight 144 lb 142 lb 10.225 oz 142 lb 11.2 oz 143 lb Last Vital Signs Temp Pulse Resp BP Pulse Ox 98 F 53 L 16 136/62 96 05/08/17 09:31 05/08/17 10:05 05/08/17 09:31 05/08/17 09:31 05/08/17 10:05 Active Medications Apixaban (Eliquis -) 5 mg PO BID [facility] Last Admin: 05/08/17 09:29 Dose: 5 mg Carbidopa/Levodopa (Sinemet *Cr* 25/100 -) 1 combo PO TID [facility] Last Admin: 05/08/17 06:16 Dose: 1 combo Diltiazem HCl (Cardizem -) 30 mg PO TID [facility] Last Admin: 05/08/17 06:16 Dose: 30 mg Furosemide (Lasix -) 40 mg PO DAILY [facility] Last Admin: 05/08/17 09:30 Dose: 40 mg Levofloxacin (Levaquin -) 500 mg PO DAILY [facility] Last Admin: 05/08/17 09:29 Dose: 500 mg Metformin HCl (Glucophage Xr -) 500 mg PO DAILY@0700 [facility] Last Admin: 05/08/17 06:16 Dose: 500 mg Metoprolol Tartrate (Lopressor Injection -) 5 mg IVPUSH Q4H PRN PRN Reason: HR > 120 Metoprolol Tartrate (Lopressor -) 12.5 mg PO BID [facility] Last Admin: 05/08/17 09:29 Dose: 12.5 mg Mirtazapine (Remeron -) 45 mg PO HS [facility] Last Admin: 05/07/17 22:20 Dose: 45 mg Potassium Chloride (K-Dur -) 20 meq PO DAILY [facility] Last Admin: 05/08/17 09:29 Dose: 20 meq Ranitidine HCl (Zantac -) 150 mg PO BID [facility] Last Admin: 05/08/17 09:29 Dose: 150 mg Gen: Awake and alert, NAD Heart: irregular Lung: scattered basilar rales, rhonchi Abd: soft, nontender Ext: less edema Laboratory Results - last 24 hr 05/07/17 05/07/17 05:42 12:17 POC Glucometer [phone] IMP: Acute on Chronic Diastolic Heart Failure Atrial Fibrillation with RVR HTN DM Hyperlipidemia Parkinsons Disease Elevated LFTs improving - ABX per Primary team/ID - rate control per Cardiology - Lasix - AC - No Pulmonary contraindication for D/C home Dr Calhoun
--- NOTE | 2017-05-08 11:58 | PN ---
Progress Note, Physician History of Present Illness: seen and examined today in nad. no overnight events. no new complaints. - Current Medication List Current Medications: Active Medications Apixaban (Eliquis -) 5 mg PO BID [facility] Last Admin: 05/08/17 09:29 Dose: 5 mg Carbidopa/Levodopa (Sinemet *Cr* 25/100 -) 1 combo PO TID [facility] Last Admin: 05/08/17 06:16 Dose: 1 combo Diltiazem HCl (Cardizem -) 30 mg PO TID [facility] Last Admin: 05/08/17 06:16 Dose: 30 mg Furosemide (Lasix -) 40 mg PO DAILY [facility] Last Admin: 05/08/17 09:30 Dose: 40 mg Levofloxacin (Levaquin -) 500 mg PO DAILY [facility] Last Admin: 05/08/17 09:29 Dose: 500 mg Metformin HCl (Glucophage Xr -) 500 mg PO DAILY@0700 [facility] Last Admin: 05/08/17 06:16 Dose: 500 mg Metoprolol Tartrate (Lopressor Injection -) 5 mg IVPUSH Q4H PRN PRN Reason: HR > 120 Metoprolol Tartrate (Lopressor -) 12.5 mg PO BID [facility] Last Admin: 05/08/17 09:29 Dose: 12.5 mg Mirtazapine (Remeron -) 45 mg PO HS [facility] Last Admin: 05/07/17 22:20 Dose: 45 mg Potassium Chloride (K-Dur -) 20 meq PO DAILY [facility] Last Admin: 05/08/17 09:29 Dose: 20 meq Ranitidine HCl (Zantac -) 150 mg PO BID [facility] Last Admin: 05/08/17 09:29 Dose: 150 mg - Objective Vital Signs: Vital Signs Temperature 98 F 05/08/17 09:31 Pulse Rate 53 L 05/08/17 10:05 Respiratory Rate 16 05/08/17 09:31 Blood Pressure 136/62 05/08/17 09:31 O2 Sat by Pulse Oximetry (%) 96 05/08/17 10:05 Constitutional: Yes: No Distress, Calm Eyes: Yes: Conjunctiva Clear, EOM Intact, PERRL HENT: Yes: WNL, Atraumatic, Normocephalic Neck: Yes: Supple, Trachea Midline Cardiovascular: Yes: Bradycardia, S1, S2. No: Regular Rate and Rhythm, Tachycardia, Pulse Irregular, Bruit, JVD, Gallop, Murmur, Rub, S3, S4, Varicosities Respiratory: Yes: Regular, CTA Bilaterally. No: Rales, Rhonchi, Wheezes Gastrointestinal: Yes: Normal Bowel Sounds, Soft. No: Distention, Tenderness Musculoskeletal: Yes: WNL Extremities: Yes: WNL Edema: No Peripheral Pulses WNL: Yes Peripheral Pulses: Left Doralis Pedis: 2+, Right Dorsalis Pedis: 2+ Neurological: Yes: Alert, Oriented Psychiatric: Yes: Alert, Oriented Labs: CBC, BMP 05/07/17 06:15 05/07/17 06:15 INR, PTT INR 1.81 (0.82-1.09) H D 04/29/17 17:00 - ....Imaging Chest X-ray: Report Reviewed, Image Reviewed EKG: Report Reviewed, Image Reviewed Other: Report Reviewed, Image Reviewed (tele-Sinus bradycardia 50s, no arrhythmias) Assessment/Plan 77 year old woman with a history of parkinson's, pafib, HTN, admitted with afib with RVR. Atrial fibrillation with rapid ventricular response -converted back in NSR -sinus bradycardia now but in 50s with no significant pauses -Now off digoxin, on diltiazem and metoprolol. -Diltiazem was lowered to 30 mg tid; metoprolol was lowered to 12.5 mg bid. -assess HR response to ambulation. -pt is acceptable for discharge from a cardiac standpoint with plan for close outpatient f/up -cont eliquis 5mg bid SOB-acute diastolic chf likely due to afib with RVR -currently euvolemic -cont po lasix HTN-wnl -cont current medical regimen
--- NOTE | 2017-05-08 15:23 | DS ---
Physical Examination Vital Signs: Vital Signs Temperature 98 F 05/08/17 09:31 Pulse Rate 53 L 05/08/17 10:05 Respiratory Rate 16 05/08/17 09:31 Blood Pressure 136/62 05/08/17 09:31 O2 Sat by Pulse Oximetry (%) 96 05/08/17 10:05 Findings/Remarks: Denies SOB, dizziness, chest pain. Constitutional: Yes: No Distress, Calm Eyes: Yes: Conjunctiva Clear, EOM Intact HENT: Yes: WNL Neck: Yes: Supple Cardiovascular: Yes: Bradycardia, S1, S2 Respiratory: Yes: CTA Bilaterally Labs: CBC, BMP 05/07/17 06:15 05/07/17 06:15 Discharge Summary Reason For Visit: SHORTNESS OF BREATH, A-FIB Condition: Guarded - Instructions Diet, Activity, Other Instructions: you need to continue metoprolol 12.5mg po bid and Lasix 40mg po as per dr. marshall. Disposition: HOME - Home Medications Comprehensive Discharge Medication List: Ambulatory Orders Atorvastatin Ca [Lipitor] 20 mg PO HS 11/02/11 Metformin HCl [Glucophage Xr] 500 mg PO DAILY 11/02/11 Zolpidem Tartrate [Ambien] 10 mg PO HS 10/23/15 Diltiazem HCl [Diltiazem 24Hr Cd] 120 mg PO BID #0 cap.er.24h 10/24/15 Apixaban [Eliquis] 5 mg PO DAILY 02/24/17 Carbidopa/Levodopa [Carbidopa-Levo ER 50-200 Tab] 1 each PO TID 02/24/17 Furosemide [Lasix -] 20 mg PO DAILY 02/24/17 Pramipexole Dihydrochloride [Mirapex -] 5 mg PO DAILY 02/24/17 Apixaban [Eliquis -] 5 mg PO BID tablet 05/08/17 Diltiazem [Cardizem -] 30 mg PO TID #90 tablet 05/08/17 Metformin Xr [Glucophage Xr -] 500 mg PO DAILY@0700 tab.sr.24h 05/08/17 Potassium Chloride [K-Dur -] 20 meq PO DAILY #90 tablet.er 05/08/17
--- NOTE | 2017-05-08 15:55 | DS ---
Physical Examination Vital Signs: Vital Signs Temperature 98 F 05/08/17 09:31 Pulse Rate 53 L 05/08/17 10:05 Respiratory Rate 16 05/08/17 09:31 Blood Pressure 136/62 05/08/17 09:31 O2 Sat by Pulse Oximetry (%) 96 05/08/17 10:05 Findings/Remarks: denies SOB, chest pain, dizziness. Constitutional: Yes: Well Nourished, No Distress, Calm Eyes: Yes: Conjunctiva Clear HENT: Yes: WNL Neck: Yes: Supple Cardiovascular: Yes: Bradycardia, S1, S2 Respiratory: Yes: Regular, CTA Bilaterally Gastrointestinal: Yes: Normal Bowel Sounds, Soft Renal/: Yes: WNL Breast(s): Yes: WNL Musculoskeletal: Yes: Back Pain Extremities: Yes: WNL Edema: No Peripheral Pulses WNL: Yes Integumentary: Yes: WNL Neurological: Yes: Alert, Oriented ...Motor Strength: WNL Psychiatric: Yes: Alert, Oriented Labs: CBC, BMP 05/07/17 06:15 05/07/17 06:15 Discharge Summary Reason For Visit: SHORTNESS OF BREATH, A-FIB Procedures: Principal: CT scan abd,. chest xray,. echocardiogram Hospital Course: Was referred from urgent care due to AFIB with RVR, Was seen in the ED and found to have RVR. Also c/o of cough and of couple of days and not feeling well.Chest Xray showed moderate pulmonary congestion with small pleural effusion, [place] a [place] [address] and elevated LFTs. started pt on ZOSYN IV for possible sepsis. She was given IV Diltiazem in the ED but HR remained elevated inspite of multiple IV doses.She also had lety ated BNP of 3000. A diagnosis of AFIB with RVR and CHF was made. She was transferred to ICU. Was given Lasix IV .She was given Metoprolol VR remained elevated for couple of days then Digoxin was added. This combination also did not control rate .Dig was D/C and Diltiazem and Metoprolol combination finally controlled rate. CT of abdomen was negative and it was felt that leukocytosis was due to resp infection. She was maintained on Zosyn but WBC remained elevated and then Levaquin was started and Zosyn d/c. She felt much improved with this and count normalized. Diabetes, Parkinson's disease and her depression was maintained on her regular meds Condition: Improved - Instructions Diet, Activity, Other Instructions: you need to continue metoprolol 12.5mg po bid and Lasix 40mg po as per dr. marshall. Disposition: HOME - Home Medications Comprehensive Discharge Medication List: Ambulatory Orders Atorvastatin Ca [Lipitor] 20 mg PO HS 11/02/11 Metformin HCl [Glucophage Xr] 500 mg PO DAILY 11/02/11 Zolpidem Tartrate [Ambien] 10 mg PO HS 10/23/15 Diltiazem HCl [Diltiazem 24Hr Cd] 120 mg PO BID #0 cap.er.24h 10/24/15 Apixaban [Eliquis] 5 mg PO DAILY 02/24/17 Carbidopa/Levodopa [Carbidopa-Levo ER 50-200 Tab] 1 each PO TID 02/24/17 Furosemide [Lasix -] 20 mg PO DAILY 02/24/17 Pramipexole Dihydrochloride [Mirapex -] 5 mg PO DAILY 02/24/17 Apixaban [Eliquis -] 5 mg PO BID tablet 05/08/17 Diltiazem [Cardizem -] 30 mg PO TID #90 tablet 05/08/17 Metformin Xr [Glucophage Xr -] 500 mg PO DAILY@0700 tab.sr.24h 05/08/17 Potassium Chloride [K-Dur -] 20 meq PO DAILY #90 tablet.er 05/08/17
== END 2017-05-08 13:10 | disposition home or self-care (01) | DRG 871 ==
LOC: JER 16:36 → JERBED 19:03 → JICU 04-30 01:49 → J2W 05-04 13:34
PROVIDERS: ADMIT Internal Medicine Hematology & Oncology; ATTEND Internal Medicine Hematology & Oncology
DX: A41.9 Sepsis, unspecified organism (principal); J18.9 Pneumonia, unspecified organism; I50.33 Acute on chronic diastolic (congestive) heart failure; G20 Parkinson's disease; Z79.01 Long term (current) use of anticoagulants; K21.9 Gastro-esophageal reflux disease without esophagitis; E78.5 Hyperlipidemia, unspecified; I34.0 Nonrheumatic mitral (valve) insufficiency; I36.1 Nonrheumatic tricuspid (valve) insufficiency; I11.0 Hypertensive heart disease with heart failure; E11.9 Type 2 diabetes mellitus without complications; Z79.84 Long term (current) use of oral hypoglycemic drugs; G47.00 Insomnia, unspecified; R79.89 Other specified abnormal findings of blood chemistry; I48.0 Paroxysmal atrial fibrillation; K59.00 Constipation, unspecified; R10.13 Epigastric pain; K58.9 Irritable bowel syndrome, unspecified; M47.9 Spondylosis, unspecified
CPT/HCPCS: 36415; 71010-TC; 74176-TC; 76705-TC; 80048; 80053; 80061; 80162; 81003; 82150; 82550; 83605; 83721; 83735; 83880; 84100; 84443; 84484; 85025; 85027; 85610; 86140; 86157; 87040; 87070; 87077; 87205; 87804; 87899; 93005; 93010; 93306-TC; 97116-GP; 97161-GP; 99284-25

== ENCOUNTER 2017-12-04 13:50 | Inpatient (IN) | payer OTHER, MEDICARE ==
--- NOTE | 2017-12-04 14:19 | PDOC ---
History of Present Illness - General Chief Complaint: Edema Stated Complaint: LEG AND FOOT SWOLLEN Time Seen by Provider: 12/04/17 14:16 History Source: Patient - History of Present Illness Timing/Duration: reports: other, week Severity: reports: severe Associated Symptoms: reports: shortness of breath. denies: chest pain/soreness , cough, fever/chills, wheezing Past History - Past Medical History Allergies/Adverse Reactions: Allergies Allergy/AdvReac Type Severity Reaction Status Date / Time No Known Drug Allergies Allergy Verified 12/04/17 13:58 Home Medications: Ambulatory Orders Atorvastatin Ca [Lipitor] 10 mg PO HS 11/02/11 Zolpidem Tartrate [Ambien] 10 mg PO HS 10/23/15 Carbidopa/Levodopa [Carbidopa-Levo ER 50-200 Tab] 1 each PO QID 02/24/17 Furosemide [Lasix -] 40 mg PO BID 02/24/17 Pramipexole Dihydrochloride [Mirapex -] 45 mg PO DAILY 02/24/17 Apixaban [Eliquis -] 5 mg PO BID tablet 05/08/17 Potassium Chloride [K-Dur -] 20 meq PO DAILY #90 tablet.er 05/08/17 Diltiazem HCl [Diltiazem 24Hr Cd] 120 mg PO DAILY 12/04/17 Metoprolol Succinate 25 mg PO BID 12/04/17 metFORMIN XR [Glucophage Xr -] 500 mg PO BID 12/04/17 Anemia: No Asthma: No Cancer: No Cardiac Disorders: Yes (A Fib) CVA: No COPD: No CHF: No DVT: No Dementia: No Diabetes: Yes GI Disorders: No Disorders: No HTN: Yes Hypercholesterolemia: No Liver Disease: No Seizures: No Thyroid Disease: No - Surgical History Abdominal Surgery: No Appendectomy: No Cardiac Surgery: No Cholecystectomy: No Lung Surgery: No Neurologic Surgery: Yes (BRAIN TUMOR REMOVED 2008) Orthopedic Surgery: No - Suicide/Smoking/Psychosocial Hx Smoking History: Never smoked Have you smoked in the past 12 months: No Hx Alcohol Use: No Drug/Substance Use Hx: No Substance Use Type: None Hx Substance Use Treatment: No Review of Systems - Review of Systems Constitutional: No: Fever *Physical Exam - Vital Signs Last Vital Signs Temp Pulse Resp BP Pulse Ox 97.4 F L 139 H 20 120/45 96 12/04/17 13:54 12/04/17 13:54 12/04/17 13:54 12/04/17 13:54 12/04/17 13:54 - Physical Exam General Appearance: Yes: Appropriately Dressed. No: Apparent Distress HEENT: positive: Normal Voice Respiratory/Chest: positive: Crackles (diffusely). negative: Respiratory Distress Cardiovascular: positive: Irregularly Irregular Gastrointestinal/Abdominal: positive: Soft. negative: Tender Musculoskeletal: negative: CVA Tenderness Extremity: positive: Pedal Edema (b/l) Integumentary: positive: Dry, Warm Neurologic: positive: Fully Oriented, Alert, Normal Mood/Affect ED Treatment Course - LABORATORY CBC & Chemistry Diagram: 12/04/17 14:20 12/04/17 14:20 - RADIOLOGY Radiology Studies Ordered: Category Date Time Status CHEST X-RAY PORTABLE* [RAD] Stat Radiology 12/04/17 14:16 Ordered Medical Decision Making - Medical Decision Making 12/04/17 14:18 77-year-old female, h/o PD,depression, DM, CHF on lasix, afib on dig and eliquis , BIB for shortness of breath and worsening bilateral pedal edema over past several days per . Denies any chest pain, diaphoresis, palpitations , nausea, vomiting, cough, f/c. As per , pt's front end drupal developer is Dr. Felton and PMD is Dr Kelley See exam AFIB w/ RVR on EKG Tachy to 160s and hypertensive -cardizem IV/po -lasix given crackles/edema on exam -CXR -labs -cards c/s -admit 12/04/17 14:58 HR now 96-120s after cardizem, improved from 169 on monitor, will continue to reassess and manage as needed. CXR w/ new congestive changes and ?atelectasis or infiltrate at R base. BNP 2035. Dose of lasix given. Clinical suspicion for PNA very low given no cough or fever. Mild leukocytosis noted though. Will hold on on abx in ER. Case d/w cards who agrees w/ ER management and will see inhouse. Dr Kelley made aware and pt admitted to MD's service 12/04/17 17:03 HR in the 140s/150s on monitor. Dr Ou aware and placed order for beta linda. Will continue to reassess *DC/Admit/Observation/Transfer Diagnosis at time of Disposition: SOB (shortness of breath), Hyperglycemia Afib Qualifiers: Atrial fibrillation type: unspecified Qualified Code(s): I48.91 - Unspecified atrial fibrillation Edema Qualifiers: Edema type: unspecified Qualified Code(s): R60.9 - Edema, unspecified CHF (congestive heart failure) Qualifiers: Heart failure type: unspecified Heart failure chronicity: chronic Qualified Code(s): I50.9 - Heart failure, unspecified - Discharge Dispostion Condition at time of disposition: Fair Decision to Admit order: Yes - Referrals - Patient Instructions - Post Discharge Activity
[2017-12-04] MEDS ORDERED: dilTIAZem HCL 30 MG TABLET (FP) PO ONE (14:24)
[2017-12-04] MEDS ORDERED: dilTIAZem HCL 50 MG/10 ML - 10 ML VIAL IVPUSH ONE (14:24)
[2017-12-04] MEDS ORDERED: dilTIAZem HCL 125 MG/25 ML - 25 ML VIAL ONE (14:28)
[2017-12-04] MEDS ORDERED: dilTIAZem HCL 30 MG TABLET (FP) ONE (14:28)
[2017-12-04 14:30] LABS: BASO % 0.3 % (0-2.0); EOS % 0.2 % (0-4.5); HEMOGLOBIN 15.4 GM/dL (10.7-15.3); LYMPH % 11.6 % (8-40); MCH 31.9 pg (25.7-33.7); MCHC 33.5 g/dl (32.0-36.0); MEAN CELL VOLUME 95.1 fl (80-96); MEAN PLT VOLUME 9.1 fl (7.5-11.1); NEUT % 79.9 % (42.8-82.8); PLATELET COUNT 355 K/MM3 (134-434); RBC 4.84 M/mm3 (3.60-5.2); RDW 14.2 % (11.6-15.6); WHITE BLOOD COUNT 14.2 K/mm3 (4.0-10.0)
[2017-12-04] MEDS ORDERED: FUROSEMIDE 40 MG/4 ML INJECTABLE VIAL IVPUSH ONE (14:38)
[2017-12-04 14:44] LABS: CHLORIDE 104 mmol/L (98-107); POTASSIUM 4.2 mmol/L (3.5-5.1); SODIUM 137 mmol/L (136-145)
[2017-12-04 14:49] LABS: ALBUMIN 3.1 g/dl (3.4-5.0); ANION GAP 13 (8-16); BILIRUBIN,TOTAL 0.7 mg/dL (0.2-1.0); BLOOD UREA NITROGEN 43 mg/dL (7-18); CALCIUM 8.4 mg/dL (8.5-10.1); CO2 20 mmol/L (21-32); SGOT/AST 56 U/L (15-37); SGPT/ALT 24 U/L (12-78); TOT PROT 5.7 g/dl (6.4-8.2)
[2017-12-04 14:51] LABS: ALK PHOS 159 U/L (45-117)
[2017-12-04 14:53] LABS: GLUCOSE,RANDOM 309 mg/dL (74-106)
[2017-12-04 15:02] LABS: N-TERMINAL BNP 2036 pg/ml (5-450)
[2017-12-04] MEDS ORDERED: FUROSEMIDE 40 MG/4 ML INJECTABLE VIAL ONE (15:03)
[2017-12-04] MEDS ORDERED: dilTIAZem HCL 50 MG/10 ML - 10 ML VIAL ONE ×2 (16:08→21:05)
[2017-12-04] MEDS: dilTIAZem HCL 50 MG/10 ML - 10 ML VIAL IVPUSH PRN ×2 (16:15→21:23)
[2017-12-04] MEDS ORDERED: metoPROLOL SUCCINATE 25 MG TAB.SR.24H (FP) PO ONE (16:44)
[2017-12-04] MEDS ORDERED: METOPROLOL TARTRATE 25 MG TABLET (FP) ONE (16:50)
[2017-12-04 17:49] LABS: URINE APPEARANCE CLOUDY; URINE BILIRUBIN NEGATIVE (<2.0 mg/dL); URINE COLOR LTYELLOW; URINE GLUCOSE (UA) NEGATIVE (NEGATIVE); URINE KETONE NEGATIVE (NEGATIVE); URINE NITRITE NEGATIVE (NEGATIVE); URINE PROTEIN NEGATIVE (NEGATIVE); URINE UROBILINOGEN NEGATIVE mg/dL (0.2-1.0)
[2017-12-04 17:56] LABS: URINE LEUK ESTERASE 3+ (NEGATIVE)
[2017-12-04 17:59] LABS: EPI CELLS RARE /HPF (FEW); URINE HYALINE CAST 4 /lpf; URINE MUCUS RARE
[2017-12-04] MEDS ORDERED: ATORVASTATIN CA 10 MG TABLET (FP) ONE (22:18)
[2017-12-04] MEDS: ATORVASTATIN CA 20 MG TABLET (FP) PO SCH (22:44)
[2017-12-04] MEDS: APIXABAN 5 MG TABLET PO SCH (22:44)
[2017-12-04] MEDS: MIRTAZAPINE 15 MG TABLET (FP) PO SCH (22:44)
[2017-12-04] MEDS: CARBIDOPA/LEVODOPA 25/100 TABLET (FP) PO SCH (22:44)
[2017-12-04] MEDS ORDERED: CEPHALEXIN MONOHYDRATE 500 MG CAPSULE (UD) ONE (23:05)
[2017-12-04] MEDS: CEPHALEXIN MONOHYDRATE 500 MG CAPSULE (UD) PO SCH (23:07)
[2017-12-05] MEDS ORDERED: CEPHALEXIN MONOHYDRATE 500 MG CAPSULE (UD) ONE ×2 (00:12→06:04)
[2017-12-05] MEDS ORDERED: dilTIAZem HCL 30 MG TABLET (FP) ONE ×2 (00:12→06:04)
[2017-12-05] MEDS ORDERED: ZOLPIDEM TARTRATE 5 MG TABLET ONE (00:12)
[2017-12-05] MEDS: dilTIAZem HCL 30 MG TABLET (FP) PO SCH ×5 (00:19→23:19)
[2017-12-05] MEDS: ZOLPIDEM TARTRATE 5 MG TABLET PO PRN ×2 (00:20→23:19)
[2017-12-05] MEDS: CEPHALEXIN MONOHYDRATE 500 MG CAPSULE (UD) PO SCH ×5 (00:20→23:19)
[2017-12-05] MEDS: dilTIAZem HCL 50 MG/10 ML - 10 ML VIAL IVPUSH PRN (01:11)
[2017-12-05] MEDS ORDERED: dilTIAZem HCL 50 MG/10 ML - 10 ML VIAL IVPUSH ONE (05:33)
[2017-12-05] MEDS ORDERED: dilTIAZem HCL 125 MG/25 ML - 25 ML VIAL ONE (05:37)
[2017-12-05] MEDS ORDERED: DILTIAZEM INJECTION 125 MG in SODIUM CHLORIDE 100 ML IVPB SCH (05:45)
[2017-12-05] MEDS ORDERED: FUROSEMIDE 40 MG/4 ML INJECTABLE VIAL ONE (06:04)
[2017-12-05] MEDS: FUROSEMIDE 40 MG/4 ML INJECTABLE VIAL IVPUSH SCH ×2 (06:10→13:33)
[2017-12-05 08:27] LABS: GLUCOSE,FASTING 256 mg/dL (70-105)
[2017-12-05] MEDS ORDERED: PT OWN MED DRAWER 7, Y5N ONE ×2 (08:34→16:34)
[2017-12-05] MEDS ORDERED: INSULIN SLIDING SCALE (NOVOLOG) 1 VIAL SQ SCH ×2 (08:45→11:00)
[2017-12-05 08:52] LABS: BASO % 0.4 % (0-2.0); EOS % 0.3 % (0-4.5); HEMATOCRIT 45.9 % (32.4-45.2); HEMOGLOBIN 15.2 GM/dL (10.7-15.3); LYMPH % 13.5 % (8-40); MCH 31.5 pg (25.7-33.7); MCHC 33.2 g/dl (32.0-36.0); MEAN PLT VOLUME 9.2 fl (7.5-11.1); MONO % 8.6 % (3.8-10.2); NEUT % 77.2 % (42.8-82.8); PLATELET COUNT 373 K/MM3 (134-434); RBC 4.84 M/mm3 (3.60-5.2); RDW 14.1 % (11.6-15.6); WHITE BLOOD COUNT 15.4 K/mm3 (4.0-10.0)
[2017-12-05] MEDS: INSULIN SLIDING SCALE (NOVOLOG) 1 VIAL SQ SCH ×4 (08:55→21:20)
[2017-12-05] MEDS ORDERED: DIGOXIN 0.5 MG/2 ML AMPUL IVPUSH ONE (09:06)
[2017-12-05 09:24] LABS: ALBUMIN 3.3 g/dl (3.4-5.0); ANION GAP 11 (8-16); BILIRUBIN,TOTAL 0.6 mg/dL (0.2-1.0); BLOOD UREA NITROGEN 43 mg/dL (7-18); CALCIUM 8.7 mg/dL (8.5-10.1); CHLORIDE 101 mmol/L (98-107); CO2 24 mmol/L (21-32); CREATININE 1.1 mg/dL (0.55-1.02); GLUCOSE,RANDOM 242 mg/dL (74-106); MAGNESIUM 2.2 mg/dL (1.8-2.4); PHOSPHOROUS 4.8 mg/dL (2.5-4.9); POTASSIUM 3.7 mmol/L (3.5-5.1); SGOT/AST 46 U/L (15-37); SGPT/ALT 44 U/L (12-78); SODIUM 136 mmol/L (136-145); TOT PROT 5.9 g/dl (6.4-8.2)
[2017-12-05] MEDS: APIXABAN 5 MG TABLET PO SCH ×2 (09:41→21:07)
[2017-12-05] MEDS: CARBIDOPA/LEVODOPA 25/100 TABLET (FP) PO SCH ×4 (09:41→21:07)
[2017-12-05 09:50] LABS: ALK PHOS 162 U/L (45-117)
--- NOTE | 2017-12-05 10:18 | EKG ---
Test Reason : Blood Pressure : / mmHG Vent. Rate : 156 BPM Atrial Rate : 127 BPM P-R Int : 000 ms QRS Dur : 096 ms QT Int : 298 ms P-R-T Axes : 000 -31 -27 degrees QTc Int : 480 ms ATRIAL FIBRILLATION WITH RAPID VENTRICULAR RESPONSE LEFT AXIS DEVIATION INCOMPLETE RIGHT BUNDLE BRANCH BLOCK NONSPECIFIC ST AND T WAVE ABNORMALITY ABNORMAL ECG WHEN COMPARED WITH ECG OF 06-MAY-2017 08:36, ATRIAL FIBRILLATION HAS REPLACED SINUS RHYTHM VENT. RATE HAS INCREASED BY 104 BPM Confirmed by DORIS MOONEY MD ([id number]) on 12/05/2017 10:17:51 AM Referred By: Confirmed By:DORIS MOONEY MD
--- NOTE | 2017-12-05 11:39 | PN ---
Teaching Attending Note Name of Resident: Jarek Silvestre ATTENDING PHYSICIAN STATEMENT I saw and evaluated the patient. I reviewed the resident's note and discussed the case with the resident. I agree with the resident's findings and plan as documented. SUBJECTIVE: 77 F, Parkisnons, depression, DM, CHF on lasix, AFib previously on digoxin and cardizem and eliquis. Reports that she saw her drain technician 2 weeks ago and started her on Metoprolol. Admitted via the ER due to shortness of breath and worsening bilateral pedal edema over past several days. Denies any chest pain, diaphoresis, palpitations , nausea, vomiting, cough, or fever. No travel history or sick contacts. CXR: Bilateral congestive changes / right pleural effusion. Intake & Output 12/02/17 12/03/17 12/04/17 12/05/17 23:59 23:59 23:59 23:59 Intake Total 100 Output Total 150 Balance -50 Weight 154 lb Last Vital Signs Temp Pulse Resp BP Pulse Ox 97.7 F 137 H 24 104/75 97 12/05/17 07:35 12/05/17 09:53 12/05/17 07:35 12/05/17 09:53 12/05/17 09:00 Active Medications Apixaban (Eliquis -) 5 mg PO BID [facility] Last Admin: 12/05/17 09:41 Dose: 5 mg Atorvastatin Calcium (Lipitor -) 20 mg PO HS [facility] Last Admin: 12/04/17 22:44 Dose: 20 mg Carbidopa/Levodopa (Sinemet 25/100 -) 1 each PO QID [facility] Last Admin: 12/05/17 09:41 Dose: 1 each Cephalexin HCl (Keflex -) 500 mg PO Q6HPO [facility] Last Admin: 12/05/17 06:10 Dose: 500 mg Diltiazem HCl (Cardizem Injection -) 10 mg IVPUSH Q4H PRN PRN Reason: TACHYCARDIA Last Admin: 12/05/17 01:11 Dose: 10 mg Diltiazem HCl (Cardizem -) 30 mg PO Q6HPO [facility] Last Admin: 12/05/17 06:10 Dose: 30 mg Furosemide (Lasix Injection -) 40 mg IVPUSH BID@0600,1400 [facility] Last Admin: 12/05/17 06:10 Dose: 40 mg Diltiazem HCl 125 mg/ Sodium (Chloride) 125 mls @ 5 mls/hr IVPB TITR [facility]; Protocol Last Titration: 12/05/17 09:53 Dose: 10 mg/hr, 10 mls/hr Insulin Aspart (Novolog Vial Sliding Scale -) 1 vial SQ ACHS [facility]; Protocol Last Admin: 12/05/17 08:55 Dose: 6 units Metoprolol Succinate (Toprol Xl -) 50 mg PO BID [facility] Last Admin: 12/05/17 09:42 Dose: Not Given Mirtazapine (Remeron -) 45 mg PO HS [facility] Last Admin: 12/04/17 22:44 Dose: 45 mg Potassium Chloride (K-Dur -) 10 meq PO DAILY [facility] Zolpidem Tartrate (Ambien -) 5 mg PO HS PRN PRN Reason: INSOMNIA Last Admin: 12/05/17 00:20 Dose: 5 mg General Appearance: Yes: awake and alert. No: Apparent Distress HEENT: positive: Normal Voice, (+) Slight JVD Respiratory/Chest: positive: bilateral rales. negative: Respiratory Distress Cardiovascular: positive: Irregularly Irregular Gastrointestinal/Abdominal: positive: Soft. negative: Tender Musculoskeletal: negative: CVA Tenderness Extremity: positive: Pedal Edema (b/l) Integumentary: positive: Dry, Warm Neurologic: positive: Fully Oriented, Alert Laboratory Results - last 24 hr 12/04/17 12/04/17 12/04/17 14:20 14:20 14:20 WBC 14.2 H RBC 4.84 Hgb 15.4 H Hct 46.0 H MCV 95.1 MCH 31.9 MCHC 33.5 RDW 14.2 Plt Count 355 D MPV 9.1 D Absolute Neuts (auto) 11.4 Neutrophils % 79.9 Lymphocytes % 11.6 D Monocytes % 8.0 Eosinophils % 0.2 D Basophils % 0.3 Nucleated RBC % 0 Sodium 137 Potassium 4.2 Chloride 104 Carbon Dioxide 20 L Anion Gap 13 BUN 43 H Creatinine 1.0 Creat Clearance w eGFR 53.76 POC Glucometer Random Glucose 309 H* Fasting Glucose Hemoglobin A1c % Calcium 8.4 L Phosphorus Magnesium Total Bilirubin 0.7 AST 56 H ALT 24 Alkaline Phosphatase 159 H Creatine Kinase 74 Troponin I < 0.02 B-Natriuretic Peptide Cancelled 2036 H Total Protein 5.7 L Albumin 3.1 L TSH Urine Color Urine Appearance Urine pH Ur Specific [place] Urine Protein Urine Glucose (UA) Urine Ketones Urine Blood Urine Nitrite Urine Bilirubin Urine Urobilinogen Ur Leukocyte Esterase Urine WBC (Auto) Urine RBC (Auto) Ur Epithelial Cells Hyaline Casts Urine Mucus Digoxin 12/04/17 12/04/17 12/05/17 17:40 19:00 07:45 WBC RBC Hgb Hct MCV MCH MCHC RDW Plt Count MPV Absolute Neuts (auto) Neutrophils % Lymphocytes % Monocytes % Eosinophils % Basophils % Nucleated RBC % Sodium 136 Potassium 3.7 Chloride 101 Carbon Dioxide 24 Anion Gap 11 BUN 43 H Creatinine 1.1 H Creat Clearance w eGFR 48.16 POC Glucometer Random Glucose 242 H Fasting Glucose 256 H Hemoglobin A1c % Calcium 8.7 Phosphorus 4.8 Magnesium 2.2 Total Bilirubin 0.6 AST 46 H ALT 44 Alkaline Phosphatase 162 H Creatine Kinase Troponin I B-Natriuretic Peptide Total Protein 5.9 L Albumin 3.3 L TSH 3.08 Urine Color Ltyellow Urine Appearance Cloudy Urine pH 5.0 Ur Specific [place] 1.011 Urine Protein Negative Urine Glucose (UA) Negative Urine Ketones Negative Urine Blood 2+ H Urine Nitrite Negative Urine Bilirubin Negative Urine Urobilinogen Negative Ur Leukocyte Esterase 3+ H Urine WBC (Auto) 215 Urine RBC (Auto) 4 Ur Epithelial Cells Rare Hyaline Casts 4 Urine Mucus Rare Digoxin 0.09 L 12/05/17 12/05/17 12/05/17 07:45 08:17 08:40 WBC 15.4 H RBC 4.84 Hgb 15.2 Hct 45.9 H MCV 95.0 MCH 31.5 MCHC 33.2 RDW 14.1 Plt Count 373 MPV 9.2 Absolute Neuts (auto) 11.9 Neutrophils % 77.2 Lymphocytes % 13.5 Monocytes % 8.6 Eosinophils % 0.3 Basophils % 0.4 Nucleated RBC % 0 Sodium Potassium Chloride Carbon Dioxide Anion Gap BUN Creatinine Creat Clearance w eGFR POC Glucometer [phone] Random Glucose Fasting Glucose Hemoglobin A1c % 8.4 H Calcium Phosphorus Magnesium Total Bilirubin AST ALT Alkaline Phosphatase Creatine Kinase Troponin I B-Natriuretic Peptide Total Protein Albumin TSH Urine Color Urine Appearance Urine pH Ur Specific [place] Urine Protein Urine Glucose (UA) Urine Ketones Urine Blood Urine Nitrite Urine Bilirubin Urine Urobilinogen Ur Leukocyte Esterase Urine WBC (Auto) Urine RBC (Auto) Ur Epithelial Cells Hyaline Casts Urine Mucus Digoxin 12/05/17 08:40 WBC RBC Hgb Hct MCV MCH MCHC RDW Plt Count MPV Absolute Neuts (auto) Neutrophils % Lymphocytes % Monocytes % Eosinophils % Basophils % Nucleated RBC % Sodium Cancelled Potassium Cancelled Chloride Cancelled Carbon Dioxide Cancelled Anion Gap Cancelled BUN Cancelled Creatinine Cancelled Creat Clearance w eGFR Cancelled POC Glucometer Random Glucose Cancelled Fasting Glucose Hemoglobin A1c % Calcium Cancelled Phosphorus Cancelled Magnesium Cancelled Total Bilirubin Cancelled AST Cancelled ALT Cancelled Alkaline Phosphatase Cancelled Creatine Kinase Troponin I B-Natriuretic Peptide Total Protein Cancelled Albumin Cancelled TSH Cancelled Urine Color Urine Appearance Urine pH Ur Specific [place] Urine Protein Urine Glucose (UA) Urine Ketones Urine Blood Urine Nitrite Urine Bilirubin Urine Urobilinogen Ur Leukocyte Esterase Urine WBC (Auto) Urine RBC (Auto) Ur Epithelial Cells Hyaline Casts Urine Mucus Digoxin IMP: Rapid AFib Decompensated CHF Parkinsons Depression DM PLAN: Cardizem drip for rate control Digoxin O2 as needed Lasix Daily weight Strict I & O ECHO Cardiology consult ICU monitoring Dr Calhoun Critical care time spent in reviewing chart, evaluating patient and formulating plan - 36 minutes.
[2017-12-05] MEDS: POTASSIUM CHLORIDE TABS 10 MEQ TABLET.ER (FP) PO SCH (12:26)
--- NOTE | 2017-12-05 13:23 | CON.CARD ---
Consult Consult Specialty:: cardiology Reason for Consultation:: af rvr - History of Present Illness Chief Complaint: sob History of Present Illness: 77 F, Parkisnons, depression, DM, CHF on lasix, AFib previously on digoxin and cardizem and eliquis. Reports that she saw her health promoter 2 weeks ago and started her on Metoprolol. Admitted via the ER due to shortness of breath and worsening bilateral pedal edema over past several days. Denies any chest pain, diaphoresis, palpitations , nausea, vomiting, cough, or fever. No travel history or sick contacts. CXR: Bilateral congestive changes / right pleural effusion. - History Source History Provided By: Patient, Medical Record - Past Medical History [employer]: Yes: Parkinson's Cardio/Vascular: Yes: AFIB, CHF, HTN, Hyperlipdemia Gastrointestinal: Yes: Constipation Renal/: Yes: Renal Inusuff ...: No Psych: Yes: Depression Musculoskeletal: Yes: Other (right leg and lower back pains blamed on Parkinson' s disease) Endocrine: Yes: Diabetes Mellitus Dermatology: Yes: Squamous Cell - Past Surgical History Past Surgical History: Yes: Colonoscopy, Hysterectomy, Upper Endoscopy - Alcohol/Substance Use Hx Alcohol Use: No History of Substance Use: reports: None - Smoking History Smoking history: Never smoked Have you smoked in the past 12 months: No - Social History Usual Living Arrangement: With Spouse Home Medications - Allergies Allergies/Adverse Reactions: Allergies Allergy/AdvReac Type Severity Reaction Status Date / Time No Known Drug Allergies Allergy Verified 12/04/17 13:58 - Home Medications Home Medications: Ambulatory Orders Atorvastatin Ca [Lipitor] 10 mg PO HS 11/02/11 Zolpidem Tartrate [Ambien] 10 mg PO HS 10/23/15 Carbidopa/Levodopa [Carbidopa-Levo ER 50-200 Tab] 1 each PO QID 02/24/17 Furosemide [Lasix -] 40 mg PO BID 02/24/17 Pramipexole Dihydrochloride [Mirapex -] 45 mg PO DAILY 02/24/17 Apixaban [Eliquis -] 5 mg PO BID tablet 05/08/17 Potassium Chloride [K-Dur -] 20 meq PO DAILY #90 tablet.er 05/08/17 Diltiazem HCl [Diltiazem 24Hr Cd] 120 mg PO DAILY 12/04/17 Metoprolol Succinate 25 mg PO BID 12/04/17 metFORMIN XR [Glucophage Xr -] 500 mg PO BID 12/04/17 Family Disease History - Family Disease History Family Disease History: CA: Daughter (b reast) Review of Systems - Review of Systems Constitutional: reports: No Symptoms Eyes: reports: No Symptoms HENT: reports: No Symptoms Neck: reports: No Symptoms Cardiovascular: reports: Edema, Shortness of Breath Respiratory: reports: SOB, SOB on Exertion Gastrointestinal: reports: No Symptoms Genitourinary: reports: No Symptoms Breasts: reports: No Symptoms Reported Musculoskeletal: reports: No Symptoms Integumentary: reports: No Symptoms Neurological: reports: No Symptoms Endocrine: reports: No Symptoms Hematology/Lymphatic: reports: No Symptoms Psychiatric: reports: No Symptoms Vital Signs: Vital Signs Temperature 97.7 F 12/05/17 07:35 Pulse Rate 137 H 12/05/17 09:53 Respiratory Rate 24 12/05/17 07:35 Blood Pressure 104/75 12/05/17 09:53 O2 Sat by Pulse Oximetry (%) 97 12/05/17 09:00 Constitutional: Yes: Well Nourished, No Distress, Calm Eyes: Yes: WNL, Conjunctiva Clear, EOM Intact HENT: Yes: WNL, Atraumatic, Normocephalic Neck: Yes: WNL, Supple, Trachea Midline Respiratory: Yes: Diminished, Rales Gastrointestinal: Yes: WNL, Normal Bowel Sounds Renal/: Yes: WNL Cardiovascular: Yes: WNL, Pulse Irregular Heart Sounds: Yes: S1, S2 Musculoskeletal: Yes: WNL Extremities: Yes: WNL Integumentary: Yes: WNL Neurological: Yes: WNL, Alert, Oriented ...Motor Strength: WNL Psychiatric: Yes: WNL, Alert, Oriented - Other Data Labs, Other Data: CBC, BMP 12/05/17 08:40 12/05/17 08:40 Troponin, BNP 12/04/17 12/04/17 14:20 14:20 Troponin I < 0.02 B-Natriuretic Peptide Cancelled 2036 H Troponin, BNP 12/04/17 12/04/17 14:20 14:20 Troponin I < 0.02 B-Natriuretic Peptide Cancelled 2036 H Imaging - Results Chest X-ray: Image Reviewed (chf) EKG: Image Reviewed (af rvr incomplete, rbbb,) Problem List - Problems (1) Afib Code(s): I48.91 - UNSPECIFIED ATRIAL FIBRILLATION Qualifiers: Atrial fibrillation type: unspecified Qualified Code(s): I48.91 - Unspecified atrial fibrillation (2) CHF (congestive heart failure) Code(s): I50.9 - HEART FAILURE, UNSPECIFIED Qualifiers: Heart failure type: unspecified Heart failure chronicity: chronic Qualified Code(s): I50.9 - Heart failure, unspecified (3) Edema Code(s): R60.9 - EDEMA, UNSPECIFIED Qualifiers: Edema type: unspecified Qualified Code(s): R60.9 - Edema, unspecified (4) Hyperglycemia Code(s): R73.9 - HYPERGLYCEMIA, UNSPECIFIED (5) SOB (shortness of breath) Code(s): R06.02 - SHORTNESS OF BREATH (6) Abdominal pain Code(s): R10.9 - UNSPECIFIED ABDOMINAL PAIN (7) Anterior epistaxis Code(s): R04.0 - EPISTAXIS (8) Atrial fibrillation with rapid ventricular response Code(s): I48.91 - UNSPECIFIED ATRIAL FIBRILLATION (9) Depressed affect Code(s): R45.89 - OTHER SYMPTOMS AND SIGNS INVOLVING EMOTIONAL STATE (10) Diabetes Code(s): E11.9 - TYPE 2 DIABETES MELLITUS WITHOUT COMPLICATIONS (11) Diabetes Code(s): E11.9 - TYPE 2 DIABETES MELLITUS WITHOUT COMPLICATIONS (12) Diabetes 1.5, managed as type 1 Code(s): E10.9 - TYPE 1 DIABETES MELLITUS WITHOUT COMPLICATIONS (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, managed as type 2 Code(s): E13.9 - OTHER SPECIFIED DIABETES MELLITUS WITHOUT COMPLICATIONS (14) Dyspepsia Code(s): R10.13 - EPIGASTRIC PAIN (15) Elevated LFTs Code(s): R79.89 - OTHER SPECIFIED ABNORMAL FINDINGS OF BLOOD CHEMISTRY (16) HTN (hypertension) Code(s): I10 - ESSENTIAL (PRIMARY) HYPERTENSION (17) Hyperlipidemia Code(s): E78.5 - HYPERLIPIDEMIA, UNSPECIFIED (18) IBS (irritable bowel syndrome) Code(s): K58.9 - IRRITABLE BOWEL SYNDROME WITHOUT DIARRHEA (19) Insomnia Code(s): G47.00 - INSOMNIA, UNSPECIFIED (20) Leukocytosis Code(s): D72.829 - ELEVATED WHITE BLOOD CELL COUNT, UNSPECIFIED (21) Parkinson disease Code(s): G20 - PARKINSON'S DISEASE (22) Paroxysmal atrial fibrillation Code(s): I48.0 - PAROXYSMAL ATRIAL FIBRILLATION (23) Sepsis Code(s): A41.9 - SEPSIS, UNSPECIFIED ORGANISM Assessment/Plan chf af rvr noncompliance dm parkinsons hlp plan ECHO restart po cardizem , try to taper off drip beta blockers stop digoxin if hr controlled with above lasix- may need IV w/u for elevated WBC ICU monitoring cont AC cc time spent 70 min
--- NOTE | 2017-12-05 14:49 | PN ---
Physical Exam: SUBJECTIVE: Patient seen and examined today in icu. Pt resting in bed, c/o sob and tachycardia earlier today. Pt seen this afternoon, states that sob has resolved, not as anxious as earlier this am. denies cp, rojas, fever, nausea, or vomiting. OBJECTIVE: Vital Signs Period Temp Pulse Resp BP Sys/Jerry Pulse Ox Last 24 Hr 95.3 F-97.7 F 119-159 18-30 95-153/45-119 91-98 GENERAL: AAOx3. NAD. HEAD: NC/AT EYES: Glasses. EOMI. ENT: WNL NECK: No JVD. LUNGS: Rales B/L. HEART: Irregular, Tachycardia. ABDOMEN: NT, ND, No HSM EXTREMITIES: 3-4+ pitting edema b/l lower extremities NEUROLOGICAL: No Neuro Deficits PSYCH: Normal mood, normal affect. SKIN: Extremities upper/lower cool to touch. Laboratory Results - last 24 hr 12/04/17 12/04/17 12/04/17 14:20 14:20 14:20 WBC 14.2 H RBC 4.84 Hgb 15.4 H Hct 46.0 H MCV 95.1 MCH 31.9 MCHC 33.5 RDW 14.2 Plt Count 355 D MPV 9.1 D Absolute Neuts (auto) 11.4 Neutrophils % 79.9 Lymphocytes % 11.6 D Monocytes % 8.0 Eosinophils % 0.2 D Basophils % 0.3 Nucleated RBC % 0 Sodium 137 Potassium 4.2 Chloride 104 Carbon Dioxide 20 L Anion Gap 13 BUN 43 H Creatinine 1.0 Creat Clearance w eGFR 53.76 POC Glucometer Random Glucose 309 H* Fasting Glucose Hemoglobin A1c % Calcium 8.4 L Phosphorus Magnesium Total Bilirubin 0.7 AST 56 H ALT 24 Alkaline Phosphatase 159 H Creatine Kinase 74 Troponin I < 0.02 B-Natriuretic Peptide Cancelled 2036 H Total Protein 5.7 L Albumin 3.1 L TSH Urine Color Urine Appearance Urine pH Ur Specific [place] Urine Protein Urine Glucose (UA) Urine Ketones Urine Blood Urine Nitrite Urine Bilirubin Urine Urobilinogen Ur Leukocyte Esterase Urine WBC (Auto) Urine RBC (Auto) Ur Epithelial Cells Hyaline Casts Urine Mucus Digoxin 12/04/17 12/04/17 12/05/17 17:40 19:00 07:45 WBC RBC Hgb Hct MCV MCH MCHC RDW Plt Count MPV Absolute Neuts (auto) Neutrophils % Lymphocytes % Monocytes % Eosinophils % Basophils % Nucleated RBC % Sodium 136 Potassium 3.7 Chloride 101 Carbon Dioxide 24 Anion Gap 11 BUN 43 H Creatinine 1.1 H Creat Clearance w eGFR 48.16 POC Glucometer Random Glucose 242 H Fasting Glucose 256 H Hemoglobin A1c % Calcium 8.7 Phosphorus 4.8 Magnesium 2.2 Total Bilirubin 0.6 AST 46 H ALT 44 Alkaline Phosphatase 162 H Creatine Kinase Troponin I B-Natriuretic Peptide Total Protein 5.9 L Albumin 3.3 L TSH 3.08 Urine Color Ltyellow Urine Appearance Cloudy Urine pH 5.0 Ur Specific [place] 1.011 Urine Protein Negative Urine Glucose (UA) Negative Urine Ketones Negative Urine Blood 2+ H Urine Nitrite Negative Urine Bilirubin Negative Urine Urobilinogen Negative Ur Leukocyte Esterase 3+ H Urine WBC (Auto) 215 Urine RBC (Auto) 4 Ur Epithelial Cells Rare Hyaline Casts 4 Urine Mucus Rare Digoxin 0.09 L 12/05/17 12/05/17 12/05/17 07:45 08:17 08:40 WBC 15.4 H RBC 4.84 Hgb 15.2 Hct 45.9 H MCV 95.0 MCH 31.5 MCHC 33.2 RDW 14.1 Plt Count 373 MPV 9.2 Absolute Neuts (auto) 11.9 Neutrophils % 77.2 Lymphocytes % 13.5 Monocytes % 8.6 Eosinophils % 0.3 Basophils % 0.4 Nucleated RBC % 0 Sodium Potassium Chloride Carbon Dioxide Anion Gap BUN Creatinine Creat Clearance w eGFR POC Glucometer [phone] Random Glucose Fasting Glucose Hemoglobin A1c % 8.4 H Calcium Phosphorus Magnesium Total Bilirubin AST ALT Alkaline Phosphatase Creatine Kinase Troponin I B-Natriuretic Peptide Total Protein Albumin TSH Urine Color Urine Appearance Urine pH Ur Specific [place] Urine Protein Urine Glucose (UA) Urine Ketones Urine Blood Urine Nitrite Urine Bilirubin Urine Urobilinogen Ur Leukocyte Esterase Urine WBC (Auto) Urine RBC (Auto) Ur Epithelial Cells Hyaline Casts Urine Mucus Digoxin 12/05/17 12/05/17 08:40 11:41 WBC RBC Hgb Hct MCV MCH MCHC RDW Plt Count MPV Absolute Neuts (auto) Neutrophils % Lymphocytes % Monocytes % Eosinophils % Basophils % Nucleated RBC % Sodium Cancelled Potassium Cancelled Chloride Cancelled Carbon Dioxide Cancelled Anion Gap Cancelled BUN Cancelled Creatinine Cancelled Creat Clearance w eGFR Cancelled POC Glucometer [phone] Random Glucose Cancelled Fasting Glucose Hemoglobin A1c % Calcium Cancelled Phosphorus Cancelled Magnesium Cancelled Total Bilirubin Cancelled AST Cancelled ALT Cancelled Alkaline Phosphatase Cancelled Creatine Kinase Troponin I B-Natriuretic Peptide Total Protein Cancelled Albumin Cancelled TSH Cancelled Urine Color Urine Appearance Urine pH Ur Specific [place] Urine Protein Urine Glucose (UA) Urine Ketones Urine Blood Urine Nitrite Urine Bilirubin Urine Urobilinogen Ur Leukocyte Esterase Urine WBC (Auto) Urine RBC (Auto) Ur Epithelial Cells Hyaline Casts Urine Mucus Digoxin Active Medications Generic Name Dose Route Start Last Admin Trade Name Frekristi PRN Reason Stop Dose Admin Apixaban 5 mg 12/04/17 22:00 12/05/17 09:41 Eliquis - PO 5 mg BID [facility] Administration Atorvastatin Calcium 20 mg 12/04/17 22:00 12/04/17 22:44 Lipitor - PO 20 mg HS [facility] Administration Carbidopa/Levodopa 1 each 12/04/17 22:00 12/05/17 09:41 Sinemet 25/100 - PO 1 each QID [facility] Administration Cephalexin HCl 500 mg 12/04/17 22:00 12/05/17 12:27 Keflex - PO 500 mg Q6HPO [facility] Administration Diltiazem HCl 10 mg 12/04/17 15:31 12/05/17 01:11 Cardizem Injection - IVPUSH 10 mg Q4H PRN Administration TACHYCARDIA Diltiazem HCl 30 mg 12/05/17 00:00 12/05/17 11:49 Cardizem - PO 30 mg Q6HPO [facility] Administration Furosemide 40 mg 12/05/17 06:00 12/05/17 06:10 Lasix Injection - IVPUSH 40 mg BID@0600,1400 [facility] Administration Diltiazem HCl 125 mg/ Sodium 125 mls @ 5 mls/hr 12/05/17 05:45 12/05/17 09:53 Chloride IVPB 10 mg/hr TITR [facility] 10 mls/hr Titration Protocol 5 MG/HR Insulin Aspart 1 vial 12/05/17 09:00 12/05/17 11:49 Novolog Vial Sliding Scale - SQ 6 units ACHS [facility] Administration Protocol Metoprolol Succinate 50 mg 12/04/17 22:00 12/05/17 09:42 Toprol Xl - PO Not Given BID [facility] Mirtazapine 45 mg 12/04/17 22:00 12/04/17 22:44 Remeron - PO 45 mg HS [facility] Administration Potassium Chloride 10 meq 07/30/18 10:00 12/05/17 12:26 K-Dur - PO 10 meq DAILY [facility] Administration Zolpidem Tartrate 5 mg 12/04/17 22:00 12/05/17 00:20 Ambien - PO 5 mg HS PRN Administration INSOMNIA ASSESSMENT/PLAN: Pt is a 77 y/o lady with a pmh of Parkinson's Disease,depression, DM, CHF, afib , was was BIB for shortness of breath and worsening bilateral pedal edema over past several days per . Cardio- Afib w/ RVR EKG 12/04/17---> A-FIb w/ RVR, L [place] Deviation, Incomplete RBBB, nonspecific ST and T Wave abnormality ECHO to be done today at bedside. Restart Cardizem PO. Will try to taper off gtt. Restart Toprol XL 50 mg PO BID per Cardiology Will withold Digoxin if heart Rate is controlled w/ above therapy. Lasix 40 mg IVPUSH BID Chest X-Ray 11/25/17-->Congestive changes w/ right base infiltrate with fluid. Large heart w/ sclerotic knob. Neuro: Parkinson's Disease -AAOx3 -Carbidopa/Levodopa 1 each PO QID Elevated WBC---> 15.4 Keflex 500 mg po Q6H. Etiology of Elevated WBC--> UTI? FEN No Fluids Monitor Electrolytes Diabetic/Sodium Diet DVT ppx: Eliquis 5 mg PO bid. Dispo: Continue to monitor in icu. Visit type - Emergency Visit Emergency Visit: Yes ED Registration Date: 12/04/17 Care time: The patient presented to the Emergency Department on the above date and was hospitalized for further evaluation of their emergent condition. - New Patient This patient is new to me today: Yes Date on this admission: 12/05/17 - Critical Care Critical Care patient: Yes Total Critical Care Time (in minutes): 36 Critical Care Statement: The care of this patient involved high complexity decision making to prevent further life threatening deterioration of the patient 's condition and/or to evaluate & treat vital organ system(s) failure or risk of failure.
--- NOTE | 2017-12-05 15:08 | ECHO ---
Name: TONY GUTHRIE Exam:Adult Echocardiogram Study Date: 12/05/2017 09:13 AM Age: 77 yrs Reason For Study: A-Fib Height: 64 in Weight: 154 lb BSA: 1.8 m2 BP: 108/88 mmHg MMode/2D Measurements & Calculations IVSd: 1.1 cm Ao root diam: 3.7 cm LVIDd: 3.7 cm LA dimension: 3.4 cm LVIDs: 2.9 cm LVPWd: 0.96 cm EDV(Teich): 59.2 ml LAV (MOD-bp): 57.4 ml ESV(Teich): 31.8 ml Doppler Measurements & Calculations MV E max jeovany: 77.6 cm/sec MR max jeovany: 459.7 cm/sec MR max P.5 mmHg TR max jeovany: 218.1 cm/sec Med Peak E' Jeovany: 5.9 cm/sec TR max P.2 mmHg Med E/e': 13.2 Lat Peak E' Jeovany: 9.2 cm/sec Lat E/e': 8.4 PI Vmax: 205.0 cm/sec Procedure A complete two-dimensional transthoracic echocardiogram was performed (2D, M-mode, Doppler and color flow Doppler). Technically limited study. Left Ventricle The left ventricle is normal in size. Left ventricular systolic function is moderately reduced. Eject ion Fraction = 40-45%. There is moderate to severe anterior wall hypokinesis. There is basal anteroseptal wall severe hypokinesis. There is mid anteroseptal wall severe hypokinesis. Remainder of myocardium is mil d to moderately reduced. There are regional wall motion abnormalities as specified. Right Ventricle The right ventricle is normal size. The right ventricular systolic function is moderately reduced. Atria The left atrial size is normal. LA volume is 57 ml and volume index 33 ml/m2. Right atrial size is no rmal. Mitral Valve The mitral valve is normal in structure and function. There is moderate mitral regurgitation. Tricuspid Valve The tricuspid valve is normal in structure and function. There is moderate tricuspid regurgitation. P ulmonary artery systolic pressure is at least 31 mmHg assuming RA pressure of 8 mmHg (mildly dilated IVC with <50% collapse). Aortic Valve The aortic valve is normal in structure and function. The aortic valve is trileaflet. The aortic valv e opens well. No aortic regurgitation is present. Pulmonic Valve The pulmonic valve is not well visualized. Trace to mild pulmonic valvular regurgitation. Great Vessels The aortic root is normal size. Pericardium/Pleura There is no pericardial effusion. Interpretation Summary Technically limited study The left ventricle is normal in size. Left ventricular systolic function is moderately reduced. There are regional wall motion abnormalities as specified. Ejection Fraction = 40-45%. The right ventricular systolic function is moderately reduced. The left atrial size is normal. Right atrial size is normal. There is moderate mitral regurgitation. There is moderate tricuspid regurgitation. Pulmonary artery systolic pressure is at least 31 mmHg assuming RA pressure of 8 mmHg (mildly dilated IVC with <50% collapse) Trace to mild pulmonic valvular regurgitation. There is no pericardial effusion. When compared to study dated 05/03/17, regional wall motion abnormality with reduced LVEF is seen Flaquito Robertson MD 12/05/2017 03:08 PM
--- NOTE | 2017-12-05 20:34 | HP ---
Admitting History and Physical - Primary Care Physician PCP: Denis Kelley - Admission Chief Complaint: SOB and edema History of Present Illness: 77 y/o female who for the past 4 days developed progressive SOB and severe edema of the legs. She is a known case of AFIB, CHF, DM2, Parkinson's D, depression on care home AC with Eliquis.Came to ED and was found to be in AFIB with fast VR of 169 and massive edema. She was treated with IV Cardizem which slowed her HR but continued to have repeated high VR and was admitted to the IcU and was started on Cardizem drip and given a dose of IV Dig and slowed to 109.She denies any CP History Source: Patient - Past Medical History [employer]ILDING [employer]: Yes: Parkinson's Cardiovascular: Yes: AFIB, CHF, HTN, Hyperlipdemia, Pulmonary Hypertension Gastrointestinal: Yes: Constipation Renal/: Yes: Renal Inusuff ...: No Heme/Onc: Yes: Other (squamous cell carcinoma resected from skin of leg) Psych: Yes: Depression Musculoskeletal: Yes: Chronic low back pain, Osteoarthritis Endocrine: Yes: Diabetes Mellitus Dermatology: Yes: Squamous Cell - Past Surgical History Past Surgical History: Yes: Colonoscopy, Hysterectomy, Upper Endoscopy - Smoking History Smoking history: Never smoked Have you smoked in the past 12 months: No - Alcohol/Substance Use Hx Alcohol Use: No History of Substance Use: reports: None - Social History Usual Living Arrangement: Yes: With Spouse History of Recent Travel: No Home Medications - Allergies Allergies/Adverse Reactions: Allergies Allergy/AdvReac Type Severity Reaction Status Date / Time No Known Drug Allergies Allergy Verified 12/04/17 13:58 - Home Medications Home Medications: Ambulatory Orders Atorvastatin Ca [Lipitor] 10 mg PO HS 11/02/11 Zolpidem Tartrate [Ambien] 10 mg PO HS 10/23/15 Carbidopa/Levodopa [Carbidopa-Levo ER 50-200 Tab] 1 each PO QID 02/24/17 Furosemide [Lasix -] 40 mg PO BID 02/24/17 Pramipexole Dihydrochloride [Mirapex -] 45 mg PO DAILY 02/24/17 Apixaban [Eliquis -] 5 mg PO BID tablet 05/08/17 Potassium Chloride [K-Dur -] 20 meq PO DAILY #90 tablet.er 05/08/17 Diltiazem HCl [Diltiazem 24Hr Cd] 120 mg PO DAILY 12/04/17 Metoprolol Succinate 25 mg PO BID 12/04/17 metFORMIN XR [Glucophage Xr -] 500 mg PO BID 12/04/17 Family Disease History - Family Disease History Family Disease History: CA: Daughter (b reast) Review of Systems - Review of Systems Constitutional: reports: Weakness Eyes: reports: No Symptoms HENT: reports: No Symptoms Neck: reports: No Symptoms Cardiovascular: reports: Edema, Palpitations, Shortness of Breath Respiratory: reports: SOB Gastrointestinal: reports: Constipation Genitourinary: reports: No Symptoms Breasts: reports: No Symptoms Reported Musculoskeletal: reports: Back Pain Integumentary: reports: No Symptoms Neurological: reports: Unsteady Gait, Weakness Psychiatric: reports: Altered Sleep Pattern, Depression Physical Examination Vital Signs: Vital Signs Temperature 97.7 F 12/05/17 16:00 Pulse Rate 95 H 12/05/17 20:00 Respiratory Rate 18 12/05/17 20:00 Blood Pressure 102/62 12/05/17 20:00 O2 Sat by Pulse Oximetry (%) 97 12/05/17 09:00 Constitutional: Yes: Well Nourished, No Distress, Calm Eyes: Yes: Conjunctiva Clear, EOM Intact HENT: Yes: WNL Neck: Yes: WNL, Supple Cardiovascular: Yes: Tachycardia, Pulse Irregular, Murmur Respiratory: Yes: Regular, Rales Gastrointestinal: Yes: Normal Bowel Sounds, Soft Renal/: Yes: WNL Breast(s): Yes: WNL Extremities: Yes: WNL Edema: Yes Edema: LLE: 4+, RLE: 4+ Integumentary: Yes: WNL Neurological: Yes: Alert, Oriented ...Motor Strength: WNL Psychiatric: Yes: Alert, Oriented Labs: CBC, BMP 12/05/17 08:40 12/05/17 08:40 Imaging - Results Chest X-ray: Report Reviewed, Image Reviewed EKG: Report Reviewed, Image Reviewed Problem List - Problems (1) CHF (congestive heart failure) Assessment/Plan: VR was very high which contributed to her CHF. Being treated with IV Lasix and attempts to control VR. Code(s): I50.9 - HEART FAILURE, UNSPECIFIED Qualifiers: Heart failure type: diastolic Heart failure chronicity: chronic Qualified Code(s): I50.32 - Chronic diastolic (congestive) heart failure (2) Hyperglycemia Assessment/Plan: Being treated with Metformin and sliding scale of Insulin Code(s): R73.9 - HYPERGLYCEMIA, UNSPECIFIED (3) Atrial fibrillation with rapid ventricular response Assessment/Plan: AFIB with fast VR being controlled with Cardizem and ToprolXL and possible Dig Code(s): I48.91 - UNSPECIFIED ATRIAL FIBRILLATION (4) Diabetes Code(s): E11.9 - TYPE 2 DIABETES MELLITUS WITHOUT COMPLICATIONS (5) HTN (hypertension) Code(s): I10 - ESSENTIAL (PRIMARY) HYPERTENSION (6) Insomnia Assessment/Plan: On Zolpidem PRN Code(s): G47.00 - INSOMNIA, UNSPECIFIED Assessment/Plan IMP; AFIB with fast VR CHF Mod MR Mod TR Pulmonary hypetension. Diabetes Hypertension. Assess. VR has been very high inspite of Cardizem and Metoprolol , and was given a dose of Dig after which HR dropped to 109. She is being followed by [facility]. Her CHF is secondary to persistent AFIB with fast VR.
[2017-12-05] MEDS: MIRTAZAPINE 15 MG TABLET (FP) PO SCH (21:07)
[2017-12-05] MEDS: ATORVASTATIN CA 20 MG TABLET (FP) PO SCH (21:07)
[2017-12-05] MEDS ORDERED: HEMOQUE TEST 1 EACH EACH ONE (21:12)
[2017-12-06] MEDS: FUROSEMIDE 40 MG/4 ML INJECTABLE VIAL IVPUSH SCH ×2 (05:58→17:27)
[2017-12-06] MEDS: dilTIAZem HCL 30 MG TABLET (FP) PO SCH (05:58)
[2017-12-06] MEDS: CEPHALEXIN MONOHYDRATE 500 MG CAPSULE (UD) PO SCH ×3 (05:58→17:29)
[2017-12-06] MEDS: INSULIN SLIDING SCALE (NOVOLOG) 1 VIAL SQ SCH ×3 (05:59→17:29)
--- NOTE | 2017-12-06 07:51 | PN ---
Progress Note, Physician Chief Complaint: Pt A&Ox3; anxious; no chest pain; periods of palpitations; less dyspneic. History of Present Illness: 77-year-old white female (b. Nellie), with h/o PD,depression, DM, CHF on lasix, afib on diltiazem, metoprolol, and eliquis, BIB for shortness of breath and worsening bilateral pedal edema over the pastdays per . Denies any chest pain, diaphoresis, palpitations, nausea, vomiting, cough, f/c. As per , pt's swage tender is Dr. Felton and PMD is Dr Kelley - Current Medication List Current Medications: Active Medications Apixaban (Eliquis -) 5 mg PO BID [facility] Last Admin: 12/05/17 21:07 Dose: 5 mg Atorvastatin Calcium (Lipitor -) 20 mg PO HS [facility] Last Admin: 12/05/17 21:07 Dose: 20 mg Carbidopa/Levodopa (Sinemet 25/100 -) 1 each PO QID [facility] Last Admin: 12/05/17 21:07 Dose: 1 each Cephalexin HCl (Keflex -) 500 mg PO Q6HPO [facility] Last Admin: 12/06/17 05:58 Dose: 500 mg Diltiazem HCl (Cardizem Injection -) 10 mg IVPUSH Q4H PRN PRN Reason: TACHYCARDIA Last Admin: 12/05/17 01:11 Dose: 10 mg Furosemide (Lasix Injection -) 40 mg IVPUSH BID@0600,1400 [facility] Last Admin: 12/06/17 05:58 Dose: 40 mg Diltiazem HCl 125 mg/ Sodium (Chloride) 125 mls @ 5 mls/hr IVPB TITR [facility]; Protocol Last Titration: 12/05/17 16:15 Dose: 5 mg/hr, 5 mls/hr Insulin Aspart (Novolog Vial Sliding Scale -) 1 vial SQ ACHS [facility]; Protocol Last Admin: 12/06/17 05:59 Dose: Not Given Metoprolol Succinate (Toprol Xl -) 75 mg PO BID [facility] Mirtazapine (Remeron -) 45 mg PO HS [facility] Last Admin: 12/05/17 21:07 Dose: Not Given Potassium Chloride (K-Dur -) 10 meq PO DAILY [facility] Last Admin: 07/30/18 12:26 Dose: 10 meq Zolpidem Tartrate (Ambien -) 5 mg PO HS PRN PRN Reason: INSOMNIA Last Admin: 12/05/17 23:19 Dose: 5 mg - Objective Vital Signs: Vital Signs Temperature 98.0 F 12/06/17 06:00 Pulse Rate 109 H 12/06/17 06:00 Respiratory Rate 20 12/06/17 06:00 Blood Pressure 105/73 12/06/17 06:00 O2 Sat by Pulse Oximetry (%) 94 L 12/05/17 20:30 Constitutional: Yes: Anxious Eyes: Yes: WNL HENT: Yes: WNL Neck: Yes: WNL Cardiovascular: Yes: Tachycardia, Pulse Irregular, Murmur (2/6 systolic murmur, LSB-->apex), S1 (varies in intensity), S2 Respiratory: Yes: Diminished Gastrointestinal: Yes: Soft ...Rectal Exam: Yes: Deferred Genitourinary: Yes: Anuria Breast(s): Yes: WNL Musculoskeletal: Yes: Muscle Weakness Extremities: Yes: Cool Edema: Yes Edema: LLE: 2+, RLE: 2+ Peripheral Pulses WNL: No Peripheral Pulses: Left Doralis Pedis: 1+, Right Dorsalis Pedis: 1+ Integumentary: Yes: Venous Stasis Changes Wound/Incision: Yes: Clean/Dry Neurological: Yes: WNL Psychiatric: Yes: Alert, Oriented - ....Imaging Chest X-ray: Image Reviewed (right pleural effusion) EKG: Image Reviewed (AF with RVR) Problem List - Problems (1) Acute on chronic systolic (congestive) heart failure Assessment/Plan: On metoprolol ER. Start lisinopril 2.5 mg daily if BP remains stable; f/u BUn/Cr, electrolytes. F/u BUN/Cr, electrolytes, Is and Os, daily weight. Code(s): I50.23 - ACUTE ON CHRONIC SYSTOLIC (CONGESTIVE) HEART FAILURE (2) Edema Code(s): R60.9 - EDEMA, UNSPECIFIED Qualifiers: Edema type: unspecified Qualified Code(s): R60.9 - Edema, unspecified (3) SOB (shortness of breath) Code(s): R06.02 - SHORTNESS OF BREATH (4) Atrial fibrillation with rapid ventricular response Assessment/Plan: ECHO: moderately decreased LVEF; normal chamber sizes; moderate TR and MR; mild AK. Plan: On apixaban for anticoagulation. Discontinue diltiazem (significant LV dysfunction). Increase metoprolol ER to 75 mg PO bid; metoprolol tartrate IVP prn. If elevated HR remains refractory, would start regular digoxin, initially IVP ( keep level 0.5-1.0; presently 0.4). Repeat ECHO for LVEF when HR is controlled. If Code(s): I48.91 - UNSPECIFIED ATRIAL FIBRILLATION (5) HTN (hypertension) Code(s): I10 - ESSENTIAL (PRIMARY) HYPERTENSION (6) Hyperlipidemia Code(s): E78.5 - HYPERLIPIDEMIA, UNSPECIFIED (7) Parkinson disease Code(s): G20 - PARKINSON'S DISEASE Assessment/Plan CC time spent: 50 minutes.
[2017-12-06 07:53] LABS: HEMATOCRIT 42.9 % (32.4-45.2); HEMOGLOBIN 14.4 GM/dL (10.7-15.3); MCH 32.1 pg (25.7-33.7); MCHC 33.5 g/dl (32.0-36.0); MEAN CELL VOLUME 95.7 fl (80-96); MEAN PLT VOLUME 9.7 fl (7.5-11.1); PLATELET COUNT 244 K/MM3 (134-434); RBC 4.49 M/mm3 (3.60-5.2); RDW 14.3 % (11.6-15.6); WHITE BLOOD COUNT 12.8 K/mm3 (4.0-10.0)
[2017-12-06 08:03] LABS: ALBUMIN 2.8 g/dl (3.4-5.0); ANION GAP 12 (8-16); BILIRUBIN,TOTAL 0.6 mg/dL (0.2-1.0); BLOOD UREA NITROGEN 32 mg/dL (7-18); CALCIUM 8.1 mg/dL (8.5-10.1); CHLORIDE 108 mmol/L (98-107); CO2 23 mmol/L (21-32); CREATININE 0.7 mg/dL (0.55-1.02); GLUCOSE,RANDOM 93 mg/dL (74-106); PHOSPHOROUS 4.1 mg/dL (2.5-4.9); POTASSIUM 3.5 mmol/L (3.5-5.1); SGOT/AST 54 U/L (15-37); SGPT/ALT 45 U/L (12-78); SODIUM 143 mmol/L (136-145); TOT PROT 5.1 g/dl (6.4-8.2)
[2017-12-06 08:04] LABS: ALK PHOS 152 U/L (45-117)
[2017-12-06] MEDS ORDERED: metoPROLOL SUCCINATE 25 MG TAB.SR.24H (FP) ONE ×2 (08:08→21:44)
[2017-12-06] MEDS: METOPROLOL SUCCINATE 50 MG, METOPROLOL SUCCINATE 25 MG PO SCH ×3 (08:09→21:47)
[2017-12-06] MEDS ORDERED: PT OWN MED DRAWER 7, Y5N ONE ×3 (09:44→17:27)
[2017-12-06] MEDS: CARBIDOPA/LEVODOPA 25/100 TABLET (FP) PO SCH ×4 (09:55→23:00)
[2017-12-06] MEDS: APIXABAN 5 MG TABLET PO SCH ×2 (09:55→21:46)
[2017-12-06] MEDS ORDERED: METOPROLOL SUCCINATE 50 MG, METOPROLOL SUCCINATE 25 MG PO SCH (10:00)
[2017-12-06] MEDS ORDERED: METOPROLOL TARTRATE 5 MG/5 ML VIAL IVPUSH ONE (11:08)
[2017-12-06] MEDS: POTASSIUM CHLORIDE TABS 10 MEQ TABLET.ER (FP) PO SCH (11:08)
[2017-12-06] MEDS ORDERED: METOPROLOL TARTRATE 5 MG/5 ML VIAL ONE (11:10)
[2017-12-06] MEDS ORDERED: DIGOXIN 0.5 MG/2 ML AMPUL IVPUSH ONE (12:15)
[2017-12-06] MEDS ORDERED: POTASSIUM CHLORIDE TABS 20 MEQ TABLET.ER (FP) PO ONE (12:37)
--- NOTE | 2017-12-06 12:50 | PN ---
Physical Exam: SUBJECTIVE: Patient seen and examined this am in icu. Pt resting in bed, eating. Denies any shortness of breath or chest pain. OBJECTIVE: Vital Signs Period Temp Pulse Resp BP Sys/Jerry Pulse Ox Last 24 Hr 97.4 F-98.0 F 95-150 14-24 76-117/50-89 94-97 GENERAL: AAOx3. NAD. HEAD: NC/AT EYES: Glasses. EOMI. ENT: WNL NECK: No JVD. LUNGS: Rales HEART: Irregular, Tachycardia. ABDOMEN: NT, ND, No HSM EXTREMITIES: 2+ pitting edema b/l lower extremities. Resolving NEUROLOGICAL: No Neuro Deficits PSYCH: Normal mood, normal affect. SKIN: Extremities upper/lower cool to touch. Laboratory Results - last 24 hr 12/05/17 12/05/17 12/06/17 16:51 21:15 05:30 WBC RBC Hgb Hct MCV MCH MCHC RDW Plt Count MPV Sodium 143 Potassium 3.5 Chloride 108 H Carbon Dioxide 23 Anion Gap 12 BUN 32 H Creatinine 0.7 Creat Clearance w eGFR > 60 POC Glucometer 199.34147 201.72973 Random Glucose 93 Calcium 8.1 L Phosphorus 4.1 Magnesium 2.0 Total Bilirubin 0.6 AST 54 H ALT 45 Alkaline Phosphatase 152 H D Total Protein 5.1 L Albumin 2.8 L Digoxin 0.44 L 12/06/17 12/06/17 12/06/17 05:30 05:30 05:45 WBC 12.8 H RBC 4.49 Hgb 14.4 Hct 42.9 MCV 95.7 MCH 32.1 MCHC 33.5 RDW 14.3 Plt Count 244 D MPV 9.7 Sodium Cancelled Potassium Cancelled Chloride Cancelled Carbon Dioxide Cancelled Anion Gap Cancelled BUN Cancelled Creatinine Cancelled Creat Clearance w eGFR Cancelled POC Glucometer 107.36830 Random Glucose Cancelled Calcium Cancelled Phosphorus Cancelled Magnesium Cancelled Total Bilirubin Cancelled AST Cancelled ALT Cancelled Alkaline Phosphatase Cancelled Total Protein Cancelled Albumin Cancelled Digoxin 12/06/17 11:23 WBC RBC Hgb Hct MCV MCH MCHC RDW Plt Count MPV Sodium Potassium Chloride Carbon Dioxide Anion Gap BUN Creatinine Creat Clearance w eGFR POC Glucometer 205.19841 Random Glucose Calcium Phosphorus Magnesium Total Bilirubin AST ALT Alkaline Phosphatase Total Protein Albumin Digoxin Active Medications Generic Name Dose Route Start Last Admin Trade Name Freq PRN Reason Stop Dose Admin Apixaban 5 mg 12/04/17 22:00 12/06/17 09:55 Eliquis - PO 5 mg BID [facility] Administration Atorvastatin Calcium 20 mg 12/04/17 22:00 12/05/17 21:07 Lipitor - PO 20 mg HS [facility] Administration Carbidopa/Levodopa 1 each 12/04/17 22:00 12/06/17 09:55 Sinemet 25/100 - PO 1 each QID [facility] Administration Cephalexin HCl 500 mg 12/04/17 22:00 12/06/17 11:08 Keflex - PO 500 mg Q6HPO [facility] Administration Furosemide 40 mg 12/05/17 06:00 12/06/17 05:58 Lasix Injection - IVPUSH 40 mg BID@0600,1400 [facility] Administration Insulin Aspart 1 vial 12/05/17 09:00 12/06/17 11:47 Novolog Vial Sliding Scale - SQ 4 units ACHS [facility] Administration Protocol Metoprolol Succinate 50 mg/ 75 mg 12/06/17 10:00 12/06/17 10:48 Metoprolol Succinate 25 mg PO Not Given BID [facility] Mirtazapine 45 mg 12/04/17 22:00 12/05/17 21:07 Remeron - PO Not Given HS [facility] Potassium Chloride 10 meq 12/05/17 10:00 12/06/17 11:08 K-Dur - PO 10 meq DAILY [facility] Administration Zolpidem Tartrate 5 mg 12/04/17 22:00 12/05/17 23:19 Ambien - PO 5 mg HS PRN Administration INSOMNIA ASSESSMENT/PLAN: Pt is a 77 y/o lady with a pmh of Parkinson's Disease,depression, DM, CHF, afib , was was BIB for shortness of breath and worsening bilateral pedal edema over past several days per . Cardio- Afib w/ RVR EKG 12/04/17---> A-FIb w/ RVR, L [place] Deviation, Incomplete RBBB, nonspecific ST and T Wave abnormality ECHO 12/05---> L Ventricular systolic function moderately reduced, EF 40-45%, Right ventricular systolic function moderately reduced. Moderate mitral and tricuspid regurg.Mild pulmonic valvular regurgitation. Cardizem gtt D/C'ed last night. PO Cardizem D/C'ed as well. -Per Dr Felton, Toprol XL 50 mg Increased to 75 mg po bid Digoxin 0.25 MG IVPUSH Given. Will measure Dig level for tomorrow's labs. Lasix 40 mg IVPUSH BID Chest X-Ray Today 12/06/17-->Right Pleural Effusion Neuro: Parkinson's Disease -AAOx3 -Carbidopa/Levodopa 1 each PO QID Elevated WBC---> 15.4. Today, 12/06/17--> 12.4 Keflex 500 mg po Q6H. Etiology of Elevated WBC--> UTI? FEN No Fluids Monitor Electrolytes Diabetic/Sodium Diet DVT ppx: Eliquis 5 mg PO bid. Dispo: Continue to monitor in icu. Visit type - Emergency Visit Emergency Visit: Yes ED Registration Date: 12/04/17 Care time: The patient presented to the Emergency Department on the above date and was hospitalized for further evaluation of their emergent condition. - New Patient This patient is new to me today: No - Critical Care Critical Care patient: Yes Total Critical Care Time (in minutes): 35 Critical Care Statement: The care of this patient involved high complexity decision making to prevent further life threatening deterioration of the patient 's condition and/or to evaluate & treat vital organ system(s) failure or risk of failure.
--- NOTE | 2017-12-06 14:14 | PN ---
Teaching Attending Note Name of Resident: Jarek Silvestre ATTENDING PHYSICIAN STATEMENT I saw and evaluated the patient. I reviewed the resident's note and discussed the case with the resident. I agree with the resident's findings and plan as documented. SUBJECTIVE: Patient seen and examined in the ICU. Awake and alert. Still mildly tachypneic at rest, but reports feeling better. Rates poorly controlled on Beta-linda. Denies CP but does have some palpitations. CXR: Right pleural effusion. Intake & Output 12/03/17 12/04/17 12/05/17 12/06/17 23:59 23:59 23:59 23:59 Intake Total 100 330 620 Output Total 150 2200 500 Balance -50 -1870 120 Weight 154 lb 157 lb Last Vital Signs Temp Pulse Resp BP Pulse Ox 98.0 F 140 H 22 117/89 97 12/06/17 06:00 12/06/17 12:34 12/06/17 10:00 12/06/17 11:13 12/06/17 08:00 Active Medications Apixaban (Eliquis -) 5 mg PO BID [facility] Last Admin: 12/06/17 09:55 Dose: 5 mg Atorvastatin Calcium (Lipitor -) 20 mg PO HS [facility] Last Admin: 12/05/17 21:07 Dose: 20 mg Carbidopa/Levodopa (Sinemet 25/100 -) 1 each PO QID [facility] Last Admin: 12/06/17 09:55 Dose: 1 each Cephalexin HCl (Keflex -) 500 mg PO Q6HPO [facility] Last Admin: 12/06/17 11:08 Dose: 500 mg Furosemide (Lasix Injection -) 40 mg IVPUSH BID@0600,1400 [facility] Last Admin: 12/06/17 05:58 Dose: 40 mg Insulin Aspart (Novolog Vial Sliding Scale -) 1 vial SQ ACHS [facility]; Protocol Last Admin: 12/06/17 11:47 Dose: 4 units Metoprolol Succinate 50 mg/ (Metoprolol Succinate 25 mg) 75 mg PO BID [facility] Last Admin: 12/06/17 10:48 Dose: Not Given Mirtazapine (Remeron -) 45 mg PO HS [facility] Last Admin: 12/05/17 21:07 Dose: Not Given Potassium Chloride (K-Dur -) 10 meq PO DAILY [facility] Last Admin: 12/06/17 11:08 Dose: 10 meq Zolpidem Tartrate (Ambien -) 5 mg PO HS PRN PRN Reason: INSOMNIA Last Admin: 12/05/17 23:19 Dose: 5 mg General Appearance: Yes: awake and alert, mildly tachypneic at rest HEENT: positive: Normal Voice, (+) Slight JVD Respiratory/Chest: positive: few bibasilar rales. negative: Respiratory Distress Cardiovascular: positive: Irregularly Irregular Gastrointestinal/Abdominal: positive: Soft. negative: Tender Musculoskeletal: negative: CVA Tenderness Extremity: positive: (+) Pedal Edema Integumentary: positive: Dry, Warm Neurologic: positive: Fully Oriented, Alert Laboratory Results - last 24 hr 12/05/17 12/05/17 12/06/17 16:51 21:15 05:30 WBC RBC Hgb Hct MCV MCH MCHC RDW Plt Count MPV Sodium 143 Potassium 3.5 Chloride 108 H Carbon Dioxide 23 Anion Gap 12 BUN 32 H Creatinine 0.7 Creat Clearance w eGFR > 60 POC Glucometer 199.86165 201.62904 Random Glucose 93 Calcium 8.1 L Phosphorus 4.1 Magnesium 2.0 Total Bilirubin 0.6 AST 54 H ALT 45 Alkaline Phosphatase 152 H D Total Protein 5.1 L Albumin 2.8 L Digoxin 0.44 L 12/06/17 12/06/17 12/06/17 05:30 05:30 05:45 WBC 12.8 H RBC 4.49 Hgb 14.4 Hct 42.9 MCV 95.7 MCH 32.1 MCHC 33.5 RDW 14.3 Plt Count 244 D MPV 9.7 Sodium Cancelled Potassium Cancelled Chloride Cancelled Carbon Dioxide Cancelled Anion Gap Cancelled BUN Cancelled Creatinine Cancelled Creat Clearance w eGFR Cancelled POC Glucometer 107.96146 Random Glucose Cancelled Calcium Cancelled Phosphorus Cancelled Magnesium Cancelled Total Bilirubin Cancelled AST Cancelled ALT Cancelled Alkaline Phosphatase Cancelled Total Protein Cancelled Albumin Cancelled Digoxin 12/06/17 11:23 WBC RBC Hgb Hct MCV MCH MCHC RDW Plt Count MPV Sodium Potassium Chloride Carbon Dioxide Anion Gap BUN Creatinine Creat Clearance w eGFR POC Glucometer 205.12232 Random Glucose Calcium Phosphorus Magnesium Total Bilirubin AST ALT Alkaline Phosphatase Total Protein Albumin Digoxin IMP: Rapid AFib: rates poorly controlled Decompensated CHF Parkinsons Depression DM PLAN: Continue Lopressor Digoxin if rates not improved O2 as needed Lasix Daily weight Strict I & O ICU monitoring until rates are better controlled Dr Calhoun Critical care time spent in reviewing chart, evaluating patient and formulating plan - 36 minutes.
[2017-12-06] MEDS: METOPROLOL TARTRATE 5 MG/5 ML VIAL IVPUSH PRN (17:30)
--- NOTE | 2017-12-06 18:26 | PN ---
Progress Note, Physician History of Present Illness: 77 y/o with AFIB with fast VR and CHF with Mod MR and Mod TR with pulmonary hypertension. Has been treated with ToprolXL and being digitalized and HR is now in the 120 range. She denies any CP, Denies SOB and and feels slightly better. - Current Medication List Current Medications: Active Medications Apixaban (Eliquis -) 5 mg PO BID [facility] Last Admin: 12/06/17 09:55 Dose: 5 mg Atorvastatin Calcium (Lipitor -) 20 mg PO HS [facility] Last Admin: 12/05/17 21:07 Dose: 20 mg Carbidopa/Levodopa (Sinemet 25/100 -) 1 each PO QID [facility] Last Admin: 12/06/17 17:28 Dose: 1 each Cephalexin HCl (Keflex -) 500 mg PO Q6HPO [facility] Last Admin: 12/06/17 17:29 Dose: 500 mg Furosemide (Lasix Injection -) 40 mg IVPUSH BID@0600,1400 [facility] Last Admin: 12/06/17 17:27 Dose: 40 mg Insulin Aspart (Novolog Vial Sliding Scale -) 1 vial SQ [facility]; Protocol Last Admin: 12/06/17 17:29 Dose: Not Given Metformin HCl (Glucophage Xr -) 500 mg PO BIDAC [facility] Metoprolol Succinate 50 mg/ (Metoprolol Succinate 25 mg) 75 mg PO BID [facility] Last Admin: 12/06/17 10:48 Dose: Not Given Metoprolol Tartrate (Lopressor Injection -) 5 mg IVPUSH Q6H PRN PRN Reason: TACHYCARDIA Mirtazapine (Remeron -) 45 mg PO HS [facility] Last Admin: 12/05/17 21:07 Dose: Not Given Potassium Chloride (K-Dur -) 10 meq PO DAILY [facility] Last Admin: 12/06/17 11:08 Dose: 10 meq Zolpidem Tartrate (Ambien -) 5 mg PO HS PRN PRN Reason: INSOMNIA Last Admin: 12/05/17 23:19 Dose: 5 mg - Objective Vital Signs: Vital Signs Temperature 98.7 F 12/06/17 14:30 Pulse Rate 124 H 12/06/17 14:30 Respiratory Rate 20 12/06/17 14:30 Blood Pressure 102/63 12/06/17 14:30 O2 Sat by Pulse Oximetry (%) 97 12/06/17 08:00 Constitutional: Yes: Well Nourished, No Distress, Calm Eyes: Yes: Conjunctiva Clear, EOM Intact HENT: Yes: WNL Neck: Yes: Supple Cardiovascular: Yes: Tachycardia, Pulse Irregular, JVD Respiratory: Yes: Regular, CTA Bilaterally Gastrointestinal: Yes: Normal Bowel Sounds, Soft Genitourinary: Yes: WNL Musculoskeletal: Yes: Back Pain Extremities: Yes: WNL Edema: LLE: 3+, RLE: 2+ Integumentary: Yes: WNL Neurological: Yes: Alert, Oriented ...Motor Strength: WNL Psychiatric: Yes: Alert, Oriented Labs: CBC, BMP 12/06/17 05:30 12/06/17 05:30 - ....Imaging Chest X-ray: Report Reviewed, Image Reviewed Problem List - Problems (1) CHF (congestive heart failure) Assessment/Plan: Afib with fast VR difficult to control and is now on Cardizem drip and Metoprolol and als Dig Code(s): I50.9 - HEART FAILURE, UNSPECIFIED Qualifiers: Heart failure type: combined systolic and diastolic Heart failure chronicity: acute on chronic Qualified Code(s): I50.43 - Acute on chronic combined systolic (congestive) and diastolic (congestive) heart failure (2) Hyperglycemia Code(s): R73.9 - HYPERGLYCEMIA, UNSPECIFIED (3) Atrial fibrillation with rapid ventricular response Code(s): I48.91 - UNSPECIFIED ATRIAL FIBRILLATION (4) Diabetes Assessment/Plan: Diabetes is controlled with [id number] and sliding scale Insulin Code(s): E11.9 - TYPE 2 DIABETES MELLITUS WITHOUT COMPLICATIONS (5) HTN (hypertension) Code(s): I10 - ESSENTIAL (PRIMARY) HYPERTENSION (6) Insomnia Code(s): G47.00 - INSOMNIA, UNSPECIFIED
[2017-12-06] MEDS: ATORVASTATIN CA 20 MG TABLET (FP) PO SCH (21:46)
[2017-12-06] MEDS: MIRTAZAPINE 15 MG TABLET (FP) PO SCH (21:47)
[2017-12-07] MEDS: INSULIN SLIDING SCALE (NOVOLOG) 1 VIAL SQ SCH ×8 (00:32→22:00)
[2017-12-07] MEDS ORDERED: PT OWN MED DRAWER 7, Y5N ONE ×4 (02:02→11:19)
[2017-12-07] MEDS: METOPROLOL TARTRATE 5 MG/5 ML VIAL IVPUSH PRN ×2 (02:07→07:34)
[2017-12-07] MEDS: FUROSEMIDE 40 MG/4 ML INJECTABLE VIAL IVPUSH SCH ×2 (05:43→13:01)
[2017-12-07] MEDS: CEPHALEXIN MONOHYDRATE 500 MG CAPSULE (UD) PO SCH ×4 (05:44→17:33)
[2017-12-07 05:50] LABS: HEMATOCRIT 44.6 % (32.4-45.2); HEMOGLOBIN 14.6 GM/dL (10.7-15.3); MCH 31.6 pg (25.7-33.7); MCHC 32.7 g/dl (32.0-36.0); MEAN CELL VOLUME 96.6 fl (80-96); MEAN PLT VOLUME 8.8 fl (7.5-11.1); PLATELET COUNT 304 K/MM3 (134-434); RBC 4.62 M/mm3 (3.60-5.2); RDW 14.7 % (11.6-15.6); WHITE BLOOD COUNT 12.7 K/mm3 (4.0-10.0)
[2017-12-07 06:17] LABS: CHLORIDE 106 mmol/L (98-107); POTASSIUM 3.8 mmol/L (3.5-5.1); SODIUM 143 mmol/L (136-145)
[2017-12-07 06:37] LABS: ALBUMIN 2.8 g/dl (3.4-5.0); ALK PHOS 147 U/L (45-117); ANION GAP 8 (8-16); BILIRUBIN,TOTAL 0.8 mg/dL (0.2-1.0); BLOOD UREA NITROGEN 19 mg/dL (7-18); CO2 29 mmol/L (21-32); CREATININE 0.7 mg/dL (0.55-1.02); GLUCOSE,RANDOM 144 mg/dL (74-106); MAGNESIUM 2.2 mg/dL (1.8-2.4); PHOSPHOROUS 3.1 mg/dL (2.5-4.9); SGOT/AST 37 U/L (15-37); SGPT/ALT 31 U/L (12-78); TOT PROT 5.2 g/dl (6.4-8.2)
[2017-12-07] MEDS ORDERED: metoPROLOL SUCCINATE 25 MG TAB.SR.24H (FP) ONE (07:29)
[2017-12-07] MEDS ORDERED: POLYETHYLENE GLYCOL 3350 119 GM BTL PO ONE (08:29)
[2017-12-07] MEDS: DIGOXIN 0.25 MG TABLET (FP) PO ONE ×2 (09:00→09:05)
[2017-12-07] MEDS: APIXABAN 5 MG TABLET PO SCH ×2 (09:01→21:08)
[2017-12-07] MEDS: CARBIDOPA/LEVODOPA 25/100 TABLET (FP) PO SCH ×4 (09:02→21:08)
[2017-12-07] MEDS: METOPROLOL SUCCINATE 50 MG, METOPROLOL SUCCINATE 25 MG PO SCH (09:03)
[2017-12-07] MEDS: POTASSIUM CHLORIDE TABS 10 MEQ TABLET.ER (FP) PO SCH (11:20)
--- NOTE | 2017-12-07 12:09 | PN ---
Progress Note, Physician History of Present Illness: 77 F, [place], depression, DM, CHF on lasix, AFib previously on digoxin and cardizem and eliquis. Reports that she saw her pals nurse 2 weeks ago and started her on Metoprolol. Admitted via the ER due to shortness of breath and worsening bilateral pedal edema over past several days. Denies any chest pain, diaphoresis, palpitations , nausea, vomiting, cough, or fever. No travel history or sick contacts. CXR: Bilateral congestive changes / right pleural effusion. - Current Medication List Current Medications: Active Medications Apixaban (Eliquis -) 5 mg PO BID [facility] Last Admin: 12/07/17 09:01 Dose: 5 mg Atorvastatin Calcium (Lipitor -) 20 mg PO HS [facility] Last Admin: 12/06/17 21:46 Dose: 20 mg Carbidopa/Levodopa (Sinemet 25/100 -) 1 each PO QID [facility] Last Admin: 12/07/17 09:02 Dose: 1 each Cephalexin HCl (Keflex -) 500 mg PO Q6HPO [facility] Last Admin: 12/07/17 11:20 Dose: 500 mg Furosemide (Lasix Injection -) 40 mg IVPUSH BID@0600,1400 [facility] Last Admin: 12/07/17 05:43 Dose: 40 mg Insulin Aspart (Novolog Vial Sliding Scale -) 1 vial SQ [facility]; Protocol Last Admin: 12/07/17 11:14 Dose: 4 units Metformin HCl (Glucophage Xr -) 500 mg PO BIDAC [facility] Last Admin: 12/07/17 07:25 Dose: 500 mg Metoprolol Succinate 50 mg/ (Metoprolol Succinate 25 mg) 75 mg PO BID [facility] Last Admin: 12/07/17 09:03 Dose: 75 mg Metoprolol Tartrate (Lopressor Injection -) 5 mg IVPUSH Q6H PRN PRN Reason: TACHYCARDIA Last Admin: 12/07/17 07:34 Dose: 5 mg Mirtazapine (Remeron -) 45 mg PO HS [facility] Last Admin: 12/06/17 21:47 Dose: 45 mg Potassium Chloride (K-Dur -) 10 meq PO DAILY [facility] Last Admin: 12/07/17 11:20 Dose: 10 meq Zolpidem Tartrate (Ambien -) 5 mg PO HS PRN PRN Reason: INSOMNIA Last Admin: 12/05/17 23:19 Dose: 5 mg - Objective Vital Signs: Vital Signs Temperature 98.5 F 12/07/17 10:00 Pulse Rate 142 H 12/07/17 10:00 Respiratory Rate 22 12/07/17 10:00 Blood Pressure 107/64 12/07/17 10:00 O2 Sat by Pulse Oximetry (%) 98 12/07/17 07:45 Eyes: Yes: WNL, Conjunctiva Clear, EOM Intact HENT: Yes: WNL, Atraumatic, Normocephalic Neck: Yes: WNL, Supple, Trachea Midline Cardiovascular: Yes: Pulse Irregular, S1, S2 Respiratory: Yes: WNL, Regular, CTA Bilaterally Gastrointestinal: Yes: WNL, Normal Bowel Sounds Genitourinary: Yes: WNL Musculoskeletal: Yes: WNL Extremities: Yes: WNL Edema: Yes Edema: LLE: 2+, RLE: 2+ Integumentary: Yes: WNL Neurological: Yes: WNL, Alert, Oriented ...Motor Strength: WNL Psychiatric: Yes: WNL Labs: CBC, BMP 12/07/17 05:30 12/07/17 05:30 Problem List - Problems (1) Afib Code(s): I48.91 - UNSPECIFIED ATRIAL FIBRILLATION Qualifiers: Atrial fibrillation type: unspecified Qualified Code(s): I48.91 - Unspecified atrial fibrillation (2) CHF (congestive heart failure) Code(s): I50.9 - HEART FAILURE, UNSPECIFIED Qualifiers: Heart failure type: diastolic Heart failure chronicity: chronic Qualified Code(s): I50.32 - Chronic diastolic (congestive) heart failure (3) Edema Code(s): R60.9 - EDEMA, UNSPECIFIED Qualifiers: Edema type: unspecified Qualified Code(s): R60.9 - Edema, unspecified (4) Hyperglycemia Code(s): R73.9 - HYPERGLYCEMIA, UNSPECIFIED (5) SOB (shortness of breath) Code(s): R06.02 - SHORTNESS OF BREATH (6) Abdominal pain Code(s): R10.9 - UNSPECIFIED ABDOMINAL PAIN (7) Anterior epistaxis Code(s): R04.0 - EPISTAXIS (8) Atrial fibrillation with rapid ventricular response Code(s): I48.91 - UNSPECIFIED ATRIAL FIBRILLATION (9) Depressed affect Code(s): R45.89 - OTHER SYMPTOMS AND SIGNS INVOLVING EMOTIONAL STATE (10) Diabetes Code(s): E11.9 - TYPE 2 DIABETES MELLITUS WITHOUT COMPLICATIONS (11) Diabetes Code(s): E11.9 - TYPE 2 DIABETES MELLITUS WITHOUT COMPLICATIONS (12) Diabetes 1.5, managed as type 1 Code(s): E10.9 - TYPE 1 DIABETES MELLITUS WITHOUT COMPLICATIONS (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, managed as type 2 Code(s): E13.9 - OTHER SPECIFIED DIABETES MELLITUS WITHOUT COMPLICATIONS (14) Dyspepsia Code(s): R10.13 - EPIGASTRIC PAIN (15) Elevated LFTs Code(s): R79.89 - OTHER SPECIFIED ABNORMAL FINDINGS OF BLOOD CHEMISTRY (16) HTN (hypertension) Code(s): I10 - ESSENTIAL (PRIMARY) HYPERTENSION (17) Hyperlipidemia Code(s): E78.5 - HYPERLIPIDEMIA, UNSPECIFIED (18) IBS (irritable bowel syndrome) Code(s): K58.9 - IRRITABLE BOWEL SYNDROME WITHOUT DIARRHEA (19) Insomnia Code(s): G47.00 - INSOMNIA, UNSPECIFIED (20) Leukocytosis Code(s): D72.829 - ELEVATED WHITE BLOOD CELL COUNT, UNSPECIFIED (21) Parkinson disease Code(s): G20 - PARKINSON'S DISEASE (22) Paroxysmal atrial fibrillation Code(s): I48.0 - PAROXYSMAL ATRIAL FIBRILLATION (23) Sepsis Code(s): A41.9 - SEPSIS, UNSPECIFIED ORGANISM Assessment/Plan - Problems (1) Acute on chronic systolic (congestive) heart failure Assessment/Plan: On metoprolol ER. Start lisinopril 2.5 mg daily if BP remains stable; f/u BUn/Cr, electrolytes. F/u BUN/Cr, electrolytes, Is and Os, daily weight. Code(s): I50.23 - ACUTE ON CHRONIC SYSTOLIC (CONGESTIVE) HEART FAILURE (2) Edema Code(s): R60.9 - EDEMA, UNSPECIFIED Qualifiers: Edema type: unspecified Qualified Code(s): R60.9 - Edema, unspecified (3) SOB (shortness of breath) Code(s): R06.02 - SHORTNESS OF BREATH (4) Atrial fibrillation with rapid ventricular response Assessment/Plan: ECHO: moderately decreased LVEF; normal chamber sizes; moderate TR and MR; mild OR. Plan: On apixaban for anticoagulation. Discontinue diltiazem (significant LV dysfunction). Increase metoprolol ER to 75 mg PO bid; metoprolol tartrate IVP prn. If elevated HR remains refractory, would start regular digoxin, initially IVP ( keep level 0.5-1.0; presently 0.4). Repeat ECHO for LVEF when HR is controlled. If Code(s): I48.91 - UNSPECIFIED ATRIAL FIBRILLATION (5) HTN (hypertension) Code(s): I10 - ESSENTIAL (PRIMARY) HYPERTENSION (6) Hyperlipidemia Code(s): E78.5 - HYPERLIPIDEMIA, UNSPECIFIED (7) Parkinson disease Code(s): G20 - PARKINSON'S DISEASE Assessment/Plan CC time spent: 50 minutes.
--- NOTE | 2017-12-07 12:41 | PN ---
Progress Note (short form) - Note Progress Note: ICU covering medical note for Dr Kelley Current Medications Apixaban (Eliquis -) 5 mg PO BID [facility] Last Admin: 12/07/17 09:01 Dose: 5 mg Atorvastatin Calcium (Lipitor -) 20 mg PO HS [facility] Last Admin: 12/06/17 21:46 Dose: 20 mg Carbidopa/Levodopa (Sinemet 25/100 -) 1 each PO QID [facility] Last Admin: 12/07/17 09:02 Dose: 1 each Cephalexin HCl (Keflex -) 500 mg PO Q6HPO [facility] Last Admin: 12/07/17 11:20 Dose: 500 mg Furosemide (Lasix Injection -) 40 mg IVPUSH BID@0600,1400 [facility] Last Admin: 12/07/17 05:43 Dose: 40 mg Insulin Aspart (Novolog Vial Sliding Scale -) 1 vial SQ ACHS [facility]; Protocol Last Admin: 12/07/17 11:14 Dose: 4 units Metformin HCl (Glucophage Xr -) 500 mg PO BIDAC [facility] Last Admin: 12/07/17 07:25 Dose: 500 mg Metoprolol Succinate 50 mg/ (Metoprolol Succinate 25 mg) 75 mg PO BID [facility] Last Admin: 12/07/17 09:03 Dose: 75 mg Metoprolol Tartrate (Lopressor Injection -) 5 mg IVPUSH Q6H PRN PRN Reason: TACHYCARDIA Last Admin: 12/07/17 07:34 Dose: 5 mg Mirtazapine (Remeron -) 45 mg PO HS [facility] Last Admin: 12/06/17 21:47 Dose: 45 mg Potassium Chloride (K-Dur -) 10 meq PO DAILY [facility] Last Admin: 12/07/17 11:20 Dose: 10 meq Zolpidem Tartrate (Ambien -) 5 mg PO HS PRN PRN Reason: INSOMNIA Last Admin: 12/05/17 23:19 Dose: 5 mg Laboratory Results - last 24 hr 12/06/17 12/06/17 12/07/17 05:13 17:23 05:30 WBC RBC Hgb Hct MCV MCH MCHC RDW Plt Count MPV Sodium 143 Potassium 3.8 Chloride 106 Carbon Dioxide 29 Anion Gap 8 BUN 19 H Creatinine 0.7 Creat Clearance w eGFR > 60 POC Glucometer 144.46796 Random Glucose 144 H Calcium 8.0 L Phosphorus 3.1 Magnesium 2.2 Total Bilirubin 0.8 AST 37 ALT 31 Alkaline Phosphatase 147 H Total Protein 5.2 L Albumin 2.8 L TSH 2.91 Digoxin 0.75 L 12/07/17 12/07/17 05:30 11:13 WBC 12.7 H RBC 4.62 Hgb 14.6 Hct 44.6 MCV 96.6 H MCH 31.6 MCHC 32.7 RDW 14.7 Plt Count 304 D MPV 8.8 Sodium Potassium Chloride Carbon Dioxide Anion Gap BUN Creatinine Creat Clearance w eGFR POC Glucometer [phone] Random Glucose Calcium Phosphorus Magnesium Total Bilirubin AST ALT Alkaline Phosphatase Total Protein Albumin TSH Digoxin Vital Signs Temp 98.5 F 12/07/17 10:00 Pulse 142 H 12/07/17 10:00 Resp 22 12/07/17 10:00 BP 107/64 12/07/17 10:00 Pulse Ox 98 12/07/17 07:45 Intake & Output 12/06/17 12/07/17 12/07/17 23:59 11:59 23:59 Intake Total 830 240 Output Total 2800 300 Balance -1969 - Weight 158 lb Intake: Oral 830 240 Output: Urine 2800 300 [place]rell 2800 300 Other: Voiding Method Indwelling Catheter Weight Measurement Method Built in [facility] CC: less SOB `````````````````` skin--eschar on Left lat ankle eyes--non injected oral--no droop neck--no masses lungs--dimnished heart--irreg rapid abd--benign ext--2+ bilat edema neuro--alert; coherent; speech is clear; no gross focal motor deficits ````````````````````````````` Summ > CHF--likely 2nd rapid ATF; today's CXR shows "worsening" despite a neg fluid balance and subjective improvement; start ? STANISLAW by qa automation developer.PLAN: check labs & CXR in AM; cont Lasix > DM--on Metf & ins coverage > ATF--rate still fast with BB & Dig on board; on a/c; TSH okay > Bacturia--culture contaminated; will repeat and cont Ab for now > high Alk Phosph--drug effect?;likely liver origin (previously high LFT)but may need imaging if continues to be high > PD--on sinemet > depression--has been on Mirtazapine ~~~~~~~~~~~~~~~~~~~~~~~~~~~ Dr Betts....for Dr Kelley
[2017-12-07] MEDS ORDERED: METOPROLOL TARTRATE 5 MG/5 ML VIAL IVPUSH PRN (12:54)
[2017-12-07] MEDS ORDERED: METOPROLOL TARTRATE 5 MG/5 ML VIAL IVPUSH ONE ×3 (12:57→13:10)
--- NOTE | 2017-12-07 13:26 | PN ---
Teaching Attending Note Name of Resident: Jarek Silvestre ATTENDING PHYSICIAN STATEMENT I saw and evaluated the patient. I reviewed the resident's note and discussed the case with the resident. I agree with the resident's findings and plan as documented. SUBJECTIVE: Pt seen and examined in the ICU. Heart rates variable despite titration of meds. Episode of shortness of breath earlier. No chest pain or palpitations. OBJECTIVE: Vital Signs Period Temp Pulse Resp BP Sys/Jerry Pulse Ox Last 24 Hr 98.1 F-98.8 F 100-142 16-24 87-123/58-91 97-98 Intake & Output 12/04/17 12/05/17 12/06/17 12/07/17 23:59 23:59 23:59 23:59 Intake Total 731 711 8507 240 Output Total 150 2200 3300 300 Balance -50 -1870 -2029 -60 Weight 69.853 kg 71.214 kg 71.668 kg Gen: mildly tachypneic at rest Heart: tachycardic, irregular Lung: scattered rhonchi Abd: soft, nontender Ext: + edema CBC, BMP 12/07/17 05:30 12/07/17 05:30 Active Medications Apixaban (Eliquis -) 5 mg PO BID [facility] Last Admin: 12/07/17 09:01 Dose: 5 mg Atorvastatin Calcium (Lipitor -) 20 mg PO HS [facility] Last Admin: 12/06/17 21:46 Dose: 20 mg Carbidopa/Levodopa (Sinemet 25/100 -) 1 each PO QID [facility] Last Admin: 12/07/17 13:01 Dose: 1 each Cephalexin HCl (Keflex -) 500 mg PO Q6HPO [facility] Last Admin: 12/07/17 11:20 Dose: 500 mg Docusate Sodium (Colace -) 100 mg PO DAILY [facility] Furosemide (Lasix Injection -) 40 mg IVPUSH BID@0600,1400 [facility] Last Admin: 12/07/17 13:01 Dose: 40 mg Insulin Aspart (Novolog Vial Sliding Scale -) 1 vial SQ ACHS [facility]; Protocol Last Admin: 12/07/17 11:14 Dose: 4 units Metformin HCl (Glucophage Xr -) 500 mg PO BIDAC [facility] Last Admin: 12/07/17 07:25 Dose: 500 mg Metoprolol Succinate (Toprol Xl -) 100 mg PO BID [facility] Metoprolol Tartrate (Lopressor Injection -) 5 mg IVPUSH Q6H PRN PRN Reason: TACHYCARDIA Last Admin: 12/07/17 07:34 Dose: 5 mg Mirtazapine (Remeron -) 45 mg PO HS [facility] Last Admin: 12/06/17 21:47 Dose: 45 mg Potassium Chloride (K-Dur -) 10 meq PO DAILY [facility] Last Admin: 12/07/17 11:20 Dose: 10 meq Potassium Chloride (K-Dur -) 40 meq PO ONCE ONE Stop: 12/07/17 13:15 Zolpidem Tartrate (Ambien -) 5 mg PO HS PRN PRN Reason: INSOMNIA Last Admin: 12/05/17 23:19 Dose: 5 mg ASSESSMENT AND PLAN: Atrial Fibrillation with RVR Acute on Chronic Systolic/Diastolic Heart Failure UTI DM Parkinsons Disease Depression - rate control with metoprolol, digoxin, titrate dosages - can consider esmolol gtt if remains poorly controlled - continue anticoagulation - O2 to keep SpO2 >90% - replete lytes - IV lasix - monitor urine output, creatinine - complete antibiotics - continue ICU monitoring for rate control critical care time spent in reviewing chart, evaluating patient and formulating plan 35 min
[2017-12-07] MEDS ORDERED: POTASSIUM CHLORIDE TABS 20 MEQ TABLET.ER (FP) PO ONE (14:00)
[2017-12-07 15:55] LABS: URINE APPEARANCE CLEAR; URINE BILIRUBIN NEGATIVE (<2.0 mg/dL); URINE COLOR STRAW; URINE GLUCOSE (UA) NEGATIVE (NEGATIVE); URINE KETONE NEGATIVE (NEGATIVE); URINE LEUK ESTERASE NEGATIVE (NEGATIVE); URINE NITRITE NEGATIVE (NEGATIVE); URINE PROTEIN NEGATIVE (NEGATIVE); URINE UROBILINOGEN NEGATIVE mg/dL (0.2-1.0)
[2017-12-07 16:25] LABS: URINE MUCUS RARE
--- NOTE | 2017-12-07 17:10 | PN ---
Physical Exam: SUBJECTIVE: Patient seen and examined today in icu this am. Resting in bed comfortably, family at bedside. States sob has decreased. Denies cp, rojas, or nausea. OBJECTIVE: Vital Signs Period Temp Pulse Resp BP Sys/Jerry Pulse Ox Last 24 Hr 98.1 F-98.8 F 100-142 16-24 87-123/58-91 97-98 GENERAL: AAOx3. NAD. HEAD: NC/AT EYES: Glasses. EOMI. ENT: WNL NECK: No JVD. Trachea midline. LUNGS: BS decreased at bases. HEART: Irregular, Tachycardia. ABDOMEN: NT, ND, No HSM EXTREMITIES: 2+ pitting edema b/l lower extremities. Resolving NEUROLOGICAL: No Neuro Deficits PSYCH: Normal mood, normal affect. SKIN: Eschar left lower leg. Warm, erythema, swollen. Laboratory Results - last 24 hr 12/06/17 12/06/17 12/07/17 05:13 17:23 05:30 WBC RBC Hgb Hct MCV MCH MCHC RDW Plt Count MPV Sodium 143 Potassium 3.8 Chloride 106 Carbon Dioxide 29 Anion Gap 8 BUN 19 H Creatinine 0.7 Creat Clearance w eGFR > 60 POC Glucometer 144.22401 Random Glucose 144 H Calcium 8.0 L Phosphorus 3.1 Magnesium 2.2 Total Bilirubin 0.8 AST 37 ALT 31 Alkaline Phosphatase 147 H Total Protein 5.2 L Albumin 2.8 L TSH 2.91 Urine Color Urine Appearance Urine pH Ur Specific [place] Urine Protein Urine Glucose (UA) Urine Ketones Urine Blood Urine Nitrite Urine Bilirubin Urine Urobilinogen Ur Leukocyte Esterase Urine WBC (Auto) Urine RBC (Auto) Urine Mucus Digoxin 0.75 L 12/07/17 12/07/17 12/07/17 05:30 11:13 15:10 WBC 12.7 H RBC 4.62 Hgb 14.6 Hct 44.6 MCV 96.6 H MCH 31.6 MCHC 32.7 RDW 14.7 Plt Count 304 D MPV 8.8 Sodium Potassium Chloride Carbon Dioxide Anion Gap BUN Creatinine Creat Clearance w eGFR POC Glucometer 235.66277 Random Glucose Calcium Phosphorus Magnesium Total Bilirubin AST ALT Alkaline Phosphatase Total Protein Albumin TSH Urine Color Straw Urine Appearance Clear Urine pH 7.0 D Ur Specific [place] 1.006 Urine Protein Negative Urine Glucose (UA) Negative Urine Ketones Negative Urine Blood 2+ H Urine Nitrite Negative Urine Bilirubin Negative Urine Urobilinogen Negative Ur Leukocyte Esterase Negative Urine WBC (Auto) 3 Urine RBC (Auto) 9 Urine Mucus Rare Digoxin Active Medications Generic Name Dose Route Start Last Admin Trade Name Abel PRN Reason Stop Dose Admin Apixaban 5 mg 12/04/17 22:00 12/07/17 09:01 Eliquis - PO 5 mg BID [facility] Administration Atorvastatin Calcium 20 mg 12/04/17 22:00 12/06/17 21:46 Lipitor - PO 20 mg HS [facility] Administration Carbidopa/Levodopa 1 each 12/04/17 22:00 12/07/17 13:01 Sinemet 25/100 - PO 1 each QID [facility] Administration Cephalexin HCl 500 mg 12/04/17 22:00 12/07/17 11:20 Keflex - PO 500 mg Q6HPO [facility] Administration Docusate Sodium 100 mg 12/08/17 10:00 Colace - PO DAILY [facility] Furosemide 40 mg 12/05/17 06:00 12/07/17 13:01 Lasix Injection - IVPUSH 40 mg BID@0600,1400 [facility] Administration Insulin Aspart 1 vial 12/05/17 09:00 12/07/17 16:41 Novolog Vial Sliding Scale - SQ Not Given ACHS [facility] Protocol Metformin HCl 500 mg 12/07/17 07:00 12/07/17 16:41 Glucophage Xr - PO 500 mg BIDAC [facility] Administration Metoprolol Succinate 100 mg 12/07/17 12:59 Toprol Xl - PO BID [facility] Metoprolol Tartrate 5 mg 12/06/17 15:52 12/07/17 07:34 Lopressor Injection - IVPUSH 5 mg Q6H PRN Administration TACHYCARDIA Mirtazapine 45 mg 12/04/17 22:00 12/06/17 21:47 Remeron - PO 45 mg HS [facility] Administration Potassium Chloride 10 meq 12/05/17 10:00 12/07/17 11:20 K-Dur - PO 10 meq DAILY [facility] Administration Zolpidem Tartrate 5 mg 12/04/17 22:00 12/05/17 23:19 Ambien - PO 5 mg HS PRN Administration INSOMNIA ASSESSMENT/PLAN: Pt is a 77 y/o lady with a pmh of Parkinson's Disease,depression, DM, CHF, afib , was was BIB for shortness of breath and worsening bilateral pedal edema over past several days per . Cardio- Afib w/ RVR -ESMOLOL gtt started this evening EKG 12/04/17---> A-FIb w/ RVR, L [place] Deviation, Incomplete RBBB, nonspecific ST and T Wave abnormality ECHO 12/05---> L Ventricular systolic function moderately reduced, EF 40-45%, Right ventricular systolic function moderately reduced. Moderate mitral and tricuspid regurg. Mild pulmonic valvular regurgitation. -Toprol XL increased to 100 mg TODAY -Digoxin 0.25 MG IVPUSH Give-2ND dose. Check Dig level tomorrow. -Lasix 40 mg IVPUSH BID Chest X-Ray Today 12/07/17-->Progressive B/L pleural and pulmonary findings. Bibasilar pleural effusions w/ atelectasis/infiltrates. Neuro: Parkinson's Disease -AAOx3 -Carbidopa/Levodopa 1 each PO QID Elevated WBC- Today, 12/07/17--> 12.7 Keflex 500 mg po Q6H. Etiology of Elevated WBC--> UTI? FEN No Fluids Monitor Electrolytes Diabetic/Sodium Diet DVT ppx: Eliquis 5 mg PO bid. Dispo: Continue to monitor in icu. Visit type - Emergency Visit Emergency Visit: Yes ED Registration Date: 12/04/17 Care time: The patient presented to the Emergency Department on the above date and was hospitalized for further evaluation of their emergent condition. - New Patient This patient is new to me today: No - Critical Care Critical Care patient: Yes Total Critical Care Time (in minutes): 36 Critical Care Statement: The care of this patient involved high complexity decision making to prevent further life threatening deterioration of the patient 's condition and/or to evaluate & treat vital organ system(s) failure or risk of failure.
[2017-12-07] MEDS ORDERED: ESMOLOL 2500 MG/250 ML 2,500,000 MCG/250 ML INFUS.BAG IVPB SCH (17:15)
[2017-12-07] MEDS: ESMOLOL 2500 MG/250 ML 2,500,000 MCG/250 ML INFUS.BAG IVPB SCH (17:32)
[2017-12-07] MEDS: MIRTAZAPINE 15 MG TABLET (FP) PO SCH (21:08)
[2017-12-07] MEDS: ATORVASTATIN CA 20 MG TABLET (FP) PO SCH (21:08)
[2017-12-08] MEDS: CEPHALEXIN MONOHYDRATE 500 MG CAPSULE (UD) PO SCH ×3 (01:00→12:23)
[2017-12-08 05:58] LABS: HEMATOCRIT 42.9 % (32.4-45.2); HEMOGLOBIN 14.4 GM/dL (10.7-15.3); MCH 32.3 pg (25.7-33.7); MCHC 33.5 g/dl (32.0-36.0); MEAN CELL VOLUME 96.3 fl (80-96); MEAN PLT VOLUME 8.8 fl (7.5-11.1); PLATELET COUNT 292 K/MM3 (134-434); RBC 4.45 M/mm3 (3.60-5.2); RDW 14.4 % (11.6-15.6); WHITE BLOOD COUNT 11.7 K/mm3 (4.0-10.0)
[2017-12-08] MEDS ORDERED: PT OWN MED DRAWER 7, Y5N ONE ×5 (06:28→17:14)
[2017-12-08] MEDS: FUROSEMIDE 40 MG/4 ML INJECTABLE VIAL IVPUSH SCH ×2 (06:32→14:39)
[2017-12-08 06:34] LABS: ALBUMIN 2.7 g/dl (3.4-5.0); ANION GAP 8 (8-16); BLOOD UREA NITROGEN 19 mg/dL (7-18); CHLORIDE 107 mmol/L (98-107); CO2 28 mmol/L (21-32); GLUCOSE,RANDOM 163 mg/dL (74-106); POTASSIUM 4.5 mmol/L (3.5-5.1); SODIUM 143 mmol/L (136-145)
[2017-12-08 06:50] LABS: ALK PHOS 149 U/L (45-117); BILIRUBIN,TOTAL 0.8 mg/dL (0.2-1.0); CREATININE 0.8 mg/dL (0.55-1.02); PHOSPHOROUS 3.1 mg/dL (2.5-4.9); SGOT/AST 38 U/L (15-37); SGPT/ALT 27 U/L (12-78); TOT PROT 5.2 g/dl (6.4-8.2)
[2017-12-08] MEDS: INSULIN SLIDING SCALE (NOVOLOG) 1 VIAL SQ SCH ×4 (07:14→22:11)
--- NOTE | 2017-12-08 08:27 | PN ---
Progress Note, Physician Chief Complaint: Pt A&Ox3; slept well; no palpitations presently; anxious regarding leg edema, left LE skin lesion. History of Present Illness: 77-year-old white female (b. Nellie), with h/o PD,depression, DM, CHF on lasix, afib on diltiazem, metoprolol, and eliquis, BIB for shortness of breath and worsening bilateral pedal edema over the pastdays per . Denies any chest pain, diaphoresis, palpitations, nausea, vomiting, cough, f/c. As per , pt's flight paramedic is Dr. Felton and PMD is Dr Kelley - Current Medication List Current Medications: Active Medications Apixaban (Eliquis -) 5 mg PO BID [facility] Last Admin: 12/07/17 21:08 Dose: 5 mg Atorvastatin Calcium (Lipitor -) 20 mg PO HS [facility] Last Admin: 12/07/17 21:08 Dose: 20 mg Carbidopa/Levodopa (Sinemet 25/100 -) 1 each PO QID [facility] Last Admin: 12/07/17 21:08 Dose: 1 each Cephalexin HCl (Keflex -) 500 mg PO Q6HPO [facility] Last Admin: 12/08/17 08:01 Dose: 500 mg Digoxin (Lanoxin -) 0.125 mg PO ONCE ONE Stop: 12/08/17 08:15 Docusate Sodium (Colace -) 100 mg PO DAILY [facility] Furosemide (Lasix Injection -) 40 mg IVPUSH BID@0600,1400 [facility] Last Admin: 12/08/17 06:32 Dose: 40 mg Esmolol HCl (Brevibloc 2500 Mg/250 Ml -) 2,500,000 mcg in 250 mls @ 10.75 mls/ hr IVPB TITR [facility]; Protocol Last Titration: 12/08/17 07:56 Dose: 50 mcg/kg/min, 21.5 mls/hr Piperacillin Sod/Tazobactam (Sod 3.375 gm/ Dextrose) 50 mls @ 100 mls/hr IVPB Q8H-IV [facility]; Protocol Vancomycin HCl 1,000 mg/ (Dextrose) 250 mls @ 200 mls/hr IVPB Q24H [facility]; Protocol Insulin Aspart (Novolog Vial Sliding Scale -) 1 vial SQ ACHS [facility]; Protocol Last Admin: 12/08/17 07:14 Dose: Not Given Metformin HCl (Glucophage Xr -) 500 mg PO BIDAC [facility] Last Admin: 12/08/17 06:32 Dose: 500 mg Metoprolol Succinate (Toprol Xl -) 100 mg PO BID [facility] Last Admin: 12/07/17 21:09 Dose: 100 mg Metoprolol Tartrate (Lopressor Injection -) 5 mg IVPUSH Q6H PRN PRN Reason: TACHYCARDIA Last Admin: 12/07/17 07:34 Dose: 5 mg Mirtazapine (Remeron -) 45 mg PO HS [facility] Last Admin: 12/07/17 21:08 Dose: 45 mg Potassium Chloride (K-Dur -) 10 meq PO DAILY [facility] Last Admin: 12/07/17 11:20 Dose: 10 meq Zolpidem Tartrate (Ambien -) 5 mg PO HS PRN PRN Reason: INSOMNIA Last Admin: 12/05/17 23:19 Dose: 5 mg - Objective Vital Signs: Vital Signs Temperature 98.5 F 12/08/17 04:00 Pulse Rate 141 H 12/08/17 08:00 Respiratory Rate 16 12/08/17 08:00 Blood Pressure 103/81 12/08/17 08:00 O2 Sat by Pulse Oximetry (%) 98 12/08/17 08:06 Labs: CBC, BMP 12/08/17 05:30 12/08/17 05:30 Problem List - Problems (1) Acute on chronic systolic (congestive) heart failure Assessment/Plan: On metoprolol ER. Start lisinopril 2.5 mg daily if BP remains stable; f/u BUn/Cr, electrolytes 9once HR and BP are better-controlled). Code(s): I50.23 - ACUTE ON CHRONIC SYSTOLIC (CONGESTIVE) HEART FAILURE (2) Edema Code(s): R60.9 - EDEMA, UNSPECIFIED Qualifiers: Edema type: unspecified Qualified Code(s): R60.9 - Edema, unspecified (3) SOB (shortness of breath) Code(s): R06.02 - SHORTNESS OF BREATH (4) Atrial fibrillation with rapid ventricular response Assessment/Plan: ECHO: moderately decreased LVEF; normal chamber sizes; moderate TR and MR; mild SC. TSH WNL. Plan: On apixaban for anticoagulation. Discontinued diltiazem (significant LV dysfunction). Increase dose of esmolol IV. Try to give metoprolol ER bid doses, even if BP is borderline low, if pt remains clinically A&O, without dizziness, or change in mental status, and then titrate off esmolol.Keep VR in 80-110 bpm range at rest. On digoxin; level today (1.0); should not go over this. agree with 0.125 mg daily at present. Repeat LVEF when HR is well-controlled. Addendum 12:00: Pt remains in rapid AF; c/o increased SOB. Will strt IV amiodarone for the next 24 hours. Stop digoxin. Discontinue esmolol once IV amiodarone is started. F/u electroltyes, EKG while on mirtazapine (comination may lead to prolonged QTc , though not a strong relation; consider lowering the dose of mirtazapine, but not essential at this stage). Code(s): I48.91 - UNSPECIFIED ATRIAL FIBRILLATION (5) HTN (hypertension) Code(s): I10 - ESSENTIAL (PRIMARY) HYPERTENSION (6) Hyperlipidemia Assessment/Plan: f/u lipid panel Code(s): E78.5 - HYPERLIPIDEMIA, UNSPECIFIED (7) Parkinson disease Code(s): G20 - PARKINSON'S DISEASE (8) Skin infection Assessment/Plan: for antibiotic adjustment for Lt LE skin lesion Code(s): L08.9 - LOCAL INFECTION OF THE SKIN AND SUBCUTANEOUS TISSUE, UNSP
[2017-12-08] MEDS ORDERED: PIPERACILLIN/TAZOBACTAM 3.375 GM VIAL IVPB ONE (09:47)
[2017-12-08] MEDS ORDERED: DEXTROSE 5%-WATER - 50 ML IVPB ONE (09:47)
[2017-12-08] MEDS: CARBIDOPA/LEVODOPA 25/100 TABLET (FP) PO SCH ×4 (09:49→22:03)
[2017-12-08] MEDS: APIXABAN 5 MG TABLET PO SCH ×2 (09:49→22:03)
[2017-12-08] MEDS: DOCUSATE SODIUM 100 MG CAPSULE (FP) PO SCH (09:50)
[2017-12-08] MEDS ORDERED: PIPERACILLIN/TAZOB 3.375 GM 3.375 GM in DEXTROSE 5%-WATER - 50 ML IVPB SCH (10:00)
[2017-12-08] MEDS ORDERED: DIGOXIN 0.125 MG TABLET (FP) PO ONE (10:00)
[2017-12-08] MEDS ORDERED: VANCOMYCIN 1 GM PREMIX - 1 GM/200 ML BAG IVPB ONE (10:00)
[2017-12-08] MEDS ORDERED: VANCOMYCIN 1 GM PREMIX - 1 GM/200 ML BAG IVPB SCH (10:00)
[2017-12-08] MEDS: POTASSIUM CHLORIDE TABS 10 MEQ TABLET.ER (FP) PO SCH (10:46)
[2017-12-08] MEDS: ESMOLOL 2500 MG/250 ML 2,500,000 MCG/250 ML INFUS.BAG IVPB SCH (11:55)
[2017-12-08] MEDS ORDERED: AMIODARONE IN DEXTROSE,ISO-OSM 360 MG/200 ML BAG IVPB SCH ×2 (12:30→13:45)
--- NOTE | 2017-12-08 12:45 | PN ---
Teaching Attending Note Name of Resident: Jarek Silvestre ATTENDING PHYSICIAN STATEMENT I saw and evaluated the patient. I reviewed the resident's note and discussed the case with the resident. I agree with the resident's findings and plan as documented. SUBJECTIVE: Patient seen and examined in the ICU. Still with rapid AFib. Reports some intermittent palpitations. No CP. SOB seems a little better today. Currently on an Esmolol drip. CXR: Bilateral congestive changes / effusions OBJECTIVE: Intake & Output 12/05/17 12/06/17 12/07/17 12/08/17 23:59 23:59 23:59 23:59 Intake Total 330 1270 1140 200 Output Total 2200 3300 3100 1100 Balance -1870 -2030 -1960 -900 Weight 157 lb 158 lb 158 lb 3.2 oz Last Vital Signs Temp Pulse Resp BP Pulse Ox 97.6 F 113 H 16 104/71 98 12/08/17 10:00 12/08/17 12:00 12/08/17 12:00 12/08/17 12:00 12/08/17 08:06 Active Medications Apixaban (Eliquis -) 5 mg PO BID [facility] Last Admin: 12/08/17 09:49 Dose: 5 mg Atorvastatin Calcium (Lipitor -) 20 mg PO HS [facility] Last Admin: 12/07/17 21:08 Dose: 20 mg Carbidopa/Levodopa (Sinemet 25/100 -) 1 each PO QID [facility] Last Admin: 12/08/17 09:49 Dose: 1 each Cephalexin HCl (Keflex -) 500 mg PO Q6HPO [facility] Last Admin: 12/08/17 12:23 Dose: 500 mg Docusate Sodium (Colace -) 100 mg PO DAILY [facility] Last Admin: 12/08/17 09:50 Dose: 100 mg Furosemide (Lasix Injection -) 40 mg IVPUSH BID@0600,1400 [facility] Last Admin: 12/08/17 06:32 Dose: 40 mg Esmolol HCl (Brevibloc 2500 Mg/250 Ml -) 2,500,000 mcg in 250 mls @ 10.75 mls/ hr IVPB TITR [facility]; Protocol Last Admin: 12/08/17 11:55 Dose: 50 mcg/kg/min, 21.5 mls/hr Piperacillin Sod/Tazobactam (Sod 3.375 gm/ Dextrose) 50 mls @ 100 mls/hr IVPB Q8H-IV [facility]; Protocol Vancomycin HCl (Vancomycin 1 Gm Premix -) 1 gm in 200 mls @ 133.333 mls/hr IVPB DAILY [facility]; Protocol Piperacillin Sod/Tazobactam (Sod 3.375 gm/ Dextrose) 50 mls @ 100 mls/hr IVPB Q8H-IV [facility] Stop: 12/09/17 03:00 Last Admin: 12/08/17 10:14 Dose: 100 mls/hr Amiodarone HCl/Dextrose (Nexterone 360 Mg/200 Ml Bag) 360 mg in 200 mls @ 33.333 mls/hr IVPB TITR [facility]; Protocol Stop: 12/08/17 20:35 Insulin Aspart (Novolog Vial Sliding Scale -) 1 vial SQ ACHS [facility]; Protocol Last Admin: 12/08/17 12:13 Dose: 4 units Metformin HCl (Glucophage Xr -) 500 mg PO BIDAC [facility] Last Admin: 12/08/17 06:32 Dose: 500 mg Metoprolol Succinate (Toprol Xl -) 100 mg PO BID [facility] Last Admin: 12/08/17 09:49 Dose: 100 mg Metoprolol Tartrate (Lopressor Injection -) 5 mg IVPUSH Q6H PRN PRN Reason: TACHYCARDIA Last Admin: 12/07/17 07:34 Dose: 5 mg Mirtazapine (Remeron -) 45 mg PO HS [facility] Last Admin: 12/07/17 21:08 Dose: 45 mg Potassium Chloride (K-Dur -) 10 meq PO DAILY [facility] Last Admin: 12/08/17 10:46 Dose: 10 meq Zolpidem Tartrate (Ambien -) 5 mg PO HS PRN PRN Reason: INSOMNIA Last Admin: 12/05/17 23:19 Dose: 5 mg Gen: Mildly tachypneic at rest Heart: tachycardic, irregular Lung: Bibasilar Rales / Rhonchi Abd: soft, nontender Ext: (+) edema, (+) erythema Intake & Output 12/05/17 12/06/17 12/07/17 12/08/17 23:59 23:59 23:59 23:59 Intake Total 330 1270 1140 200 Output Total 2200 3300 3100 1100 Balance -1869 -2029 -1959 - Weight 157 lb 158 lb 158 lb 3.2 oz Last Vital Signs Temp Pulse Resp BP Pulse Ox 97.6 F 113 H 16 104/71 98 12/08/17 10:00 12/08/17 12:00 12/08/17 12:00 12/08/17 12:00 12/08/17 08:06 Active Medications Apixaban (Eliquis -) 5 mg PO BID [facility] Last Admin: 12/08/17 09:49 Dose: 5 mg Atorvastatin Calcium (Lipitor -) 20 mg PO HS [facility] Last Admin: 12/07/17 21:08 Dose: 20 mg Carbidopa/Levodopa (Sinemet 25/100 -) 1 each PO QID [facility] Last Admin: 12/08/17 09:49 Dose: 1 each Cephalexin HCl (Keflex -) 500 mg PO Q6HPO [facility] Last Admin: 12/08/17 12:23 Dose: 500 mg Docusate Sodium (Colace -) 100 mg PO DAILY [facility] Last Admin: 12/08/17 09:50 Dose: 100 mg Furosemide (Lasix Injection -) 40 mg IVPUSH BID@0600,1400 [facility] Last Admin: 12/08/17 06:32 Dose: 40 mg Esmolol HCl (Brevibloc 2500 Mg/250 Ml -) 2,500,000 mcg in 250 mls @ 10.75 mls/ hr IVPB TITR [facility]; Protocol Last Admin: 12/08/17 11:55 Dose: 50 mcg/kg/min, 21.5 mls/hr Piperacillin Sod/Tazobactam (Sod 3.375 gm/ Dextrose) 50 mls @ 100 mls/hr IVPB Q8H-IV [facility]; Protocol Vancomycin HCl (Vancomycin 1 Gm Premix -) 1 gm in 200 mls @ 133.333 mls/hr IVPB DAILY [facility]; Protocol Piperacillin Sod/Tazobactam (Sod 3.375 gm/ Dextrose) 50 mls @ 100 mls/hr IVPB Q8H-IV [facility] Stop: 12/09/17 03:00 Last Admin: 12/08/17 10:14 Dose: 100 mls/hr Amiodarone HCl/Dextrose (Nexterone 360 Mg/200 Ml Bag) 360 mg in 200 mls @ 33.333 mls/hr IVPB TITR [facility]; Protocol Stop: 12/08/17 20:35 Insulin Aspart (Novolog Vial Sliding Scale -) 1 vial SQ ACHS [facility]; Protocol Last Admin: 12/08/17 12:13 Dose: 4 units Metformin HCl (Glucophage Xr -) 500 mg PO BIDAC [facility] Last Admin: 12/08/17 06:32 Dose: 500 mg Metoprolol Succinate (Toprol Xl -) 100 mg PO BID [facility] Last Admin: 12/08/17 09:49 Dose: 100 mg Metoprolol Tartrate (Lopressor Injection -) 5 mg IVPUSH Q6H PRN PRN Reason: TACHYCARDIA Last Admin: 12/07/17 07:34 Dose: 5 mg Mirtazapine (Remeron -) 45 mg PO HS [facility] Last Admin: 12/07/17 21:08 Dose: 45 mg Potassium Chloride (K-Dur -) 10 meq PO DAILY [facility] Last Admin: 12/08/17 10:46 Dose: 10 meq Zolpidem Tartrate (Ambien -) 5 mg PO HS PRN PRN Reason: INSOMNIA Last Admin: 12/05/17 23:19 Dose: 5 mg ASSESSMENT AND PLAN: Atrial Fibrillation with RVR Acute on Chronic Systolic/Diastolic Heart Failure UTI DM Parkinsons Disease Depression Suspected Cellulitis - D/W Cardiology: will start Amiodarone due to poorly controlled rates - Continue digoxin - Continue anticoagulation - O2 to keep SpO2 >90% - Replete lytes - Lasix as needed - Monitor urine output, creatinine - ABX per ID - Follow CXR - ICU monitoring for rate control Dr Calhoun Critical care time spent in reviewing chart, evaluating patient and formulating plan 35 min
[2017-12-08] MEDS ORDERED: AMIODARONE HCL 150 MG/3 ML VIAL IVPUSH ONE (12:58)
[2017-12-08] MEDS ORDERED: AMIODARONE IN DEXTROSE,ISO-OSM 150 MG/100 ML BAG IVPB ONE ×2 (13:30→14:10)
--- NOTE | 2017-12-08 14:23 | PN ---
Progress Note (short form) - Note Progress Note: ID Consult dictated Cellulitis L LE Decompensated CHF ? RLL infiltrate Rapid Afib Diabetes mellitus Empiric ceftriaxone / vancomycin Local wound care
[2017-12-08] MEDS ORDERED: VANCOMYCIN 1,000 MG in DEXTROSE 5%-WATER - 250 ML IVPB SCH (14:30)
--- NOTE | 2017-12-08 15:16 | CONS ---
DATE OF CONSULTATION: DATE OF DICTATION: 12/08/2017 HISTORY OF PRESENT ILLNESS: The patient is a 77-year-old female with history of Parkinsonism, diabetes mellitus, evaluated for cellulitis of the left lower extremity. She was admitted to the hospital on December 04, 2017, with a 4-day history of worsening shortness of breath and increasing lower extremity edema. She was found to be in rapid atrial fibrillation and decompensated congestive heart failure. She was treated with IV Cardizem. She required transfer to the intensive care unit where she was maintained on Cardizem drip. Her course was complicated by elevated white blood cell count and erythema involving the left lower extremity. She was empirically treated for cellulitis with Keflex. She complains of pain in the left lower extremity. She denies any traumatic injury. No known insect or animal bites or scratches. She denies prior history of serious soft tissue infection requiring hospitalization or history of MRSA. PAST MEDICAL HISTORY: Positive for Parkinsonism, atrial fibrillation, diabetes mellitus, congestive heart failure, depression. ALLERGIES: No known allergies. MEDICATIONS: Lipitor, Ambien, carbidopa, Lasix, Eliquis, K-Dur, diltiazem, metoprolol, metformin. SOCIAL HISTORY: She lives at home in the community. She is a nonsmoker, nondrinker. SYSTEMS REVIEW: Neurologic: Positive for Parkinsonism. Cardiac: As per HPI. Respiratory: As per HPI. Gastrointestinal: Negative for vomiting or diarrhea. Genitourinary: Negative for urinary tract infection. LABORATORY DATA: White count 11.7, hematocrit 42.9, platelet count 292. BUN 8, creatinine 0.8. Urinalysis negative. Urine culture pending. Chest x-ray shows congestion bilaterally, right greater than left. PHYSICAL EXAMINATION: General: She is out of bed to chair, in no acute respiratory distress. Vital signs: Temperature 97.3, blood pressure 101/52, pulse 113 irregular, respirations 18 per minute. HEENT: Sclerae anicteric. Heart: Heart sounds irregular S1, S2. Lungs: Diminished breath sounds bases bilaterally. Abdomen: Obese, soft, nontender. No mass, rebound, or rigidity. Extremities: 3+ lower extremity edema bilaterally. On examination of the left lower extremity, there is a black eschar present on the lateral aspect of the distal left lower extremity with surrounding erythema. There is serous weepage from the wound. No lymphangitic streaking. IMPRESSION: 1. Cellulitis, left lower extremity. 2. Decompensated congestive heart failure, possible right lower lobe infiltrate. 3. Rapid atrial fibrillation. 4. Diabetes mellitus. Will obtain blood cultures, empiric antibiotic coverage skin pathogens with ceftriaxone plus stat dose of vancomycin, continue vancomycin q.24, local wound care, elevation, and diuretic therapy. Will follow. Thank you for the kind referral. SULEMA JEAN M.D. [id number]
--- NOTE | 2017-12-08 16:28 | PN ---
Physical Exam: SUBJECTIVE: Patient seen and examined this am in icu. Sitting in chair, eating. C/o mild sob. Also endorses pain left lower extremity. Denies cp, rojas, nausea, or lightheadedness. OBJECTIVE: Vital Signs Period Temp Pulse Resp BP Sys/Jerry Pulse Ox Last 24 Hr 97.3 F-98.6 F 106-153 16-19 85-108/52-90 98-98 GENERAL: AAOx3. NAD. HEAD: NC/AT EYES: Glasses. EOMI. ENT: WNL NECK: No JVD. Trachea midline. LUNGS: BS decreased at bases. HEART: Irregular, Tachycardia. ABDOMEN: NT, ND, No HSM EXTREMITIES: 2+ pitting edema b/l lower extremities. Resolving NEUROLOGICAL: No Neuro Deficits PSYCH: Normal mood, normal affect. SKIN: Eschar left lower leg. Warm, erythema, swollen. Laboratory Results - last 24 hr 12/07/17 12/07/17 12/08/17 15:10 16:34 05:30 WBC 11.7 H RBC 4.45 Hgb 14.4 Hct 42.9 MCV 96.3 H MCH 32.3 MCHC 33.5 RDW 14.4 Plt Count 292 MPV 8.8 Sodium Potassium Chloride Carbon Dioxide Anion Gap BUN Creatinine Creat Clearance w eGFR POC Glucometer [phone] Random Glucose Calcium Phosphorus Magnesium Total Bilirubin AST ALT Alkaline Phosphatase Total Protein Albumin Urine WBC (Auto) 3 Urine RBC (Auto) 9 Urine Mucus Rare Digoxin 12/08/17 12/08/17 05:30 12:05 WBC RBC Hgb Hct MCV MCH MCHC RDW Plt Count MPV Sodium 143 Potassium 4.5 Chloride 107 Carbon Dioxide 28 Anion Gap 8 BUN 19 H Creatinine 0.8 Creat Clearance w eGFR > 60 POC Glucometer [phone] Random Glucose 163 H Calcium 8.0 L Phosphorus 3.1 Magnesium 2.0 Total Bilirubin 0.8 AST 38 H ALT 27 Alkaline Phosphatase 149 H Total Protein 5.2 L Albumin 2.7 L Urine WBC (Auto) Urine RBC (Auto) Urine Mucus Digoxin 1.01 Active Medications Generic Name Dose Route Start Last Admin Trade Name Freq PRN Reason Stop Dose Admin Apixaban 5 mg 12/04/17 22:00 12/08/17 09:49 Eliquis - PO 5 mg BID [facility] Administration Atorvastatin Calcium 20 mg 12/04/17 22:00 12/07/17 21:08 Lipitor - PO 20 mg HS [facility] Administration Carbidopa/Levodopa 1 each 12/04/17 22:00 12/08/17 14:39 Sinemet 25/100 - PO 1 each QID [facility] Administration Docusate Sodium 100 mg 12/08/17 10:00 12/08/17 09:50 Colace - PO 100 mg DAILY [facility] Administration Furosemide 40 mg 12/05/17 06:00 12/08/17 14:39 Lasix Injection - IVPUSH 40 mg BID@0600,1400 [facility] Administration Ceftriaxone Sodium 1 gm/ 50 mls @ 200 mls/hr 12/08/17 14:30 Dextrose IVPB DAILY [facility] Protocol Vancomycin HCl 1 gm in 200 mls @ 133.333 mls/hr 12/09/17 11:00 Vancomycin 1 Gm Premix - IVPB Q24H [facility] Protocol Amiodarone HCl/Dextrose 360 mg in 200 mls @ 33.333 mls/hr 12/08/17 15:00 Nexterone 360 Mg/200 Ml Bag IVPB TITR [facility] Protocol 1 MG/MIN Insulin Aspart 1 vial 12/08/17 12:15 12/08/17 12:13 Novolog Vial Sliding Scale - SQ 4 units ACHS [facility] Administration Protocol Metformin HCl 500 mg 12/07/17 07:00 12/08/17 06:32 Glucophage Xr - PO 500 mg BIDAC [facility] Administration Metoprolol Succinate 100 mg 12/07/17 12:59 12/08/17 09:49 Toprol Xl - PO 100 mg BID [facility] Administration Metoprolol Tartrate 5 mg 12/06/17 15:52 12/07/17 07:34 Lopressor Injection - IVPUSH 5 mg Q6H PRN Administration TACHYCARDIA Mirtazapine 45 mg 12/04/17 22:00 12/07/17 21:08 Remeron - PO 45 mg HS [facility] Administration Potassium Chloride 10 meq 12/05/17 10:00 12/08/17 10:46 K-Dur - PO 10 meq DAILY [facility] Administration Zolpidem Tartrate 5 mg 12/04/17 22:00 12/05/17 23:19 Ambien - PO 5 mg HS PRN Administration INSOMNIA ASSESSMENT/PLAN: Pt is a 77 y/o lady with a pmh of Parkinson's Disease,depression, DM, CHF, afib , was was BIB for shortness of breath and worsening bilateral pedal edema over past several days per . Cardio- Afib w/ RVR -ESMOLOL gtt started this evening. Amiodorone 150 mg bolus given. Now 1 mg/hr x 8 hours and then 1/2 mg/hr. Serial EKG's as Mirtazapine and Amiodorone may prolong QTc interval . EKG 12/04/17---> A-FIb w/ RVR, L [place] Deviation, Incomplete RBBB, nonspecific ST and T Wave abnormality ECHO 12/05---> L Ventricular systolic function moderately reduced, EF 40-45%, Right ventricular systolic function moderately reduced. Moderate mitral and tricuspid regurg. Mild pulmonic valvular regurgitation. -Toprol XL 100 mg -Digoxin 0.25 MG IVPUSH Give-2ND dose. Check Dig level tomorrow. Dig discontinued by Dr Felton Today. -Lasix 40 mg IVPUSH BID Chest XRAY 12/08-B/L Pleural Effusions, Vascular congestive changes. Chest X-Ray Today 12/07/17-->Progressive B/L pleural and pulmonary findings. Bibasilar pleural effusions w/ atelectasis/infiltrates. Neuro: Parkinson's Disease -AAOx3 -Carbidopa/Levodopa 1 each PO QID I.D- Cellulitis Dr Rangel on board Elevated WBC- Today, 12/08/17--> 11.7 Ceftriaxone/Vancomycin Keflex, Zosyn D/C'ed today FEN No Fluids Monitor Electrolytes Diabetic/Sodium Diet DVT ppx: Eliquis 5 mg PO bid. Dispo: Continue to monitor in icu. Visit type - Emergency Visit Emergency Visit: Yes ED Registration Date: 12/04/17 Care time: The patient presented to the Emergency Department on the above date and was hospitalized for further evaluation of their emergent condition. - New Patient This patient is new to me today: No - Critical Care Critical Care patient: Yes Total Critical Care Time (in minutes): 36 Critical Care Statement: The care of this patient involved high complexity decision making to prevent further life threatening deterioration of the patient 's condition and/or to evaluate & treat vital organ system(s) failure or risk of failure.
[2017-12-08] MEDS: CEFTRIAXONE 1 GM in DEXTROSE 5%-WATER - 50 ML IVPB SCH (17:08)
[2017-12-08] MEDS: AMIODARONE IN DEXTROSE,ISO-OSM 360 MG/200 ML BAG IVPB SCH ×2 (17:12→18:49)
--- NOTE | 2017-12-08 21:13 | PN ---
Progress Note, Physician History of Present Illness: Denies chest pain or SOB. Was OOB during the day and tolerated well. As HR was persistently elevated case was discussed with , producer and she was started on Amiodarone and the HR came down. - Current Medication List Current Medications: Active Medications Apixaban (Eliquis -) 5 mg PO BID [facility] Last Admin: 12/08/17 09:49 Dose: 5 mg Atorvastatin Calcium (Lipitor -) 20 mg PO HS [facility] Last Admin: 12/07/17 21:08 Dose: 20 mg Carbidopa/Levodopa (Sinemet 25/100 -) 1 each PO QID [facility] Last Admin: 12/08/17 17:15 Dose: 1 each Docusate Sodium (Colace -) 100 mg PO DAILY [facility] Last Admin: 12/08/17 09:50 Dose: 100 mg Furosemide (Lasix Injection -) 40 mg IVPUSH BID@0600,1400 [facility] Last Admin: 12/08/17 14:39 Dose: 40 mg Ceftriaxone Sodium 1 gm/ (Dextrose) 50 mls @ 200 mls/hr IVPB DAILY [facility]; Protocol Last Admin: 12/08/17 17:08 Dose: 200 mls/hr Vancomycin HCl (Vancomycin 1 Gm Premix -) 1 gm in 200 mls @ 133.333 mls/hr IVPB Q24H [facility]; Protocol Amiodarone HCl/Dextrose (Nexterone 360 Mg/200 Ml Bag) 360 mg in 200 mls @ 33.333 mls/hr IVPB TITR [facility]; Protocol Last Admin: 12/08/17 18:49 Dose: 1 mg/min, 33.333 mls/hr Insulin Aspart (Novolog Vial Sliding Scale -) 1 vial SQ ACHS [facility]; Protocol Last Admin: 12/08/17 17:17 Dose: 2 units Metformin HCl (Glucophage Xr -) 500 mg PO BIDAC [facility] Last Admin: 12/08/17 17:31 Dose: 500 mg Metoprolol Succinate (Toprol Xl -) 50 mg PO BID [facility] Metoprolol Tartrate (Lopressor Injection -) 5 mg IVPUSH Q6H PRN PRN Reason: TACHYCARDIA Last Admin: 12/07/17 07:34 Dose: 5 mg Mirtazapine (Remeron -) 45 mg PO HS [facility] Last Admin: 12/07/17 21:08 Dose: 45 mg Potassium Chloride (K-Dur -) 10 meq PO DAILY [facility] Last Admin: 12/08/17 10:46 Dose: 10 meq Zolpidem Tartrate (Ambien -) 5 mg PO HS PRN PRN Reason: INSOMNIA Last Admin: 12/05/17 23:19 Dose: 5 mg - Objective Vital Signs: Vital Signs Temperature 98.8 F 12/08/17 15:00 Pulse Rate 79 12/08/17 20:00 Respiratory Rate 20 12/08/17 20:00 Blood Pressure 98/60 12/08/17 20:00 O2 Sat by Pulse Oximetry (%) 98 12/08/17 08:06 Constitutional: Yes: Well Nourished, No Distress, Calm Eyes: Yes: Conjunctiva Clear, EOM Intact HENT: Yes: WNL Neck: Yes: Supple Cardiovascular: Yes: Pulse Irregular, S1, S2 Respiratory: Yes: CTA Bilaterally, On Nasal O2 Gastrointestinal: Yes: Normal Bowel Sounds, Soft Genitourinary: Yes: WNL Breast(s): Yes: WNL Musculoskeletal: Yes: Back Pain Edema: Yes Edema: LLE: 4+, RLE: 4+ Peripheral Pulses WNL: Yes Integumentary: Yes: Other (Left lower leg shows extensive erythema with small ulcerations which appearsd like cellulitis) Neurological: Yes: Alert, Oriented ...Motor Strength: WNL Psychiatric: Yes: Alert, Oriented Labs: CBC, BMP 12/08/17 05:30 12/08/17 05:30 - ....Imaging X-ray: Report Reviewed, Image Reviewed Problem List - Problems (1) CHF (congestive heart failure) Assessment/Plan: Continues to be in CHF with bilateal 4+ edema. Chest Xray shows congestion and possible RLL pneumonia. Code(s): I50.9 - HEART FAILURE, UNSPECIFIED Qualifiers: Heart failure type: diastolic Heart failure chronicity: chronic Qualified Code(s): I50.32 - Chronic diastolic (congestive) heart failure (2) Hyperglycemia Code(s): R73.9 - HYPERGLYCEMIA, UNSPECIFIED (3) Atrial fibrillation with rapid ventricular response Assessment/Plan: AFIB with fast VR which was controlled with IV Amiodarone. Code(s): I48.91 - UNSPECIFIED ATRIAL FIBRILLATION (4) Diabetes Code(s): E11.9 - TYPE 2 DIABETES MELLITUS WITHOUT COMPLICATIONS (5) HTN (hypertension) Assessment/Plan: BP has dropped to 95/70 this evening and dose of Toprol XL was reduced to 50mg BID Code(s): I10 - ESSENTIAL (PRIMARY) HYPERTENSION (6) Insomnia Code(s): G47.00 - INSOMNIA, UNSPECIFIED Assessment/Plan AFIB with fast VR Cellulitis of the left leg Diabetes Possible RLL consolidation CHF Assess: Case discussed with Dr De León and as HR was not controlled with Dig or Toprol it was decided to start Amiodarone after which her HR dropped to below 100. She was started on Vancomycin and Rocephin due to cellulitis and also for the possibioity of RLL consolidation.
[2017-12-08] MEDS ORDERED: HEMOQUE TEST 1 EACH EACH ONE (21:21)
[2017-12-08] MEDS: MIRTAZAPINE 15 MG TABLET (FP) PO SCH (22:03)
[2017-12-08] MEDS: ATORVASTATIN CA 20 MG TABLET (FP) PO SCH (22:03)
[2017-12-09] MEDS ORDERED: PT OWN MED DRAWER 7, Y5N ONE ×3 (05:43→21:02)
[2017-12-09] MEDS: FUROSEMIDE 40 MG/4 ML INJECTABLE VIAL IVPUSH SCH ×2 (06:23→14:34)
[2017-12-09] MEDS: INSULIN SLIDING SCALE (NOVOLOG) 1 VIAL SQ SCH ×4 (06:23→21:27)
[2017-12-09 08:11] LABS: HEMATOCRIT 45.8 % (32.4-45.2); HEMOGLOBIN 15.3 GM/dL (10.7-15.3); MCH 31.7 pg (25.7-33.7); MCHC 33.5 g/dl (32.0-36.0); MEAN CELL VOLUME 94.8 fl (80-96); MEAN PLT VOLUME 8.2 fl (7.5-11.1); PLATELET COUNT 299 K/MM3 (134-434); RBC 4.83 M/mm3 (3.60-5.2); RDW 14.5 % (11.6-15.6); WHITE BLOOD COUNT 11.3 K/mm3 (4.0-10.0)
[2017-12-09 08:37] LABS: ALBUMIN 2.9 g/dl (3.4-5.0); ANION GAP 9 (8-16); BILIRUBIN,TOTAL 0.5 mg/dL (0.2-1.0); BLOOD UREA NITROGEN 23 mg/dL (7-18); CALCIUM 8.4 mg/dL (8.5-10.1); CHLORIDE 105 mmol/L (98-107); CO2 29 mmol/L (21-32); CREATININE 0.8 mg/dL (0.55-1.02); GLUCOSE,RANDOM 180 mg/dL (74-106); PHOSPHOROUS 3.6 mg/dL (2.5-4.9); POTASSIUM 3.6 mmol/L (3.5-5.1); SGOT/AST 98 U/L (15-37); SGPT/ALT 35 U/L (12-78); SODIUM 143 mmol/L (136-145); TOT PROT 5.7 g/dl (6.4-8.2)
[2017-12-09 08:50] LABS: ALK PHOS 199 U/L (45-117); MAGNESIUM 1.9 mg/dL (1.8-2.4)
[2017-12-09] MEDS ORDERED: PIPERACILLIN/TAZOB 3.375 GM 3.375 GM in DEXTROSE 5%-WATER - 50 ML IVPB SCH (10:00)
[2017-12-09] MEDS ORDERED: VANCOMYCIN 1 GM PREMIX - 1 GM/200 ML BAG IVPB SCH (10:00)
[2017-12-09] MEDS ORDERED: cefTRIAXone SODIUM 1 GM VIAL ONE (10:02)
[2017-12-09] MEDS ORDERED: DEXTROSE 5%-WATER - 50 ML IVPB ONE (10:02)
[2017-12-09] MEDS: CARBIDOPA/LEVODOPA 25/100 TABLET (FP) PO SCH ×4 (10:08→21:20)
[2017-12-09] MEDS: POTASSIUM CHLORIDE TABS 10 MEQ TABLET.ER (FP) PO SCH (10:08)
[2017-12-09] MEDS: CEFTRIAXONE 1 GM in DEXTROSE 5%-WATER - 50 ML IVPB SCH (10:08)
[2017-12-09] MEDS: APIXABAN 5 MG TABLET PO SCH ×2 (10:09→21:21)
[2017-12-09] MEDS: DOCUSATE SODIUM 100 MG CAPSULE (FP) PO SCH (10:09)
--- NOTE | 2017-12-09 10:49 | PN ---
Progress Note, Physician History of Present Illness: Awake, alert No complaints No c/o leg pain No c/o fever/ chills Afebrile WBC 11.3 - Current Medication List Current Medications: Active Medications Apixaban (Eliquis -) 5 mg PO BID [facility] Last Admin: 12/09/17 10:09 Dose: 5 mg Atorvastatin Calcium (Lipitor -) 20 mg PO HS [facility] Last Admin: 12/08/17 22:03 Dose: 20 mg Carbidopa/Levodopa (Sinemet 25/100 -) 1 each PO QID [facility] Last Admin: 12/09/17 10:08 Dose: 1 each Docusate Sodium (Colace -) 100 mg PO DAILY [facility] Last Admin: 12/09/17 10:09 Dose: 100 mg Furosemide (Lasix Injection -) 40 mg IVPUSH BID@0600,1400 [facility] Last Admin: 12/09/17 06:23 Dose: 40 mg Ceftriaxone Sodium 1 gm/ (Dextrose) 50 mls @ 200 mls/hr IVPB DAILY [facility]; Protocol Last Admin: 12/09/17 10:08 Dose: 200 mls/hr Vancomycin HCl (Vancomycin 1 Gm Premix -) 1 gm in 200 mls @ 133.333 mls/hr IVPB Q24H [facility]; Protocol Amiodarone HCl/Dextrose (Nexterone 360 Mg/200 Ml Bag) 360 mg in 200 mls @ 33.333 mls/hr IVPB TITR [facility]; Protocol Last Titration: 12/08/17 22:07 Dose: 0.5 mg/min, 16.667 mls/hr Insulin Aspart (Novolog Vial Sliding Scale -) 1 vial SQ ACHS [facility]; Protocol Last Admin: 12/09/17 06:23 Dose: 2 units Metformin HCl (Glucophage Xr -) 500 mg PO BIDAC [facility] Last Admin: 12/09/17 06:23 Dose: 500 mg Metoprolol Succinate (Toprol Xl -) 50 mg PO BID [facility] Last Admin: 12/09/17 10:08 Dose: 50 mg Metoprolol Tartrate (Lopressor Injection -) 5 mg IVPUSH Q6H PRN PRN Reason: TACHYCARDIA Last Admin: 12/07/17 07:34 Dose: 5 mg Mirtazapine (Remeron -) 45 mg PO HS [facility] Last Admin: 12/08/17 22:03 Dose: 45 mg Potassium Chloride (K-Dur -) 10 meq PO DAILY [facility] Last Admin: 12/09/17 10:08 Dose: 10 meq Zolpidem Tartrate (Ambien -) 5 mg PO HS PRN PRN Reason: INSOMNIA Last Admin: 12/05/17 23:19 Dose: 5 mg - Objective Vital Signs: Vital Signs Temperature 97.6 F 12/09/17 08:00 Pulse Rate 97 H 12/09/17 08:00 Respiratory Rate 18 12/09/17 08:00 Blood Pressure 105/67 12/09/17 08:00 O2 Sat by Pulse Oximetry (%) 97 12/09/17 09:00 Constitutional: Yes: No Distress Cardiovascular: Yes: S1, S2. No: Regular Rate and Rhythm Respiratory: Yes: Diminished Gastrointestinal: Yes: Normal Bowel Sounds, Soft. No: Tenderness Extremities: Yes: Other (small area erythema L LE) Edema: Yes Labs: CBC, BMP 12/09/17 08:00 12/09/17 08:00 Assessment/Plan Cellulitis L LE CHF ? pneumonia S/P rapid Afib Diabetes mellitus Continue empiric ceftriaxone/ vancomycin
--- NOTE | 2017-12-09 11:05 | PN ---
Progress Note, Physician History of Present Illness: 77 F, Parkisnons, depression, DM, CHF on lasix, AFib previously on digoxin and cardizem and eliquis. 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 Admitted via the ER due to shortness of breath and worsening bilateral pedal edema over past several days. Denies any chest pain, diaphoresis, palpitations , nausea, vomiting, cough, or fever. No travel history or sick contacts. CXR: Bilateral congestive changes / right pleural effusion. - Current Medication List Current Medications: Active Medications Apixaban (Eliquis -) 5 mg PO BID [facility] Last Admin: 12/09/17 10:09 Dose: 5 mg Atorvastatin Calcium (Lipitor -) 20 mg PO HS [facility] Last Admin: 12/08/17 22:03 Dose: 20 mg Carbidopa/Levodopa (Sinemet 25/100 -) 1 each PO QID [facility] Last Admin: 12/09/17 10:08 Dose: 1 each Docusate Sodium (Colace -) 100 mg PO DAILY [facility] Last Admin: 12/09/17 10:09 Dose: 100 mg Furosemide (Lasix Injection -) 40 mg IVPUSH BID@0600,1400 [facility] Last Admin: 12/09/17 06:23 Dose: 40 mg Ceftriaxone Sodium 1 gm/ (Dextrose) 50 mls @ 200 mls/hr IVPB DAILY [facility]; Protocol Last Admin: 12/09/17 10:08 Dose: 200 mls/hr Vancomycin HCl (Vancomycin 1 Gm Premix -) 1 gm in 200 mls @ 133.333 mls/hr IVPB Q24H [facility]; Protocol Amiodarone HCl/Dextrose (Nexterone 360 Mg/200 Ml Bag) 360 mg in 200 mls @ 33.333 mls/hr IVPB TITR [facility]; Protocol Last Titration: 12/08/17 22:07 Dose: 0.5 mg/min, 16.667 mls/hr Insulin Aspart (Novolog Vial Sliding Scale -) 1 vial SQ ACHS [facility]; Protocol Last Admin: 12/09/17 06:23 Dose: 2 units Metformin HCl (Glucophage Xr -) 500 mg PO BIDAC [facility] Last Admin: 12/09/17 06:23 Dose: 500 mg Metoprolol Succinate (Toprol Xl -) 50 mg PO BID [facility] Last Admin: 12/09/17 10:08 Dose: 50 mg Metoprolol Tartrate (Lopressor Injection -) 5 mg IVPUSH Q6H PRN PRN Reason: TACHYCARDIA Last Admin: 12/07/17 07:34 Dose: 5 mg Mirtazapine (Remeron -) 45 mg PO HS [facility] Last Admin: 12/08/17 22:03 Dose: 45 mg Potassium Chloride (K-Dur -) 10 meq PO DAILY [facility] Last Admin: 12/09/17 10:08 Dose: 10 meq Zolpidem Tartrate (Ambien -) 5 mg PO HS PRN PRN Reason: INSOMNIA Last Admin: 12/05/17 23:19 Dose: 5 mg - Objective Vital Signs: Vital Signs Temperature 97.7 F 12/09/17 10:00 Pulse Rate 101 H 12/09/17 10:00 Respiratory Rate 18 12/09/17 08:00 Blood Pressure 98/69 12/09/17 10:00 O2 Sat by Pulse Oximetry (%) 97 12/09/17 09:00 Eyes: Yes: WNL, Conjunctiva Clear, EOM Intact HENT: Yes: WNL, Atraumatic, Normocephalic Neck: Yes: WNL, Supple, Trachea Midline Cardiovascular: Yes: Pulse Irregular, S1, S2 Respiratory: Yes: WNL, Regular, CTA Bilaterally Gastrointestinal: Yes: WNL, Normal Bowel Sounds Genitourinary: Yes: WNL Musculoskeletal: Yes: WNL Extremities: Yes: WNL Edema: No Integumentary: Yes: WNL Neurological: Yes: WNL, Alert, Oriented ...Motor Strength: WNL Psychiatric: Yes: WNL Labs: CBC, BMP 12/09/17 08:00 12/09/17 08:00 Problem List - Problems (1) Afib Code(s): I48.91 - UNSPECIFIED ATRIAL FIBRILLATION Qualifiers: Atrial fibrillation type: unspecified Qualified Code(s): I48.91 - Unspecified atrial fibrillation (2) CHF (congestive heart failure) Code(s): I50.9 - HEART FAILURE, UNSPECIFIED Qualifiers: Heart failure type: diastolic Heart failure chronicity: chronic Qualified Code(s): I50.32 - Chronic diastolic (congestive) heart failure (3) Edema Code(s): R60.9 - EDEMA, UNSPECIFIED Qualifiers: Edema type: unspecified Qualified Code(s): R60.9 - Edema, unspecified (4) Hyperglycemia Code(s): R73.9 - HYPERGLYCEMIA, UNSPECIFIED (5) SOB (shortness of breath) Code(s): R06.02 - SHORTNESS OF BREATH (6) Abdominal pain Code(s): R10.9 - UNSPECIFIED ABDOMINAL PAIN (7) Anterior epistaxis Code(s): R04.0 - EPISTAXIS (8) Atrial fibrillation with rapid ventricular response Code(s): I48.91 - UNSPECIFIED ATRIAL FIBRILLATION (9) Depressed affect Code(s): R45.89 - OTHER SYMPTOMS AND SIGNS INVOLVING EMOTIONAL STATE (10) Diabetes Code(s): E11.9 - TYPE 2 DIABETES MELLITUS WITHOUT COMPLICATIONS (11) Diabetes Code(s): E11.9 - TYPE 2 DIABETES MELLITUS WITHOUT COMPLICATIONS (12) Diabetes 1.5, managed as type 1 Code(s): E10.9 - TYPE 1 DIABETES MELLITUS WITHOUT COMPLICATIONS (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, managed as type 2 Code(s): E13.9 - OTHER SPECIFIED DIABETES MELLITUS WITHOUT COMPLICATIONS (14) Dyspepsia Code(s): R10.13 - EPIGASTRIC PAIN (15) Elevated LFTs Code(s): R79.89 - OTHER SPECIFIED ABNORMAL FINDINGS OF BLOOD CHEMISTRY (16) HTN (hypertension) Code(s): I10 - ESSENTIAL (PRIMARY) HYPERTENSION (17) Hyperlipidemia Code(s): E78.5 - HYPERLIPIDEMIA, UNSPECIFIED (18) IBS (irritable bowel syndrome) Code(s): K58.9 - IRRITABLE BOWEL SYNDROME WITHOUT DIARRHEA (19) Insomnia Code(s): G47.00 - INSOMNIA, UNSPECIFIED (20) Leukocytosis Code(s): D72.829 - ELEVATED WHITE BLOOD CELL COUNT, UNSPECIFIED (21) Parkinson disease Code(s): G20 - PARKINSON'S DISEASE (22) Paroxysmal atrial fibrillation Code(s): I48.0 - PAROXYSMAL ATRIAL FIBRILLATION (23) Sepsis Code(s): A41.9 - SEPSIS, UNSPECIFIED ORGANISM Assessment/Plan Problems (1) Acute on chronic systolic (congestive) heart failure Assessment/Plan: On metoprolol ER. Start lisinopril 2.5 mg daily if BP remains stable; f/u BUn/Cr, electrolytes 9once HR and BP are better-controlled). Code(s): I50.23 - ACUTE ON CHRONIC SYSTOLIC (CONGESTIVE) HEART FAILURE (2) Edema Code(s): R60.9 - EDEMA, UNSPECIFIED Qualifiers: Edema type: unspecified Qualified Code(s): R60.9 - Edema, unspecified (3) SOB (shortness of breath) Code(s): R06.02 - SHORTNESS OF BREATH (4) Atrial fibrillation with rapid ventricular response Assessment/Plan: ECHO: moderately decreased LVEF; normal chamber sizes; moderate TR and MR; mild TN. TSH WNL. Plan: On apixaban for anticoagulation. Discontinued diltiazem (significant LV dysfunction). Increase dose of esmolol IV. Try to give metoprolol ER bid doses, even if BP is borderline low, if pt remains clinically A&O, without dizziness, or change in mental status, and then titrate off esmolol.Keep VR in 80-110 bpm range at rest. On digoxin; level today (1.0); should not go over this. agree with 0.125 mg daily at present. Repeat LVEF when HR is well-controlled. Addendum 12:00: Pt remains in rapid AF; c/o increased SOB. cont IV amiodarone loading for total of 18 hrs switch to po tonight Stop digoxin. F/u electroltyes, EKG while on mirtazapine (comination may lead to prolonged QTc , though not a strong relation; consider lowering the dose of mirtazapine, but not essential at this stage). Code(s): I48.91 - UNSPECIFIED ATRIAL FIBRILLATION (5) HTN (hypertension) Code(s): I10 - ESSENTIAL (PRIMARY) HYPERTENSION (6) Hyperlipidemia Assessment/Plan: f/u lipid panel Code(s): E78.5 - HYPERLIPIDEMIA, UNSPECIFIED (7) Parkinson disease Code(s): G20 - PARKINSON'S DISEASE (8) Skin infection Assessment/Plan: for antibiotic adjustment for Lt LE skin lesion Code(s): L08.9 - LOCAL INFECTION OF THE SKIN AND SUBCUTANEOUS TISSUE, UNSP
[2017-12-09] MEDS ORDERED: AMIODARONE IN DEXTROSE,ISO-OSM 360 MG/200 ML BAG IVPB SCH (11:30)
[2017-12-09] MEDS: VANCOMYCIN 1 GM PREMIX - 1 GM/200 ML BAG IVPB SCH (11:57)
--- NOTE | 2017-12-09 12:52 | PN ---
Teaching Attending Note Name of Resident: Jarek Silvestre ATTENDING PHYSICIAN STATEMENT I saw and evaluated the patient. I reviewed the resident's note and discussed the case with the resident. I agree with the resident's findings and plan as documented. SUBJECTIVE: Patient seen and examined in the ICU. AFib rates are better. Reports weeping clear fluid from LLE. Erythema seems less. No CP. SOB is overall better. (-) DVT by US. OBJECTIVE: Intake & Output 12/06/17 12/07/17 12/08/17 12/09/17 23:59 23:59 23:59 23:59 Intake Total 1270 1140 2107.7 766.2 Output Total 3300 3100 3100 500 Balance -2029 -1959 -992.3 266.2 Weight 157 lb 158 lb 158 lb 3.2 oz 153 lb 4 oz Last Vital Signs Temp Pulse Resp BP Pulse Ox 97.7 F 101 H 18 98/69 97 12/09/17 10:00 12/09/17 10:00 12/09/17 08:00 12/09/17 10:00 12/09/17 09:00 Active Medications Amiodarone HCl (Cordarone -) 400 mg PO BID [facility] Apixaban (Eliquis -) 5 mg PO BID [facility] Last Admin: 12/09/17 10:09 Dose: 5 mg Atorvastatin Calcium (Lipitor -) 20 mg PO HS [facility] Last Admin: 12/08/17 22:03 Dose: 20 mg Carbidopa/Levodopa (Sinemet 25/100 -) 1 each PO QID [facility] Last Admin: 12/09/17 10:08 Dose: 1 each Docusate Sodium (Colace -) 100 mg PO DAILY [facility] Last Admin: 12/09/17 10:09 Dose: 100 mg Furosemide (Lasix Injection -) 40 mg IVPUSH BID@0600,1400 [facility] Last Admin: 12/09/17 06:23 Dose: 40 mg Ceftriaxone Sodium 1 gm/ (Dextrose) 50 mls @ 200 mls/hr IVPB DAILY [facility]; Protocol Last Admin: 12/09/17 10:08 Dose: 200 mls/hr Vancomycin HCl (Vancomycin 1 Gm Premix -) 1 gm in 200 mls @ 133.333 mls/hr IVPB Q24H [facility]; Protocol Last Admin: 12/09/17 11:57 Dose: 133.333 mls/hr Amiodarone HCl/Dextrose (Nexterone 360 Mg/200 Ml Bag) 360 mg in 200 mls @ 33.333 mls/hr IVPB TITR [facility]; Protocol Stop: 12/09/17 16:00 Insulin Aspart (Novolog Vial Sliding Scale -) 1 vial SQ ACHS [facility]; Protocol Last Admin: 12/09/17 12:12 Dose: 4 units Metformin HCl (Glucophage Xr -) 500 mg PO BIDAC [facility] Last Admin: 12/09/17 06:23 Dose: 500 mg Metoprolol Succinate (Toprol Xl -) 50 mg PO BID [facility] Last Admin: 12/09/17 10:08 Dose: 50 mg Metoprolol Tartrate (Lopressor Injection -) 5 mg IVPUSH Q6H PRN PRN Reason: TACHYCARDIA Last Admin: 12/07/17 07:34 Dose: 5 mg Mirtazapine (Remeron -) 45 mg PO HS [facility] Last Admin: 12/08/17 22:03 Dose: 45 mg Potassium Chloride (K-Dur -) 10 meq PO DAILY [facility] Last Admin: 12/09/17 10:08 Dose: 10 meq Zolpidem Tartrate (Ambien -) 5 mg PO HS PRN PRN Reason: INSOMNIA Last Admin: 12/05/17 23:19 Dose: 5 mg Gen: Awake and alert, NAD Heart: AFib, rate controlled Lung: Improving Bibasilar Rales / Rhonchi Abd: soft, nontender Ext: (+) edema, (+) erythema Laboratory Results - last 24 hr 12/08/17 12/08/17 12/09/17 17:07 22:10 05:40 WBC RBC Hgb Hct MCV MCH MCHC RDW Plt Count MPV Sodium Potassium Chloride Carbon Dioxide Anion Gap BUN Creatinine Creat Clearance w eGFR POC Glucometer 189.04862 264.94359 185.93971 Random Glucose Calcium Phosphorus Magnesium Total Bilirubin AST ALT Alkaline Phosphatase Total Protein Albumin Digoxin 12/09/17 12/09/17 08:00 08:00 WBC 11.3 H RBC 4.83 Hgb 15.3 Hct 45.8 H MCV 94.8 MCH 31.7 MCHC 33.5 RDW 14.5 Plt Count 299 MPV 8.2 Sodium 143 Potassium 3.6 Chloride 105 Carbon Dioxide 29 Anion Gap 9 BUN 23 H Creatinine 0.8 Creat Clearance w eGFR > 60 POC Glucometer Random Glucose 180 H Calcium 8.4 L Phosphorus 3.6 Magnesium 1.9 Total Bilirubin 0.5 AST 98 H ALT 35 Alkaline Phosphatase 199 H D Total Protein 5.7 L Albumin 2.9 L Digoxin 0.94 ASSESSMENT AND PLAN: Atrial Fibrillation with RVR Acute on Chronic Systolic/Diastolic Heart Failure UTI DM Parkinsons Disease Depression Suspected Cellulitis - Continue rate controlling meds per Cardiology - Continue anticoagulation - O2 to keep SpO2 >90% - Replete lytes - Lasix as needed - Monitor urine output, creatinine - ABX per ID - Local wound care - Cardiac Telemetry monitoring Dr Calhoun Critical care time spent in reviewing chart, evaluating patient and formulating plan 35 min
[2017-12-09] MEDS ORDERED: AMIODARONE IN DEXTROSE,ISO-OSM 360 MG/200 ML BAG ONE (16:54)
--- NOTE | 2017-12-09 19:20 | PN ---
Physical Exam: SUBJECTIVE: Patient seen and examined OBJECTIVE: Vital Signs Period Temp Pulse Resp BP Sys/Jerry Pulse Ox Last 24 Hr 97.6 F-98.7 F 79-102 18-20 90-106/55-83 97-98 GENERAL: The patient is awake, alert, and fully oriented, in no acute distress. HEAD: Normal with no signs of trauma. EYES: PERRL, extraocular movements intact, sclera anicteric, conjunctiva clear. No ptosis. ENT: Ears normal, nares patent, oropharynx clear without exudates, moist mucous membranes. NECK: Trachea midline, full range of motion, supple. LUNGS: Breath sounds equal, clear to auscultation bilaterally, no wheezes, no crackles, no accessory muscle use. HEART: Regular rate and rhythm, S1, S2 without murmur, rub or gallop. ABDOMEN: Soft, nontender, nondistended, normoactive bowel sounds, no guarding, no rebound, no hepatosplenomegaly, no masses. EXTREMITIES: 2+ pulses, warm, well-perfused, no edema. NEUROLOGICAL: Cranial nerves II through XII grossly intact. Normal speech, gait not observed. PSYCH: Normal mood, normal affect. SKIN: Warm, dry, normal turgor, no rashes or lesions noted Laboratory Results - last 24 hr 12/08/17 12/09/17 12/09/17 22:10 05:40 08:00 WBC 11.3 H RBC 4.83 Hgb 15.3 Hct 45.8 H MCV 94.8 MCH 31.7 MCHC 33.5 RDW 14.5 Plt Count 299 MPV 8.2 Sodium Potassium Chloride Carbon Dioxide Anion Gap BUN Creatinine Creat Clearance w eGFR POC Glucometer 264.73991 185.82444 Random Glucose Calcium Phosphorus Magnesium Total Bilirubin AST ALT Alkaline Phosphatase Total Protein Albumin Digoxin 12/09/17 08:00 WBC RBC Hgb Hct MCV MCH MCHC RDW Plt Count MPV Sodium 143 Potassium 3.6 Chloride 105 Carbon Dioxide 29 Anion Gap 9 BUN 23 H Creatinine 0.8 Creat Clearance w eGFR > 60 POC Glucometer Random Glucose 180 H Calcium 8.4 L Phosphorus 3.6 Magnesium 1.9 Total Bilirubin 0.5 AST 98 H ALT 35 Alkaline Phosphatase 199 H D Total Protein 5.7 L Albumin 2.9 L Digoxin 0.94 Active Medications Generic Name Dose Route Start Last Admin Trade Name Freq PRN Reason Stop Dose Admin Amiodarone HCl 400 mg 12/09/17 22:00 Cordarone - PO BID [facility] Apixaban 5 mg 12/04/17 22:00 12/09/17 10:09 Eliquis - PO 5 mg BID [facility] Administration Atorvastatin Calcium 20 mg 12/04/17 22:00 12/08/17 22:03 Lipitor - PO 20 mg HS [facility] Administration Carbidopa/Levodopa 1 each 12/04/17 22:00 12/09/17 17:43 Sinemet 25/100 - PO 1 each QID [facility] Administration Docusate Sodium 100 mg 12/08/17 10:00 12/09/17 10:09 Colace - PO 100 mg DAILY [facility] Administration Furosemide 40 mg 12/05/17 06:00 12/09/17 14:34 Lasix Injection - IVPUSH 40 mg BID@0600,1400 [facility] Administration Ceftriaxone Sodium 1 gm/ 50 mls @ 200 mls/hr 12/08/17 14:30 12/09/17 10:08 Dextrose IVPB 200 mls/hr DAILY [facility] Administration Protocol Vancomycin HCl 1 gm in 200 mls @ 133.333 mls/hr 12/09/17 11:00 12/09/17 11:57 Vancomycin 1 Gm Premix - IVPB 133.333 mls/hr Q24H [facility] Administration Protocol Insulin Aspart 1 vial 12/08/17 12:15 12/09/17 17:43 Novolog Vial Sliding Scale - SQ Not Given ACHS [facility] Protocol Metformin HCl 500 mg 12/07/17 07:00 12/09/17 17:43 Glucophage Xr - PO 500 mg BIDAC [facility] Administration Metoprolol Succinate 50 mg 12/08/17 22:00 12/09/17 10:08 Toprol Xl - PO 50 mg BID [facility] Administration Metoprolol Tartrate 5 mg 12/06/17 15:52 12/07/17 07:34 Lopressor Injection - IVPUSH 5 mg Q6H PRN Administration TACHYCARDIA Mirtazapine 45 mg 12/04/17 22:00 12/08/17 22:03 Remeron - PO 45 mg HS [facility] Administration Potassium Chloride 10 meq 12/05/17 10:00 12/09/17 10:08 K-Dur - PO 10 meq DAILY [facility] Administration Zolpidem Tartrate 5 mg 12/04/17 22:00 12/05/17 23:19 Ambien - PO 5 mg HS PRN Administration INSOMNIA ASSESSMENT/PLAN: Pt is a 77 y/o lady with a pmh of Parkinson's Disease,depression, DM, CHF, afib , was was BIB for shortness of breath and worsening bilateral pedal edema over past several days per . Neuro: Parkinson's Disease -AAOx3 -Carbidopa/Levodopa 1 each PO QID Cardio- Afib w/ RVR Amiodorone gtt. Serial EKG's as Mirtazapine and Amiodorone may prolong QTc interval . EKG 12/09/2017---> A-FIb, ST and T wave abnormality, possible inferior ischemia, possible anterolateral ischemia ECHO 12/05---> L Ventricular systolic function moderately reduced, EF 40-45%, Right ventricular systolic function moderately reduced. Moderate mitral and tricuspid regurg. Mild pulmonic valvular regurgitation. -Toprol XL 50 mg -Lasix 40 mg IVPUSH BID I.D- Cellulitis Dr Rangel on board Elevated WBC- Today, 12/09/17--> 23/0.8 Ceftriaxone/Vancomycin FEN No Fluids Monitor Electrolytes Diabetic/Sodium Diet DVT ppx: Eliquis 5 mg PO bid. Dispo: Continue to monitor in icu. Visit type - Emergency Visit Emergency Visit: Yes ED Registration Date: 12/04/17 Care time: The patient presented to the Emergency Department on the above date and was hospitalized for further evaluation of their emergent condition. - New Patient This patient is new to me today: No - Critical Care Critical Care patient: Yes Total Critical Care Time (in minutes): 35 Critical Care Statement: The care of this patient involved high complexity decision making to prevent further life threatening deterioration of the patient 's condition and/or to evaluate & treat vital organ system(s) failure or risk of failure.
--- NOTE | 2017-12-09 20:32 | PN ---
Progress Note, Physician History of Present Illness: 77 y/o with CHF and AFIB with fast VR. Patient denies any chest pain or SOB. Denies pain in the legs - Current Medication List Current Medications: Active Medications Amiodarone HCl (Cordarone -) 400 mg PO BID [facility] Apixaban (Eliquis -) 5 mg PO BID [facility] Last Admin: 12/09/17 10:09 Dose: 5 mg Atorvastatin Calcium (Lipitor -) 20 mg PO HS [facility] Last Admin: 12/08/17 22:03 Dose: 20 mg Carbidopa/Levodopa (Sinemet 25/100 -) 1 each PO QID [facility] Last Admin: 12/09/17 17:43 Dose: 1 each Docusate Sodium (Colace -) 100 mg PO DAILY [facility] Last Admin: 12/09/17 10:09 Dose: 100 mg Furosemide (Lasix Injection -) 40 mg IVPUSH BID@0600,1400 [facility] Last Admin: 12/09/17 14:34 Dose: 40 mg Ceftriaxone Sodium 1 gm/ (Dextrose) 50 mls @ 200 mls/hr IVPB DAILY [facility]; Protocol Last Admin: 12/09/17 10:08 Dose: 200 mls/hr Vancomycin HCl (Vancomycin 1 Gm Premix -) 1 gm in 200 mls @ 133.333 mls/hr IVPB Q24H [facility]; Protocol Last Admin: 12/09/17 11:57 Dose: 133.333 mls/hr Insulin Aspart (Novolog Vial Sliding Scale -) 1 vial SQ ACHS [facility]; Protocol Last Admin: 12/09/17 17:43 Dose: Not Given Metformin HCl (Glucophage Xr -) 500 mg PO BIDAC [facility] Last Admin: 12/09/17 17:43 Dose: 500 mg Metoprolol Succinate (Toprol Xl -) 50 mg PO BID [facility] Last Admin: 12/09/17 10:08 Dose: 50 mg Metoprolol Tartrate (Lopressor Injection -) 5 mg IVPUSH Q6H PRN PRN Reason: TACHYCARDIA Last Admin: 12/07/17 07:34 Dose: 5 mg Mirtazapine (Remeron -) 45 mg PO HS [facility] Last Admin: 12/08/17 22:03 Dose: 45 mg Potassium Chloride (K-Dur -) 10 meq PO DAILY [facility] Last Admin: 12/09/17 10:08 Dose: 10 meq Zolpidem Tartrate (Ambien -) 5 mg PO HS PRN PRN Reason: INSOMNIA Last Admin: 12/05/17 23:19 Dose: 5 mg - Objective Vital Signs: Vital Signs Temperature 98.7 F 12/09/17 18:00 Pulse Rate 102 H 12/09/17 18:00 Respiratory Rate 18 12/09/17 18:00 Blood Pressure 90/76 12/09/17 18:00 O2 Sat by Pulse Oximetry (%) 96 12/09/17 19:54 Constitutional: Yes: Well Nourished, No Distress, Calm Eyes: Yes: Conjunctiva Clear, EOM Intact HENT: Yes: WNL Neck: Yes: Supple Cardiovascular: Yes: Pulse Irregular, JVD, S1, S2 Respiratory: Yes: Regular, CTA Bilaterally Gastrointestinal: Yes: Normal Bowel Sounds, Soft Genitourinary: Yes: WNL Breast(s): Yes: WNL Musculoskeletal: Yes: Back Pain Extremities: Yes: WNL, Erythema, Other (left leg cellulitis is getting better) Edema: Yes Edema: LLE: 2+, RLE: 2+ Peripheral Pulses WNL: Yes Integumentary: Yes: Erythema Neurological: Yes: Alert, Oriented ...Motor Strength: WNL Psychiatric: Yes: Alert, Oriented Labs: CBC, BMP 12/09/17 08:00 12/09/17 08:00 Problem List - Problems (1) CHF (congestive heart failure) Assessment/Plan: Leg edema is improving with diuretics and better control of the VR Code(s): I50.9 - HEART FAILURE, UNSPECIFIED Qualifiers: Heart failure type: diastolic Heart failure chronicity: chronic Qualified Code(s): I50.32 - Chronic diastolic (congestive) heart failure (2) Hyperglycemia Assessment/Plan: Well controlled with Metformin Code(s): R73.9 - HYPERGLYCEMIA, UNSPECIFIED (3) Atrial fibrillation with rapid ventricular response Assessment/Plan: On Amiodarone drip and Metoprolol and VR rate in 90s Code(s): I48.91 - UNSPECIFIED ATRIAL FIBRILLATION (4) Diabetes Code(s): E11.9 - TYPE 2 DIABETES MELLITUS WITHOUT COMPLICATIONS (5) HTN (hypertension) Code(s): I10 - ESSENTIAL (PRIMARY) HYPERTENSION (6) Insomnia Code(s): G47.00 - INSOMNIA, UNSPECIFIED Assessment/Plan IMP: AFIB with fast VR CHF systolic and diastolic Pulmonary hypertension Mod MR Mod TR Diabetes Parkinson's D Assess: General condition shows improvement with less leg edema, but has R side pleural effusion. She is on Amiodarone and Metoprolol and IV Lasix. She is on IV Rocephin for cellulitis of the left leg which shows improvement and she remains afebrile
[2017-12-09] MEDS ORDERED: HEMOQUE TEST 1 EACH EACH ONE (21:06)
[2017-12-09] MEDS: AMIODARONE HCL 200 MG TABLET (FP) PO SCH (21:20)
[2017-12-09] MEDS: ATORVASTATIN CA 20 MG TABLET (FP) PO SCH (21:21)
[2017-12-09] MEDS: MIRTAZAPINE 15 MG TABLET (FP) PO SCH (21:21)
[2017-12-10] MEDS: FUROSEMIDE 40 MG/4 ML INJECTABLE VIAL IVPUSH SCH (06:10)
[2017-12-10] MEDS: INSULIN SLIDING SCALE (NOVOLOG) 1 VIAL SQ SCH ×4 (06:13→21:27)
[2017-12-10 07:49] LABS: HEMATOCRIT 44.4 % (32.4-45.2); MCH 32.1 pg (25.7-33.7); MCHC 33.7 g/dl (32.0-36.0); MEAN CELL VOLUME 95.1 fl (80-96); MEAN PLT VOLUME 7.7 fl (7.5-11.1); PLATELET COUNT 277 K/MM3 (134-434); RBC 4.67 M/mm3 (3.60-5.2); RDW 14.1 % (11.6-15.6); WHITE BLOOD COUNT 9.5 K/mm3 (4.0-10.0)
[2017-12-10 08:48] LABS: CALCIUM 8.7 mg/dL (8.5-10.1); CHLORIDE 100 mmol/L (98-107); POTASSIUM 3.7 mmol/L (3.5-5.1); SODIUM 140 mmol/L (136-145)
[2017-12-10 08:54] LABS: ALBUMIN 2.8 g/dl (3.4-5.0); ALK PHOS 160 U/L (45-117); ANION GAP 7 (8-16); BILIRUBIN,TOTAL 0.8 mg/dL (0.2-1.0); BLOOD UREA NITROGEN 18 mg/dL (7-18); CO2 33 mmol/L (21-32); CREATININE 0.8 mg/dL (0.55-1.02); GLUCOSE,RANDOM 150 mg/dL (74-106); MAGNESIUM 1.9 mg/dL (1.8-2.4); PHOSPHOROUS 3.7 mg/dL (2.5-4.9); SGOT/AST 43 U/L (15-37); SGPT/ALT 57 U/L (12-78); TOT PROT 5.7 g/dl (6.4-8.2)
--- NOTE | 2017-12-10 09:11 | EKG ---
Test Reason : Blood Pressure : / mmHG Vent. Rate : 089 BPM Atrial Rate : 115 BPM P-R Int : 000 ms QRS Dur : 104 ms QT Int : 378 ms P-R-T Axes : 000 -16 248 degrees QTc Int : 459 ms ATRIAL FIBRILLATION ABNORMAL ECG WHEN COMPARED WITH ECG OF 04-DEC-2017 14:10, VENT. RATE HAS DECREASED BY 67 BPM T WAVE INVERSION NOW EVIDENT IN ANTERIOR LEADS Confirmed by LÓPEZ BRICE MD [id number]) on 12/10/2017 9:11:06 AM Referred By: [facility] Confirmed By:LÓPEZ BRICE MD
[2017-12-10] MEDS ORDERED: DEXTROSE 5%-WATER - 50 ML IVPB ONE (09:16)
[2017-12-10] MEDS ORDERED: cefTRIAXone SODIUM 1 GM VIAL ONE (09:16)
[2017-12-10] MEDS: POTASSIUM CHLORIDE TABS 10 MEQ TABLET.ER (FP) PO SCH (09:24)
[2017-12-10] MEDS: AMIODARONE HCL 200 MG TABLET (FP) PO SCH ×2 (09:25→21:19)
[2017-12-10] MEDS: CEFTRIAXONE 1 GM in DEXTROSE 5%-WATER - 50 ML IVPB SCH (09:25)
[2017-12-10] MEDS: CARBIDOPA/LEVODOPA 25/100 TABLET (FP) PO SCH ×4 (09:25→21:24)
[2017-12-10] MEDS: APIXABAN 5 MG TABLET PO SCH ×2 (09:25→21:20)
[2017-12-10] MEDS: DOCUSATE SODIUM 100 MG CAPSULE (FP) PO SCH (09:25)
--- NOTE | 2017-12-10 10:01 | PN ---
Progress Note, Physician History of Present Illness: Awake, alert Supine in bed No complaints No c/o leg pain No c/o fever/ chills Afebrile WBC improved WNL - Current Medication List Current Medications: Active Medications Amiodarone HCl (Cordarone -) 400 mg PO BID [facility] Last Admin: 12/10/17 09:25 Dose: 400 mg Apixaban (Eliquis -) 5 mg PO BID [facility] Last Admin: 12/10/17 09:25 Dose: 5 mg Atorvastatin Calcium (Lipitor -) 20 mg PO HS [facility] Last Admin: 12/09/17 21:21 Dose: 20 mg Carbidopa/Levodopa (Sinemet 25/100 -) 1 each PO QID [facility] Last Admin: 12/10/17 09:25 Dose: 1 each Docusate Sodium (Colace -) 100 mg PO DAILY [facility] Last Admin: 12/10/17 09:25 Dose: 100 mg Furosemide (Lasix Injection -) 40 mg IVPUSH BID@0600,1400 [facility] Last Admin: 12/10/17 06:10 Dose: 40 mg Ceftriaxone Sodium 1 gm/ (Dextrose) 50 mls @ 200 mls/hr IVPB DAILY [facility]; Protocol Last Admin: 12/10/17 09:25 Dose: 200 mls/hr Vancomycin HCl (Vancomycin 1 Gm Premix -) 1 gm in 200 mls @ 133.333 mls/hr IVPB Q24H [facility]; Protocol Last Admin: 12/09/17 11:57 Dose: 133.333 mls/hr Insulin Aspart (Novolog Vial Sliding Scale -) 1 vial SQ ACHS [facility]; Protocol Last Admin: 12/10/17 06:13 Dose: Not Given Metformin HCl (Glucophage Xr -) 500 mg PO BIDAC [facility] Last Admin: 12/10/17 06:10 Dose: 500 mg Metoprolol Succinate (Toprol Xl -) 50 mg PO BID [facility] Last Admin: 12/10/17 09:25 Dose: 50 mg Metoprolol Tartrate (Lopressor Injection -) 5 mg IVPUSH Q6H PRN PRN Reason: TACHYCARDIA Last Admin: 12/07/17 07:34 Dose: 5 mg Mirtazapine (Remeron -) 45 mg PO HS [facility] Last Admin: 12/09/17 21:21 Dose: 45 mg Potassium Chloride (K-Dur -) 10 meq PO DAILY [facility] Last Admin: 12/10/17 09:24 Dose: 10 meq Zolpidem Tartrate (Ambien -) 5 mg PO HS PRN PRN Reason: INSOMNIA Last Admin: 12/05/17 23:19 Dose: 5 mg - Objective Vital Signs: Vital Signs Temperature 98.2 F 12/10/17 06:00 Pulse Rate 94 H 12/10/17 06:00 Respiratory Rate 16 12/10/17 06:00 Blood Pressure 100/57 12/10/17 06:00 O2 Sat by Pulse Oximetry (%) 96 12/09/17 19:54 Constitutional: Yes: No Distress Eyes: Yes: Conjunctiva Clear Cardiovascular: Yes: Regular Rate and Rhythm, S1, S2 Respiratory: Yes: CTA Bilaterally Gastrointestinal: Yes: Normal Bowel Sounds, Soft Extremities: Yes: Other (decreased erythema L LE + serous weepage + catheter -related R UE phlebitis) Edema: Yes Edema: LLE: 2+, RLE: 2+ Labs: CBC, BMP 12/10/17 07:30 12/10/17 07:30 Assessment/Plan Cellulitis L LE CHF ? pneumonia S/P rapid Afib Diabetes mellitus Catheter related R UE phlebitis Continue empiric ceftriaxone/ vancomycin Check vanco level Warm compresses R UE
--- NOTE | 2017-12-10 10:16 | PN ---
Progress Note, Physician History of Present Illness: 77 F, Parkisnons, depression, DM, CHF on lasix, AFib previously on digoxin and cardizem and eliquis. 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 Admitted via the ER due to shortness of breath and worsening bilateral pedal edema over past several days. Denies any chest pain, diaphoresis, palpitations , nausea, vomiting, cough, or fever. No travel history or sick contacts. CXR: Bilateral congestive changes / right pleural effusion. - Current Medication List Current Medications: Active Medications Amiodarone HCl (Cordarone -) 400 mg PO BID [facility] Last Admin: 12/10/17 09:25 Dose: 400 mg Apixaban (Eliquis -) 5 mg PO BID [facility] Last Admin: 12/10/17 09:25 Dose: 5 mg Atorvastatin Calcium (Lipitor -) 20 mg PO HS [facility] Last Admin: 12/09/17 21:21 Dose: 20 mg Carbidopa/Levodopa (Sinemet 25/100 -) 1 each PO QID [facility] Last Admin: 12/10/17 09:25 Dose: 1 each Docusate Sodium (Colace -) 100 mg PO DAILY [facility] Last Admin: 12/10/17 09:25 Dose: 100 mg Furosemide (Lasix Injection -) 40 mg IVPUSH BID@0600,1400 [facility] Last Admin: 12/10/17 06:10 Dose: 40 mg Ceftriaxone Sodium 1 gm/ (Dextrose) 50 mls @ 200 mls/hr IVPB DAILY [facility]; Protocol Last Admin: 12/10/17 09:25 Dose: 200 mls/hr Vancomycin HCl (Vancomycin 1 Gm Premix -) 1 gm in 200 mls @ 133.333 mls/hr IVPB Q24H [facility]; Protocol Last Admin: 12/09/17 11:57 Dose: 133.333 mls/hr Insulin Aspart (Novolog Vial Sliding Scale -) 1 vial SQ ACHS [facility]; Protocol Last Admin: 12/10/17 06:13 Dose: Not Given Metformin HCl (Glucophage Xr -) 500 mg PO BIDAC [facility] Last Admin: 12/10/17 06:10 Dose: 500 mg Metoprolol Succinate (Toprol Xl -) 50 mg PO BID [facility] Last Admin: 12/10/17 09:25 Dose: 50 mg Metoprolol Tartrate (Lopressor Injection -) 5 mg IVPUSH Q6H PRN PRN Reason: TACHYCARDIA Last Admin: 12/07/17 07:34 Dose: 5 mg Mirtazapine (Remeron -) 45 mg PO HS [facility] Last Admin: 12/09/17 21:21 Dose: 45 mg Potassium Chloride (K-Dur -) 10 meq PO DAILY [facility] Last Admin: 12/10/17 09:24 Dose: 10 meq Zolpidem Tartrate (Ambien -) 5 mg PO HS PRN PRN Reason: INSOMNIA Last Admin: 12/05/17 23:19 Dose: 5 mg - Objective Vital Signs: Vital Signs Temperature 98.2 F 12/10/17 06:00 Pulse Rate 94 H 12/10/17 06:00 Respiratory Rate 16 12/10/17 06:00 Blood Pressure 100/57 12/10/17 06:00 O2 Sat by Pulse Oximetry (%) 96 12/09/17 19:54 Eyes: Yes: WNL, Conjunctiva Clear, EOM Intact HENT: Yes: WNL, Atraumatic, Normocephalic Neck: Yes: WNL, Supple, Trachea Midline Cardiovascular: Yes: Pulse Irregular, S1, S2 Respiratory: Yes: WNL, Regular, CTA Bilaterally Gastrointestinal: Yes: WNL, Normal Bowel Sounds Genitourinary: Yes: WNL Musculoskeletal: Yes: WNL Extremities: Yes: WNL Edema: No Integumentary: Yes: WNL Neurological: Yes: WNL, Alert, Oriented ...Motor Strength: WNL Psychiatric: Yes: WNL Labs: CBC, BMP 12/10/17 07:30 12/10/17 07:30 Problem List - Problems (1) Afib Code(s): I48.91 - UNSPECIFIED ATRIAL FIBRILLATION Qualifiers: Atrial fibrillation type: unspecified Qualified Code(s): I48.91 - Unspecified atrial fibrillation (2) CHF (congestive heart failure) Code(s): I50.9 - HEART FAILURE, UNSPECIFIED Qualifiers: Heart failure type: combined systolic and diastolic Heart failure chronicity: acute on chronic Qualified Code(s): I50.43 - Acute on chronic combined systolic (congestive) and diastolic (congestive) heart failure (3) Edema Code(s): R60.9 - EDEMA, UNSPECIFIED Qualifiers: Edema type: unspecified Qualified Code(s): R60.9 - Edema, unspecified (4) Hyperglycemia Code(s): R73.9 - HYPERGLYCEMIA, UNSPECIFIED (5) SOB (shortness of breath) Code(s): R06.02 - SHORTNESS OF BREATH (6) Abdominal pain Code(s): R10.9 - UNSPECIFIED ABDOMINAL PAIN (7) Anterior epistaxis Code(s): R04.0 - EPISTAXIS (8) Atrial fibrillation with rapid ventricular response Code(s): I48.91 - UNSPECIFIED ATRIAL FIBRILLATION (9) Depressed affect Code(s): R45.89 - OTHER SYMPTOMS AND SIGNS INVOLVING EMOTIONAL STATE (10) Diabetes Code(s): E11.9 - TYPE 2 DIABETES MELLITUS WITHOUT COMPLICATIONS (11) Diabetes Code(s): E11.9 - TYPE 2 DIABETES MELLITUS WITHOUT COMPLICATIONS (12) Diabetes 1.5, managed as type 1 Code(s): E10.9 - TYPE 1 DIABETES MELLITUS WITHOUT COMPLICATIONS (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, managed as type 2 Code(s): E13.9 - OTHER SPECIFIED DIABETES MELLITUS WITHOUT COMPLICATIONS (14) Dyspepsia Code(s): R10.13 - EPIGASTRIC PAIN (15) Elevated LFTs Code(s): R79.89 - OTHER SPECIFIED ABNORMAL FINDINGS OF BLOOD CHEMISTRY (16) HTN (hypertension) Code(s): I10 - ESSENTIAL (PRIMARY) HYPERTENSION (17) Hyperlipidemia Code(s): E78.5 - HYPERLIPIDEMIA, UNSPECIFIED (18) IBS (irritable bowel syndrome) Code(s): K58.9 - IRRITABLE BOWEL SYNDROME WITHOUT DIARRHEA (19) Insomnia Code(s): G47.00 - INSOMNIA, UNSPECIFIED (20) Leukocytosis Code(s): D72.829 - ELEVATED WHITE BLOOD CELL COUNT, UNSPECIFIED (21) Parkinson disease Code(s): G20 - PARKINSON'S DISEASE (22) Paroxysmal atrial fibrillation Code(s): I48.0 - PAROXYSMAL ATRIAL FIBRILLATION (23) Sepsis Code(s): A41.9 - SEPSIS, UNSPECIFIED ORGANISM Assessment/Plan Problems (1) Acute on chronic systolic (congestive) heart failure Assessment/Plan: On metoprolol ER. Start lisinopril 2.5 mg daily if BP remains stable; f/u BUn/Cr, electrolytes 9once HR and BP are better-controlled). Code(s): I50.23 - ACUTE ON CHRONIC SYSTOLIC (CONGESTIVE) HEART FAILURE change lasix to po (2) Edema Code(s): R60.9 - EDEMA, UNSPECIFIED Qualifiers: Edema type: unspecified Qualified Code(s): R60.9 - Edema, unspecified (3) SOB (shortness of breath) Code(s): R06.02 - SHORTNESS OF BREATH (4) Atrial fibrillation with rapid ventricular response Assessment/Plan: ECHO: moderately decreased LVEF; normal chamber sizes; moderate TR and MR; mild CA. TSH WNL. Plan: On apixaban for anticoagulation. Discontinued diltiazem (significant LV dysfunction). stable on po loading AMIODARONE and BB Code(s): I48.91 - UNSPECIFIED ATRIAL FIBRILLATION (5) HTN (hypertension) Code(s): I10 - ESSENTIAL (PRIMARY) HYPERTENSION (6) Hyperlipidemia Assessment/Plan: f/u lipid panel Code(s): E78.5 - HYPERLIPIDEMIA, UNSPECIFIED (7) Parkinson disease Code(s): G20 - PARKINSON'S DISEASE (8) Skin infection Assessment/Plan: for antibiotic adjustment for Lt LE skin lesion Code(s): L08.9 - LOCAL INFECTION OF THE SKIN AND SUBCUTANEOUS TISSUE, UNSP
--- NOTE | 2017-12-10 10:17 | EKG ---
Test Reason : Blood Pressure : / mmHG Vent. Rate : 092 BPM Atrial Rate : 083 BPM P-R Int : 000 ms QRS Dur : 106 ms QT Int : 354 ms P-R-T Axes : 000 -01 245 degrees QTc Int : 437 ms ATRIAL FIBRILLATION ABNORMAL ECG WHEN COMPARED WITH ECG OF 09-DEC-2017 09:17, NO SIGNIFICANT CHANGE WAS FOUND Confirmed by LÓPEZ BRICE MD ([id number]) on 12/10/2017 10:17:37 AM Referred By: Confirmed By:LÓPEZ BRICE MD
[2017-12-10] MEDS: VANCOMYCIN 1 GM PREMIX - 1 GM/200 ML BAG IVPB SCH (12:11)
[2017-12-10] MEDS ORDERED: METOPROLOL TARTRATE 5 MG/5 ML VIAL IVPUSH PRN (13:33)
[2017-12-10] MEDS ORDERED: ZOLPIDEM TARTRATE 5 MG TABLET PO PRN (13:33)
--- NOTE | 2017-12-10 13:41 | PN ---
Teaching Attending Note Name of Resident: Jarek Silvestre ATTENDING PHYSICIAN STATEMENT I saw and evaluated the patient. I reviewed the resident's note and discussed the case with the resident. I agree with the resident's findings and plan as documented. SUBJECTIVE: Pt seen and examined in the ICU. Heart rates controlled. States breathing is improving. OBJECTIVE: Vital Signs Period Temp Pulse Resp BP Sys/Jerry Pulse Ox Last 24 Hr 97.8 F-98.7 F 86-102 14-18 89-108/56-84 96-98 Intake & Output 12/07/17 12/08/17 12/09/17 12/10/17 23:59 23:59 23:59 23:59 Intake Total 1140 2107.7 1966.4 740 Output Total 3100 3100 3900 2300 Balance -1960 -992.3 -1933.6 -1560 Weight 71.668 kg 71.758 kg 69.513 kg 68.096 kg Gen: less tachypneic Heart: irregular Lung: scattered rales Abd: soft, nontender Ext: + edema CBC, BMP 12/10/17 07:30 12/10/17 07:30 Active Medications Amiodarone HCl (Cordarone -) 400 mg PO BID [facility] Apixaban (Eliquis -) 5 mg PO BID [facility] Atorvastatin Calcium (Lipitor -) 20 mg PO HS [facility] Carbidopa/Levodopa (Sinemet 25/100 -) 1 each PO QID [facility] Docusate Sodium (Colace -) 100 mg PO DAILY [facility] Furosemide (Lasix -) 40 mg PO BID@0600,1400 [facility] Ceftriaxone Sodium 1 gm/ (Dextrose) 50 mls @ 200 mls/hr IVPB DAILY [facility]; Protocol Vancomycin HCl (Vancomycin 1 Gm Premix -) 1 gm in 200 mls @ 133.333 mls/hr IVPB Q24H [facility]; Protocol Insulin Aspart (Novolog Vial Sliding Scale -) 1 vial SQ ACHS [facility]; Protocol Metformin HCl (Glucophage Xr -) 500 mg PO BIDAC [facility] Metoprolol Succinate (Toprol Xl -) 50 mg PO BID [facility] Metoprolol Tartrate (Lopressor Injection -) 5 mg IVPUSH Q6H PRN PRN Reason: TACHYCARDIA Mirtazapine (Remeron -) 45 mg PO HS [facility] Potassium Chloride (K-Dur -) 10 meq PO DAILY [facility] Zolpidem Tartrate (Ambien -) 5 mg PO HS PRN PRN Reason: INSOMNIA ASSESSMENT AND PLAN: Atrial Fibrillation with RVR Acute on Chronic Systolic/Diastolic Heart Failure UTI DM Parkinsons Disease Depression - rate control with metoprolol, amiodarone - continue anticoagulation - O2 to keep SpO2 >90% - replete lytes - IV lasix - monitor urine output, creatinine - complete antibiotics - can monitor on telemetry
[2017-12-10] MEDS: FUROSEMIDE 40 MG TABLET (FP) PO SCH (14:26)
--- NOTE | 2017-12-10 16:02 | PN ---
Progress Note (short form) - Note Progress Note: ^^^^^^^^^^^^^^^^ cover for Dr Kelley Current Medications Amiodarone HCl (Cordarone -) 400 mg PO BID [facility] Apixaban (Eliquis -) 5 mg PO BID [facility] Atorvastatin Calcium (Lipitor -) 20 mg PO HS [facility] Carbidopa/Levodopa (Sinemet 25/100 -) 1 each PO QID [facility] Last Admin: 12/10/17 14:27 Dose: 1 each Docusate Sodium (Colace -) 100 mg PO DAILY [facility] Furosemide (Lasix -) 40 mg PO BID@0600,1400 [facility] Last Admin: 12/10/17 14:26 Dose: 40 mg Ceftriaxone Sodium 1 gm/ (Dextrose) 50 mls @ 200 mls/hr IVPB DAILY [facility]; Protocol Vancomycin HCl (Vancomycin 1 Gm Premix -) 1 gm in 200 mls @ 133.333 mls/hr IVPB Q24H [facility]; Protocol Insulin Aspart (Novolog Vial Sliding Scale -) 1 vial SQ ACHS [facility]; Protocol Metformin HCl (Glucophage Xr -) 500 mg PO BIDAC [facility] Metoprolol Succinate (Toprol Xl -) 50 mg PO BID [facility] Metoprolol Tartrate (Lopressor Injection -) 5 mg IVPUSH Q6H PRN PRN Reason: TACHYCARDIA Mirtazapine (Remeron -) 45 mg PO HS [facility] Potassium Chloride (K-Dur -) 10 meq PO DAILY [facility] Zolpidem Tartrate (Ambien -) 5 mg PO HS PRN PRN Reason: INSOMNIA Laboratory Results - last 24 hr 12/09/17 12/09/17 12/09/17 12:09 17:16 21:27 WBC RBC Hgb Hct MCV MCH MCHC RDW Plt Count MPV Sodium Potassium Chloride Carbon Dioxide Anion Gap BUN Creatinine Creat Clearance w eGFR POC Glucometer 230.21009 132.30763 229.64433 Random Glucose Calcium Phosphorus Magnesium Total Bilirubin AST ALT Alkaline Phosphatase Total Protein Albumin 12/10/17 12/10/17 12/10/17 06:12 07:30 07:30 WBC 9.5 RBC 4.67 Hgb 15.0 Hct 44.4 MCV 95.1 MCH 32.1 MCHC 33.7 RDW 14.1 Plt Count 277 MPV 7.7 Sodium 140 Potassium 3.7 Chloride 100 Carbon Dioxide 33 H Anion Gap 7 L BUN 18 Creatinine 0.8 Creat Clearance w eGFR > 60 POC Glucometer 150.24107 Random Glucose 150 H Calcium 8.7 Phosphorus 3.7 Magnesium 1.9 Total Bilirubin 0.8 AST 43 H ALT 57 Alkaline Phosphatase 160 H D Total Protein 5.7 L Albumin 2.8 L 12/10/17 12:03 WBC RBC Hgb Hct MCV MCH MCHC RDW Plt Count MPV Sodium Potassium Chloride Carbon Dioxide Anion Gap BUN Creatinine Creat Clearance w eGFR POC Glucometer 174.05519 Random Glucose Calcium Phosphorus Magnesium Total Bilirubin AST ALT Alkaline Phosphatase Total Protein Albumin Vital Signs Temp 98.3 F 12/10/17 14:00 Pulse 84 12/10/17 14:00 Resp 18 12/10/17 14:00 BP 108/62 12/10/17 14:00 Pulse Ox 98 12/10/17 09:00 Intake & Output 12/09/17 12/10/17 12/10/17 23:59 11:59 23:59 Intake Total 1200.2 200 540 Output Total 3400 300 1999 Balance -2199.8 -100 -1460 Weight 150 lb 2 oz Intake: IV 250.2 NEXTERONE 360 MG/200 ML 200.4 BAG 360 mg In 200 ml @ 1 MG/MIN 33.333 mls/hr IVPB TITR [facility] Rx#:[id number] amiodarone 49.8 IVPB 300 300 Oral 650 200 240 Output: Urine 3400 300 2000 [place] 3400 300 2000 Other: Voiding Method Indwelling Catheter Indwelling Catheter Indwelling Catheter Weight Measurement Method Built in [facility] CC: less SOB `````````````````` skin--no streak laureano/redness; DSD Lt ankle eyes--non injected oral--no droop neck--no masses lungs--dimnished at both bases; unlabored resp heart--irreg ext--2+ bilat edema neuro--alert; coherent; speech is clear; no gross focal motor deficits ````````````````````````````` Summ > CHF--with some LVDysf on Echo; shows neg fluid balance; now HR better controlled but recent CXR still showed vasc congestion/effusion.PLAN: cont current agents;check labs & CXR in AM > DM--on Metf & ins coverage > ATF--rate now under control with Amiod; off Dig, still on a/c; TSH okay > cellulitis--LLE; infected wound; on dual ABs as per ID; wbc is down; cultures negative > high Alk Phosph--drug effect?;likely liver origin (previously high LFT)but may need imaging if continues to be high > PD--on sinemet > depression--has been on Mirtazapine ~~~~~~~~~~~~~~~~~~~~~~~~~~~ Dr Betts....for Dr Kelley
[2017-12-10] MEDS ORDERED: INSULIN (NOVOLOG) ASPART 100 UNITS/ML 10ML VIAL ONE (20:20)
[2017-12-10] MEDS: ATORVASTATIN CA 20 MG TABLET (FP) PO SCH (21:20)
[2017-12-10] MEDS: MIRTAZAPINE 15 MG TABLET (FP) PO SCH (21:24)
--- NOTE | 2017-12-10 23:48 | PN ---
Physical Exam: SUBJECTIVE: Patient seen and examined early this am. Was sitting in chair, fully alert. Denies cp, sob, or rojas. Pt has been transfered to telemetry for further cardiac monitoring. OBJECTIVE: Vital Signs Period Temp Pulse Resp BP Sys/Jerry Pulse Ox Last 24 Hr 97.6 F-98.6 F 84-98 14-18 89-116/57-84 98 GENERAL: NAD. AAOx3. HEAD: NC/AT EYES: EOMI ENT: WNL NECK: Dupple. No JVD. LUNGS: BS decreased at bases. HEART:Irregular. Rate controlled. ABDOMEN: ND, NT, No HSM. EXTREMITIES: Left Lower Leg cellulitis. NEUROLOGICAL: No focal neuro deficits. PSYCH: Normal mood, normal affect. SKIN: No CCE. Laboratory Results - last 24 hr 12/10/17 12/10/17 12/10/17 06:12 07:30 07:30 WBC 9.5 RBC 4.67 Hgb 15.0 Hct 44.4 MCV 95.1 MCH 32.1 MCHC 33.7 RDW 14.1 Plt Count 277 MPV 7.7 Sodium 140 Potassium 3.7 Chloride 100 Carbon Dioxide 33 H Anion Gap 7 L BUN 18 Creatinine 0.8 Creat Clearance w eGFR > 60 POC Glucometer [phone] Random Glucose 150 H Calcium 8.7 Phosphorus 3.7 Magnesium 1.9 Total Bilirubin 0.8 AST 43 H ALT 57 Alkaline Phosphatase 160 H D Total Protein 5.7 L Albumin 2.8 L 12/10/17 12/10/17 12/10/17 12:03 17:02 21:27 WBC RBC Hgb Hct MCV MCH MCHC RDW Plt Count MPV Sodium Potassium Chloride Carbon Dioxide Anion Gap BUN Creatinine Creat Clearance w eGFR POC Glucometer 174.85242 194 194 Random Glucose Calcium Phosphorus Magnesium Total Bilirubin AST ALT Alkaline Phosphatase Total Protein Albumin Active Medications Generic Name Dose Route Start Last Admin Trade Name Freq PRN Reason Stop Dose Admin Amiodarone HCl 400 mg 12/10/17 22:00 12/10/17 21:19 Cordarone - PO 400 mg BID [facility] Administration Apixaban 5 mg 12/10/17 22:00 12/10/17 21:20 Eliquis - PO 5 mg BID [facility] Administration Atorvastatin Calcium 20 mg 12/10/17 22:00 12/10/17 21:20 Lipitor - PO 20 mg HS [facility] Administration Carbidopa/Levodopa 1 each 12/10/17 14:00 12/10/17 21:24 Sinemet 25/100 - PO 1 each QID [facility] Administration Docusate Sodium 100 mg 12/11/17 10:00 Colace - PO DAILY [facility] Furosemide 40 mg 12/10/17 14:00 12/10/17 14:26 Lasix - PO 40 mg BID@0600,1400 [facility] Administration Ceftriaxone Sodium 1 gm/ 50 mls @ 200 mls/hr 12/11/17 10:00 Dextrose IVPB DAILY [facility] Protocol Vancomycin HCl 1 gm in 200 mls @ 133.333 mls/hr 12/11/17 11:00 Vancomycin 1 Gm Premix - IVPB Q24H [facility] Protocol Insulin Aspart 1 vial 12/10/17 16:30 12/10/17 21:27 Novolog Vial Sliding Scale - SQ 2 units ACHS [facility] Administration Protocol Metformin HCl 500 mg 12/10/17 16:30 12/10/17 17:09 Glucophage Xr - PO 500 mg BIDAC [facility] Administration Metoprolol Succinate 50 mg 12/10/17 22:00 12/10/17 21:24 Toprol Xl - PO 50 mg BID [facility] Administration Metoprolol Tartrate 5 mg 12/10/17 13:33 Lopressor Injection - IVPUSH Q6H PRN TACHYCARDIA Mirtazapine 45 mg 12/10/17 22:00 12/10/17 21:24 Remeron - PO 45 mg HS [facility] Administration Potassium Chloride 10 meq 12/11/17 10:00 K-Dur - PO DAILY [facility] Zolpidem Tartrate 5 mg 12/10/17 13:33 Ambien - PO HS PRN INSOMNIA ASSESSMENT/PLAN: Pt is a 77 y/o lady with a pmh of Parkinson's Disease,depression, DM, CHF, afib , was was BIB for shortness of breath and worsening bilateral pedal edema over past several days per . Neuro: Parkinson's Disease -AAOx3 -Carbidopa/Levodopa 1 each PO QID Cardio- Afib w/ RVR Amiodorone gtt switched to PO 400 mg po bid---> Serial EKG's as Mirtazapine and Amiodorone may prolong QTc interval . EKG 12/10/2017---> A-Fib still persists. -Left Leg Doppler U/S--> No evidence of left leg thrombus. ECHO 12/05---> L Ventricular systolic function moderately reduced, EF 40-45%, Right ventricular systolic function moderately reduced. Moderate mitral and tricuspid regurg. Mild pulmonic valvular regurgitation. -Toprol XL 50 mg -Lasix 40 mg IVPUSH BID I.D- Cellulitis Dr Rangel on board BUN/CR-->18/0.8 Ceftriaxone/Vancomycin FEN No Fluids Monitor Electrolytes Diabetic/Sodium Diet DVT ppx: Eliquis 5 mg PO bid. Dispo: Transferred to telemetry. Visit type - Emergency Visit Emergency Visit: Yes ED Registration Date: 12/04/17 Care time: The patient presented to the Emergency Department on the above date and was hospitalized for further evaluation of their emergent condition. - New Patient This patient is new to me today: No - Critical Care Critical Care patient: Yes Total Critical Care Time (in minutes): 35 Critical Care Statement: The care of this patient involved high complexity decision making to prevent further life threatening deterioration of the patient 's condition and/or to evaluate & treat vital organ system(s) failure or risk of failure.
[2017-12-11] MEDS: INSULIN SLIDING SCALE (NOVOLOG) 1 VIAL SQ SCH ×4 (07:07→21:22)
[2017-12-11] MEDS: FUROSEMIDE 40 MG TABLET (FP) PO SCH ×2 (07:07→14:32)
[2017-12-11 07:33] LABS: HEMATOCRIT 41.2 % (32.4-45.2); HEMOGLOBIN 13.9 GM/dL (10.7-15.3); MCH 32.2 pg (25.7-33.7); MCHC 33.8 g/dl (32.0-36.0); MEAN CELL VOLUME 95.4 fl (80-96); MEAN PLT VOLUME 8.5 fl (7.5-11.1); PLATELET COUNT 269 K/MM3 (134-434); RBC 4.32 M/mm3 (3.60-5.2); RDW 14.5 % (11.6-15.6); WHITE BLOOD COUNT 10.3 K/mm3 (4.0-10.0)
[2017-12-11 08:02] LABS: CHLORIDE 100 mmol/L (98-107); POTASSIUM 3.8 mmol/L (3.5-5.1); SODIUM 140 mmol/L (136-145)
[2017-12-11 08:09] LABS: ANION GAP 8 (8-16); BLOOD UREA NITROGEN 18 mg/dL (7-18); CALCIUM 8.6 mg/dL (8.5-10.1); CO2 32 mmol/L (21-32); CREATININE 0.8 mg/dL (0.55-1.02); GLUCOSE,RANDOM 140 mg/dL (74-106)
[2017-12-11] MEDS ORDERED: cefTRIAXone SODIUM 1 GM VIAL ONE ×2 (09:10→14:03)
[2017-12-11] MEDS ORDERED: DEXTROSE 5%-WATER - 50 ML IVPB ONE (09:11)
--- NOTE | 2017-12-11 09:25 | PN ---
Progress Note, Physician History of Present Illness: 77 F, Parkisnons, depression, DM, CHF on lasix, AFib previously on digoxin and cardizem and eliquis. Reports that she saw her bpm analyst 2 weeks ago and started her on Metoprolol. Admitted via the ER due to shortness of breath and worsening bilateral pedal edema over past several days. Denies any chest pain, diaphoresis, palpitations , nausea, vomiting, cough, or fever. No travel history or sick contacts. CXR: Bilateral congestive changes / right pleural effusion. - Current Medication List Current Medications: Active Medications Amiodarone HCl (Cordarone -) 400 mg PO BID [facility] Last Admin: 12/10/17 21:19 Dose: 400 mg Apixaban (Eliquis -) 5 mg PO BID [facility] Last Admin: 12/10/17 21:20 Dose: 5 mg Atorvastatin Calcium (Lipitor -) 20 mg PO HS [facility] Last Admin: 12/10/17 21:20 Dose: 20 mg Carbidopa/Levodopa (Sinemet 25/100 -) 1 each PO QID [facility] Last Admin: 12/10/17 21:24 Dose: 1 each Docusate Sodium (Colace -) 100 mg PO DAILY [facility] Furosemide (Lasix -) 40 mg PO BID@0600,1400 [facility] Last Admin: 12/11/17 07:07 Dose: 40 mg Ceftriaxone Sodium 1 gm/ (Dextrose) 50 mls @ 200 mls/hr IVPB DAILY [facility]; Protocol Vancomycin HCl (Vancomycin 1 Gm Premix -) 1 gm in 200 mls @ 133.333 mls/hr IVPB Q24H [facility]; Protocol Insulin Aspart (Novolog Vial Sliding Scale -) 1 vial SQ ACHS [facility]; Protocol Last Admin: 12/11/17 07:07 Dose: Not Given Metformin HCl (Glucophage Xr -) 500 mg PO BIDAC [facility] Last Admin: 12/11/17 07:07 Dose: 500 mg Metoprolol Succinate (Toprol Xl -) 50 mg PO BID [facility] Last Admin: 12/10/17 21:24 Dose: 50 mg Metoprolol Tartrate (Lopressor Injection -) 5 mg IVPUSH Q6H PRN PRN Reason: TACHYCARDIA Mirtazapine (Remeron -) 45 mg PO HS [facility] Last Admin: 12/10/17 21:24 Dose: 45 mg Potassium Chloride (K-Dur -) 10 meq PO DAILY [facility] Zolpidem Tartrate (Ambien -) 5 mg PO HS PRN PRN Reason: INSOMNIA Last Admin: 12/10/17 23:30 Dose: 5 mg - Objective Vital Signs: Vital Signs Temperature 97.8 F 12/11/17 08:41 Pulse Rate 95 H 12/11/17 08:41 Respiratory Rate 20 12/11/17 08:41 Blood Pressure 103/59 12/11/17 08:41 O2 Sat by Pulse Oximetry (%) 98 12/10/17 21:00 Eyes: Yes: WNL, Conjunctiva Clear, EOM Intact HENT: Yes: WNL, Atraumatic, Normocephalic Neck: Yes: WNL, Supple, Trachea Midline Cardiovascular: Yes: Pulse Irregular, S1, S2 Respiratory: Yes: WNL, Regular, CTA Bilaterally Gastrointestinal: Yes: WNL, Normal Bowel Sounds Genitourinary: Yes: WNL Musculoskeletal: Yes: WNL Extremities: Yes: WNL Edema: No Integumentary: Yes: WNL Neurological: Yes: WNL, Alert, Oriented ...Motor Strength: WNL Psychiatric: Yes: WNL Labs: CBC, BMP 12/11/17 05:30 12/11/17 05:30 Problem List - Problems (1) Afib Code(s): I48.91 - UNSPECIFIED ATRIAL FIBRILLATION Qualifiers: Atrial fibrillation type: unspecified Qualified Code(s): I48.91 - Unspecified atrial fibrillation (2) CHF (congestive heart failure) Code(s): I50.9 - HEART FAILURE, UNSPECIFIED Qualifiers: Heart failure type: combined systolic and diastolic Heart failure chronicity: acute on chronic Qualified Code(s): I50.43 - Acute on chronic combined systolic (congestive) and diastolic (congestive) heart failure (3) Edema Code(s): R60.9 - EDEMA, UNSPECIFIED Qualifiers: Edema type: unspecified Qualified Code(s): R60.9 - Edema, unspecified (4) Hyperglycemia Code(s): R73.9 - HYPERGLYCEMIA, UNSPECIFIED (5) SOB (shortness of breath) Code(s): R06.02 - SHORTNESS OF BREATH (6) Abdominal pain Code(s): R10.9 - UNSPECIFIED ABDOMINAL PAIN (7) Anterior epistaxis Code(s): R04.0 - EPISTAXIS (8) Atrial fibrillation with rapid ventricular response Code(s): I48.91 - UNSPECIFIED ATRIAL FIBRILLATION (9) Depressed affect Code(s): R45.89 - OTHER SYMPTOMS AND SIGNS INVOLVING EMOTIONAL STATE (10) Diabetes Code(s): E11.9 - TYPE 2 DIABETES MELLITUS WITHOUT COMPLICATIONS (11) Diabetes Code(s): E11.9 - TYPE 2 DIABETES MELLITUS WITHOUT COMPLICATIONS (12) Diabetes 1.5, managed as type 1 Code(s): E10.9 - TYPE 1 DIABETES MELLITUS WITHOUT COMPLICATIONS (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, managed as type 2 Code(s): E13.9 - OTHER SPECIFIED DIABETES MELLITUS WITHOUT COMPLICATIONS (14) Dyspepsia Code(s): R10.13 - EPIGASTRIC PAIN (15) Elevated LFTs Code(s): R79.89 - OTHER SPECIFIED ABNORMAL FINDINGS OF BLOOD CHEMISTRY (16) HTN (hypertension) Code(s): I10 - ESSENTIAL (PRIMARY) HYPERTENSION (17) Hyperlipidemia Code(s): E78.5 - HYPERLIPIDEMIA, UNSPECIFIED (18) IBS (irritable bowel syndrome) Code(s): K58.9 - IRRITABLE BOWEL SYNDROME WITHOUT DIARRHEA (19) Insomnia Code(s): G47.00 - INSOMNIA, UNSPECIFIED (20) Leukocytosis Code(s): D72.829 - ELEVATED WHITE BLOOD CELL COUNT, UNSPECIFIED (21) Parkinson disease Code(s): G20 - PARKINSON'S DISEASE (22) Paroxysmal atrial fibrillation Code(s): I48.0 - PAROXYSMAL ATRIAL FIBRILLATION (23) Sepsis Code(s): A41.9 - SEPSIS, UNSPECIFIED ORGANISM Assessment/Plan Problems (1) Acute on chronic systolic (congestive) heart failure Assessment/Plan: On metoprolol ER. Start lisinopril 2.5 mg daily if BP remains stable; f/u BUn/Cr, electrolytes 9once HR and BP are better-controlled). Code(s): I50.23 - ACUTE ON CHRONIC SYSTOLIC (CONGESTIVE) HEART FAILURE change lasix to po (2) Edema Code(s): R60.9 - EDEMA, UNSPECIFIED Qualifiers: Edema type: unspecified Qualified Code(s): R60.9 - Edema, unspecified (3) SOB (shortness of breath) Code(s): R06.02 - SHORTNESS OF BREATH (4) Atrial fibrillation with rapid ventricular response Assessment/Plan: ECHO: moderately decreased LVEF; normal chamber sizes; moderate TR and MR; mild AL. TSH WNL. Plan: On apixaban for anticoagulation. Discontinued diltiazem (significant LV dysfunction). stable on po loading AMIODARONE and BB Code(s): I48.91 - UNSPECIFIED ATRIAL FIBRILLATION (5) HTN (hypertension) Code(s): I10 - ESSENTIAL (PRIMARY) HYPERTENSION (6) Hyperlipidemia Assessment/Plan: f/u lipid panel Code(s): E78.5 - HYPERLIPIDEMIA, UNSPECIFIED (7) Parkinson disease Code(s): G20 - PARKINSON'S DISEASE (8) Skin infection Assessment/Plan: for antibiotic adjustment for Lt LE skin lesion Code(s): L08.9 - LOCAL INFECTION OF THE SKIN AND SUBCUTANEOUS TISSUE, UNSP
[2017-12-11] MEDS: AMIODARONE HCL 200 MG TABLET (FP) PO SCH ×2 (10:01→21:20)
[2017-12-11] MEDS: POTASSIUM CHLORIDE TABS 10 MEQ TABLET.ER (FP) PO SCH (10:02)
[2017-12-11] MEDS: CARBIDOPA/LEVODOPA 25/100 TABLET (FP) PO SCH ×4 (10:02→21:20)
[2017-12-11] MEDS: APIXABAN 5 MG TABLET PO SCH ×2 (10:02→21:20)
[2017-12-11] MEDS: DOCUSATE SODIUM 100 MG CAPSULE (FP) PO SCH (10:02)
--- NOTE | 2017-12-11 12:49 | PN ---
Progress Note (short form) - Note Progress Note: PULMONARY Somnolent but arousable. Heart rates better controlled. Vital Signs Period Temp Pulse Resp BP Sys/Jerry Pulse Ox Last 24 Hr 97.6 F-98.3 F 84-107 18-20 100-116/53-70 98-98 Intake & Output 12/08/17 12/09/17 12/10/17 12/11/17 23:59 23:59 23:59 23:59 Intake Total 2107.7 1966.4 1110 300 Output Total 3100 3900 2300 Balance -992.3 -1933.6 -1190 300 Weight 71.758 kg 69.513 kg 68 kg 68.311 kg Gen: NAD at rest Heart: irregular Lung: basilar rales Abd: soft, nontender Ext: + edema CBC, BMP 12/11/17 05:30 12/11/17 05:30 Active Medications Amiodarone HCl (Cordarone -) 400 mg PO BID [facility] Last Admin: 12/11/17 10:01 Dose: 400 mg Apixaban (Eliquis -) 5 mg PO BID [facility] Last Admin: 12/11/17 10:02 Dose: 5 mg Atorvastatin Calcium (Lipitor -) 20 mg PO HS [facility] Last Admin: 12/10/17 21:20 Dose: 20 mg Carbidopa/Levodopa (Sinemet 25/100 -) 1 each PO QID [facility] Last Admin: 12/11/17 10:02 Dose: 1 each Docusate Sodium (Colace -) 100 mg PO DAILY [facility] Last Admin: 12/11/17 10:02 Dose: 100 mg Furosemide (Lasix -) 40 mg PO BID@0600,1400 [facility] Last Admin: 12/11/17 07:07 Dose: 40 mg Ceftriaxone Sodium 1 gm/ (Dextrose) 50 mls @ 200 mls/hr IVPB DAILY [facility]; Protocol Vancomycin HCl (Vancomycin 1 Gm Premix -) 1 gm in 200 mls @ 133.333 mls/hr IVPB Q24H [facility]; Protocol Insulin Aspart (Novolog Vial Sliding Scale -) 1 vial SQ ACHS [facility]; Protocol Last Admin: 12/11/17 07:07 Dose: Not Given Metformin HCl (Glucophage Xr -) 500 mg PO BIDAC [facility] Last Admin: 12/11/17 07:07 Dose: 500 mg Metoprolol Succinate (Toprol Xl -) 50 mg PO BID [facility] Last Admin: 12/11/17 10:01 Dose: 50 mg Metoprolol Tartrate (Lopressor Injection -) 5 mg IVPUSH Q6H PRN PRN Reason: TACHYCARDIA Mirtazapine (Remeron -) 45 mg PO HS [facility] Last Admin: 12/10/17 21:24 Dose: 45 mg Potassium Chloride (K-Dur -) 10 meq PO DAILY [facility] Last Admin: 12/11/17 10:02 Dose: 10 meq Zolpidem Tartrate (Ambien -) 5 mg PO HS PRN PRN Reason: INSOMNIA Last Admin: 12/10/17 23:30 Dose: 5 mg A/P Atrial Fibrillation with RVR Acute on Chronic Systolic/Diastolic Heart Failure UTI DM Parkinsons Disease Depression - rate control with metoprolol, amiodarone - continue anticoagulation - O2 to keep SpO2 >90% - continue lasix - monitor urine output, creatinine - complete antibiotics
--- NOTE | 2017-12-11 13:29 | PN ---
Progress Note, Physician History of Present Illness: Awake, alert OOB in chair No complaints No c/o leg pain No c/o fever/ chills Afebrile WBC slightly elevated 10K - Current Medication List Current Medications: Active Medications Amiodarone HCl (Cordarone -) 400 mg PO BID [facility] Last Admin: 12/11/17 10:01 Dose: 400 mg Apixaban (Eliquis -) 5 mg PO BID [facility] Last Admin: 12/11/17 10:02 Dose: 5 mg Atorvastatin Calcium (Lipitor -) 20 mg PO HS [facility] Last Admin: 12/10/17 21:20 Dose: 20 mg Carbidopa/Levodopa (Sinemet 25/100 -) 1 each PO QID [facility] Last Admin: 12/11/17 10:02 Dose: 1 each Docusate Sodium (Colace -) 100 mg PO DAILY [facility] Last Admin: 12/11/17 10:02 Dose: 100 mg Furosemide (Lasix -) 40 mg PO BID@0600,1400 [facility] Last Admin: 12/11/17 07:07 Dose: 40 mg Ceftriaxone Sodium 1 gm/ (Dextrose) 50 mls @ 200 mls/hr IVPB DAILY [facility]; Protocol Vancomycin HCl (Vancomycin 1 Gm Premix -) 1 gm in 200 mls @ 133.333 mls/hr IVPB Q24H [facility]; Protocol Insulin Aspart (Novolog Vial Sliding Scale -) 1 vial SQ ACHS [facility]; Protocol Last Admin: 12/11/17 07:07 Dose: Not Given Metformin HCl (Glucophage Xr -) 500 mg PO BIDAC [facility] Last Admin: 12/11/17 07:07 Dose: 500 mg Metoprolol Succinate (Toprol Xl -) 50 mg PO BID [facility] Last Admin: 12/11/17 10:01 Dose: 50 mg Metoprolol Tartrate (Lopressor Injection -) 5 mg IVPUSH Q6H PRN PRN Reason: TACHYCARDIA Mirtazapine (Remeron -) 45 mg PO HS [facility] Last Admin: 12/10/17 21:24 Dose: 45 mg Potassium Chloride (K-Dur -) 10 meq PO DAILY [facility] Last Admin: 12/11/17 10:02 Dose: 10 meq Zolpidem Tartrate (Ambien -) 5 mg PO HS PRN PRN Reason: INSOMNIA Last Admin: 12/10/17 23:30 Dose: 5 mg - Objective Vital Signs: Vital Signs Temperature 97.8 F 12/11/17 08:41 Pulse Rate 95 H 12/11/17 08:41 Respiratory Rate 20 12/11/17 09:00 Blood Pressure 103/59 12/11/17 08:41 O2 Sat by Pulse Oximetry (%) 98 12/11/17 09:00 Constitutional: Yes: No Distress Eyes: Yes: Conjunctiva Clear Cardiovascular: Yes: Regular Rate and Rhythm, S1, S2 Respiratory: Yes: CTA Bilaterally Gastrointestinal: Yes: Normal Bowel Sounds, Soft. No: Tenderness Extremities: Yes: Other (decreased erythema L LE) Edema: Yes Edema: LLE: 1+, RLE: 1+ Labs: CBC, BMP 12/11/17 05:30 12/11/17 05:30 Assessment/Plan Cellulitis L LE improved CHF ? pneumonia S/P rapid Afib Diabetes mellitus Catheter related R UE phlebitis Continue empiric ceftriaxone/ vancomycin Warm compresses R UE
--- NOTE | 2017-12-11 13:42 | PN ---
Progress Note (short form) - Note Progress Note: medical note for Dr Kelley Current Medications Amiodarone HCl (Cordarone -) 400 mg PO BID [facility] Last Admin: 12/11/17 10:01 Dose: 400 mg Apixaban (Eliquis -) 5 mg PO BID [facility] Last Admin: 12/11/17 10:02 Dose: 5 mg Atorvastatin Calcium (Lipitor -) 20 mg PO HS [facility] Last Admin: 12/10/17 21:20 Dose: 20 mg Carbidopa/Levodopa (Sinemet 25/100 -) 1 each PO QID [facility] Last Admin: 12/11/17 10:02 Dose: 1 each Docusate Sodium (Colace -) 100 mg PO DAILY [facility] Last Admin: 12/11/17 10:02 Dose: 100 mg Furosemide (Lasix -) 40 mg PO BID@0600,1400 [facility] Last Admin: 12/11/17 07:07 Dose: 40 mg Ceftriaxone Sodium 1 gm/ (Dextrose) 50 mls @ 200 mls/hr IVPB DAILY [facility]; Protocol Vancomycin HCl (Vancomycin 1 Gm Premix -) 1 gm in 200 mls @ 133.333 mls/hr IVPB Q24H [facility]; Protocol Insulin Aspart (Novolog Vial Sliding Scale -) 1 vial SQ ACHS [facility]; Protocol Last Admin: 12/11/17 07:07 Dose: Not Given Metformin HCl (Glucophage Xr -) 500 mg PO BIDAC [facility] Last Admin: 12/11/17 07:07 Dose: 500 mg Metoprolol Succinate (Toprol Xl -) 50 mg PO BID [facility] Last Admin: 12/11/17 10:01 Dose: 50 mg Metoprolol Tartrate (Lopressor Injection -) 5 mg IVPUSH Q6H PRN PRN Reason: TACHYCARDIA Mirtazapine (Remeron -) 45 mg PO HS [facility] Last Admin: 12/10/17 21:24 Dose: 45 mg Potassium Chloride (K-Dur -) 10 meq PO DAILY [facility] Last Admin: 12/11/17 10:02 Dose: 10 meq Zolpidem Tartrate (Ambien -) 5 mg PO HS PRN PRN Reason: INSOMNIA Last Admin: 12/10/17 23:30 Dose: 5 mg Laboratory Results - last 24 hr 08/08/2412/10/17 12/11/17 17:02 21:27 05:30 WBC 10.3 H RBC 4.32 Hgb 13.9 Hct 41.2 MCV 95.4 MCH 32.2 MCHC 33.8 RDW 14.5 Plt Count 269 MPV 8.5 D Sodium Potassium Chloride Carbon Dioxide Anion Gap BUN Creatinine Creat Clearance w eGFR POC Glucometer 194 194 Random Glucose Calcium Vancomycin Pre-Dose 12/11/17 12/11/17 12/11/17 05:30 07:06 10:05 WBC RBC Hgb Hct MCV MCH MCHC RDW Plt Count MPV Sodium 140 Potassium 3.8 Chloride 100 Carbon Dioxide 32 Anion Gap 8 BUN 18 Creatinine 0.8 Creat Clearance w eGFR > 60 POC Glucometer 141 Random Glucose 140 H Calcium 8.6 Vancomycin Pre-Dose 4.44 L* 12/11/17 12:07 WBC RBC Hgb Hct MCV MCH MCHC RDW Plt Count MPV Sodium Potassium Chloride Carbon Dioxide Anion Gap BUN Creatinine Creat Clearance w eGFR POC Glucometer 127 Random Glucose Calcium Vancomycin Pre-Dose Vital Signs Temp 97.8 F 12/11/17 08:41 Pulse 95 H 12/11/17 08:41 Resp 20 12/11/17 09:00 BP 103/59 12/11/17 08:41 Pulse Ox 98 12/11/17 09:00 Intake & Output 12/10/17 12/11/17 12/11/17 23:59 11:59 23:59 Intake Total 910 300 Output Total 1999 Balance -1090 300 Weight 149 lb 14.629 oz 150 lb 9.6 oz Intake: IV 10 amiodarone 10 IVPB 300 Oral 600 300 Output: Urine 1999 Cantrell 1999 Other: Voiding Method Toilet Toilet # Unmeasured Voids Void 2 1 Height 5 ft 4 in Body Mass Index (BMI) 25.7 Weight Measurement Method Standing Scale CC: no new complaints; BMs not good `````````````````` skin--subcut induration Rt ante-cub fossa; but no gross redness eyes--non injected oral--no droop neck--no masses lungs--dimnished at both bases; unlabored resp heart--irreg ext--2+ bilat edema; 1/2 up knees neuro--alert but dysphoric; coherent; speech is clear; no gross focal motor deficits ````````````````````````````` Summ > CHF--with some LVDysf on Echo; shows neg fluid balance; HR better controlled, and new CXR showing far less congestion but has residual effusions at bases R> L.PLAN: cont current agents;check labs & CXR in AM > DM--on Metf & ins coverage > ATF--rate now under control with Amiod; off Dig, still on a/c; TSH okay; H/h in good range > cellulitis--LLE; infected wound; on dual ABs as per ID; cultures negative > phlebitis--RUE, antecub fossa > high Alk Phosph--drug effect?;likely liver origin (previously high LFT)but may need imaging if continues to be high > PD--on sinemet > depression--has been on Mirtazapine ~~~~~~~~~~~~~~~~~~~~~~~~~~~ Dr Betts....for Dr Kelley
[2017-12-11] MEDS: CEFTRIAXONE 1 GM in DEXTROSE 5%-WATER - 50 ML IVPB SCH (14:28)
[2017-12-11] MEDS: VANCOMYCIN 1 GM PREMIX - 1 GM/200 ML BAG IVPB SCH (14:32)
[2017-12-11] MEDS: ATORVASTATIN CA 20 MG TABLET (FP) PO SCH (21:21)
[2017-12-11] MEDS: MIRTAZAPINE 15 MG TABLET (FP) PO SCH (21:21)
[2017-12-12] MEDS: INSULIN SLIDING SCALE (NOVOLOG) 1 VIAL SQ SCH ×4 (06:36→21:20)
[2017-12-12] MEDS: FUROSEMIDE 40 MG TABLET (FP) PO SCH ×2 (06:36→13:40)
[2017-12-12 06:39] LABS: HEMATOCRIT 40.5 % (32.4-45.2); HEMOGLOBIN 13.7 GM/dL (10.7-15.3); MCH 31.9 pg (25.7-33.7); MCHC 33.8 g/dl (32.0-36.0); MEAN CELL VOLUME 94.4 fl (80-96); MEAN PLT VOLUME 7.6 fl (7.5-11.1); PLATELET COUNT 273 K/MM3 (134-434); RBC 4.29 M/mm3 (3.60-5.2); RDW 14.3 % (11.6-15.6); WHITE BLOOD COUNT 12.4 K/mm3 (4.0-10.0)
[2017-12-12 07:06] LABS: ALBUMIN 2.5 g/dl (3.4-5.0); ANION GAP 8 (8-16); BLOOD UREA NITROGEN 20 mg/dL (7-18); CALCIUM 8.4 mg/dL (8.5-10.1); CHLORIDE 102 mmol/L (98-107); CO2 30 mmol/L (21-32); GLUCOSE,RANDOM 140 mg/dL (74-106); POTASSIUM 3.3 mmol/L (3.5-5.1); SODIUM 140 mmol/L (136-145)
[2017-12-12 07:12] LABS: ALK PHOS 127 U/L (45-117); BILIRUBIN,TOTAL 0.7 mg/dL (0.2-1.0); CREATININE 0.7 mg/dL (0.55-1.02); SGOT/AST 25 U/L (15-37); SGPT/ALT 27 U/L (12-78); TOT PROT 5.3 g/dl (6.4-8.2)
[2017-12-12] MEDS ORDERED: cefTRIAXone SODIUM 1 GM VIAL ONE (08:11)
[2017-12-12] MEDS ORDERED: DEXTROSE 5%-WATER - 50 ML IVPB ONE (08:11)
[2017-12-12] MEDS: DOCUSATE SODIUM 100 MG CAPSULE (FP) PO SCH (09:25)
[2017-12-12] MEDS: AMIODARONE HCL 200 MG TABLET (FP) PO SCH ×2 (09:25→21:20)
[2017-12-12] MEDS: POTASSIUM CHLORIDE TABS 10 MEQ TABLET.ER (FP) PO SCH (09:25)
[2017-12-12] MEDS: CARBIDOPA/LEVODOPA 25/100 TABLET (FP) PO SCH ×4 (09:26→21:22)
[2017-12-12] MEDS: APIXABAN 5 MG TABLET PO SCH ×2 (09:26→21:20)
[2017-12-12] MEDS: CEFTRIAXONE 1 GM in DEXTROSE 5%-WATER - 50 ML IVPB SCH (09:27)
[2017-12-12] MEDS: VANCOMYCIN 1 GM PREMIX - 1 GM/200 ML BAG IVPB SCH (10:08)
--- NOTE | 2017-12-12 12:06 | PN ---
Progress Note, Physician History of Present Illness: 77 F, Parkisnons, depression, DM, CHF on lasix, AFib previously on digoxin and cardizem and eliquis. Reports that she saw her developer analyst 2 weeks ago and started her on Metoprolol. Admitted via the ER due to shortness of breath and worsening bilateral pedal edema over past several days. Denies any chest pain, diaphoresis, palpitations , nausea, vomiting, cough, or fever. No travel history or sick contacts. CXR: Bilateral congestive changes / right pleural effusion. - Current Medication List Current Medications: Active Medications Amiodarone HCl (Cordarone -) 400 mg PO BID [facility] Last Admin: 12/12/17 09:25 Dose: 400 mg Apixaban (Eliquis -) 5 mg PO BID [facility] Last Admin: 12/12/17 09:26 Dose: 5 mg Atorvastatin Calcium (Lipitor -) 20 mg PO HS [facility] Last Admin: 12/11/17 21:21 Dose: 20 mg Carbidopa/Levodopa (Sinemet 25/100 -) 1 each PO QID [facility] Last Admin: 12/12/17 09:26 Dose: 1 each Docusate Sodium (Colace -) 100 mg PO DAILY [facility] Last Admin: 12/12/17 09:25 Dose: 100 mg Furosemide (Lasix -) 40 mg PO BID@0600,1400 [facility] Last Admin: 12/12/17 06:36 Dose: 40 mg Ceftriaxone Sodium 1 gm/ (Dextrose) 50 mls @ 200 mls/hr IVPB DAILY [facility]; Protocol Last Admin: 12/12/17 09:27 Dose: 200 mls/hr Vancomycin HCl (Vancomycin 1 Gm Premix -) 1 gm in 200 mls @ 133.333 mls/hr IVPB Q24H [facility]; Protocol Last Admin: 12/12/17 10:08 Dose: 133.333 mls/hr Insulin Aspart (Novolog Vial Sliding Scale -) 1 vial SQ ACHS [facility]; Protocol Last Admin: 12/12/17 11:55 Dose: 2 units Metformin HCl (Glucophage Xr -) 500 mg PO BIDAC [facility] Last Admin: 12/12/17 06:36 Dose: 500 mg Metoprolol Succinate (Toprol Xl -) 50 mg PO BID [facility] Last Admin: 12/12/17 09:26 Dose: 50 mg Metoprolol Tartrate (Lopressor Injection -) 5 mg IVPUSH Q6H PRN PRN Reason: TACHYCARDIA Mirtazapine (Remeron -) 45 mg PO HS [facility] Last Admin: 12/11/17 21:21 Dose: 45 mg Potassium Chloride (K-Dur -) 10 meq PO DAILY [facility] Last Admin: 12/12/17 09:25 Dose: 10 meq Zolpidem Tartrate (Ambien -) 5 mg PO HS PRN PRN Reason: INSOMNIA Last Admin: 12/10/17 23:30 Dose: 5 mg - Objective Vital Signs: Vital Signs Temperature 98.5 F 12/12/17 10:00 Pulse Rate 89 12/12/17 10:00 Respiratory Rate 18 12/12/17 10:00 Blood Pressure 102/58 12/12/17 10:00 O2 Sat by Pulse Oximetry (%) 96 12/12/17 09:00 Eyes: Yes: WNL, Conjunctiva Clear, EOM Intact HENT: Yes: WNL, Atraumatic, Normocephalic Neck: Yes: WNL, Supple, Trachea Midline Cardiovascular: Yes: Pulse Irregular, S1, S2 Respiratory: Yes: WNL, Regular, CTA Bilaterally Gastrointestinal: Yes: WNL, Normal Bowel Sounds Genitourinary: Yes: WNL Musculoskeletal: Yes: WNL Extremities: Yes: WNL Edema: No Integumentary: Yes: WNL Neurological: Yes: WNL, Alert, Oriented ...Motor Strength: WNL Psychiatric: Yes: WNL Labs: CBC, BMP 12/12/17 05:30 12/12/17 05:30 Problem List - Problems (1) Afib Code(s): I48.91 - UNSPECIFIED ATRIAL FIBRILLATION Qualifiers: Atrial fibrillation type: unspecified Qualified Code(s): I48.91 - Unspecified atrial fibrillation (2) CHF (congestive heart failure) Code(s): I50.9 - HEART FAILURE, UNSPECIFIED Qualifiers: Heart failure type: combined systolic and diastolic Heart failure chronicity: acute on chronic Qualified Code(s): I50.43 - Acute on chronic combined systolic (congestive) and diastolic (congestive) heart failure (3) Edema Code(s): R60.9 - EDEMA, UNSPECIFIED Qualifiers: Edema type: unspecified Qualified Code(s): R60.9 - Edema, unspecified (4) Hyperglycemia Code(s): R73.9 - HYPERGLYCEMIA, UNSPECIFIED (5) SOB (shortness of breath) Code(s): R06.02 - SHORTNESS OF BREATH (6) Abdominal pain Code(s): R10.9 - UNSPECIFIED ABDOMINAL PAIN (7) Anterior epistaxis Code(s): R04.0 - EPISTAXIS (8) Atrial fibrillation with rapid ventricular response Code(s): I48.91 - UNSPECIFIED ATRIAL FIBRILLATION (9) Depressed affect Code(s): R45.89 - OTHER SYMPTOMS AND SIGNS INVOLVING EMOTIONAL STATE (10) Diabetes Code(s): E11.9 - TYPE 2 DIABETES MELLITUS WITHOUT COMPLICATIONS (11) Diabetes Code(s): E11.9 - TYPE 2 DIABETES MELLITUS WITHOUT COMPLICATIONS (12) Diabetes 1.5, managed as type 1 Code(s): E10.9 - TYPE 1 DIABETES MELLITUS WITHOUT COMPLICATIONS (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, managed as type 2 Code(s): E13.9 - OTHER SPECIFIED DIABETES MELLITUS WITHOUT COMPLICATIONS (14) Dyspepsia Code(s): R10.13 - EPIGASTRIC PAIN (15) Elevated LFTs Code(s): R79.89 - OTHER SPECIFIED ABNORMAL FINDINGS OF BLOOD CHEMISTRY (16) HTN (hypertension) Code(s): I10 - ESSENTIAL (PRIMARY) HYPERTENSION (17) Hyperlipidemia Code(s): E78.5 - HYPERLIPIDEMIA, UNSPECIFIED (18) IBS (irritable bowel syndrome) Code(s): K58.9 - IRRITABLE BOWEL SYNDROME WITHOUT DIARRHEA (19) Insomnia Code(s): G47.00 - INSOMNIA, UNSPECIFIED (20) Leukocytosis Code(s): D72.829 - ELEVATED WHITE BLOOD CELL COUNT, UNSPECIFIED (21) Parkinson disease Code(s): G20 - PARKINSON'S DISEASE (22) Paroxysmal atrial fibrillation Code(s): I48.0 - PAROXYSMAL ATRIAL FIBRILLATION (23) Sepsis Code(s): A41.9 - SEPSIS, UNSPECIFIED ORGANISM Assessment/Plan Problems (1) Acute on chronic systolic (congestive) heart failure Assessment/Plan: On metoprolol ER. Start lisinopril 2.5 mg daily if BP remains stable; f/u BUn/Cr, electrolytes 9once HR and BP are better-controlled). Code(s): I50.23 - ACUTE ON CHRONIC SYSTOLIC (CONGESTIVE) HEART FAILURE change lasix to po (2) Edema Code(s): R60.9 - EDEMA, UNSPECIFIED Qualifiers: Edema type: unspecified Qualified Code(s): R60.9 - Edema, unspecified (3) SOB (shortness of breath) Code(s): R06.02 - SHORTNESS OF BREATH (4) Atrial fibrillation with rapid ventricular response Assessment/Plan: ECHO: moderately decreased LVEF; normal chamber sizes; moderate TR and MR; mild [place]. TSH WNL. Plan: On apixaban for anticoagulation. Discontinued diltiazem (significant LV dysfunction). stable on po loading AMIODARONE and BB Code(s): I48.91 - UNSPECIFIED ATRIAL FIBRILLATION (5) HTN (hypertension) Code(s): I10 - ESSENTIAL (PRIMARY) HYPERTENSION (6) Hyperlipidemia Assessment/Plan: f/u lipid panel Code(s): E78.5 - HYPERLIPIDEMIA, UNSPECIFIED (7) Parkinson disease Code(s): G20 - PARKINSON'S DISEASE (8) Skin infection Assessment/Plan: for antibiotic adjustment for Lt LE skin lesion Code(s): L08.9 - LOCAL INFECTION OF THE SKIN AND SUBCUTANEOUS TISSUE, UNSP
--- NOTE | 2017-12-12 12:09 | PN ---
Progress Note (short form) - Note Progress Note: Resting in NAD. No CP or SOB. Rates better controlled overall. Intake & Output 12/09/17 12/10/17 12/11/17 12/12/17 23:59 23:59 23:59 23:59 Intake Total 1966.4 1110 1660 220 Output Total 3900 2300 Balance -1933.6 -1190 1660 220 Weight 153 lb 4 oz 149 lb 14.629 oz 150 lb 9.6 oz Last Vital Signs Temp Pulse Resp BP Pulse Ox 98.5 F 89 18 102/58 96 12/12/17 10:00 12/12/17 10:00 12/12/17 10:00 12/12/17 10:00 12/12/17 09:00 Active Medications Amiodarone HCl (Cordarone -) 400 mg PO BID [facility] Last Admin: 12/12/17 09:25 Dose: 400 mg Apixaban (Eliquis -) 5 mg PO BID [facility] Last Admin: 12/12/17 09:26 Dose: 5 mg Atorvastatin Calcium (Lipitor -) 20 mg PO HS [facility] Last Admin: 12/11/17 21:21 Dose: 20 mg Carbidopa/Levodopa (Sinemet 25/100 -) 1 each PO QID [facility] Last Admin: 12/12/17 09:26 Dose: 1 each Docusate Sodium (Colace -) 100 mg PO DAILY [facility] Last Admin: 12/12/17 09:25 Dose: 100 mg Furosemide (Lasix -) 40 mg PO BID@0600,1400 [facility] Last Admin: 12/12/17 06:36 Dose: 40 mg Ceftriaxone Sodium 1 gm/ (Dextrose) 50 mls @ 200 mls/hr IVPB DAILY [facility]; Protocol Last Admin: 12/12/17 09:27 Dose: 200 mls/hr Vancomycin HCl (Vancomycin 1 Gm Premix -) 1 gm in 200 mls @ 133.333 mls/hr IVPB Q24H [facility]; Protocol Last Admin: 12/12/17 10:08 Dose: 133.333 mls/hr Insulin Aspart (Novolog Vial Sliding Scale -) 1 vial SQ ACHS [facility]; Protocol Last Admin: 12/12/17 11:55 Dose: 2 units Metformin HCl (Glucophage Xr -) 500 mg PO BIDAC [facility] Last Admin: 12/12/17 06:36 Dose: 500 mg Metoprolol Succinate (Toprol Xl -) 50 mg PO BID [facility] Last Admin: 12/12/17 09:26 Dose: 50 mg Metoprolol Tartrate (Lopressor Injection -) 5 mg IVPUSH Q6H PRN PRN Reason: TACHYCARDIA Mirtazapine (Remeron -) 45 mg PO HS [facility] Last Admin: 12/11/17 21:21 Dose: 45 mg Potassium Chloride (K-Dur -) 10 meq PO DAILY [facility] Last Admin: 12/12/17 09:25 Dose: 10 meq Zolpidem Tartrate (Ambien -) 5 mg PO HS PRN PRN Reason: INSOMNIA Last Admin: 12/10/17 23:30 Dose: 5 mg Gen: NAD at rest Heart: irregular Lung: basilar rales Abd: soft, nontender Ext: + edema Laboratory Results - last 24 hr 12/11/17 12/11/17 12/11/17 12:07 16:58 21:18 WBC RBC Hgb Hct MCV MCH MCHC RDW Plt Count MPV Sodium Potassium Chloride Carbon Dioxide Anion Gap BUN Creatinine Creat Clearance w eGFR POC Glucometer 127 188 196 Random Glucose Calcium Total Bilirubin AST ALT Alkaline Phosphatase Total Protein Albumin 12/12/17 12/12/17 12/12/17 05:08 05:30 05:30 WBC 12.4 H RBC 4.29 Hgb 13.7 Hct 40.5 MCV 94.4 MCH 31.9 MCHC 33.8 RDW 14.3 Plt Count 273 MPV 7.6 D Sodium 140 Potassium 3.3 L Chloride 102 Carbon Dioxide 30 Anion Gap 8 BUN 20 H Creatinine 0.7 Creat Clearance w eGFR > 60 POC Glucometer 152 Random Glucose 140 H Calcium 8.4 L Total Bilirubin 0.7 AST 25 ALT 27 Alkaline Phosphatase 127 H D Total Protein 5.3 L Albumin 2.5 L A/P Atrial Fibrillation with RVR Acute on Chronic Systolic/Diastolic Heart Failure UTI DM Parkinsons Disease Depression Cellulitis - rate control per Cardiology - ABX per ID - Anticoagulation - O2 to keep SpO2 >90% - [place] Dr Calhoun
[2017-12-12] MEDS ORDERED: POTASSIUM CHLORIDE 10 MEQ in SODIUM CHLORIDE 100 ML IVPB SCH (15:45)
--- NOTE | 2017-12-12 16:08 | PN ---
Progress Note (short form) - Note Progress Note: cover for Dr Kelley Current Medications Amiodarone HCl (Cordarone -) 400 mg PO BID [facility] Last Admin: 12/12/17 09:25 Dose: 400 mg Apixaban (Eliquis -) 5 mg PO BID [facility] Last Admin: 12/12/17 09:26 Dose: 5 mg Atorvastatin Calcium (Lipitor -) 20 mg PO HS [facility] Last Admin: 12/11/17 21:21 Dose: 20 mg Carbidopa/Levodopa (Sinemet 25/100 -) 1 each PO QID [facility] Last Admin: 12/12/17 13:40 Dose: 1 each Docusate Sodium (Colace -) 100 mg PO DAILY [facility] Last Admin: 12/12/17 09:25 Dose: 100 mg Furosemide (Lasix -) 40 mg PO DAILY [facility] Ceftriaxone Sodium 1 gm/ (Dextrose) 50 mls @ 200 mls/hr IVPB DAILY [facility]; Protocol Last Admin: 12/12/17 09:27 Dose: 200 mls/hr Vancomycin HCl (Vancomycin 1 Gm Premix -) 1 gm in 200 mls @ 133.333 mls/hr IVPB Q24H [facility]; Protocol Last Admin: 12/12/17 10:08 Dose: 133.333 mls/hr Potassium Chloride 10 meq/ (Sodium Chloride) 105 mls @ 100 mls/hr IVPB Q60M [facility] Stop: 12/12/17 16:44 Insulin Aspart (Novolog Vial Sliding Scale -) 1 vial SQ ACHS [facility]; Protocol Last Admin: 12/12/17 11:55 Dose: 2 units Metformin HCl (Glucophage Xr -) 500 mg PO BIDAC [facility] Last Admin: 12/12/17 06:36 Dose: 500 mg Metoprolol Succinate (Toprol Xl -) 50 mg PO BID [facility] Last Admin: 12/12/17 09:26 Dose: 50 mg Metoprolol Tartrate (Lopressor Injection -) 5 mg IVPUSH Q6H PRN PRN Reason: TACHYCARDIA Mirtazapine (Remeron -) 45 mg PO HS [facility] Last Admin: 12/11/17 21:21 Dose: 45 mg Spironolactone (Aldactone -) 25 mg PO DAILY [facility] Zolpidem Tartrate (Ambien -) 5 mg PO HS PRN PRN Reason: INSOMNIA Last Admin: 12/10/17 23:30 Dose: 5 mg Laboratory Results - last 24 hr 12/11/17 12/11/17 12/12/17 16:58 21:18 05:08 WBC RBC Hgb Hct MCV MCH MCHC RDW Plt Count MPV Sodium Potassium Chloride Carbon Dioxide Anion Gap BUN Creatinine Creat Clearance w eGFR POC Glucometer 188 196 152 Random Glucose Calcium Total Bilirubin AST ALT Alkaline Phosphatase Total Protein Albumin 12/12/17 12/12/17 12/12/17 05:30 05:30 11:54 WBC 12.4 H RBC 4.29 Hgb 13.7 Hct 40.5 MCV 94.4 MCH 31.9 MCHC 33.8 RDW 14.3 Plt Count 273 MPV 7.6 D Sodium 140 Potassium 3.3 L Chloride 102 Carbon Dioxide 30 Anion Gap 8 BUN 20 H Creatinine 0.7 Creat Clearance w eGFR > 60 POC Glucometer 174 Random Glucose 140 H Calcium 8.4 L Total Bilirubin 0.7 AST 25 ALT 27 Alkaline Phosphatase 127 H D Total Protein 5.3 L Albumin 2.5 L Vital Signs Temperature 98.6 F 12/12/17 14:00 Pulse Rate 89 12/12/17 14:00 Respiratory Rate 20 12/12/17 14:00 Blood Pressure 99/59 12/12/17 14:00 O2 Sat by Pulse Oximetry (%) 96 12/12/17 09:00 CC: no new complaints; BMs not good `````````````````` skin--subcut induration Rt ante-cub fossa; but no gross redness; draining sore on LLE eyes--non injected oral--no droop neck--no masses lungs--dimnished at both bases; unlabored resp heart--irreg ext--2+ bilat edema; 1/3 up knees neuro--alert coherent; speech is clear; no gross focal motor deficits ````````````````````````````` Summ > CHF--with some LVDysf on Echo; shows neg fluid balance; HR better controlled, CXr shows less fluid but has residual effusions at bases R>L; BP on low end; Bun starting to rise.PLAN: cont with BB; reduce lasix to 40mg QD; add aldactone 25mg Qd; watch renal function tests > DM--on Metf & ins coverage > ATF--rate now under control with Amiod; off Dig, still on a/c; TSH okay; H/h in good range > cellulitis--LLE; wound draining serous fluid (edema fluid); on dual ABs as per ID; cultures negative, but noted rise in wbc > phlebitis--RUE, antecub fossa; unchanged > high Alk Phosph--drug effect?;not as high as previous counts; LFTs are okay > low potassium--replenish as needed > PD--on sinemet > depression--has been on Mirtazapine ~~~~~~~~~~~~~~~~~~~~~~~~~~~ Dr Betts....(for Dr Kelley who will return on 12/13/17) Case reviewed with who is at bedside.
[2017-12-12] MEDS: ATORVASTATIN CA 20 MG TABLET (FP) PO SCH (21:20)
[2017-12-12] MEDS: MIRTAZAPINE 15 MG TABLET (FP) PO SCH (21:22)
[2017-12-13] MEDS: INSULIN SLIDING SCALE (NOVOLOG) 1 VIAL SQ SCH ×4 (06:28→21:53)
[2017-12-13] MEDS ORDERED: PT OWN MED DRAWER 7, Y5N ONE (07:22)
[2017-12-13] MEDS ORDERED: cefTRIAXone SODIUM 1 GM VIAL ONE (09:03)
[2017-12-13] MEDS ORDERED: DEXTROSE 5%-WATER - 50 ML IVPB ONE (09:04)
[2017-12-13] MEDS: AMIODARONE HCL 200 MG TABLET (FP) PO SCH ×2 (09:37→21:53)
[2017-12-13] MEDS: FUROSEMIDE 40 MG TABLET (FP) PO SCH (09:38)
[2017-12-13] MEDS: CARBIDOPA/LEVODOPA 25/100 TABLET (FP) PO SCH ×4 (09:38→21:53)
[2017-12-13] MEDS: SPIRONOLACTONE 25 MG TABLET (FP) PO SCH (09:38)
[2017-12-13] MEDS: DOCUSATE SODIUM 100 MG CAPSULE (FP) PO SCH (09:38)
[2017-12-13] MEDS: APIXABAN 5 MG TABLET PO SCH ×2 (09:38→21:53)
[2017-12-13] MEDS: CEFTRIAXONE 1 GM in DEXTROSE 5%-WATER - 50 ML IVPB SCH (09:39)
[2017-12-13] MEDS: VANCOMYCIN 1 GM PREMIX - 1 GM/200 ML BAG IVPB SCH (10:16)
--- NOTE | 2017-12-13 11:47 | PN ---
Progress Note, Physician Chief Complaint: PT A&Ox3; OOB in chair. Pt asks if she can go home soon. History of Present Illness: 77-year-old white female (mesfin Ballard), with h/o PD,depression, DM, CHF on lasix, afib on diltiazem, metoprolol, and eliquis, BIB for shortness of breath and worsening bilateral pedal edema over the pastdays per . Denies any chest pain, diaphoresis, palpitations, nausea, vomiting, cough, f/c. 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 Felton and PMD is Dr Kelley - Current Medication List Current Medications: Active Medications Amiodarone HCl (Cordarone -) 400 mg PO BID [facility] Last Admin: 12/13/17 09:37 Dose: 400 mg Apixaban (Eliquis -) 5 mg PO BID [facility] Last Admin: 12/13/17 09:38 Dose: 5 mg Atorvastatin Calcium (Lipitor -) 20 mg PO HS [facility] Last Admin: 12/12/17 21:20 Dose: 20 mg Carbidopa/Levodopa (Sinemet 25/100 -) 1 each PO QID [facility] Last Admin: 12/13/17 09:38 Dose: 1 each Docusate Sodium (Colace -) 100 mg PO DAILY [facility] Last Admin: 12/13/17 09:38 Dose: 100 mg Furosemide (Lasix -) 40 mg PO DAILY [facility] Last Admin: 12/13/17 09:38 Dose: 40 mg Ceftriaxone Sodium 1 gm/ (Dextrose) 50 mls @ 200 mls/hr IVPB DAILY [facility]; Protocol Last Admin: 12/13/17 09:39 Dose: 200 mls/hr Vancomycin HCl (Vancomycin 1 Gm Premix -) 1 gm in 200 mls @ 133.333 mls/hr IVPB Q24H [facility]; Protocol Last Admin: 12/13/17 10:16 Dose: 133.333 mls/hr Insulin Aspart (Novolog Vial Sliding Scale -) 1 vial SQ ACHS [facility]; Protocol Last Admin: 12/13/17 11:27 Dose: 4 units Metformin HCl (Glucophage Xr -) 500 mg PO BIDAC [facility] Last Admin: 12/13/17 06:27 Dose: 500 mg Metoprolol Succinate (Toprol Xl -) 50 mg PO BID [facility] Last Admin: 12/13/17 09:38 Dose: 50 mg Metoprolol Tartrate (Lopressor Injection -) 5 mg IVPUSH Q6H PRN PRN Reason: TACHYCARDIA Mirtazapine (Remeron -) 45 mg PO HS [facility] Last Admin: 12/12/17 21:22 Dose: 45 mg Spironolactone (Aldactone -) 25 mg PO DAILY [facility] Last Admin: 12/13/17 09:38 Dose: 25 mg Zolpidem Tartrate (Ambien -) 5 mg PO HS PRN PRN Reason: INSOMNIA Last Admin: 12/10/17 23:30 Dose: 5 mg - Objective Vital Signs: Vital Signs Temperature 98.1 F 12/13/17 07:51 Pulse Rate 91 H 12/13/17 07:51 Respiratory Rate 20 12/13/17 07:54 Blood Pressure 113/67 12/13/17 07:51 O2 Sat by Pulse Oximetry (%) 95 12/13/17 07:54 Constitutional: Yes: Calm Eyes: Yes: WNL HENT: Yes: WNL Neck: Yes: WNL Cardiovascular: Yes: Pulse Irregular Respiratory: Yes: Regular Gastrointestinal: Yes: Soft ...Rectal Exam: Yes: Deferred Genitourinary: No: Anuria Breast(s): Yes: WNL Musculoskeletal: Yes: Muscle Weakness Extremities: Yes: Cool Edema: No Peripheral Pulses WNL: Yes Integumentary: Yes: WNL Neurological: Yes: Alert, Oriented Psychiatric: Yes: WNL Labs: CBC, BMP 12/12/17 05:30 12/12/17 05:30 Abnormal Lab Results 12/13/17 12/13/17 12:25 12:25 WBC 14.9 H Hct 46.5 H Random Glucose 166 H Magnesium 1.7 L - ....Imaging Other: Image Reviewed (telemetry: AF; HR 90-120s) Problem List - Problems (1) Acute on chronic systolic (congestive) heart failure Assessment/Plan: On metoprolol ER. Started lisinopril 2.5 mg daily. F/u BUN/Cr, electrolytes, daily weight, Is and Os. Code(s): I50.23 - ACUTE ON CHRONIC SYSTOLIC (CONGESTIVE) HEART FAILURE (2) Edema Code(s): R60.9 - EDEMA, UNSPECIFIED Qualifiers: Edema type: unspecified Qualified Code(s): R60.9 - Edema, unspecified (3) Atrial fibrillation with rapid ventricular response Assessment/Plan: On amiodarone PO (decrease loading dose to 200 mg bid after one week of 400 bid) . Given dose of lisinopril starting today. If BP remains stable, would gradually increae dose of metoprolol ER, with intent of discontinuing amiodarone in the months ahead in order to minimize risk of side effects. However, she should be sent home on both agents, with careful serial review of HR in the next several months. Code(s): I48.91 - UNSPECIFIED ATRIAL FIBRILLATION (4) HTN (hypertension) Code(s): I10 - ESSENTIAL (PRIMARY) HYPERTENSION (5) Hyperlipidemia Assessment/Plan: F/u lipid panel. Code(s): E78.5 - HYPERLIPIDEMIA, UNSPECIFIED (6) Parkinson disease Code(s): G20 - PARKINSON'S DISEASE (7) Skin infection Assessment/Plan: for antibiotic adjustment for Lt LE skin lesion Code(s): L08.9 - LOCAL INFECTION OF THE SKIN AND SUBCUTANEOUS TISSUE, UNSP
[2017-12-13] MEDS ORDERED: LISINOPRIL 5 MG TABLET (FP) PO ONE (11:49)
[2017-12-13 13:15] LABS: BASO % 0.9 % (0-2.0); EOS % 1.3 % (0-4.5); HEMATOCRIT 46.5 % (32.4-45.2); LYMPH % 9.3 % (8-40); MCH 30.8 pg (25.7-33.7); MCHC 32.3 g/dl (32.0-36.0); MEAN CELL VOLUME 95.5 fl (80-96); MEAN PLT VOLUME 8.4 fl (7.5-11.1); MONO % 6.8 % (3.8-10.2); NEUT % 81.7 % (42.8-82.8); PLATELET COUNT 355 K/MM3 (134-434); RBC 4.87 M/mm3 (3.60-5.2); WHITE BLOOD COUNT 14.9 K/mm3 (4.0-10.0)
--- NOTE | 2017-12-13 13:40 | PN ---
Progress Note (short form) - Note Progress Note: Appears overall better. No CP or SOB. Wants to go home. Intake & Output 12/10/17 12/11/17 12/12/17 12/13/17 23:59 23:59 23:59 23:59 Intake Total 1110 1660 1040 100 Output Total 2300 Balance -1190 1660 1040 100 Weight 149 lb 14.629 oz 150 lb 9.6 oz 150 lb 3.2 oz Last Vital Signs Temp Pulse Resp BP Pulse Ox 98.1 F 91 H 20 113/67 95 12/13/17 07:51 12/13/17 07:51 12/13/17 07:54 12/13/17 07:51 12/13/17 07:54 Active Medications Amiodarone HCl (Cordarone -) 400 mg PO BID [facility] Last Admin: 12/13/17 09:37 Dose: 400 mg Apixaban (Eliquis -) 5 mg PO BID [facility] Last Admin: 12/13/17 09:38 Dose: 5 mg Atorvastatin Calcium (Lipitor -) 20 mg PO HS [facility] Last Admin: 12/12/17 21:20 Dose: 20 mg Carbidopa/Levodopa (Sinemet 25/100 -) 1 each PO QID [facility] Last Admin: 12/13/17 09:38 Dose: 1 each Docusate Sodium (Colace -) 100 mg PO DAILY [facility] Last Admin: 12/13/17 09:38 Dose: 100 mg Furosemide (Lasix -) 40 mg PO DAILY [facility] Last Admin: 12/13/17 09:38 Dose: 40 mg Ceftriaxone Sodium 1 gm/ (Dextrose) 50 mls @ 200 mls/hr IVPB DAILY [facility]; Protocol Last Admin: 12/13/17 09:39 Dose: 200 mls/hr Vancomycin HCl (Vancomycin 1 Gm Premix -) 1 gm in 200 mls @ 133.333 mls/hr IVPB Q24H [facility]; Protocol Last Admin: 12/13/17 10:16 Dose: 133.333 mls/hr Insulin Aspart (Novolog Vial Sliding Scale -) 1 vial SQ ACHS [facility]; Protocol Last Admin: 12/13/17 11:27 Dose: 4 units Lisinopril (Prinivil) 2.5 mg PO DAILY [facility] Metformin HCl (Glucophage Xr -) 500 mg PO BIDAC [facility] Last Admin: 12/13/17 06:27 Dose: 500 mg Metoprolol Succinate (Toprol Xl -) 50 mg PO BID [facility] Last Admin: 12/13/17 09:38 Dose: 50 mg Metoprolol Tartrate (Lopressor Injection -) 5 mg IVPUSH Q6H PRN PRN Reason: TACHYCARDIA Mirtazapine (Remeron -) 45 mg PO HS [facility] Last Admin: 12/12/17 21:22 Dose: 45 mg Spironolactone (Aldactone -) 25 mg PO DAILY [facility] Last Admin: 12/13/17 09:38 Dose: 25 mg Zolpidem Tartrate (Ambien -) 5 mg PO HS PRN PRN Reason: INSOMNIA Last Admin: 12/10/17 23:30 Dose: 5 mg Gen: NAD at rest Heart: irregular Lung: basilar rales Abd: soft, nontender Ext: + edema A/P Atrial Fibrillation with RVR Acute on Chronic Systolic/Diastolic Heart Failure UTI DM Parkinsons Disease Depression Cellulitis - rate control per Cardiology - ABX per ID - Anticoagulation - O2 to keep SpO2 >90% - Lasix - No Pulmonary contraindication for D/C Dr Calhoun
[2017-12-13 14:19] LABS: ANION GAP 10 (8-16); BLOOD UREA NITROGEN 13 mg/dL (7-18); CALCIUM 8.8 mg/dL (8.5-10.1); CHLORIDE 99 mmol/L (98-107); CHOLESTEROL 130 mg/dL (50-200); CO2 30 mmol/L (21-32); CREATININE 0.7 mg/dL (0.55-1.02); GLUCOSE,RANDOM 166 mg/dL (74-106); HDL CHOLESTEROL 51 mg/dL (40-60); MAGNESIUM 1.7 mg/dL (1.8-2.4); POTASSIUM 3.7 mmol/L (3.5-5.1); SODIUM 139 mmol/L (136-145); TRIGLYCERIDES 131 mg/dL (35-160)
[2017-12-13] MEDS ORDERED: INSULIN (NOVOLOG) ASPART 100 UNITS/ML 10ML VIAL ONE (21:11)
--- NOTE | 2017-12-13 21:33 | PN ---
Progress Note, Physician History of Present Illness: Denies any chest pain, palpitations or SOB. Denies any pain in the left leg - Current Medication List Current Medications: Active Medications Amiodarone HCl (Cordarone -) 400 mg PO BID [facility] Last Admin: 12/13/17 09:37 Dose: 400 mg Apixaban (Eliquis -) 5 mg PO BID [facility] Last Admin: 12/13/17 09:38 Dose: 5 mg Atorvastatin Calcium (Lipitor -) 20 mg PO [facility] Last Admin: 12/12/17 21:20 Dose: 20 mg Carbidopa/Levodopa (Sinemet 25/100 -) 1 each PO QID [facility] Last Admin: 12/13/17 17:22 Dose: 1 each Docusate Sodium (Colace -) 100 mg PO DAILY [facility] Last Admin: 12/13/17 09:38 Dose: 100 mg Furosemide (Lasix -) 40 mg PO DAILY [facility] Last Admin: 12/13/17 09:38 Dose: 40 mg Ceftriaxone Sodium 1 gm/ (Dextrose) 50 mls @ 200 mls/hr IVPB DAILY [facility]; Protocol Last Admin: 12/13/17 09:39 Dose: 200 mls/hr Vancomycin HCl (Vancomycin 1 Gm Premix -) 1 gm in 200 mls @ 133.333 mls/hr IVPB Q24H [facility]; Protocol Last Admin: 12/13/17 10:16 Dose: 133.333 mls/hr Insulin Aspart (Novolog Vial Sliding Scale -) 1 vial SQ ACHS [facility]; Protocol Last Admin: 12/13/17 16:25 Dose: 2 units Lisinopril (Prinivil) 2.5 mg PO DAILY [facility] Metformin HCl (Glucophage Xr -) 500 mg PO BIDAC [facility] Last Admin: 12/13/17 16:22 Dose: 500 mg Metoprolol Succinate (Toprol Xl -) 50 mg PO BID [facility] Last Admin: 12/13/17 09:38 Dose: 50 mg Metoprolol Tartrate (Lopressor Injection -) 5 mg IVPUSH Q6H PRN PRN Reason: TACHYCARDIA Mirtazapine (Remeron -) 45 mg PO [facility] Last Admin: 12/12/17 21:22 Dose: 45 mg Spironolactone (Aldactone -) 25 mg PO DAILY [facility] Last Admin: 12/13/17 09:38 Dose: 25 mg Zolpidem Tartrate (Ambien -) 5 mg PO HS PRN PRN Reason: INSOMNIA Last Admin: 12/10/17 23:30 Dose: 5 mg - Objective Vital Signs: Vital Signs Temperature 98.7 F 12/13/17 14:40 Pulse Rate 97 H 12/13/17 14:40 Respiratory Rate 20 12/13/17 14:40 Blood Pressure 115/76 12/13/17 14:40 O2 Sat by Pulse Oximetry (%) 95 12/13/17 07:54 Constitutional: Yes: Well Nourished, No Distress, Calm Eyes: Yes: Conjunctiva Clear, EOM Intact HENT: Yes: WNL Neck: Yes: Supple Cardiovascular: Yes: Pulse Irregular, S1, S2 Respiratory: Yes: Regular, CTA Bilaterally Gastrointestinal: Yes: Normal Bowel Sounds Genitourinary: Yes: WNL Musculoskeletal: Yes: Back Pain Extremities: Yes: WNL Edema: Yes Edema: LLE: 2+ Peripheral Pulses WNL: Yes Integumentary: Yes: Other (Erythema of the left lower leg has improved) ...Motor Strength: WNL Psychiatric: Yes: Alert, Oriented Labs: CBC, BMP 12/13/17 12:25 12/13/17 12:25 Problem List - Problems (1) CHF (congestive heart failure) Assessment/Plan: HR is now in the 89/mt and lungs are clear Code(s): I50.9 - HEART FAILURE, UNSPECIFIED Qualifiers: Heart failure type: combined systolic and diastolic Heart failure chronicity: acute on chronic Qualified Code(s): I50.43 - Acute on chronic combined systolic (congestive) and diastolic (congestive) heart failure (2) Hyperglycemia Assessment/Plan: well controlled Code(s): R73.9 - HYPERGLYCEMIA, UNSPECIFIED (3) Atrial fibrillation with rapid ventricular response Assessment/Plan: AFIB is under good control with Amiadorone Code(s): I48.91 - UNSPECIFIED ATRIAL FIBRILLATION (4) Diabetes Assessment/Plan: Under good control Code(s): E11.9 - TYPE 2 DIABETES MELLITUS WITHOUT COMPLICATIONS Qualifiers: Diabetes mellitus type: type 2 Diabetes mellitus complication status: without complication (5) HTN (hypertension) Code(s): I10 - ESSENTIAL (PRIMARY) HYPERTENSION (6) Insomnia Code(s): G47.00 - INSOMNIA, UNSPECIFIED (7) Cellulitis Assessment/Plan: Cellulitis has improved with Rocephin and Vancomycin Code(s): L03.90 - CELLULITIS, UNSPECIFIED Qualifiers: Site of cellulitis: extremity Laterality: left Assessment/Plan IMP: AFIB with fast VR CHF systolic and diastolic Cellulitis of left leg Diabetes 2 Parkinsons D Ch. Depression Assess. HR is now well controlled with Amiadorone and Topro; XL Cellulitis of the left leg is improving but leukocytosis persists
[2017-12-13] MEDS: ATORVASTATIN CA 20 MG TABLET (FP) PO SCH (21:53)
[2017-12-13] MEDS: MIRTAZAPINE 15 MG TABLET (FP) PO SCH (21:53)
[2017-12-14] MEDS: INSULIN SLIDING SCALE (NOVOLOG) 1 VIAL SQ SCH ×4 (06:23→21:46)
[2017-12-14] MEDS ORDERED: cefTRIAXone SODIUM 1 GM VIAL ONE (10:14)
[2017-12-14] MEDS ORDERED: DEXTROSE 5%-WATER - 50 ML IVPB ONE (10:15)
[2017-12-14] MEDS: AMIODARONE HCL 200 MG TABLET (FP) PO SCH ×2 (10:35→21:35)
[2017-12-14] MEDS: DOCUSATE SODIUM 100 MG CAPSULE (FP) PO SCH ×2 (10:35→10:36)
[2017-12-14] MEDS: SPIRONOLACTONE 25 MG TABLET (FP) PO SCH (10:35)
[2017-12-14] MEDS: LISINOPRIL 5 MG TABLET (FP) PO SCH (10:36)
[2017-12-14] MEDS: CARBIDOPA/LEVODOPA 25/100 TABLET (FP) PO SCH ×4 (10:36→21:45)
[2017-12-14] MEDS: APIXABAN 5 MG TABLET PO SCH ×2 (10:36→21:34)
[2017-12-14] MEDS: FUROSEMIDE 40 MG TABLET (FP) PO SCH (10:37)
[2017-12-14] MEDS: CEFTRIAXONE 1 GM in DEXTROSE 5%-WATER - 50 ML IVPB SCH (10:38)
--- NOTE | 2017-12-14 10:45 | PN ---
Progress Note, Physician History of Present Illness: 77 F, Parkisnons, depression, DM, CHF on lasix, AFib previously on digoxin and cardizem and eliquis. 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 Admitted via the ER due to shortness of breath and worsening bilateral pedal edema over past several days. Denies any chest pain, diaphoresis, palpitations , nausea, vomiting, cough, or fever. No travel history or sick contacts. CXR: Bilateral congestive changes / right pleural effusion. - Current Medication List Current Medications: Active Medications Amiodarone HCl (Cordarone -) 400 mg PO BID [facility] Last Admin: 12/14/17 10:35 Dose: 400 mg Apixaban (Eliquis -) 5 mg PO BID [facility] Last Admin: 12/14/17 10:36 Dose: 5 mg Atorvastatin Calcium (Lipitor -) 20 mg PO HS [facility] Last Admin: 12/13/17 21:53 Dose: 20 mg Carbidopa/Levodopa (Sinemet 25/100 -) 1 each PO QID [facility] Last Admin: 12/14/17 10:36 Dose: 1 each Docusate Sodium (Colace -) 100 mg PO DAILY [facility] Last Admin: 12/14/17 10:36 Dose: 100 mg Furosemide (Lasix -) 40 mg PO DAILY [facility] Last Admin: 12/14/17 10:37 Dose: 40 mg Ceftriaxone Sodium 1 gm/ (Dextrose) 50 mls @ 200 mls/hr IVPB DAILY [facility]; Protocol Last Admin: 12/14/17 10:38 Dose: 200 mls/hr Vancomycin HCl (Vancomycin 1 Gm Premix -) 1 gm in 200 mls @ 133.333 mls/hr IVPB Q24H [facility]; Protocol Last Admin: 12/13/17 10:16 Dose: 133.333 mls/hr Insulin Aspart (Novolog Vial Sliding Scale -) 1 vial SQ ACHS [facility]; Protocol Last Admin: 12/14/17 06:23 Dose: Not Given Lisinopril (Prinivil) 2.5 mg PO DAILY [facility] Last Admin: 12/14/17 10:36 Dose: 2.5 mg Metformin HCl (Glucophage Xr -) 500 mg PO BIDAC [facility] Last Admin: 12/14/17 10:35 Dose: Not Given Metoprolol Succinate (Toprol Xl -) 50 mg PO BID [facility] Last Admin: 12/14/17 10:36 Dose: 50 mg Metoprolol Tartrate (Lopressor Injection -) 5 mg IVPUSH Q6H PRN PRN Reason: TACHYCARDIA Mirtazapine (Remeron -) 45 mg PO HS [facility] Last Admin: 12/13/17 21:53 Dose: 45 mg Spironolactone (Aldactone -) 25 mg PO DAILY [facility] Last Admin: 12/14/17 10:35 Dose: Not Given Zolpidem Tartrate (Ambien -) 5 mg PO HS PRN PRN Reason: INSOMNIA Last Admin: 12/10/17 23:30 Dose: 5 mg - Objective Vital Signs: Vital Signs Temperature 98.2 F 12/14/17 09:00 Pulse Rate 90 12/14/17 09:00 Respiratory Rate 20 12/14/17 09:00 Blood Pressure 110/71 12/14/17 09:00 O2 Sat by Pulse Oximetry (%) 94 L 12/14/17 09:00 Eyes: Yes: WNL, Conjunctiva Clear, EOM Intact HENT: Yes: WNL, Atraumatic, Normocephalic Neck: Yes: WNL, Supple, Trachea Midline Cardiovascular: Yes: Pulse Irregular, S1, S2 Respiratory: Yes: WNL, Regular, CTA Bilaterally Gastrointestinal: Yes: WNL, Normal Bowel Sounds Genitourinary: Yes: WNL Musculoskeletal: Yes: WNL Extremities: Yes: Erythema Edema: Yes Integumentary: Yes: WNL Neurological: Yes: WNL, Alert, Oriented ...Motor Strength: WNL Psychiatric: Yes: WNL Labs: CBC, BMP 12/13/17 12:25 12/13/17 12:25 Problem List - Problems (1) Afib Code(s): I48.91 - UNSPECIFIED ATRIAL FIBRILLATION Qualifiers: Atrial fibrillation type: unspecified Qualified Code(s): I48.91 - Unspecified atrial fibrillation (2) CHF (congestive heart failure) Code(s): I50.9 - HEART FAILURE, UNSPECIFIED Qualifiers: Heart failure type: combined systolic and diastolic Heart failure chronicity: acute on chronic Qualified Code(s): I50.43 - Acute on chronic combined systolic (congestive) and diastolic (congestive) heart failure (3) Edema Code(s): R60.9 - EDEMA, UNSPECIFIED Qualifiers: Edema type: unspecified Qualified Code(s): R60.9 - Edema, unspecified (4) Hyperglycemia Code(s): R73.9 - HYPERGLYCEMIA, UNSPECIFIED (5) SOB (shortness of breath) Code(s): R06.02 - SHORTNESS OF BREATH (6) Abdominal pain Code(s): R10.9 - UNSPECIFIED ABDOMINAL PAIN (7) Anterior epistaxis Code(s): R04.0 - EPISTAXIS (8) Atrial fibrillation with rapid ventricular response Code(s): I48.91 - UNSPECIFIED ATRIAL FIBRILLATION (9) Depressed affect Code(s): R45.89 - OTHER SYMPTOMS AND SIGNS INVOLVING EMOTIONAL STATE (10) Diabetes Code(s): E11.9 - TYPE 2 DIABETES MELLITUS WITHOUT COMPLICATIONS Qualifiers: Diabetes mellitus type: type 2 Diabetes mellitus complication status: without complication (11) Diabetes Code(s): E11.9 - TYPE 2 DIABETES MELLITUS WITHOUT COMPLICATIONS (12) Diabetes 1.5, managed as type 1 Code(s): E10.9 - TYPE 1 DIABETES MELLITUS WITHOUT COMPLICATIONS (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, managed as type 2 Code(s): E13.9 - OTHER SPECIFIED DIABETES MELLITUS WITHOUT COMPLICATIONS (14) Dyspepsia Code(s): R10.13 - EPIGASTRIC PAIN (15) Elevated LFTs Code(s): R79.89 - OTHER SPECIFIED ABNORMAL FINDINGS OF BLOOD CHEMISTRY (16) HTN (hypertension) Code(s): I10 - ESSENTIAL (PRIMARY) HYPERTENSION (17) Hyperlipidemia Code(s): E78.5 - HYPERLIPIDEMIA, UNSPECIFIED (18) IBS (irritable bowel syndrome) Code(s): K58.9 - IRRITABLE BOWEL SYNDROME WITHOUT DIARRHEA (19) Insomnia Code(s): G47.00 - INSOMNIA, UNSPECIFIED (20) Leukocytosis Code(s): D72.829 - ELEVATED WHITE BLOOD CELL COUNT, UNSPECIFIED (21) Parkinson disease Code(s): G20 - PARKINSON'S DISEASE (22) Paroxysmal atrial fibrillation Code(s): I48.0 - PAROXYSMAL ATRIAL FIBRILLATION (23) Sepsis Code(s): A41.9 - SEPSIS, UNSPECIFIED ORGANISM Assessment/Plan - Problems (1) Acute on chronic systolic (congestive) heart failure Assessment/Plan: On metoprolol ER. Started lisinopril 2.5 mg daily. F/u BUN/Cr, electrolytes, daily weight, Is and Os. Code(s): I50.23 - ACUTE ON CHRONIC SYSTOLIC (CONGESTIVE) HEART FAILURE (2) Edema Code(s): R60.9 - EDEMA, UNSPECIFIED Qualifiers: Edema type: unspecified Qualified Code(s): R60.9 - Edema, unspecified (3) Atrial fibrillation with rapid ventricular response Assessment/Plan: On amiodarone PO (decrease loading dose to 200 mg bid after one week of 400 bid) . Given dose of lisinopril starting today. If BP remains stable, would gradually increae dose of metoprolol ER, with intent of discontinuing amiodarone in the months ahead in order to minimize risk of side effects. However, she should be sent home on both agents, with careful serial review of HR in the next several months. Code(s): I48.91 - UNSPECIFIED ATRIAL FIBRILLATION (4) HTN (hypertension) Code(s): I10 - ESSENTIAL (PRIMARY) HYPERTENSION (5) Hyperlipidemia Assessment/Plan: F/u lipid panel. Code(s): E78.5 - HYPERLIPIDEMIA, UNSPECIFIED (6) Parkinson disease Code(s): G20 - PARKINSON'S DISEASE (7) Skin infection Assessment/Plan: for antibiotic adjustment for Lt LE skin lesion Code(s): L08.9 - LOCAL INFECTION OF THE SKIN AND SUBCUTANEOUS TISSUE, UNSP
[2017-12-14] MEDS: VANCOMYCIN 1 GM PREMIX - 1 GM/200 ML BAG IVPB SCH (12:58)
--- NOTE | 2017-12-14 13:39 | PN ---
Progress Note (short form) - Note Progress Note: Appears overall better. No CP or SOB. Cellulitis appears better. Wants to go home. Intake & Output 12/11/17 12/12/17 12/13/17 12/14/17 23:59 23:59 23:59 23:59 Intake Total 1660 1040 720 100 Balance 1660 1040 720 100 Weight 150 lb 9.6 oz 150 lb 3.2 oz 149 lb 9.6 oz Last Vital Signs Temp Pulse Resp BP Pulse Ox 98.2 F 90 20 110/71 94 L 12/14/17 09:00 12/14/17 09:00 12/14/17 09:00 12/14/17 09:00 12/14/17 09:00 Active Medications Amiodarone HCl (Cordarone -) 200 mg PO BID [facility] Apixaban (Eliquis -) 5 mg PO BID [facility] Last Admin: 12/14/17 10:36 Dose: 5 mg Atorvastatin Calcium (Lipitor -) 20 mg PO HS [facility] Last Admin: 12/13/17 21:53 Dose: 20 mg Carbidopa/Levodopa (Sinemet 25/100 -) 1 each PO QID [facility] Last Admin: 12/14/17 10:36 Dose: 1 each Docusate Sodium (Colace -) 100 mg PO DAILY [facility] Last Admin: 12/14/17 10:36 Dose: 100 mg Furosemide (Lasix -) 40 mg PO DAILY [facility] Last Admin: 12/14/17 10:37 Dose: 40 mg Ceftriaxone Sodium 1 gm/ (Dextrose) 50 mls @ 200 mls/hr IVPB DAILY [facility]; Protocol Last Admin: 12/14/17 10:38 Dose: 200 mls/hr Vancomycin HCl (Vancomycin 1 Gm Premix -) 1 gm in 200 mls @ 133.333 mls/hr IVPB Q24H [facility]; Protocol Last Admin: 12/13/17 10:16 Dose: 133.333 mls/hr Insulin Aspart (Novolog Vial Sliding Scale -) 1 vial SQ ACHS [facility]; Protocol Last Admin: 12/14/17 11:07 Dose: Not Given Lisinopril (Prinivil) 2.5 mg PO DAILY [facility] Last Admin: 12/14/17 10:36 Dose: 2.5 mg Metformin HCl (Glucophage Xr -) 500 mg PO BIDAC [facility] Last Admin: 12/14/17 10:35 Dose: Not Given Metoprolol Succinate (Toprol Xl -) 50 mg PO BID [facility] Last Admin: 12/14/17 10:36 Dose: 50 mg Metoprolol Tartrate (Lopressor Injection -) 5 mg IVPUSH Q6H PRN PRN Reason: TACHYCARDIA Mirtazapine (Remeron -) 45 mg PO HS [facility] Last Admin: 12/13/17 21:53 Dose: 45 mg Spironolactone (Aldactone -) 25 mg PO DAILY [facility] Last Admin: 12/14/17 10:35 Dose: Not Given Zolpidem Tartrate (Ambien -) 5 mg PO HS PRN PRN Reason: INSOMNIA Last Admin: 12/10/17 23:30 Dose: 5 mg Gen: NAD at rest Heart: irregular Lung: basilar rales Abd: soft, nontender Ext: + edema A/P Atrial Fibrillation with RVR Acute on Chronic Systolic/Diastolic Heart Failure UTI DM Parkinsons Disease Depression Cellulitis - rate control per Cardiology - ABX per ID - Anticoagulation - O2 to keep SpO2 >90% - Lasix - No Pulmonary contraindication for D/C Dr Calhoun
--- NOTE | 2017-12-14 17:56 | PN ---
Progress Note, Physician History of Present Illness: Awake, alert In bed No complaints No c/o leg pain No c/o fever/ chills Afebrile WBC slightly elevated 14k - Current Medication List Current Medications: Active Medications Amiodarone HCl (Cordarone -) 200 mg PO BID [facility] Apixaban (Eliquis -) 5 mg PO BID [facility] Last Admin: 12/14/17 10:36 Dose: 5 mg Atorvastatin Calcium (Lipitor -) 20 mg PO HS [facility] Last Admin: 12/13/17 21:53 Dose: 20 mg Carbidopa/Levodopa (Sinemet 25/100 -) 1 each PO QID [facility] Last Admin: 12/14/17 14:54 Dose: 1 each Docusate Sodium (Colace -) 100 mg PO DAILY [facility] Last Admin: 12/14/17 10:36 Dose: 100 mg Furosemide (Lasix -) 40 mg PO DAILY [facility] Last Admin: 12/14/17 10:37 Dose: 40 mg Insulin Aspart (Novolog Vial Sliding Scale -) 1 vial SQ [facility]; Protocol Last Admin: 12/14/17 11:07 Dose: Not Given Lisinopril (Prinivil) 2.5 mg PO DAILY [facility] Last Admin: 12/14/17 10:36 Dose: 2.5 mg Metformin HCl (Glucophage Xr -) 500 mg PO BIDAC [facility] Last Admin: 12/14/17 15:55 Dose: 500 mg Metoprolol Succinate (Toprol Xl -) 50 mg PO BID [facility] Last Admin: 12/14/17 10:36 Dose: 50 mg Metoprolol Tartrate (Lopressor Injection -) 5 mg IVPUSH Q6H PRN PRN Reason: TACHYCARDIA Mirtazapine (Remeron -) 45 mg PO HS [facility] Last Admin: 12/13/17 21:53 Dose: 45 mg Spironolactone (Aldactone -) 25 mg PO DAILY [facility] Last Admin: 12/14/17 10:35 Dose: Not Given Zolpidem Tartrate (Ambien -) 5 mg PO HS PRN PRN Reason: INSOMNIA Last Admin: 12/10/17 23:30 Dose: 5 mg - Objective Vital Signs: Vital Signs Temperature 98.4 F 12/14/17 14:20 Pulse Rate 92 H 12/14/17 14:20 Respiratory Rate 20 12/14/17 14:20 Blood Pressure 117/75 12/14/17 14:20 O2 Sat by Pulse Oximetry (%) 94 L 12/14/17 09:00 Constitutional: Yes: No Distress Eyes: Yes: Conjunctiva Clear Cardiovascular: Yes: Regular Rate and Rhythm, S1, S2 Respiratory: Yes: Diminished Gastrointestinal: Yes: Normal Bowel Sounds, Soft Extremities: Yes: Other (erythema L LE resolved) Edema: Yes Labs: CBC, BMP 12/13/17 12:25 12/13/17 12:25 Assessment/Plan Cellulitis L LE resolved CHF ? pneumonia S/P rapid Afib Diabetes mellitus Catheter related R UE phlebitis D/C antibiotics, observe off
[2017-12-14] MEDS: ATORVASTATIN CA 20 MG TABLET (FP) PO SCH (21:34)
[2017-12-14] MEDS: MIRTAZAPINE 15 MG TABLET (FP) PO SCH (21:34)
[2017-12-14] MEDS ORDERED: INSULIN (NOVOLOG) ASPART 100 UNITS/ML 10ML VIAL ONE (21:43)
[2017-12-15] MEDS: INSULIN SLIDING SCALE (NOVOLOG) 1 VIAL SQ SCH ×2 (06:22→12:52)
--- NOTE | 2017-12-15 07:34 | PN ---
Progress Note, Physician History of Present Illness: Note for 12/14/2017. Denies any chest pain, SOB, PND or palpitations. Denies any pain in the left leg. Remains Afebrile - Current Medication List Current Medications: Active Medications Amiodarone HCl (Cordarone -) 200 mg PO BID [facility] Last Admin: 12/14/17 21:35 Dose: 200 mg Apixaban (Eliquis -) 5 mg PO BID [facility] Last Admin: 12/14/17 21:34 Dose: 5 mg Atorvastatin Calcium (Lipitor -) 20 mg PO HS [facility] Last Admin: 12/14/17 21:34 Dose: 20 mg Carbidopa/Levodopa (Sinemet 25/100 -) 1 each PO QID [facility] Last Admin: 12/14/17 21:45 Dose: 1 each Docusate Sodium (Colace -) 100 mg PO DAILY [facility] Last Admin: 12/14/17 10:36 Dose: 100 mg Furosemide (Lasix -) 40 mg PO DAILY [facility] Last Admin: 12/14/17 10:37 Dose: 40 mg Insulin Aspart (Novolog Vial Sliding Scale -) 1 vial SQ [facility]; Protocol Last Admin: 12/15/17 06:22 Dose: Not Given Lisinopril (Prinivil) 2.5 mg PO DAILY [facility] Last Admin: 12/14/17 10:36 Dose: 2.5 mg Metformin HCl (Glucophage Xr -) 500 mg PO BIDAC [facility] Last Admin: 12/15/17 06:21 Dose: Not Given Metoprolol Succinate (Toprol Xl -) 50 mg PO BID [facility] Last Admin: 12/14/17 21:34 Dose: 50 mg Metoprolol Tartrate (Lopressor Injection -) 5 mg IVPUSH Q6H PRN PRN Reason: TACHYCARDIA Mirtazapine (Remeron -) 45 mg PO HS [facility] Last Admin: 12/14/17 21:34 Dose: 45 mg Spironolactone (Aldactone -) 25 mg PO DAILY [facility] Last Admin: 12/14/17 10:35 Dose: Not Given Zolpidem Tartrate (Ambien -) 5 mg PO HS PRN PRN Reason: INSOMNIA Last Admin: 12/10/17 23:30 Dose: 5 mg - Objective Vital Signs: Vital Signs Temperature 98.9 F 12/15/17 00:59 Pulse Rate 94 H 12/15/17 00:59 Respiratory Rate 20 12/15/17 00:59 Blood Pressure 120/74 12/15/17 00:59 O2 Sat by Pulse Oximetry (%) 94 L 12/14/17 21:00 Constitutional: Yes: Well Nourished, No Distress, Calm Eyes: Yes: WNL, Conjunctiva Clear, EOM Intact HENT: Yes: Atraumatic, Normocephalic Neck: Yes: Supple Cardiovascular: Yes: Pulse Irregular, S1, S2 Respiratory: Yes: CTA Bilaterally Gastrointestinal: Yes: Normal Bowel Sounds, Soft Genitourinary: Yes: WNL Musculoskeletal: Yes: Back Pain Edema: LLE: 2+, RLE: 2+ Integumentary: Yes: Other (LLE cellulitis has improved and slight erythema persists. Slight phlebitis right elbow) Neurological: Yes: Alert, Oriented ...Motor Strength: WNL Psychiatric: Yes: Alert, Oriented Labs: CBC, BMP 12/13/17 12:25 12/13/17 12:25 Problem List - Problems (1) CHF (congestive heart failure) Code(s): I50.9 - HEART FAILURE, UNSPECIFIED Qualifiers: Heart failure type: combined systolic and diastolic Heart failure chronicity: acute on chronic Qualified Code(s): I50.43 - Acute on chronic combined systolic (congestive) and diastolic (congestive) heart failure (2) Hyperglycemia Code(s): R73.9 - HYPERGLYCEMIA, UNSPECIFIED (3) Atrial fibrillation with rapid ventricular response Code(s): I48.91 - UNSPECIFIED ATRIAL FIBRILLATION (4) Diabetes Code(s): E11.9 - TYPE 2 DIABETES MELLITUS WITHOUT COMPLICATIONS Qualifiers: Diabetes mellitus type: type 2 Diabetes mellitus complication status: without complication (5) HTN (hypertension) Code(s): I10 - ESSENTIAL (PRIMARY) HYPERTENSION (6) Insomnia Code(s): G47.00 - INSOMNIA, UNSPECIFIED (7) Cellulitis Code(s): L03.90 - CELLULITIS, UNSPECIFIED Qualifiers: Site of cellulitis: extremity Laterality: left
[2017-12-15 08:06] LABS: SERUM IRON SATURATION 16 % (15-55); TOTAL IRON BINDING CAPACITY 310 ug/dL (250-450); UIBC 261 ug/dL (118-369)
[2017-12-15 08:13] LABS: BASO % 1.1 % (0-2.0); EOS % 2.3 % (0-4.5); HEMATOCRIT 39.4 % (32.4-45.2); HEMOGLOBIN 13.4 GM/dL (10.7-15.3); LYMPH % 12.8 % (8-40); MCH 32.1 pg (25.7-33.7); MCHC 33.9 g/dl (32.0-36.0); MEAN CELL VOLUME 94.5 fl (80-96); MONO % 9.4 % (3.8-10.2); NEUT % 74.4 % (42.8-82.8); PLATELET COUNT 331 K/MM3 (134-434); RBC 4.17 M/mm3 (3.60-5.2); RDW 14.1 % (11.6-15.6); WHITE BLOOD COUNT 11.9 K/mm3 (4.0-10.0)
[2017-12-15 09:32] LABS: ALBUMIN 2.4 g/dl (3.4-5.0); ANION GAP 11 (8-16); BLOOD UREA NITROGEN 12 mg/dL (7-18); CALCIUM 8.5 mg/dL (8.5-10.1); CHLORIDE 105 mmol/L (98-107); CO2 29 mmol/L (21-32); GLUCOSE,RANDOM 122 mg/dL (74-106); POTASSIUM 3.5 mmol/L (3.5-5.1); SODIUM 145 mmol/L (136-145)
[2017-12-15 09:35] LABS: ALK PHOS 108 U/L (45-117); BILIRUBIN,TOTAL 0.4 mg/dL (0.2-1.0); CREATININE 0.7 mg/dL (0.55-1.02); SGOT/AST 27 U/L (15-37); SGPT/ALT 34 U/L (12-78); TOT PROT 5.1 g/dl (6.4-8.2)
[2017-12-15] MEDS: DOCUSATE SODIUM 100 MG CAPSULE (FP) PO SCH (09:48)
[2017-12-15] MEDS: AMIODARONE HCL 200 MG TABLET (FP) PO SCH (09:48)
[2017-12-15] MEDS: CARBIDOPA/LEVODOPA 25/100 TABLET (FP) PO SCH ×2 (09:48→14:27)
[2017-12-15] MEDS: FUROSEMIDE 40 MG TABLET (FP) PO SCH (09:49)
[2017-12-15] MEDS: LISINOPRIL 5 MG TABLET (FP) PO SCH (09:49)
[2017-12-15] MEDS: APIXABAN 5 MG TABLET PO SCH (09:49)
[2017-12-15] MEDS: SPIRONOLACTONE 25 MG TABLET (FP) PO SCH (09:49)
--- NOTE | 2017-12-15 11:46 | PN ---
Progress Note (short form) - Note Progress Note: Appears overall better. No CP or SOB. Wants to go home. Intake & Output 12/12/17 12/13/17 12/14/17 12/15/17 23:59 23:59 23:59 23:59 Intake Total 1040 720 460 Balance 1040 720 460 Weight 150 lb 3.2 oz 149 lb 9.6 oz 143 lb 12.8 oz Last Vital Signs Temp Pulse Resp BP Pulse Ox 98.9 F 94 H 20 120/74 94 L 12/15/17 00:59 12/15/17 00:59 12/15/17 00:59 12/15/17 00:59 12/14/17 21:00 Active Medications Amiodarone HCl (Cordarone -) 200 mg PO BID [facility] Last Admin: 12/15/17 09:48 Dose: 200 mg Apixaban (Eliquis -) 5 mg PO BID [facility] Last Admin: 12/15/17 09:49 Dose: 5 mg Atorvastatin Calcium (Lipitor -) 20 mg PO HS [facility] Last Admin: 12/14/17 21:34 Dose: 20 mg Carbidopa/Levodopa (Sinemet 25/100 -) 1 each PO QID [facility] Last Admin: 12/15/17 09:48 Dose: 1 each Docusate Sodium (Colace -) 100 mg PO DAILY [facility] Last Admin: 12/15/17 09:48 Dose: 100 mg Furosemide (Lasix -) 40 mg PO DAILY [facility] Last Admin: 12/15/17 09:49 Dose: 40 mg Insulin Aspart (Novolog Vial Sliding Scale -) 1 vial SQ ACHS [facility]; Protocol Last Admin: 12/15/17 06:22 Dose: Not Given Lisinopril (Prinivil) 2.5 mg PO DAILY [facility] Last Admin: 12/15/17 09:49 Dose: 2.5 mg Metformin HCl (Glucophage Xr -) 500 mg PO BIDAC [facility] Last Admin: 12/15/17 09:49 Dose: 500 mg Metoprolol Succinate (Toprol Xl -) 50 mg PO BID [facility] Last Admin: 12/15/17 09:48 Dose: 50 mg Metoprolol Tartrate (Lopressor Injection -) 5 mg IVPUSH Q6H PRN PRN Reason: TACHYCARDIA Mirtazapine (Remeron -) 45 mg PO HS [facility] Last Admin: 12/14/17 21:34 Dose: 45 mg Spironolactone (Aldactone -) 25 mg PO DAILY [facility] Last Admin: 12/15/17 09:49 Dose: 25 mg Zolpidem Tartrate (Ambien -) 5 mg PO HS PRN PRN Reason: INSOMNIA Last Admin: 12/10/17 23:30 Dose: 5 mg Gen: NAD at rest Heart: irregular Lung: basilar rales Abd: soft, nontender Ext: Improving edema Laboratory Results - last 24 hr 12/14/17 12/14/17 12/14/17 05:30 05:30 05:30 WBC RBC Hgb Hct MCV MCH MCHC RDW Plt Count MPV Absolute Neuts (auto) Neutrophils % Lymphocytes % Monocytes % Eosinophils % Basophils % Nucleated RBC % Sodium Potassium Chloride Carbon Dioxide Anion Gap BUN Creatinine Creat Clearance w eGFR POC Glucometer Random Glucose Calcium Magnesium Cancelled Cancelled Iron 49 TIBC 310 Iron Saturation 16 Ferritin 209.1 Total Bilirubin AST ALT Alkaline Phosphatase Total Protein Albumin 12/14/17 12/14/17 12/15/17 18:44 21:12 06:18 WBC RBC Hgb Hct MCV MCH MCHC RDW Plt Count MPV Absolute Neuts (auto) Neutrophils % Lymphocytes % Monocytes % Eosinophils % Basophils % Nucleated RBC % Sodium Potassium Chloride Carbon Dioxide Anion Gap BUN Creatinine Creat Clearance w eGFR POC Glucometer 272 214 105 Random Glucose Calcium Magnesium Iron TIBC Iron Saturation Ferritin Total Bilirubin AST ALT Alkaline Phosphatase Total Protein Albumin 12/15/17 12/15/17 07:40 07:40 WBC 11.9 H RBC 4.17 Hgb 13.4 Hct 39.4 D MCV 94.5 MCH 32.1 MCHC 33.9 RDW 14.1 Plt Count 331 MPV 8.0 Absolute Neuts (auto) 8.8 Neutrophils % 74.4 Lymphocytes % 12.8 D Monocytes % 9.4 Eosinophils % 2.3 Basophils % 1.1 Nucleated RBC % 0 Sodium 145 Potassium 3.5 Chloride 105 Carbon Dioxide 29 Anion Gap 11 BUN 12 Creatinine 0.7 Creat Clearance w eGFR > 60 POC Glucometer Random Glucose 122 H Calcium 8.5 Magnesium Iron TIBC Iron Saturation Ferritin Total Bilirubin 0.4 AST 27 ALT 34 Alkaline Phosphatase 108 D Total Protein 5.1 L Albumin 2.4 L A/P Atrial Fibrillation with RVR Acute on Chronic Systolic/Diastolic Heart Failure UTI DM Parkinsons Disease Depression Cellulitis - rate control per Cardiology - Off ABX per ID - Anticoagulation - O2 to keep SpO2 >90% - Lasix - No Pulmonary contraindication for D/C Dr Calhoun
[2017-12-15] MEDS ORDERED: LISINOPRIL 5 MG TABLET (FP) PO ONE (12:50)
--- NOTE | 2017-12-15 13:16 | PN ---
Progress Note, Physician Chief Complaint: PT A&Ox3; OOB in chair. No chest pain, dyspnea. History of Present Illness: 77-year-old white female (b. Nellie), with h/o PD,depression, DM, CHF on lasix, afib on diltiazem, metoprolol, and eliquis, BIB for shortness of breath and worsening bilateral pedal edema over the pastdays per . Denies any chest pain, diaphoresis, palpitations, nausea, vomiting, cough, f/c. 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 Felton and PMD is Dr Kelley - Current Medication List Current Medications: Active Medications Amiodarone HCl (Cordarone -) 200 mg PO BID [facility] Last Admin: 12/15/17 09:48 Dose: 200 mg Apixaban (Eliquis -) 5 mg PO BID [facility] Last Admin: 12/15/17 09:49 Dose: 5 mg Atorvastatin Calcium (Lipitor -) 20 mg PO HS [facility] Last Admin: 12/14/17 21:34 Dose: 20 mg Carbidopa/Levodopa (Sinemet 25/100 -) 1 each PO QID [facility] Last Admin: 12/15/17 09:48 Dose: 1 each Docusate Sodium (Colace -) 100 mg PO DAILY [facility] Last Admin: 12/15/17 09:48 Dose: 100 mg Furosemide (Lasix -) 40 mg PO DAILY [facility] Last Admin: 12/15/17 09:49 Dose: 40 mg Insulin Aspart (Novolog Vial Sliding Scale -) 1 vial SQ [facility]; Protocol Last Admin: 12/15/17 12:52 Dose: Not Given Lisinopril (Prinivil) 2.5 mg PO DAILY [facility] Metformin HCl (Glucophage Xr -) 500 mg PO BIDAC [facility] Last Admin: 12/15/17 09:49 Dose: 500 mg Metoprolol Succinate (Toprol Xl -) 50 mg PO BID [facility] Last Admin: 12/15/17 09:48 Dose: 50 mg Metoprolol Tartrate (Lopressor Injection -) 5 mg IVPUSH Q6H PRN PRN Reason: TACHYCARDIA Mirtazapine (Remeron -) 45 mg PO HS [facility] Last Admin: 12/14/17 21:34 Dose: 45 mg Spironolactone (Aldactone -) 25 mg PO DAILY [facility] Last Admin: 12/15/17 09:49 Dose: 25 mg Zolpidem Tartrate (Ambien -) 5 mg PO HS PRN PRN Reason: INSOMNIA Last Admin: 12/10/17 23:30 Dose: 5 mg - Objective Vital Signs: Vital Signs Temperature 97.7 F 12/15/17 10:00 Pulse Rate 86 12/15/17 10:00 Respiratory Rate 22 12/15/17 10:00 Blood Pressure 108/75 12/15/17 10:00 O2 Sat by Pulse Oximetry (%) 95 12/15/17 10:00 Constitutional: Yes: No Distress Eyes: Yes: WNL HENT: Yes: WNL Neck: Yes: WNL Cardiovascular: Yes: Pulse Irregular, S1 (varies in intentisy) Respiratory: Yes: Regular Gastrointestinal: Yes: Soft ...Rectal Exam: Yes: Deferred Genitourinary: No: Anuria Breast(s): Yes: WNL Musculoskeletal: Yes: Muscle Weakness Extremities: Yes: Cool Edema: Yes Edema: RUE: Trace, LLE: 1+ Peripheral Pulses WNL: Yes Integumentary: Yes: Venous Stasis Changes Wound/Incision: Yes: Dressing Dry and Intact Neurological: Yes: Alert, Oriented, Weakness Psychiatric: Yes: WNL Labs: CBC, BMP 12/15/17 07:40 12/15/17 07:40 Abnormal Lab Results 12/15/17 12/15/17 07:40 07:40 WBC 11.9 H Random Glucose 122 H Total Protein 5.1 L Albumin 2.4 L - ....Imaging Chest X-ray: Image Reviewed (no significant CHF) Problem List - Problems (1) Acute on chronic systolic (congestive) heart failure Assessment/Plan: On metoprolol ER, lisinpril, spironolactone, and amiodarone.. 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 No JVD. LEs: mild edema RLE; LLE dressing dry. F/u BUN/Cr, electrolytes, daily weight, Is and Os. From cardiac standpoint, pt may be followed as an outpatient. Ideally, will be on maintenance of amiodarone of 100 mg a day after loading in completed; within a few months, will follow with Holter and/or long-term loop monitoring to aid in deciding if and when amiodarone can be stopped. Code(s): I50.23 - ACUTE ON CHRONIC SYSTOLIC (CONGESTIVE) HEART FAILURE (2) Edema Code(s): R60.9 - EDEMA, UNSPECIFIED Qualifiers: Edema type: unspecified Qualified Code(s): R60.9 - Edema, unspecified (3) Atrial fibrillation with rapid ventricular response Assessment/Plan: On amiodarone PO 200 bid; eventually, pt should be on 100 mg daily. On apixaban for anticoagulation. If BP remains stable, would gradually increae dose of metoprolol ER, with intent of discontinuing amiodarone in the months ahead in order to minimize risk of side effects. However, she should be sent home on both agents, with careful serial review of HR in the next several months. (See under "CHF"). Code(s): I48.91 - UNSPECIFIED ATRIAL FIBRILLATION (4) HTN (hypertension) Code(s): I10 - ESSENTIAL (PRIMARY) HYPERTENSION (5) Hyperlipidemia Code(s): E78.5 - HYPERLIPIDEMIA, UNSPECIFIED (6) Parkinson disease Code(s): G20 - PARKINSON'S DISEASE (7) Skin infection Code(s): L08.9 - LOCAL INFECTION OF THE SKIN AND SUBCUTANEOUS TISSUE, UNSP
[2017-12-15 15:18] VITALS: BP 114/74; PULSE 105; TEMP 98.5
[2017-12-16 02:25] VITALS: BMI 25.5
[2017-12-16] MEDS ORDERED: LISINOPRIL 5 MG TABLET (FP) PO SCH ×2 (10:00)
== END 2017-12-15 15:20 | disposition home health service (06) | DRG 308 ==
LOC: JER 13:50 → JERBED 14:38 → JICU 12-05 08:05 → J4W 12-10 13:30
PROVIDERS: ADMIT Internal Medicine Hematology & Oncology; ATTEND Internal Medicine Hematology & Oncology
DX: I48.91 Unspecified atrial fibrillation (principal); I50.23 Acute on chronic systolic (congestive) heart failure; N39.0 Urinary tract infection, site not specified; L03.116 Cellulitis of left lower limb; T82.7XXA Infection and inflammatory reaction due to other cardiac and vascular devices, implants and grafts, initial encounter; J98.11 Atelectasis; I10 Essential (primary) hypertension; G20 Parkinson's disease; E11.9 Type 2 diabetes mellitus without complications; F32.9 Major depressive disorder, single episode, unspecified; I45.10 Unspecified right bundle-branch block; Z91.14 Patient's other noncompliance with medication regimen; I27.20 Pulmonary hypertension, unspecified; K59.09 Other constipation; M54.5 Low back pain; M19.90 Unspecified osteoarthritis, unspecified site; E11.65 Type 2 diabetes mellitus with hyperglycemia; G47.00 Insomnia, unspecified; I08.1 Rheumatic disorders of both mitral and tricuspid valves; I11.0 Hypertensive heart disease with heart failure; L08.9 Local infection of the skin and subcutaneous tissue, unspecified; E78.5 Hyperlipidemia, unspecified; I80.8 Phlebitis and thrombophlebitis of other sites; Y83.9 Surgical procedure, unspecified as the cause of abnormal reaction of the patient, or of later complication, without mention of misadventure at the time of the procedure; E87.6 Hypokalemia; R74.8 Abnormal levels of other serum enzymes; R60.9 Edema, unspecified
CPT/HCPCS: 36415; 71045-TC-FY; 71046-TC-FY; 76705-TC; 80048; 80053; 80061; 80162; 81003; 81015; 82550; 82728; 82947; 82962; 83036; 83540; 83550; 83721; 83735; 83880; 84100; 84443; 84484; 85025; 85027; 87040; 87086; 93005; 93010; 93306-TC; 93971-TC; 99285-25; G0480; J0282

== ENCOUNTER 2018-11-06 12:33 | Inpatient (IN) | payer OTHER, MEDICARE ==
[2018-11-06] MEDS ORDERED: dilTIAZem HCL 50 MG/10 ML - 10 ML VIAL ONE (13:09)
[2018-11-06] MEDS ORDERED: SODIUM CHLORIDE 0.9% 500 ML INFUS.BAG IV ONE (13:14)
[2018-11-06] MEDS ORDERED: ASPIRIN 81 MG CHEWABLE TABLETS ONE (13:21)
[2018-11-06] MEDS ORDERED: AMIODARONE HCL 150 MG/3 ML VIAL IVPUSH ONE (13:24)
--- NOTE | 2018-11-06 13:24 | PDOC ---
History of Present Illness - General Chief Complaint: Irregular Heart Beat Stated Complaint: SENT BY PCP HIGH HEART RATE - History of Present Illness Initial Comments: The pt 78F w/ a history of a-fib, HTN, HLD who presents for evaluation of palpitations since 0800 today with chest pressure. She endorses associated lightheadedness. She denies chest pain, SOB, LOC. Reports being here in 12/2017 for similar symptoms. Seen by Dr. Kelley who sent her in today for evaluation as she was tachycardic during her office visit today. She denies recent fevers/chills, WEST, vision changes, abdominal pain, N/V/C/D, dysuria, hematuria, or blood in her stool. 11/06/18 13:24 Past History - Past Medical History Allergies/Adverse Reactions: Allergies Allergy/AdvReac Type Severity Reaction Status Date / Time No Known Drug Allergies Allergy Verified 11/06/18 12:40 Home Medications: Ambulatory Orders Atorvastatin Ca [Lipitor] 10 mg PO HS 11/02/11 Carbidopa/Levodopa [Carbidopa-Levo ER 50-200 Tab] 1 each PO QID 02/24/17 Potassium Chloride [K-Dur -] 20 meq PO DAILY #90 tablet.er 05/08/17 Metoprolol Succinate 25 mg PO BID 12/04/17 metFORMIN XR [Glucophage Xr -] 500 mg PO BID 12/04/17 Apixaban [Eliquis -] 5 mg PO BID tablet 12/15/17 Furosemide [Lasix -] 40 mg PO DAILY tablet 12/15/17 Mirtazapine [Remeron -] 45 mg PO HS tablet 12/15/17 Anemia: No Asthma: No Cancer: No Cardiac Disorders: Yes (A Fib) CVA: No COPD: No CHF: No DVT: No Dementia: No Diabetes: Yes GI Disorders: No Disorders: No HTN: Yes Hypercholesterolemia: No Liver Disease: No Seizures: No Thyroid Disease: No - Surgical History Abdominal Surgery: No Appendectomy: No Cardiac Surgery: No Cholecystectomy: No Lung Surgery: No Neurologic Surgery: Yes (BRAIN TUMOR REMOVED 2008) Orthopedic Surgery: No - Suicide/Smoking/Psychosocial Hx Smoking History: Never smoked Have you smoked in the past 12 months: No Hx Alcohol Use: No Drug/Substance Use Hx: No Substance Use Type: None Hx Substance Use Treatment: No Review of Systems - Review of Systems Able to Perform ROS?: Yes Comments:: GENERAL/CONSTITUTIONAL: No fever or chills. No weakness HEAD, EYES, EARS, NOSE AND THROAT: No change in vision. No ear pain or discharge. No sore throat CARDIOVASCULAR: +palpitations; No chest pain or shortness of breath RESPIRATORY: Denies cough, hemoptysis GASTROINTESTINAL: No nausea, vomiting, diarrhea or constipation GENITOURINARY: No dysuria, frequency, or change in urination MUSCULOSKELETAL: No joint or muscle swelling or pain. No neck or back pain SKIN: No rash NEUROLOGIC: No headache, vertigo, loss of consciousness, or change in strength/ sensation ENDOCRINE: No increased thirst. No abnormal weight change HEMATOLOGIC/LYMPHATIC: No anemia, easy bleeding, or history of blood clots ALLERGIC/IMMUNOLOGIC: No hives or skin allergy 11/07/18 19:59 Is the patient limited Indonesian proficient: No *Physical Exam - Vital Signs Last Vital Signs Temp Pulse Resp BP Pulse Ox 98.3 F 168 H 20 146/106 H 97 11/06/18 12:36 11/06/18 12:36 11/06/18 12:36 11/06/18 12:36 11/06/18 12:36 - Physical Exam Comments: GENERAL: Awake, alert, and oriented to person/place/time, in no acute distress HEAD: No signs of trauma, normocephalic, atraumatic EYES: PERRLA, EOMI, sclera anicteric, conjunctiva clear ENT: Hearing grossly normal, nares patent, oropharynx clear without exudates. Moist mucosa LUNGS: No distress, speaks in full sentences, clear to auscultation bilaterally HEART: Tachycardic rate, normal S1 and S2, no murmurs appreciated, peripheral pulses normal and equal bilaterally ABDOMEN: Soft, nontender, normoactive bowel sounds. No guarding, no rebound EXTREMITIES: Normal inspection, Normal range of motion, no edema. No clubbing or cyanosis NEUROLOGICAL: Cranial nerves II through XII grossly intact. Normal speech, no focal sensorimotor deficits SKIN: Warm, Dry 11/07/18 19:59 ED Treatment Course - LABORATORY CBC & Chemistry Diagram: 11/07/18 05:57 11/07/18 05:57 - RADIOLOGY Radiology Studies Ordered: Category Date Time Status CHEST X-RAY PORTABLE* [RAD] Stat Radiology 11/06/18 13:14 Ordered Medical Decision Making - Medical Decision Making The pt is a 78F w/ a history of a-fib, HTN, HLD who presents for evaluation of palpitations and was found to be in a-fib w/ RVR Pt was given Diltiazem 10mg IVP x2 w/o resolution of tachycardia Pt was given Amiodarone in the past w/ successful treatment Amiodarone 150 IVP given followed by Amiodarone 150mg bolus Amiodarone gtt initiated Pt HR improved to 100s from 160s w/ stable BP Dr. Nix consulted -Recommends continuing Amio gtt and for Amio PO QID ECG notable for a-fib w/ RVR CXR w/o acute pathology Lytes unremarkable LFTs unremarkable BNP elevated to 1269 Trop I neg No BRIDGETT LFTs unremarkable No leukocytosis No anemia Will admit to Tele Pt singed out to admitting team *DC/Admit/Observation/Transfer Diagnosis at time of Disposition: Atrial fibrillation with rapid ventricular response - Discharge Dispostion Condition at time of disposition: Fair Decision to Admit order: Yes - Referrals - Patient Instructions - Post Discharge Activity
[2018-11-06] MEDS ORDERED: AMIODARONE HCL 150 MG/3 ML VIAL ONE ×2 (13:26→14:09)
[2018-11-06] MEDS ORDERED: dilTIAZem HCL 50 MG/10 ML - 10 ML VIAL IVPUSH ONE ×2 (13:26→13:27)
[2018-11-06 13:32] LABS: BASO % 0.7 % (0-2.0); EOS % 0.4 % (0-4.5); HEMATOCRIT 44.5 % (32.4-45.2); HEMOGLOBIN 14.9 GM/dL (10.7-15.3); LYMPH % 17.2 % (8-40); MCH 31.8 pg (25.7-33.7); MCHC 33.4 g/dl (32.0-36.0); MEAN CELL VOLUME 95.3 fl (80-96); MEAN PLT VOLUME 9.2 fl (7.5-11.1); MONO % 8.2 % (3.8-10.2); NEUT % 73.5 % (42.8-82.8); PLATELET COUNT 390 K/MM3 (134-434); RBC 4.67 M/mm3 (3.60-5.2); RDW 13.5 % (11.6-15.6)
[2018-11-06 13:40] LABS: INR 2.19 (0.83-1.09)
[2018-11-06 13:43] LABS: ACTIVATED PTT 33.8 SECONDS (25.2-36.5)
[2018-11-06] MEDS ORDERED: AMIODARONE IN DEXTROSE,ISO-OSM 360 MG/200 ML BAG IVPB ONE ×2 (13:45→15:33)
[2018-11-06] MEDS ORDERED: AMIODARONE IN DEXTROSE,ISO-OSM 150 MG/100 ML BAG IVPB ONE (13:45)
[2018-11-06] MEDS ORDERED: AMIODARONE IN DEXTROSE,ISO-OSM 360 MG/200 ML BAG IVPB SCH ×2 (13:45→20:30)
--- NOTE | 2018-11-06 13:48 | CON.CARD ---
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 Cardio/Vascular: Yes: AFIB, CHF, HTN, Hyperlipdemia, Pulmonary Hypertension Gastrointestinal: Yes: Constipation Renal/: Yes: Renal Inusuff Psych: Yes: Depression Musculoskeletal: Yes: Chronic low back pain, Osteoarthritis Endocrine: Yes: Diabetes Mellitus Dermatology: Yes: Squamous Cell - Past Surgical History Past Surgical History: Yes: Colonoscopy, Hysterectomy, Upper Endoscopy - Alcohol/Substance Use Hx Alcohol Use: No History of Substance Use: reports: None - Smoking History Smoking history: Never smoked Have you smoked in the past 12 months: No - Social History Usual Living Arrangement: With Spouse History of Recent Travel: No Home Medications - Allergies Allergies/Adverse Reactions: Allergies Allergy/AdvReac Type Severity Reaction Status Date / Time No Known Drug Allergies Allergy Verified 11/06/18 12:40 - Home Medications Home Medications: Ambulatory Orders Atorvastatin Ca [Lipitor] 10 mg PO HS 11/02/11 Carbidopa/Levodopa [Carbidopa-Levo ER 50-200 Tab] 1 each PO QID 02/24/17 Potassium Chloride [K-Dur -] 20 meq PO DAILY #90 tablet.er 05/08/17 Metoprolol Succinate 25 mg PO BID 12/04/17 metFORMIN XR [Glucophage Xr -] 500 mg PO BID 12/04/17 Apixaban [Eliquis -] 5 mg PO BID tablet 12/15/17 Furosemide [Lasix -] 40 mg PO DAILY tablet 12/15/17 Mirtazapine [Remeron -] 45 mg PO HS tablet 12/15/17 Family Disease History - Family Disease History Family Disease History: CA: Daughter (b reast) Review of Systems - Review of Systems Constitutional: reports: No Symptoms Eyes: reports: No Symptoms HENT: reports: No Symptoms Neck: reports: No Symptoms Cardiovascular: reports: Palpitations Gastrointestinal: reports: No Symptoms Genitourinary: reports: No Symptoms Breasts: reports: No Symptoms Reported Musculoskeletal: reports: No Symptoms Integumentary: reports: No Symptoms Neurological: reports: No Symptoms Endocrine: reports: No Symptoms Hematology/Lymphatic: reports: No Symptoms Psychiatric: reports: No Symptoms Vital Signs: Vital Signs Temperature 98.3 F 11/06/18 12:36 Pulse Rate 168 H 11/06/18 12:36 Respiratory Rate 20 11/06/18 12:36 Blood Pressure 146/106 H 11/06/18 12:36 O2 Sat by Pulse Oximetry (%) 97 11/06/18 12:36 Constitutional: Yes: Well Nourished, No Distress, Calm Eyes: Yes: WNL, Conjunctiva Clear, EOM Intact HENT: Yes: WNL, Atraumatic, Normocephalic Neck: Yes: WNL, Supple, Trachea Midline Respiratory: Yes: WNL, Regular, CTA Bilaterally Gastrointestinal: Yes: WNL, Normal Bowel Sounds Renal/: Yes: WNL Cardiovascular: Yes: Pulse Irregular Heart Sounds: Yes: S1, S2 Musculoskeletal: Yes: WNL Extremities: Yes: WNL Integumentary: Yes: WNL Neurological: Yes: WNL, Alert, Oriented ...Motor Strength: WNL Psychiatric: Yes: WNL, Alert, Oriented - Other Data Labs, Other Data: CBC, BMP 11/06/18 13:15 INR, PTT INR 2.19 (0.83-1.09) H 11/06/18 13:15 Laboratory Tests 11/06/18 11/06/18 11/06/18 13:15 13:15 13:15 WBC 13.0 H RBC 4.67 Hgb 14.9 Hct 44.5 MCV 95.3 MCH 31.8 MCHC 33.4 RDW 13.5 Plt Count 390 MPV 9.2 D Absolute Neuts (auto) 9.5 H Neutrophils % 73.5 Lymphocytes % 17.2 D Monocytes % 8.2 Eosinophils % 0.4 D Basophils % 0.7 Nucleated RBC % 0 PT with INR INR PTT (Actin FS) Sodium 135 L Potassium 3.9 Chloride 105 Carbon Dioxide 20 L Anion Gap 11 BUN 35.7 H Creatinine 0.8 Est GFR (CKD-EPI)AfAm 81.84 Est GFR (CKD-EPI)NonAf 70.61 Random Glucose 168 H Calcium 8.8 Total Bilirubin 0.5 AST 56 H ALT 46 Alkaline Phosphatase 125 H Creatine Kinase Cancelled Troponin I Cancelled Total Protein 6.2 L Albumin 3.4 11/06/18 13:15 WBC RBC Hgb Hct MCV MCH MCHC RDW Plt Count MPV Absolute Neuts (auto) Neutrophils % Lymphocytes % Monocytes % Eosinophils % Basophils % Nucleated RBC % PT with INR 26.00 H INR 2.19 H PTT (Actin FS) 33.8 Sodium Potassium Chloride Carbon Dioxide Anion Gap BUN Creatinine Est GFR (CKD-EPI)AfAm Est GFR (CKD-EPI)NonAf Random Glucose Calcium Total Bilirubin AST ALT Alkaline Phosphatase Creatine Kinase Troponin I Total Protein Albumin Imaging - Results Chest X-ray: Pending EKG: Pending Problem List - Problems (1) Abdominal pain Code(s): R10.9 - UNSPECIFIED ABDOMINAL PAIN (2) Acute on chronic systolic (congestive) heart failure Code(s): I50.23 - ACUTE ON CHRONIC SYSTOLIC (CONGESTIVE) HEART FAILURE (3) Afib Code(s): I48.91 - UNSPECIFIED ATRIAL FIBRILLATION Qualifiers: Atrial fibrillation type: unspecified Qualified Code(s): I48.91 - Unspecified atrial fibrillation (4) Anterior epistaxis Code(s): R04.0 - EPISTAXIS (5) Atrial fibrillation with rapid ventricular response Code(s): I48.91 - UNSPECIFIED ATRIAL FIBRILLATION (6) CHF (congestive heart failure) Code(s): I50.9 - HEART FAILURE, UNSPECIFIED Qualifiers: Heart failure type: combined systolic and diastolic Heart failure chronicity: acute on chronic Qualified Code(s): I50.43 - Acute on chronic combined systolic (congestive) and diastolic (congestive) heart failure (7) Cellulitis Code(s): L03.90 - CELLULITIS, UNSPECIFIED Qualifiers: Site of cellulitis: extremity Laterality: left (8) Depressed affect Code(s): R45.89 - OTHER SYMPTOMS AND SIGNS INVOLVING EMOTIONAL STATE (9) Diabetes Code(s): E11.9 - TYPE 2 DIABETES MELLITUS WITHOUT COMPLICATIONS Qualifiers: Diabetes mellitus type: type 2 Diabetes mellitus complication status: without complication (10) Diabetes Code(s): E11.9 - TYPE 2 DIABETES MELLITUS WITHOUT COMPLICATIONS (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, managed as type 1 Code(s): E10.9 - TYPE 1 DIABETES MELLITUS WITHOUT COMPLICATIONS (12) Diabetes 1.5, managed as type 2 Code(s): E13.9 - OTHER SPECIFIED DIABETES MELLITUS WITHOUT COMPLICATIONS (13) Dyspepsia Code(s): R10.13 - EPIGASTRIC PAIN (14) Edema Code(s): R60.9 - EDEMA, UNSPECIFIED Qualifiers: Edema type: unspecified Qualified Code(s): R60.9 - Edema, unspecified (15) Elevated LFTs Code(s): R79.89 - OTHER SPECIFIED ABNORMAL FINDINGS OF BLOOD CHEMISTRY (16) HTN (hypertension) Code(s): I10 - ESSENTIAL (PRIMARY) HYPERTENSION (17) Hyperlipidemia Code(s): E78.5 - HYPERLIPIDEMIA, UNSPECIFIED (18) IBS (irritable bowel syndrome) Code(s): K58.9 - IRRITABLE BOWEL SYNDROME WITHOUT DIARRHEA (19) Insomnia Code(s): G47.00 - INSOMNIA, UNSPECIFIED (20) Leukocytosis Code(s): D72.829 - ELEVATED WHITE BLOOD CELL COUNT, UNSPECIFIED (21) Parkinson disease Code(s): G20 - PARKINSON'S DISEASE (22) Paroxysmal atrial fibrillation Code(s): I48.0 - PAROXYSMAL ATRIAL FIBRILLATION (23) Sepsis Code(s): A41.9 - SEPSIS, UNSPECIFIED ORGANISM (24) Skin infection Code(s): L08.9 - LOCAL INFECTION OF THE SKIN AND SUBCUTANEOUS TISSUE, UNSP Assessment/Plan AF rvr Parkinson's disease HTN hyperlipidemia chronic constipation anxiety/depression cghf reduced EF Plan cont ac rate controlled with metoprolol and amiodarone, IV and PO loading no cardizem due to reduced EF, Did not tolerated higher dose of metoprolol due to hypotension. cc time spent 70 min
[2018-11-06 13:56] LABS: ALBUMIN 3.4 g/dl (3.4-5.0); BILIRUBIN,TOTAL 0.5 mg/dL (0.2-1); BLOOD UREA NITROGEN 35.7 mg/dL (7-18); CALCIUM 8.8 mg/dL (8.5-10.1); CREATININE 0.8 mg/dL (0.55-1.3); POTASSIUM 3.9 mmol/L (3.5-5.1); TOT PROT 6.2 g/dl (6.4-8.2)
--- NOTE | 2018-11-06 14:01 | PDOC ---
Documentation entered by Mona Guajardo SCRIBE, acting as scribe for Jeanine Abraham MD. Jeanine Abraham MD: This documentation has been prepared by the Bennett pittman Adrianna, SCRIBE, under my direction and personally reviewed by me in its entirety. I confirm that the documentation accurately reflects all work, treatment, procedures, and medical decision making performed by me. Attending Attestation - Resident Resident Name: Edwin Grimm - ED Attending Attestation I have performed the following: I have examined & evaluated the patient, The case was reviewed & discussed with the resident, I agree w/resident's findings & plan, Exceptions are as noted - HPI HPI: 78 yo F history DM, parkinson's, HTN, afib, CHF presents with palpitations associated with chest pressure. Sent by PMD for palpitations, found to have afib with RVR. Case was discussed with patient's husbandry person prior to arrival, as she required amiodarone on prior admissions. - Physicial Exam PE: GENERAL: Awake, alert, and fully oriented, in no acute distress HEAD: No signs of trauma EYES: PERRLA, EOMI, sclera anicteric, conjunctiva clear ENT: Auricles normal inspection, hearing grossly normal, nares patent, oropharynx clear without exudates. Moist mucosa NECK: Normal ROM, supple, no lymphadenopathy, JVD, or masses LUNGS: Breath sounds equal, clear to auscultation bilaterally. No wheezes, and no crackles HEART: Tachycardic, irregularly irregular. Normal S1 and S2, no murmurs, rubs or gallops ABDOMEN: Soft, nontender, normoactive bowel sounds. No guarding, no rebound. No masses EXTREMITIES: Normal range of motion, 2+ pitting edema to mid-perez B/L. No clubbing or cyanosis. No cords, erythema, or tenderness NEUROLOGICAL: Cranial nerves II through XII grossly intact. Normal speech. Motor and sensation intact SKIN: Warm, Dry, normal turgor, no rashes or lesions noted. - Medical Decision Making 11/06/18 13:59 Pt presents with afib with RVR, not responding to cardizem. Will give amio as per Dr. Nix, admit.
[2018-11-06] MEDS ORDERED: AMIODARONE IN DEXTROSE,ISO-OSM 360 MG/200 ML BAG ONE (14:09)
[2018-11-06 14:36] LABS: ALBUMIN 3.3 g/dl (3.4-5.0); ALK PHOS 124 U/L (45-117); ANION GAP 13 MMOL/L (8-16); BILIRUBIN,TOTAL 0.6 mg/dL (0.2-1); CALCIUM 8.8 mg/dL (8.5-10.1); CHLORIDE 107 mmol/L (98-107); CO2 19 mmol/L (21-32); CREATININE 0.8 mg/dL (0.55-1.3); GLUCOSE,RANDOM 168 mg/dL (74-106); N-TERMINAL BNP 1269.2 pg/ml (5-450); POTASSIUM 4.3 mmol/L (3.5-5.1); SGOT/AST 66 U/L (15-37); SGPT/ALT 57 U/L (13-61); SODIUM 139 mmol/L (136-145); TOT PROT 6.1 g/dl (6.4-8.2)
[2018-11-06] MEDS ORDERED: LORazepam 2 MG/ML SDV VIAL ONE (15:03)
[2018-11-06] MEDS ORDERED: AMIODARONE HCL 200 MG TABLET (FP) PO ONE (15:12)
[2018-11-06] MEDS ORDERED: AMIODARONE HCL 200 MG TABLET (FP) ONE (15:26)
[2018-11-06] MEDS: AMIODARONE IN DEXTROSE,ISO-OSM 360 MG/200 ML BAG IVPB SCH ×2 (15:46→17:46)
--- NOTE | 2018-11-06 17:42 | HP ---
Admitting History and Physical - Primary Care Physician PCP: Kale Betts - Admission Chief Complaint: weakness History of Present Illness: 78 yo F history DM, parkinson's, HTN, afib, CHF depression who was sent to ER by PCP (Dr Kelley) after found being in ATF w/ RVR (over 150/min) on today's office visit. She also had chest discomfort as well and felt weak. She'd been feeling weaker than usual for the past 2 weeks or so. She claims to be taking all her meds as Rx'd. She's been in rapid ATF in the past and had been TX'd with Amiodoarone but was weaned off it in favor of the BB. She was not able to tolerate the CCB due to low BP. She is followed by Neurology (for PD ) and cardiology (ashd). She denies abd pains, n-v, sweats, rashes. 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 Cardiovascular: Yes: AFIB, CHF, HTN, Hyperlipdemia, Pulmonary Hypertension Gastrointestinal: Yes: Constipation Renal/: Yes: Renal Inusuff ...: No Heme/Onc: Yes: Other (squamous cell carcinoma resected from skin of leg) Psych: Yes: Depression Musculoskeletal: Yes: Chronic low back pain, Osteoarthritis Endocrine: Yes: Diabetes Mellitus Dermatology: Yes: Squamous Cell - Past Surgical History Past Surgical History: Yes: Colonoscopy, Hysterectomy, Upper Endoscopy - Smoking History Smoking history: Never smoked Have you smoked in the past 12 months: No - Alcohol/Substance Use Hx Alcohol Use: No History of Substance Use: reports: None - Social History Usual Living Arrangement: Yes: With Spouse ADL: Family Assistance 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 History of Recent Travel: No Home Medications - Allergies Allergies/Adverse Reactions: Allergies Allergy/AdvReac Type Severity Reaction Status Date / Time No Known Drug Allergies Allergy Verified 11/06/18 12:40 - Home Medications Home Medications: Ambulatory Orders Atorvastatin Ca [Lipitor] 10 mg PO HS 11/02/11 Carbidopa/Levodopa [Carbidopa-Levo ER 50-200 Tab] 1 each PO QID 02/24/17 Potassium Chloride [K-Dur -] 20 meq PO DAILY #90 tablet.er 05/08/17 Metoprolol Succinate 25 mg PO BID 12/04/17 metFORMIN XR [Glucophage Xr -] 500 mg PO BID 12/04/17 Apixaban [Eliquis -] 5 mg PO BID tablet 12/15/17 Furosemide [Lasix -] 40 mg PO DAILY tablet 12/15/17 Mirtazapine [Remeron -] 45 mg PO HS tablet 12/15/17 Family Disease History - Family Disease History Family History: Unremarkable Family Disease History: CA: Daughter (b reast) Review of Systems - Review of Systems Constitutional: reports: Weakness Eyes: reports: No Symptoms HENT: reports: No Symptoms Neck: reports: No Symptoms Cardiovascular: reports: Palpitations, Shortness of Breath Respiratory: reports: SOB on Exertion Gastrointestinal: reports: No Symptoms Genitourinary: reports: No Symptoms Breasts: reports: No Symptoms Reported Musculoskeletal: reports: No Symptoms, Decreased ROM Integumentary: reports: No Symptoms Neurological: reports: Incoordination, Pre-Existing Deficit, Unsteady Gait, Weakness Endocrine: reports: No Symptoms Hematology/Lymphatic: reports: No Symptoms Psychiatric: reports: Altered Sleep Pattern, Depression Physical Examination Vital Signs: Vital Signs Temperature 98.3 F 11/06/18 12:36 Pulse Rate 117 H 11/06/18 17:28 Respiratory Rate 18 11/06/18 17:28 Blood Pressure 115/87 11/06/18 17:28 O2 Sat by Pulse Oximetry (%) 97 11/06/18 17:28 Findings/Remarks: skin--NL color eyes--EOMI; anicteric oral--no appreciable lesions neck--no masses appreciated lungs--bilat equal but dimnished heart--distant; irreg breasts-(by PCP) abd--obese; soft, BS+, NT, ND ext--bilat pedal edema 2/3 up legs; no pain on ROM neuro--flat affect; voice hypophonic; no resting tremors; follows commands; moves all E's Labs: CBC, BMP 11/06/18 13:15 11/06/18 13:50 Imaging - Results Chest X-ray: Report Reviewed EKG: Report Reviewed Assessment/Plan SUMMARY 1. Rapid ATF---over 150/min; ATF not new; previously required Amiodarone (which she has been given now as well) as it did not respond to BB. TSH okay PLAN: Cont Amio.& A/c 2. Hypertensive heart DZ---BNP high; with evidence of volume overload (has been on Diuretic) which could be due to ATF w/ RVR PLAN: Diuresis; Bring Hr under control; needs echo 3 Azotemia--onset?; CRI or could be 2nd renal hypoperfusion from the rapid ATF: Check daily 4. DM---T2; will check BGM and place on low chantale diet; check A1c 5. PD--on sinemet; under Neuro care; will get consult to re-eval PD regimen 6. Elevated LFts--mild; no Hx of liver dz; could be 2nd use of Statin and/or chronic passive congestion of liver but will get abd US 7. Lipidemia--will cont statin; and check profile 8. Chronic depression---had been Tx with various agents (TCA; SSRI, Benzodiaz) now on Mirtazapine & Prn Valium ~~~~~~~~~~~~~~~~~~~~~~~~~~~~~~~~~~~~~~~ Dr Betts
--- NOTE | 2018-11-06 17:51 | CONSULT ---
Consultation: REQUESTING PROVIDER: Dr. Nix CONSULT REQUEST: We have been asked to medically evaluate this patient for Atrial fibrillation with RVR HISTORY OF PRESENT ILLNESS: This is a pleasant 78 year old female with a history of non-insulin dependent diabetes mellitus, congestive heart failure, diabetes mellitus, hypertension, parkinson's disease was sent in from Dr. Kelley's office for atrial fibrillation with rapid ventricular response. Patient reports she has recently has been experiencing palpitations on and off for a couple of weeks, reporting associated substernal chest discomfort and shortness of breath. She has noticed that over the last couple of weeks, her legs have become more swollen and she needs to sleep propped up on 1-2 pillows to prevent her from being short of breath. Reports not being able to walk as far as she used to because now she gets more short of breath. 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 Patient has been compliant with all her medications. She is unsure when she had her last echocardiogram. Denies any abdominal pain, recent illness or recent travel. She is a non-smoker, non-drinker. Currently states she feels slightly better than when she first came in, but does endorse mild shortness of breath. REVIEW OF SYSTEMS: CONSTITUTIONAL: Absent: fever, chills, diaphoresis, generalized weakness, malaise, loss of appetite, weight change HEENT: Absent: rhinorrhea, nasal congestion, throat pain, throat swelling, difficulty swallowing, mouth swelling, ear pain, eye pain, visual changes CARDIOVASCULAR: irregular heart rate, peripheral edema Absent: chest pain, syncope, palpitations,lightheadedness, RESPIRATORY: cough, shortness of breath,dyspnea with exertion, orthopnea Absent: wheezing, stridor, hemoptysis GASTROINTESTINAL: Absent: abdominal pain, abdominal distension, nausea, vomiting, diarrhea, constipation, melena, hematochezia GENITOURINARY: Absent: dysuria, frequency, urgency, hesitancy, hematuria, flank pain, genital pain MUSCULOSKELETAL: Absent: myalgia, arthralgia, joint swelling, back pain, neck pain SKIN: Absent: rash, itching, pallor HEMATOLOGIC/IMMUNOLOGIC: Absent: easy bleeding, easy bruising, lymphadenopathy, frequent infections ENDOCRINE: Absent: unexplained weight gain, unexplained weight loss, heat intolerance, cold intolerance NEUROLOGIC: Absent: headache, focal weakness or paresthesias, dizziness, unsteady gait, seizure, mental status changes, bladder or bowel incontinence PSYCHIATRIC: Absent: anxiety, depression, suicidal or homicidal ideation, hallucinations. PHYSICAL EXAMINATION Vital Signs - 24 hr 11/06/18 11/06/18 11/06/18 12:36 13:40 13:48 Temperature 98.3 F Pulse Rate 168 H Pulse Rate [ 126 H Left] Respiratory 20 18 Rate Blood Pressure 146/106 H Blood Pressure 113/95 104/71 [Left Arm] O2 Sat by Pulse 97 94 L Oximetry (%) 11/06/18 11/06/18 11/06/18 14:18 14:44 15:51 Temperature Pulse Rate Pulse Rate [ 137 H 112 H 115 H Left] Respiratory 19 Rate Blood Pressure Blood Pressure 99/72 91/65 [Left Arm] O2 Sat by Pulse 100 Oximetry (%) 11/06/18 11/06/18 16:41 17:28 Temperature Pulse Rate Pulse Rate [ 118 H 117 H Left] Respiratory 18 18 Rate Blood Pressure Blood Pressure 103/81 115/87 [Left Arm] O2 Sat by Pulse 98 97 Oximetry (%) GENERAL: A&Ox3, no acute distress EYES: PERRLA, EOMI ENT: Dry mucus membranes NECK: No JVD LUNGS: bilateral diffuse rhales noted, no wheezing HEART: tachycardic and irregular, no murmurs ABDOMEN: Soft, nontender, BS present MUSCULOSKELETAL: No CVA Tenderness EXTREMITIES: 2+ pulses, 2+ pitting edema in the extremities bilaterally NEUROLOGICAL: Cranial nerves II-XII intact. Laboratory Results - last 24 hr 11/06/18 11/06/18 11/06/18 13:15 13:15 13:15 WBC 13.0 H RBC 4.67 Hgb 14.9 Hct 44.5 MCV 95.3 MCH 31.8 MCHC 33.4 RDW 13.5 Plt Count 390 MPV 9.2 D Absolute Neuts (auto) 9.5 H Neutrophils % 73.5 Lymphocytes % 17.2 D Monocytes % 8.2 Eosinophils % 0.4 D Basophils % 0.7 Nucleated RBC % 0 PT with INR INR PTT (Actin FS) Sodium 135 L Potassium 3.9 Chloride 105 Carbon Dioxide 20 L Anion Gap 11 BUN 35.7 H Creatinine 0.8 Est GFR (CKD-EPI)AfAm 81.84 Est GFR (CKD-EPI)NonAf 70.61 POC Glucometer Random Glucose 168 H Calcium 8.8 Total Bilirubin 0.5 AST 56 H ALT 46 Alkaline Phosphatase 125 H Creatine Kinase Cancelled Troponin I Cancelled B-Natriuretic Peptide Total Protein 6.2 L Albumin 3.4 TSH 11/06/18 11/06/18 11/06/18 13:15 13:50 17:34 WBC RBC Hgb Hct MCV MCH MCHC RDW Plt Count MPV Absolute Neuts (auto) Neutrophils % Lymphocytes % Monocytes % Eosinophils % Basophils % Nucleated RBC % PT with INR 26.00 H INR 2.19 H PTT (Actin FS) 33.8 Sodium 139 Potassium 4.3 Chloride 107 Carbon Dioxide 19 L Anion Gap 13 BUN 37.0 H Creatinine 0.8 Est GFR (CKD-EPI)AfAm 81.84 Est GFR (CKD-EPI)NonAf 70.61 POC Glucometer 223 Random Glucose 168 H Calcium 8.8 Total Bilirubin 0.6 AST 66 H ALT 57 Alkaline Phosphatase 124 H Creatine Kinase 88 Troponin I < 0.02 B-Natriuretic Peptide 1269.2 H Total Protein 6.1 L Albumin 3.3 L TSH 1.90 Active Medications Generic Name Dose Route Start Last Admin Trade Name Freq PRN Reason Stop Dose Admin Apixaban 5 mg 11/06/18 22:00 Eliquis - PO BID PALMER Atorvastatin Calcium 10 mg 11/06/18 22:00 Lipitor - PO HS PALMER Carbidopa/Levodopa 1 combo 11/06/18 18:00 Sinemet *Cr* 50/200 - PO QID PALMER Chlorhexidine Gluconate 1 applic 11/06/18 22:00 Hibiclens For Decolonization - TP HS [facility] Furosemide 40 mg 11/06/18 17:15 Lasix Injection - IVPUSH DAILY PALMER Amiodarone HCl/Dextrose 360 mg in 200 mls @ 16.667 mls/hr 11/06/18 13:45 05/27 14:44 Nexterone 360 Mg/200 Ml Bag IVPB Not Given ASDIR PALMER Protocol 0.5 MG/MIN Amiodarone HCl/Dextrose 360 mg in 200 mls @ 33.333 mls/hr 11/06/18 13:45 05/27 14:44 Nexterone 360 Mg/200 Ml Bag IVPB 11/06/18 19:44 Not Given ONCE ONE Protocol 1 MG/MIN Amiodarone HCl/Dextrose 360 mg in 200 mls @ 33.333 mls/hr 11/06/18 15:33 05/27 15:49 Nexterone 360 Mg/200 Ml Bag IVPB 11/06/18 21:32 Not Given ONCE ONE Protocol 1 MG/MIN Amiodarone HCl/Dextrose 360 mg in 200 mls @ 16.667 mls/hr 11/06/18 15:45 05/27 17:46 Nexterone 360 Mg/200 Ml Bag IVPB 16.667 mls/hr ASDIR PALMER Administration Protocol 0.5 MG/MIN Insulin Aspart 1 vial 11/06/18 22:00 Novolog Vial Sliding Scale - SQ ACHS PALMER Protocol Metoprolol Succinate 50 mg 11/06/18 22:00 Toprol Xl - PO BID PALMER Mirtazapine 45 mg 11/06/18 22:00 Remeron - PO HS PALMER Mupirocin 1 applic 11/06/18 22:00 Bactroban Ointment (For Decolonization) - NS 11/11/18 21:59 BID PALMER Potassium Chloride 20 meq 11/07/18 10:00 K-Dur - PO DAILY PALMER ASSESSMENT/PLAN: 78 year old female with a history of non-insulin dependent diabetes mellitus, congestive heart failure, diabetes mellitus, hypertension, parkinson's disease was sent in from Dr. Kelley's office for atrial fibrillation with rapid ventricular response Neurologic -no acute issues -chronic parkinsons on carbodopa/levodopa, continue medication Cardiovascular: afib/RVR, acute on chronic CHF exacerbation -afib with RVR -currently on amiodarone drip, titrate as necessary to control rate -increase BB to 50 of metoprolol succinate BID and monitor BP in ICU -on eliquis 5 BID, will continue -echocardiogram ordered -cardiology recommendations appreciated -TSH normal -CXR shows mild central congestion, could be related to acute on chronic CHF exacerbation -will increase diuresis to 40mg of lasix IV daily as patient appears to be mildly fluid overloaded on home dose of lasix -accurate I's/O's -daily weights Pulmonary -mildly SOB, likely secondary to CHF exacerbation Gastrointestinal -no active issues Endocrine -TSH normal -held diabetic meds for inpatient setting -checking A1C -BGM ACHS -Sliding scale coverage Renal -elevated BUN, possibly a result of volume contraction -will need to diurese, monitor BUN/creatinine in the morning Dispo: We will continue to follow the patient. Thank you for this consultative opportunity. Full code Anticipate downgrade from ICU in the morning pending rate control Visit type - Emergency Visit Emergency Visit: Yes ED Registration Date: 11/06/18 Care time: The patient presented to the Emergency Department on the above date and was hospitalized for further evaluation of their emergent condition. - New Patient This patient is new to me today: Yes Date on this admission: 11/06/18 - Critical Care Critical Care patient: Yes Total Critical Care Time (in minutes): 36 Critical Care Statement: The care of this patient involved high complexity decision making to prevent further life threatening deterioration of the patient 's condition and/or to evaluate & treat vital organ system(s) failure or risk of failure.
[2018-11-06] MEDS ORDERED: FUROSEMIDE 40 MG/4 ML INJECTABLE VIAL ONE (17:52)
[2018-11-06] MEDS: FUROSEMIDE 40 MG/4 ML INJECTABLE VIAL IVPUSH SCH (17:54)
--- NOTE | 2018-11-06 17:54 | PN ---
Teaching Attending Note Name of Resident: Khadar De Jesus ATTENDING PHYSICIAN STATEMENT I saw and evaluated the patient. I reviewed the resident's note and discussed the case with the resident. I agree with the resident's findings and plan as documented. SUBJECTIVE: 78 F, with listed medical history. Known to me from an ICU admission last year 12/2017. DM, parkinson's, HTN, afib, CHF, and depression. Admitted via the ER due to AFib with RVR. Remains on IV Amiodarone @ 1 mg/min. Intake & Output 11/03/18 11/04/18 11/05/18 11/06/18 23:59 23:59 23:59 23:59 Weight 147 lb Last Vital Signs Temp Pulse Resp BP Pulse Ox 98.3 F 117 H 18 115/87 97 11/06/18 12:36 11/06/18 17:28 11/06/18 17:28 11/06/18 17:28 11/06/18 17:28 Active Medications Apixaban (Eliquis -) 5 mg PO BID PALMER Atorvastatin Calcium (Lipitor -) 10 mg PO HS PALMER Carbidopa/Levodopa (Sinemet *Cr* 50/200 -) 1 combo PO QID PALMER Chlorhexidine Gluconate (Hibiclens For Decolonization -) 1 applic TP HS [facility] Furosemide (Lasix Injection -) 40 mg IVPUSH DAILY [facility] Last Admin: 11/06/18 17:54 Dose: 40 mg Amiodarone HCl/Dextrose (Nexterone 360 Mg/200 Ml Bag) 360 mg in 200 mls @ 16.667 mls/hr IVPB ASDIR PALMER; Protocol Last Admin: 11/06/18 14:44 Dose: Not Given Amiodarone HCl/Dextrose (Nexterone 360 Mg/200 Ml Bag) 360 mg in 200 mls @ 33.333 mls/hr IVPB ONCE ONE; Protocol Stop: 11/06/18 19:44 Last Admin: 11/06/18 14:44 Dose: Not Given Amiodarone HCl/Dextrose (Nexterone 360 Mg/200 Ml Bag) 360 mg in 200 mls @ 33.333 mls/hr IVPB ONCE ONE; Protocol Stop: 11/06/18 21:32 Last Admin: 11/06/18 15:49 Dose: Not Given Amiodarone HCl/Dextrose (Nexterone 360 Mg/200 Ml Bag) 360 mg in 200 mls @ 16.667 mls/hr IVPB ASDIR [facility]; Protocol Last Admin: 11/06/18 17:46 Dose: 16.667 mls/hr Insulin Aspart (Novolog Vial Sliding Scale -) 1 vial SQ ACHS [facility]; Protocol Metoprolol Succinate (Toprol Xl -) 50 mg PO BID PALMER Mirtazapine (Remeron -) 45 mg PO HS PALMER Mupirocin (Bactroban Ointment (For Decolonization) -) 1 applic NS BID [facility] Stop: 11/11/18 21:59 Potassium Chloride (K-Dur -) 20 meq PO DAILY PALMER Constitutional: Yes: Well Nourished, No Distress Eyes: Yes: WNL, Conjunctiva Clear, EOM Intact HENT: Yes: WNL, Atraumatic, Normocephalic Neck: Yes: WNL, Supple, Trachea Midline Respiratory: Yes: few scattered rhonchi Gastrointestinal: Yes: WNL, Normal Bowel Sounds Renal/: Yes: WNL Cardiovascular: Yes: Rapid AFib Heart Sounds: Yes: S1, S2 Musculoskeletal: Yes: WNL Extremities: Yes: WNL Integumentary: Yes: WNL Neurological: Yes: WNL, Alert, Oriented ...Motor Strength: WNL Psychiatric: Yes: WNL, Alert, Oriented - Other Data Labs, Other Data: CBC, BMP 11/06/18 13:15 INR, PTT INR 2.19 (0.83-1.09) H 11/06/18 13:15 Laboratory Tests 11/06/18 11/06/18 11/06/18 13:15 13:15 13:15 WBC 13.0 H RBC 4.67 Hgb 14.9 Hct 44.5 MCV 95.3 MCH 31.8 MCHC 33.4 RDW 13.5 Plt Count 390 MPV 9.2 D Absolute Neuts (auto) 9.5 H Neutrophils % 73.5 Lymphocytes % 17.2 D Monocytes % 8.2 Eosinophils % 0.4 D Basophils % 0.7 Nucleated RBC % 0 PT with INR INR PTT (Actin FS) Sodium 135 L Potassium 3.9 Chloride 105 Carbon Dioxide 20 L Anion Gap 11 BUN 35.7 H Creatinine 0.8 Est GFR (CKD-EPI)AfAm 81.84 Est GFR (CKD-EPI)NonAf 70.61 Random Glucose 168 H Calcium 8.8 Total Bilirubin 0.5 AST 56 H ALT 46 Alkaline Phosphatase 125 H Creatine Kinase Cancelled Troponin I Cancelled Total Protein 6.2 L Albumin 3.4 11/06/18 13:15 WBC RBC Hgb Hct MCV MCH MCHC RDW Plt Count MPV Absolute Neuts (auto) Neutrophils % Lymphocytes % Monocytes % Eosinophils % Basophils % Nucleated RBC % PT with INR 26.00 H INR 2.19 H PTT (Actin FS) 33.8 Sodium Potassium Chloride Carbon Dioxide Anion Gap BUN Creatinine Est GFR (CKD-EPI)AfAm Est GFR (CKD-EPI)NonAf Random Glucose Calcium Total Bilirubin AST ALT Alkaline Phosphatase Creatine Kinase Troponin I Total Protein Albumin Imaging - Results Chest X-ray: Pending EKG: Pending Problem List - Problems (1) Abdominal pain Code(s): R10.9 - UNSPECIFIED ABDOMINAL PAIN (2) Acute on chronic systolic (congestive) heart failure Code(s): I50.23 - ACUTE ON CHRONIC SYSTOLIC (CONGESTIVE) HEART FAILURE (3) Afib Code(s): I48.91 - UNSPECIFIED ATRIAL FIBRILLATION Qualifiers: Atrial fibrillation type: unspecified Qualified Code(s): I48.91 - Unspecified atrial fibrillation (4) Anterior epistaxis Code(s): R04.0 - EPISTAXIS (5) Atrial fibrillation with rapid ventricular response Code(s): I48.91 - UNSPECIFIED ATRIAL FIBRILLATION (6) CHF (congestive heart failure) Code(s): I50.9 - HEART FAILURE, UNSPECIFIED Qualifiers: Heart failure type: combined systolic and diastolic Heart failure chronicity: acute on chronic Qualified Code(s): I50.43 - Acute on chronic combined systolic (congestive) and diastolic (congestive) heart failure (7) Cellulitis Code(s): L03.90 - CELLULITIS, UNSPECIFIED Qualifiers: Site of cellulitis: extremity Laterality: left (8) Depressed affect Code(s): R45.89 - OTHER SYMPTOMS AND SIGNS INVOLVING EMOTIONAL STATE (9) Diabetes Code(s): E11.9 - TYPE 2 DIABETES MELLITUS WITHOUT COMPLICATIONS Qualifiers: Diabetes mellitus type: type 2 Diabetes mellitus complication status: without complication (10) Diabetes Code(s): E11.9 - TYPE 2 DIABETES MELLITUS WITHOUT COMPLICATIONS (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, managed as type 1 Code(s): E10.9 - TYPE 1 DIABETES MELLITUS WITHOUT COMPLICATIONS (12) Diabetes 1.5, managed as type 2 Code(s): E13.9 - OTHER SPECIFIED DIABETES MELLITUS WITHOUT COMPLICATIONS (13) Dyspepsia Code(s): R10.13 - EPIGASTRIC PAIN (14) Edema Code(s): R60.9 - EDEMA, UNSPECIFIED Qualifiers: Edema type: unspecified Qualified Code(s): R60.9 - Edema, unspecified (15) Elevated LFTs Code(s): R79.89 - OTHER SPECIFIED ABNORMAL FINDINGS OF BLOOD CHEMISTRY (16) HTN (hypertension) Code(s): I10 - ESSENTIAL (PRIMARY) HYPERTENSION (17) Hyperlipidemia Code(s): E78.5 - HYPERLIPIDEMIA, UNSPECIFIED (18) IBS (irritable bowel syndrome) Code(s): K58.9 - IRRITABLE BOWEL SYNDROME WITHOUT DIARRHEA (19) Insomnia Code(s): G47.00 - INSOMNIA, UNSPECIFIED (20) Leukocytosis Code(s): D72.829 - ELEVATED WHITE BLOOD CELL COUNT, UNSPECIFIED (21) Parkinson disease Code(s): G20 - PARKINSON'S DISEASE (22) Paroxysmal atrial fibrillation Code(s): I48.0 - PAROXYSMAL ATRIAL FIBRILLATION (23) Sepsis Code(s): A41.9 - SEPSIS, UNSPECIFIED ORGANISM (24) Skin infection Code(s): L08.9 - LOCAL INFECTION OF THE SKIN AND SUBCUTANEOUS TISSUE, UNSP Assessment/Plan Amiodarone drip for rate control Cardiology evaluation Lasix BB as BP tolerates Strict I & O Daily weights O2 as needed to maintain saturation Requires ICU monitoring Dr Calhoun Critical care time spent in reviewing chart, evaluating patient and formulating plan - 36 minutes.
[2018-11-06] MEDS ORDERED: ALPRAZolam 0.25 MG TABLET PO PRN (18:11)
[2018-11-06] MEDS ORDERED: CHLORHEXIDINE GLUCONATE 4% CLEANSER FOR DECOLONIZATION TP SCH (22:00)
[2018-11-06] MEDS ORDERED: ATORVASTATIN CA 10 MG TABLET (FP) PO SCH (22:00)
[2018-11-06] MEDS ORDERED: metoPROLOL SUCCINATE 25 MG TAB.SR.24H (FP) PO SCH (22:00)
[2018-11-06] MEDS ORDERED: MIRTAZAPINE 15 MG TABLET (FP) PO SCH (22:00)
[2018-11-06] MEDS ORDERED: PT OWN MED DRAWER 7, Y5N ONE (22:19)
[2018-11-06] MEDS: APIXABAN 5 MG TABLET PO SCH (22:24)
[2018-11-06] MEDS: MUPIROCIN 2% TOPICAL OINTMENT FOR DECOLONIZATION NS SCH (22:27)
[2018-11-06] MEDS: INSULIN SLIDING SCALE (NOVOLOG) 1 VIAL SQ SCH (22:37)
[2018-11-07] MEDS ORDERED: PT OWN MED DRAWER 7, Y5N ONE ×2 (00:26→09:35)
[2018-11-07] MEDS ORDERED: ZOLPIDEM TARTRATE 5 MG TABLET PO ONE ×2 (00:31→23:51)
[2018-11-07] MEDS ORDERED: metoPROLOL SUCCINATE 25 MG TAB.SR.24H (FP) PO SCH (00:58)
[2018-11-07 06:17] LABS: HEMATOCRIT 46.4 % (32.4-45.2); HEMOGLOBIN 15.2 GM/dL (10.7-15.3); MCH 31.3 pg (25.7-33.7); MCHC 32.8 g/dl (32.0-36.0); MEAN CELL VOLUME 95.4 fl (80-96); MEAN PLT VOLUME 9.2 fl (7.5-11.1); PLATELET COUNT 390 K/MM3 (134-434); RBC 4.86 M/mm3 (3.60-5.2); RDW 13.7 % (11.6-15.6)
[2018-11-07] MEDS: INSULIN SLIDING SCALE (NOVOLOG) 1 VIAL SQ SCH ×4 (06:33→21:34)
[2018-11-07 06:44] LABS: BLOOD UREA NITROGEN 41.6 mg/dL (7-18); CALCIUM 8.5 mg/dL (8.5-10.1); CREATININE 1.3 mg/dL (0.55-1.3); PHOSPHOROUS 5.3 mg/dL (2.5-4.9); POTASSIUM 3.9 mmol/L (3.5-5.1)
[2018-11-07 06:49] LABS: CHOLESTEROL 109 mg/dL (50-200); HDL CHOLESTEROL 41 mg/dL (40-60); TRIGLYCERIDES 91 mg/dL (0-150)
[2018-11-07] MEDS ORDERED: AMIODARONE IN DEXTROSE,ISO-OSM 150 MG/100 ML BAG IVPB ONE (09:53)
[2018-11-07] MEDS ORDERED: POTASSIUM CHLORIDE TABS 20 MEQ TABLET.ER (FP) PO SCH (10:00)
[2018-11-07] MEDS: APIXABAN 5 MG TABLET PO SCH ×2 (10:07→21:34)
[2018-11-07] MEDS: FUROSEMIDE 40 MG/4 ML INJECTABLE VIAL IVPUSH SCH (10:07)
[2018-11-07] MEDS: MUPIROCIN 2% TOPICAL OINTMENT FOR DECOLONIZATION NS SCH (10:08)
--- NOTE | 2018-11-07 13:01 | PN ---
Teaching Attending Note Name of Resident: Khadar Ryees ATTENDING PHYSICIAN STATEMENT I saw and evaluated the patient. I reviewed the resident's note and discussed the case with the resident. I agree with the resident's findings and plan as documented. SUBJECTIVE: Patient seen and examined in the ICU. Awake and alert. Rapid AFib this AM when Amiodarone drip was discontinued. Reports SOB. Intake & Output 11/04/18 11/05/18 11/06/18 11/07/18 23:59 23:59 23:59 23:59 Intake Total 333.2 159 Balance 333.2 159 Weight 154 lb 1.65 oz 153 lb 8 oz Last Vital Signs Temp Pulse Resp BP Pulse Ox 98 F 70 27 H 124/89 97 11/07/18 10:00 11/07/18 12:00 11/07/18 12:00 11/07/18 12:00 11/07/18 09:00 Active Medications Alprazolam (Xanax -) 0.25 mg PO Q8H PRN PRN Reason: ANXIETY Apixaban (Eliquis -) 5 mg PO BID [facility] Last Admin: 11/07/18 10:07 Dose: 5 mg Atorvastatin Calcium (Lipitor -) 10 mg PO [facility] Last Admin: 11/06/18 22:24 Dose: 10 mg Carbidopa/Levodopa (Sinemet *Cr* 50/200 -) 1 combo PO QID [facility] Last Admin: 11/07/18 10:07 Dose: 1 combo Chlorhexidine Gluconate (Hibiclens For Decolonization -) 1 applic TP [facility] Last Admin: 11/06/18 22:37 Dose: 1 applic Furosemide (Lasix Injection -) 40 mg IVPUSH DAILY [facility] Last Admin: 11/07/18 10:07 Dose: 40 mg Insulin Aspart (Novolog Vial Sliding Scale -) 1 vial SQ ACHS [facility]; Protocol Last Admin: 11/07/18 12:03 Dose: 6 units Metoprolol Succinate (Toprol Xl -) 25 mg PO BID [facility] Last Admin: 11/07/18 10:07 Dose: 25 mg Mirtazapine (Remeron -) 45 mg PO [facility] Last Admin: 11/06/18 22:23 Dose: 45 mg Mupirocin (Bactroban Ointment (For Decolonization) -) 1 applic NS BID [facility] Stop: 11/11/18 21:59 Last Admin: 11/07/18 10:08 Dose: 1 applic Potassium Chloride (K-Dur -) 20 meq PO DAILY [facility] Last Admin: 11/07/18 10:07 Dose: 20 meq Constitutional: Yes: Awake and alert, NAD Eyes: Yes: WNL, Conjunctiva Clear, EOM Intact HENT: Yes: WNL, Atraumatic, Normocephalic Neck: Yes: WNL, Supple, Trachea Midline Respiratory: Yes: bilateral rales and rhonchi Gastrointestinal: Yes: WNL, Normal Bowel Sounds Renal/: Yes: WNL Cardiovascular: Yes: S1S2, NSR Heart Sounds: Yes: S1, S2 Musculoskeletal: Yes: WNL Extremities: Yes: WNL Integumentary: Yes: WNL Neurological: Yes: WNL, Alert, Oriented ...Motor Strength: WNL Psychiatric: Yes: WNL, Alert, Oriented Laboratory Results - last 24 hr 11/06/18 11/06/18 11/06/18 13:15 13:15 13:15 WBC 13.0 H RBC 4.67 Hgb 14.9 Hct 44.5 MCV 95.3 MCH 31.8 MCHC 33.4 RDW 13.5 Plt Count 390 MPV 9.2 D Absolute Neuts (auto) 9.5 H Neutrophils % 73.5 Lymphocytes % 17.2 D Monocytes % 8.2 Eosinophils % 0.4 D Basophils % 0.7 Nucleated RBC % 0 PT with INR INR PTT (Actin FS) Sodium 135 L Potassium 3.9 Chloride 105 Carbon Dioxide 20 L Anion Gap 11 BUN 35.7 H Creatinine 0.8 Est GFR (CKD-EPI)AfAm 81.84 Est GFR (CKD-EPI)NonAf 70.61 POC Glucometer Random Glucose 168 H Hemoglobin A1c % Calcium 8.8 Phosphorus Magnesium Total Bilirubin 0.5 AST 56 H ALT 46 Alkaline Phosphatase 125 H Creatine Kinase Cancelled Troponin I Cancelled B-Natriuretic Peptide Total Protein 6.2 L Albumin 3.4 Triglycerides Cholesterol Total LDL Cholesterol HDL Cholesterol TSH 11/06/18 11/06/18 11/06/18 13:15 13:50 17:34 WBC RBC Hgb Hct MCV MCH MCHC RDW Plt Count MPV Absolute Neuts (auto) Neutrophils % Lymphocytes % Monocytes % Eosinophils % Basophils % Nucleated RBC % PT with INR 26.00 H INR 2.19 H PTT (Actin FS) 33.8 Sodium 139 Potassium 4.3 Chloride 107 Carbon Dioxide 19 L Anion Gap 13 BUN 37.0 H Creatinine 0.8 Est GFR (CKD-EPI)AfAm 81.84 Est GFR (CKD-EPI)NonAf 70.61 POC Glucometer 223 Random Glucose 168 H Hemoglobin A1c % Calcium 8.8 Phosphorus Magnesium Total Bilirubin 0.6 AST 66 H ALT 57 Alkaline Phosphatase 124 H Creatine Kinase 88 Troponin I < 0.02 B-Natriuretic Peptide 1269.2 H Total Protein 6.1 L Albumin 3.3 L Triglycerides Cholesterol Total LDL Cholesterol HDL Cholesterol TSH 1.90 11/06/18 11/07/18 11/07/18 22:33 02:15 05:57 WBC 16.0 H RBC 4.86 Hgb 15.2 Hct 46.4 H MCV 95.4 MCH 31.3 MCHC 32.8 RDW 13.7 Plt Count 390 MPV 9.2 Absolute Neuts (auto) Neutrophils % Lymphocytes % Monocytes % Eosinophils % Basophils % Nucleated RBC % PT with INR INR PTT (Actin FS) Sodium Potassium Chloride Carbon Dioxide Anion Gap BUN Creatinine Est GFR (CKD-EPI)AfAm Est GFR (CKD-EPI)NonAf POC Glucometer 229 Random Glucose Hemoglobin A1c % Calcium Phosphorus Magnesium Total Bilirubin AST ALT Alkaline Phosphatase Creatine Kinase Troponin I < 0.02 B-Natriuretic Peptide Total Protein Albumin Triglycerides Cholesterol Total LDL Cholesterol HDL Cholesterol TSH 11/07/18 11/07/18 11/07/18 05:57 05:57 05:57 WBC RBC Hgb Hct MCV MCH MCHC RDW Plt Count MPV Absolute Neuts (auto) Neutrophils % Lymphocytes % Monocytes % Eosinophils % Basophils % Nucleated RBC % PT with INR INR PTT (Actin FS) Sodium 137 Potassium 3.9 Chloride 105 Carbon Dioxide 18 L Anion Gap 14 BUN 41.6 H Creatinine 1.3 Est GFR (CKD-EPI)AfAm 45.50 Est GFR (CKD-EPI)NonAf 39.26 POC Glucometer Random Glucose 236 H Hemoglobin A1c % 7.4 H Calcium 8.5 Phosphorus 5.3 H Magnesium 2.0 Total Bilirubin AST ALT Alkaline Phosphatase Creatine Kinase Troponin I B-Natriuretic Peptide Total Protein Albumin Triglycerides 91 Cholesterol 109 Total LDL Cholesterol 59 HDL Cholesterol 41 TSH 11/07/18 11/07/18 06:04 11:53 WBC RBC Hgb Hct MCV MCH MCHC RDW Plt Count MPV Absolute Neuts (auto) Neutrophils % Lymphocytes % Monocytes % Eosinophils % Basophils % Nucleated RBC % PT with INR INR PTT (Actin FS) Sodium Potassium Chloride Carbon Dioxide Anion Gap BUN Creatinine Est GFR (CKD-EPI)AfAm Est GFR (CKD-EPI)NonAf POC Glucometer 237 271 Random Glucose Hemoglobin A1c % Calcium Phosphorus Magnesium Total Bilirubin AST ALT Alkaline Phosphatase Creatine Kinase Troponin I B-Natriuretic Peptide Total Protein Albumin Triglycerides Cholesterol Total LDL Cholesterol HDL Cholesterol TSH Problem List - Problems (1) Abdominal pain Code(s): R10.9 - UNSPECIFIED ABDOMINAL PAIN (2) Acute on chronic systolic (congestive) heart failure Code(s): I50.23 - ACUTE ON CHRONIC SYSTOLIC (CONGESTIVE) HEART FAILURE (3) Afib Code(s): I48.91 - UNSPECIFIED ATRIAL FIBRILLATION Qualifiers: Atrial fibrillation type: unspecified Qualified Code(s): I48.91 - Unspecified atrial fibrillation (4) Anterior epistaxis Code(s): R04.0 - EPISTAXIS (5) Atrial fibrillation with rapid ventricular response Code(s): I48.91 - UNSPECIFIED ATRIAL FIBRILLATION (6) CHF (congestive heart failure) Code(s): I50.9 - HEART FAILURE, UNSPECIFIED Qualifiers: Heart failure type: combined systolic and diastolic Heart failure chronicity: acute on chronic Qualified Code(s): I50.43 - Acute on chronic combined systolic (congestive) and diastolic (congestive) heart failure (7) Cellulitis Code(s): L03.90 - CELLULITIS, UNSPECIFIED Qualifiers: Site of cellulitis: extremity Laterality: left (8) Depressed affect Code(s): R45.89 - OTHER SYMPTOMS AND SIGNS INVOLVING EMOTIONAL STATE (9) Diabetes Code(s): E11.9 - TYPE 2 DIABETES MELLITUS WITHOUT COMPLICATIONS Qualifiers: Diabetes mellitus type: type 2 Diabetes mellitus complication status: without complication (10) Diabetes Code(s): E11.9 - TYPE 2 DIABETES MELLITUS WITHOUT COMPLICATIONS (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, managed as type 1 Code(s): E10.9 - TYPE 1 DIABETES MELLITUS WITHOUT COMPLICATIONS (12) Diabetes 1.5, managed as type 2 Code(s): E13.9 - OTHER SPECIFIED DIABETES MELLITUS WITHOUT COMPLICATIONS (13) Dyspepsia Code(s): R10.13 - EPIGASTRIC PAIN (14) Edema Code(s): R60.9 - EDEMA, UNSPECIFIED Qualifiers: Edema type: unspecified Qualified Code(s): R60.9 - Edema, unspecified (15) Elevated LFTs Code(s): R79.89 - OTHER SPECIFIED ABNORMAL FINDINGS OF BLOOD CHEMISTRY (16) HTN (hypertension) Code(s): I10 - ESSENTIAL (PRIMARY) HYPERTENSION (17) Hyperlipidemia Code(s): E78.5 - HYPERLIPIDEMIA, UNSPECIFIED (18) IBS (irritable bowel syndrome) Code(s): K58.9 - IRRITABLE BOWEL SYNDROME WITHOUT DIARRHEA (19) Insomnia Code(s): G47.00 - INSOMNIA, UNSPECIFIED (20) Leukocytosis Code(s): D72.829 - ELEVATED WHITE BLOOD CELL COUNT, UNSPECIFIED (21) Parkinson disease Code(s): G20 - PARKINSON'S DISEASE (22) Paroxysmal atrial fibrillation Code(s): I48.0 - PAROXYSMAL ATRIAL FIBRILLATION (23) Sepsis Code(s): A41.9 - SEPSIS, UNSPECIFIED ORGANISM (24) Skin infection Code(s): L08.9 - LOCAL INFECTION OF THE SKIN AND SUBCUTANEOUS TISSUE, UNSP Assessment/Plan Monitor off Amiodarone drip for now Lasix BB as BP tolerates Strict I & O Daily weights O2 as needed to maintain saturation Cardiac Telemetry monitoring Dr Calhoun
--- NOTE | 2018-11-07 13:18 | PN ---
Progress Note, Physician History of Present Illness: PMH; AF Parkinson's disease HTN hyperlipidemia chronic constipation anxiety/depression - Current Medication List Current Medications: Active Medications Alprazolam (Xanax -) 0.25 mg PO Q8H PRN PRN Reason: ANXIETY Apixaban (Eliquis -) 5 mg PO BID [facility] Last Admin: 11/07/18 10:07 Dose: 5 mg Atorvastatin Calcium (Lipitor -) 10 mg PO HS [facility] Last Admin: 11/06/18 22:24 Dose: 10 mg Carbidopa/Levodopa (Sinemet *Cr* 50/200 -) 1 combo PO QID [facility] Last Admin: 11/07/18 10:07 Dose: 1 combo Chlorhexidine Gluconate (Hibiclens For Decolonization -) 1 applic TP [facility] Last Admin: 11/06/18 22:37 Dose: 1 applic Furosemide (Lasix Injection -) 40 mg IVPUSH DAILY [facility] Last Admin: 11/07/18 10:07 Dose: 40 mg Insulin Aspart (Novolog Vial Sliding Scale -) 1 vial SQ [facility]; Protocol Last Admin: 11/07/18 12:03 Dose: 6 units Metoprolol Succinate (Toprol Xl -) 25 mg PO BID [facility] Last Admin: 11/07/18 10:07 Dose: 25 mg Mirtazapine (Remeron -) 45 mg PO [facility] Last Admin: 11/06/18 22:23 Dose: 45 mg Mupirocin (Bactroban Ointment (For Decolonization) -) 1 applic NS BID [facility] Stop: 11/11/18 21:59 Last Admin: 11/07/18 10:08 Dose: 1 applic Potassium Chloride (K-Dur -) 20 meq PO DAILY [facility] Last Admin: 11/07/18 10:07 Dose: 20 meq - Objective Vital Signs: Vital Signs Temperature 98 F 11/07/18 10:00 Pulse Rate 70 11/07/18 12:00 Respiratory Rate 27 H 11/07/18 12:00 Blood Pressure 124/89 11/07/18 12:00 O2 Sat by Pulse Oximetry (%) 97 11/07/18 09:00 Eyes: Yes: WNL, Conjunctiva Clear, EOM Intact HENT: Yes: WNL, Atraumatic, Normocephalic Neck: Yes: WNL, Supple, Trachea Midline Cardiovascular: Yes: WNL, Regular Rate and Rhythm Respiratory: Yes: WNL, Regular, CTA Bilaterally Gastrointestinal: Yes: WNL, Normal Bowel Sounds Genitourinary: Yes: WNL Musculoskeletal: Yes: WNL Extremities: Yes: WNL Edema: No Integumentary: Yes: WNL Neurological: Yes: WNL, Alert, Oriented ...Motor Strength: WNL Psychiatric: Yes: WNL Labs: CBC, BMP 11/07/18 05:57 11/07/18 05:57 INR, PTT INR 2.19 (0.83-1.09) H 11/06/18 13:15 Problem List - Problems (1) Abdominal pain Code(s): R10.9 - UNSPECIFIED ABDOMINAL PAIN (2) Acute on chronic systolic (congestive) heart failure Code(s): I50.23 - ACUTE ON CHRONIC SYSTOLIC (CONGESTIVE) HEART FAILURE (3) Afib Code(s): I48.91 - UNSPECIFIED ATRIAL FIBRILLATION Qualifiers: Atrial fibrillation type: unspecified Qualified Code(s): I48.91 - Unspecified atrial fibrillation (4) Anterior epistaxis Code(s): R04.0 - EPISTAXIS (5) Atrial fibrillation with rapid ventricular response Code(s): I48.91 - UNSPECIFIED ATRIAL FIBRILLATION (6) CHF (congestive heart failure) Code(s): I50.9 - HEART FAILURE, UNSPECIFIED Qualifiers: Heart failure type: combined systolic and diastolic Heart failure chronicity: acute on chronic Qualified Code(s): I50.43 - Acute on chronic combined systolic (congestive) and diastolic (congestive) heart failure (7) Cellulitis Code(s): L03.90 - CELLULITIS, UNSPECIFIED Qualifiers: Site of cellulitis: extremity Laterality: left (8) Depressed affect Code(s): R45.89 - OTHER SYMPTOMS AND SIGNS INVOLVING EMOTIONAL STATE (9) Diabetes Code(s): E11.9 - TYPE 2 DIABETES MELLITUS WITHOUT COMPLICATIONS Qualifiers: Diabetes mellitus type: type 2 Diabetes mellitus complication status: without complication (10) Diabetes Code(s): E11.9 - TYPE 2 DIABETES MELLITUS WITHOUT COMPLICATIONS (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, managed as type 1 Code(s): E10.9 - TYPE 1 DIABETES MELLITUS WITHOUT COMPLICATIONS (12) Diabetes 1.5, managed as type 2 Code(s): E13.9 - OTHER SPECIFIED DIABETES MELLITUS WITHOUT COMPLICATIONS (13) Dyspepsia Code(s): R10.13 - EPIGASTRIC PAIN (14) Edema Code(s): R60.9 - EDEMA, UNSPECIFIED Qualifiers: Edema type: unspecified Qualified Code(s): R60.9 - Edema, unspecified (15) Elevated LFTs Code(s): R79.89 - OTHER SPECIFIED ABNORMAL FINDINGS OF BLOOD CHEMISTRY (16) HTN (hypertension) Code(s): I10 - ESSENTIAL (PRIMARY) HYPERTENSION (17) Hyperlipidemia Code(s): E78.5 - HYPERLIPIDEMIA, UNSPECIFIED (18) IBS (irritable bowel syndrome) Code(s): K58.9 - IRRITABLE BOWEL SYNDROME WITHOUT DIARRHEA (19) Insomnia Code(s): G47.00 - INSOMNIA, UNSPECIFIED (20) Leukocytosis Code(s): D72.829 - ELEVATED WHITE BLOOD CELL COUNT, UNSPECIFIED (21) Parkinson disease Code(s): G20 - PARKINSON'S DISEASE (22) Paroxysmal atrial fibrillation Code(s): I48.0 - PAROXYSMAL ATRIAL FIBRILLATION (23) Sepsis Code(s): A41.9 - SEPSIS, UNSPECIFIED ORGANISM (24) Skin infection Code(s): L08.9 - LOCAL INFECTION OF THE SKIN AND SUBCUTANEOUS TISSUE, UNSP Assessment/Plan AF rvr in junctional rhythm iv amiodorone d/c Parkinson's disease HTN hyperlipidemia chronic constipation anxiety/depression cghf reduced EF Plan cont ac rate controlled with metoprolol and PO amiodarone, no cardizem due to reduced EF, Did not tolerated higher dose of metoprolol due to hypotension. cc time spent 70 min
[2018-11-07] MEDS: AMIODARONE HCL 200 MG TABLET (FP) PO SCH (13:44)
[2018-11-07 14:06] LABS: HYALINE CASTS 1 /lpf (0-8); URINE APPEARANCE CLEAR; URINE BACTERIA 9.6 /hpf (NEGATIVE); URINE BILIRUBIN NEGATIVE (NEGATIVE); URINE COLOR YELLOW; URINE GLUCOSE (UA) TRACE (NEGATIVE); URINE KETONE NEGATIVE (NEGATIVE); URINE LEUK ESTERASE TRACE (NEGATIVE); URINE NITRITE NEGATIVE (NEGATIVE); URINE PROTEIN NEGATIVE (NEGATIVE); URINE RBC 1 /hpf (0-4); URINE UROBILINOGEN 0.2 mg/dL (0.2-1.0); URINE WBC 3 /hpf (0-5)
--- NOTE | 2018-11-07 14:57 | EKG ---
Test Reason : Blood Pressure : / mmHG Vent. Rate : 176 BPM Atrial Rate : 166 BPM P-R Int : 000 ms QRS Dur : 102 ms QT Int : 256 ms P-R-T Axes : 000 -06 079 degrees QTc Int : 438 ms POOR DATA QUALITY, INTERPRETATION MAY BE ADVERSELY AFFECTED ATRIAL FIBRILLATION WITH RAPID VENTRICULAR RESPONSE INCOMPLETE RIGHT BUNDLE BRANCH BLOCK NONSPECIFIC ST AND T WAVE ABNORMALITY ABNORMAL ECG WHEN COMPARED WITH ECG OF 10-DEC-2017 09:46, VENT. RATE HAS INCREASED BY 84 BPM T WAVE INVERSION NO LONGER EVIDENT IN ANTERIOR LEADS Confirmed by MD JACKY, ANNABEL ([id number]) on 11/07/2018 2:56:53 PM Referred By: Confirmed By:ANNABEL RICO MD
--- NOTE | 2018-11-07 15:33 | PN ---
Physical Exam: SUBJECTIVE: Patient seen and examined at the bedside. Patient stated she has some issues with breathing but overall feels better that the previous day. She states that she does have some abdominal pain as well. Denies chest pain, palpitations, nausea, weakness, numbness, tingling, visual changes. Patient had an episode of elevated heart rate this morning but spontaneously resolved prior to medication administration. Currently HR controlled in the 60s. OBJECTIVE: Vital Signs Period Temp Pulse Resp BP Sys/Jerry Pulse Ox Last 24 Hr 97.9 F-98.9 F 59-128 18-27 91-124/60-94 97-100 GENERAL: The patient is awake, alert, and fully oriented, in no acute distress. HEAD: Normal with no signs of trauma. EYES: PERRL, extraocular movements intact, sclera anicteric, conjunctiva clear. No ptosis. NECK: Trachea midline, full range of motion, supple. LUNGS: Minor crackles heard at the bases of the lungs. Breath sounds equal, clear to auscultation bilaterally, no wheezes, or accessory muscle use. HEART: Regular rate and rhythm, S1, S2 without murmur, rub or gallop. ABDOMEN: Tenderness in the suprapubic area. Soft, nondistended, normoactive bowel sounds, no guarding, no rebound, no hepatosplenomegaly, no masses. EXTREMITIES: 2+ pulses, warm, well-perfused, 2+ edema noted up to the ankles NEUROLOGICAL: Cranial nerves II through XII grossly intact. Normal speech, gait not observed. PSYCH: Normal mood, normal affect. SKIN: Warm, dry, normal turgor, no rashes or lesions noted Laboratory Results - last 24 hr 11/06/18 11/06/18 11/07/18 17:34 22:33 02:15 WBC RBC Hgb Hct MCV MCH MCHC RDW Plt Count MPV Sodium Potassium Chloride Carbon Dioxide Anion Gap BUN Creatinine Est GFR (CKD-EPI)AfAm Est GFR (CKD-EPI)NonAf POC Glucometer 223 229 Random Glucose Hemoglobin A1c % Calcium Phosphorus Magnesium Troponin I < 0.02 Triglycerides Cholesterol Total LDL Cholesterol HDL Cholesterol Urine Color Urine Appearance Urine pH Ur Specific [place] Urine Protein Urine Glucose (UA) Urine Ketones Urine Blood Urine Nitrite Urine Bilirubin Urine Urobilinogen Ur Leukocyte Esterase Urine WBC (Auto) Urine RBC (Auto) Urine Casts (Auto) U Epithel Cells (Auto) Urine Bacteria (Auto) 11/07/18 11/07/18 11/07/18 05:57 05:57 05:57 WBC 16.0 H RBC 4.86 Hgb 15.2 Hct 46.4 H MCV 95.4 MCH 31.3 MCHC 32.8 RDW 13.7 Plt Count 390 MPV 9.2 Sodium 137 Potassium 3.9 Chloride 105 Carbon Dioxide 18 L Anion Gap 14 BUN 41.6 H Creatinine 1.3 Est GFR (CKD-EPI)AfAm 45.50 Est GFR (CKD-EPI)NonAf 39.26 POC Glucometer Random Glucose 236 H Hemoglobin A1c % 7.4 H Calcium 8.5 Phosphorus 5.3 H Magnesium 2.0 Troponin I Triglycerides Cholesterol Total LDL Cholesterol HDL Cholesterol Urine Color Urine Appearance Urine pH Ur Specific [place] Urine Protein Urine Glucose (UA) Urine Ketones Urine Blood Urine Nitrite Urine Bilirubin Urine Urobilinogen Ur Leukocyte Esterase Urine WBC (Auto) Urine RBC (Auto) Urine Casts (Auto) U Epithel Cells (Auto) Urine Bacteria (Auto) 11/07/18 11/07/18 11/07/18 05:57 06:04 11:53 WBC RBC Hgb Hct MCV MCH MCHC RDW Plt Count MPV Sodium Potassium Chloride Carbon Dioxide Anion Gap BUN Creatinine Est GFR (CKD-EPI)AfAm Est GFR (CKD-EPI)NonAf POC Glucometer 237 271 Random Glucose Hemoglobin A1c % Calcium Phosphorus Magnesium Troponin I Triglycerides 91 Cholesterol 109 Total LDL Cholesterol 59 HDL Cholesterol 41 Urine Color Urine Appearance Urine pH Ur Specific [place] Urine Protein Urine Glucose (UA) Urine Ketones Urine Blood Urine Nitrite Urine Bilirubin Urine Urobilinogen Ur Leukocyte Esterase Urine WBC (Auto) Urine RBC (Auto) Urine Casts (Auto) U Epithel Cells (Auto) Urine Bacteria (Auto) 11/07/18 12:00 WBC RBC Hgb Hct MCV MCH MCHC RDW Plt Count MPV Sodium Potassium Chloride Carbon Dioxide Anion Gap BUN Creatinine Est GFR (CKD-EPI)AfAm Est GFR (CKD-EPI)NonAf POC Glucometer Random Glucose Hemoglobin A1c % Calcium Phosphorus Magnesium Troponin I Triglycerides Cholesterol Total LDL Cholesterol HDL Cholesterol Urine Color Yellow Urine Appearance Clear Urine pH 5.0 D Ur Specific Buena 1.009 L Urine Protein Negative Urine Glucose (UA) Trace Urine Ketones Negative Urine Blood Negative Urine Nitrite Negative Urine Bilirubin Negative Urine Urobilinogen 0.2 Ur Leukocyte Esterase Trace Urine WBC (Auto) 3 Urine RBC (Auto) 1 Urine Casts (Auto) 1 U Epithel Cells (Auto) 1.0 Urine Bacteria (Auto) 9.6 Active Medications Generic Name Dose Route Start Last Admin Trade Name Freq PRN Reason Stop Dose Admin Alprazolam 0.25 mg 11/06/18 18:11 Xanax - PO Q8H PRN ANXIETY Amiodarone HCl 200 mg 11/07/18 13:30 11/07/18 13:44 Cordarone - PO 200 mg DAILY [facility] Administration Apixaban 5 mg 11/06/18 22:00 11/07/18 10:07 Eliquis - PO 5 mg BID [facility] Administration Atorvastatin Calcium 10 mg 11/06/18 22:00 11/06/18 22:24 Lipitor - PO 10 mg HS [facility] Administration Carbidopa/Levodopa 1 combo 11/06/18 18:00 11/07/18 10:07 Sinemet *Cr* 50/200 - PO 1 combo QID [facility] Administration Chlorhexidine Gluconate 1 applic 11/06/18 22:00 11/06/18 22:37 Hibiclens For Decolonization - TP 1 applic HS [facility] Administration Furosemide 40 mg 11/06/18 17:15 11/07/18 10:07 Lasix Injection - IVPUSH 40 mg DAILY [facility] Administration Insulin Aspart 1 vial 11/06/18 22:00 11/07/18 12:03 Novolog Vial Sliding Scale - SQ 6 units ACHS [facility] Administration Protocol Metoprolol Succinate 25 mg 11/07/18 00:58 11/07/18 10:07 Toprol Xl - PO 25 mg BID [facility] Administration Mirtazapine 45 mg 11/06/18 22:00 11/06/18 22:23 Remeron - PO 45 mg HS [facility] Administration Mupirocin 1 applic 11/06/18 22:00 11/07/18 10:08 Bactroban Ointment (For Decolonization) - NS 11/11/18 21:59 1 applic BID [facility] Administration Potassium Chloride 20 meq 11/07/18 10:00 11/07/18 10:07 K-Dur - PO 20 meq DAILY [facility] Administration ASSESSMENT/PLAN: Justus Ding is a 78 year old female with a PMHx of NIDDM, CHF, DM, HTN, parkinson's disease who presented with palpitations and chest pressure from her PCPs office 2/2 afib with RVR NEURO - continue home Sinemet CARDIO - off amiodarone drip since morning and rated controlled - continue home Toprol 25mg bid - Dr. Nix consulted recs appreciated - add amiodarone 200mg daily - continue home Elliquis 5mg bid for afib - continue home atorvastatin - continue Lasix 40mg IV push for overload - continue heart monitoring - I+Os and weights - recommend upon discharge patient receive a sleep test for sleep apnea RESPIRATORY - continue with NC 2L as needed RENAL - CRE increased from 0.8 to 1.3 likely 2/2 CHF and amiodarone use - continue Lasix 40mg IV for HF - continue to monitor GI - stable ENDOCRINE - ISS - BGM ACHS HEMATOLOGY - WBC elevated - afebrile - UA negative for infection PSYCH - continue home Remeron FEN - no fluids - electrolytes within normal limits - continue home KDur - diabetic sodium diet Prophylaxis -on Elliquis DISPO - stable to be transferred to telemetry Problem List - Problems (1) Acute on chronic systolic (congestive) heart failure Code(s): I50.23 - ACUTE ON CHRONIC SYSTOLIC (CONGESTIVE) HEART FAILURE (2) Afib Code(s): I48.91 - UNSPECIFIED ATRIAL FIBRILLATION Qualifiers: Atrial fibrillation type: unspecified Qualified Code(s): I48.91 - Unspecified atrial fibrillation (3) Atrial fibrillation with rapid ventricular response Code(s): I48.91 - UNSPECIFIED ATRIAL FIBRILLATION (4) CHF (congestive heart failure) Code(s): I50.9 - HEART FAILURE, UNSPECIFIED Qualifiers: Heart failure type: combined systolic and diastolic Heart failure chronicity: acute on chronic Qualified Code(s): I50.43 - Acute on chronic combined systolic (congestive) and diastolic (congestive) heart failure (5) Diabetes Code(s): E11.9 - TYPE 2 DIABETES MELLITUS WITHOUT COMPLICATIONS Qualifiers: Diabetes mellitus type: type 2 Diabetes mellitus complication status: without complication (6) HTN (hypertension) Code(s): I10 - ESSENTIAL (PRIMARY) HYPERTENSION (7) Hyperlipidemia Code(s): E78.5 - HYPERLIPIDEMIA, UNSPECIFIED Visit type - Emergency Visit Emergency Visit: No - New Patient This patient is new to me today: Yes Date on this admission: 11/07/18 - Critical Care Critical Care patient: Yes Total Critical Care Time (in minutes): 36 Critical Care Statement: The care of this patient involved high complexity decision making to prevent further life threatening deterioration of the patient 's condition and/or to evaluate & treat vital organ system(s) failure or risk of failure.
--- NOTE | 2018-11-07 15:52 | ECHO ---
Version: 1 Name: TONY GUTHRIE Exam: Adult Echocardiogram Study Date: 11/07/2018, 2:26 PM Age: 78 Years MMode/2D Measurements & Calculations IVSd: 1.01 cm LVIDs: 3.6 cm LVIDd: 4.6 cm LVPWd: 0.75 cm LVOT diam: 2.19 cm Ao root diam: 3.6 cm LA dimension: 3.6 cm Doppler Measurements & Calculations MV E max hadley: 59.0 cm/sec Med E/e': 17.1 MV A max hadley: 23.1 cm/sec Med Peak E' Hadley: 3.5 cm/sec MV E/A: 2.6 Lat E/e': 6.0 Lat Peak E' Hadley: 9.8 cm/sec MR max P.6 mmHg Ao max P.94 mmHg UNRULY(I,D): 1.81 cm Ao mean P.24 mmHg LV V1 mean: 31.6 cm/sec Ao V2 max: 69.6 cm/sec LV V1 mean P.48 mmHg PI end-d hadley: 70.6 cm/sec TR max hadley: 167.7 cm/sec TR max P.3 mmHg Left Ventricle Mild Global Hypokinesis. Left ventricular systolic function is mildly reduced. The transmitral spect ral Doppler flow pattern is suggestive of impaired LV relaxation. Right Ventricle The right ventricle is mild to moderately dilated. The right ventricular systolic function is mildly reduced. Atria The left atrial size is normal. The right atrium is moderately dilated. Mitral Valve There is mild mitral annular calcification. There is mild mitral regurgitation. Tricuspid Valve The tricuspid valve is not well visualized, but is grossly normal. There is moderate to severe tricu spid regurgitation. Aortic Valve The aortic valve is normal in structure and function. Pulmonic Valve The pulmonic valve is not well seen, but is grossly normal. Mild pulmonic valvular regurgitation. Great Vessels The aortic root is normal size. Normal aortic arch, descending and ascending aorta. Summary Statements Left ventricular systolic function is mildly reduced. The transmitral spectral Doppler flow pattern is suggestive of impaired LV relaxation. The right ventricle is mild to moderately dilated. The right ventricular systolic function is mildly reduced. The left atrial size is normal. The right atrium is moderately dilated. There is mild mitral annular calcification. There is mild mitral regurgitation. The tricuspid valve is not well visualized, but is grossly normal. There is moderate to severe tricuspid regurgitation. The aortic valve is normal in structure and function. The pulmonic valve is not well seen, but is grossly normal. Mild pulmonic valvular regurgitation. The aortic root is normal size. Normal aortic arch, descending and ascending aorta Chente Anne 11/07/2018, 2:52 PM Ordering Physician: Khadar De Jesus Referring Physician: MARYBETH SPARROW Performed By: Carey Prieto
--- NOTE | 2018-11-07 17:05 | PN ---
Progress Note (short form) - Note Progress Note: Current Medications Alprazolam (Xanax -) 0.25 mg PO Q8H PRN PRN Reason: ANXIETY Amiodarone HCl (Cordarone -) 200 mg PO DAILY [facility] Last Admin: 11/07/18 13:44 Dose: 200 mg Apixaban (Eliquis -) 5 mg PO BID [facility] Last Admin: 11/07/18 10:07 Dose: 5 mg Atorvastatin Calcium (Lipitor -) 10 mg PO [facility] Last Admin: 11/06/18 22:24 Dose: 10 mg Carbidopa/Levodopa (Sinemet *Cr* 50/200 -) 1 combo PO QID [facility] Last Admin: 11/07/18 10:07 Dose: 1 combo Chlorhexidine Gluconate (Hibiclens For Decolonization -) 1 applic TP [facility] Last Admin: 11/06/18 22:37 Dose: 1 applic Furosemide (Lasix Injection -) 40 mg IVPUSH DAILY [facility] Last Admin: 11/07/18 10:07 Dose: 40 mg Insulin Aspart (Novolog Vial Sliding Scale -) 1 vial SQ ACHS [facility]; Protocol Last Admin: 11/07/18 12:03 Dose: 6 units Metoprolol Succinate (Toprol Xl -) 25 mg PO BID [facility] Last Admin: 11/07/18 10:07 Dose: 25 mg Mirtazapine (Remeron -) 45 mg PO [facility] Last Admin: 11/06/18 22:23 Dose: 45 mg Mupirocin (Bactroban Ointment (For Decolonization) -) 1 applic NS BID [facility] Stop: 11/11/18 21:59 Last Admin: 11/07/18 10:08 Dose: 1 applic Potassium Chloride (K-Dur -) 20 meq PO DAILY [facility] Last Admin: 11/07/18 10:07 Dose: 20 meq Laboratory Results - last 24 hr 11/06/18 11/06/18 11/07/18 17:34 22:33 02:15 WBC RBC Hgb Hct MCV MCH MCHC RDW Plt Count MPV Sodium Potassium Chloride Carbon Dioxide Anion Gap BUN Creatinine Est GFR (CKD-EPI)AfAm Est GFR (CKD-EPI)NonAf POC Glucometer 223 229 Random Glucose Hemoglobin A1c % Calcium Phosphorus Magnesium Troponin I < 0.02 Triglycerides Cholesterol Total LDL Cholesterol HDL Cholesterol Urine Color Urine Appearance Urine pH Ur Specific Eminence Urine Protein Urine Glucose (UA) Urine Ketones Urine Blood Urine Nitrite Urine Bilirubin Urine Urobilinogen Ur Leukocyte Esterase Urine WBC (Auto) Urine RBC (Auto) Urine Casts (Auto) U Epithel Cells (Auto) Urine Bacteria (Auto) 11/07/18 11/07/18 11/07/18 05:57 05:57 05:57 WBC 16.0 H RBC 4.86 Hgb 15.2 Hct 46.4 H MCV 95.4 MCH 31.3 MCHC 32.8 RDW 13.7 Plt Count 390 MPV 9.2 Sodium 137 Potassium 3.9 Chloride 105 Carbon Dioxide 18 L Anion Gap 14 BUN 41.6 H Creatinine 1.3 Est GFR (CKD-EPI)AfAm 45.50 Est GFR (CKD-EPI)NonAf 39.26 POC Glucometer Random Glucose 236 H Hemoglobin A1c % 7.4 H Calcium 8.5 Phosphorus 5.3 H Magnesium 2.0 Troponin I Triglycerides Cholesterol Total LDL Cholesterol HDL Cholesterol Urine Color Urine Appearance Urine pH Ur Specific Eminence Urine Protein Urine Glucose (UA) Urine Ketones Urine Blood Urine Nitrite Urine Bilirubin Urine Urobilinogen Ur Leukocyte Esterase Urine WBC (Auto) Urine RBC (Auto) Urine Casts (Auto) U Epithel Cells (Auto) Urine Bacteria (Auto) 11/07/18 11/07/18 11/07/18 05:57 06:04 11:53 WBC RBC Hgb Hct MCV MCH MCHC RDW Plt Count MPV Sodium Potassium Chloride Carbon Dioxide Anion Gap BUN Creatinine Est GFR (CKD-EPI)AfAm Est GFR (CKD-EPI)NonAf POC Glucometer 237 271 Random Glucose Hemoglobin A1c % Calcium Phosphorus Magnesium Troponin I Triglycerides 91 Cholesterol 109 Total LDL Cholesterol 59 HDL Cholesterol 41 Urine Color Urine Appearance Urine pH Ur Specific Eminence Urine Protein Urine Glucose (UA) Urine Ketones Urine Blood Urine Nitrite Urine Bilirubin Urine Urobilinogen Ur Leukocyte Esterase Urine WBC (Auto) Urine RBC (Auto) Urine Casts (Auto) U Epithel Cells (Auto) Urine Bacteria (Auto) 11/07/18 12:00 WBC RBC Hgb Hct MCV MCH MCHC RDW Plt Count MPV Sodium Potassium Chloride Carbon Dioxide Anion Gap BUN Creatinine Est GFR (CKD-EPI)AfAm Est GFR (CKD-EPI)NonAf POC Glucometer Random Glucose Hemoglobin A1c % Calcium Phosphorus Magnesium Troponin I Triglycerides Cholesterol Total LDL Cholesterol HDL Cholesterol Urine Color Yellow Urine Appearance Clear Urine pH 5.0 D Ur Specific Eminence 1.009 L Urine Protein Negative Urine Glucose (UA) Trace Urine Ketones Negative Urine Blood Negative Urine Nitrite Negative Urine Bilirubin Negative Urine Urobilinogen 0.2 Ur Leukocyte Esterase Trace Urine WBC (Auto) 3 Urine RBC (Auto) 1 Urine Casts (Auto) 1 U Epithel Cells (Auto) 1.0 Urine Bacteria (Auto) 9.6 Vital Signs Temperature 98.8 F 11/07/18 16:00 Pulse Rate 68 11/07/18 16:00 Respiratory Rate 21 H 11/07/18 16:00 Blood Pressure 112/72 11/07/18 16:00 O2 Sat by Pulse Oximetry (%) 97 11/07/18 15:00 CC: felt unsettled overnight; had n/v x 2 but has been well all day; ate okay ```````````````````````````````````````````````````````````````````` skin--face flushed; no edema lungs--distant BS; unlabored heart--RR abd--benign ext--bilat edema L>R neuro--alert; coherent; in better spirits; some gen'l rigidity ```````````````````````````````````````````````````` Summ > rapid ATF--controlled with amiodarone; a/c and BB > 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 anxiety driven; no overt signs of an infectious process. UA neg. PLAN: repeat in AM > Lipidemia--levels well controlled > PD--will get Neuro eval > anxiety--chronic w/ depression ~~~~~~~~~~~~~~~~~~~~~~~~~\ Dr Betts
[2018-11-07] MEDS ORDERED: ALPRAZolam 0.25 MG TABLET PO PRN (18:45)
[2018-11-07] MEDS: ATORVASTATIN CA 10 MG TABLET (FP) PO SCH (21:34)
[2018-11-07] MEDS: MIRTAZAPINE 15 MG TABLET (FP) PO SCH (21:35)
[2018-11-07] MEDS: metoPROLOL SUCCINATE 25 MG TAB.SR.24H (FP) PO SCH (21:35)
[2018-11-08] MEDS: ZOLPIDEM TARTRATE 5 MG TABLET PO PRN ×2 (00:12→22:09)
[2018-11-08] MEDS: INSULIN SLIDING SCALE (NOVOLOG) 1 VIAL SQ SCH ×4 (06:09→22:15)
[2018-11-08] MEDS: GLIMEPIRIDE 1 MG TABLET (FP) PO SCH (06:12)
[2018-11-08 07:50] LABS: HEMATOCRIT 40.6 % (32.4-45.2); HEMOGLOBIN 13.5 GM/dL (10.7-15.3); MCH 31.7 pg (25.7-33.7); MCHC 33.3 g/dl (32.0-36.0); MEAN CELL VOLUME 95.3 fl (80-96); MEAN PLT VOLUME 8.9 fl (7.5-11.1); PLATELET COUNT 337 K/MM3 (134-434); RBC 4.26 M/mm3 (3.60-5.2); RDW 13.7 % (11.6-15.6); WHITE BLOOD COUNT 11.6 K/mm3 (4.0-10.0)
[2018-11-08 08:20] LABS: BILIRUBIN,TOTAL 0.8 mg/dL (0.2-1); CALCIUM 8.3 mg/dL (8.5-10.1); CREATININE 0.8 mg/dL (0.55-1.3); MAGNESIUM 2.1 mg/dL (1.8-2.4); POTASSIUM 3.5 mmol/L (3.5-5.1); TOT PROT 5.2 g/dl (6.4-8.2)
[2018-11-08] MEDS: metoPROLOL SUCCINATE 25 MG TAB.SR.24H (FP) PO SCH ×2 (09:25→22:12)
[2018-11-08] MEDS: POTASSIUM CHLORIDE TABS 20 MEQ TABLET.ER (FP) PO SCH (09:25)
[2018-11-08] MEDS: APIXABAN 5 MG TABLET PO SCH ×2 (09:25→22:09)
[2018-11-08] MEDS: AMIODARONE HCL 200 MG TABLET (FP) PO SCH (09:25)
[2018-11-08] MEDS: FUROSEMIDE 40 MG/4 ML INJECTABLE VIAL IVPUSH SCH (09:25)
--- NOTE | 2018-11-08 11:00 | PN ---
Progress Note, Physician History of Present Illness: pulmonary alert,comfortable,-resp distress,HR controlled - Current Medication List Current Medications: Active Medications Alprazolam (Xanax -) 0.25 mg PO Q8H PRN PRN Reason: ANXIETY Amiodarone HCl (Cordarone -) 200 mg PO DAILY [facility] Last Admin: 11/08/18 09:25 Dose: 200 mg Apixaban (Eliquis -) 5 mg PO BID [facility] Last Admin: 11/08/18 09:25 Dose: 5 mg Atorvastatin Calcium (Lipitor -) 10 mg PO HS [facility] Last Admin: 11/07/18 21:34 Dose: 10 mg Carbidopa/Levodopa (Sinemet *Cr* 50/200 -) 1 combo PO QID [facility] Last Admin: 11/08/18 09:25 Dose: 1 combo Furosemide (Lasix Injection -) 40 mg IVPUSH DAILY [facility] Last Admin: 11/08/18 09:25 Dose: 40 mg Glimepiride (Amaryl -) 1 mg PO DAILY@0700 [facility] Last Admin: 11/08/18 06:12 Dose: 1 mg Insulin Aspart (Novolog Vial Sliding Scale -) 1 vial SQ [facility]; Protocol Last Admin: 11/08/18 06:09 Dose: Not Given Metoprolol Succinate (Toprol Xl -) 25 mg PO BID [facility] Last Admin: 11/08/18 09:25 Dose: 25 mg Mirtazapine (Remeron -) 45 mg PO HS [facility] Last Admin: 11/07/18 21:35 Dose: 45 mg Potassium Chloride (K-Dur -) 20 meq PO DAILY [facility] Last Admin: 11/08/18 09:25 Dose: 20 meq Zolpidem Tartrate (Ambien -) 5 mg PO HS PRN PRN Reason: INSOMNIA Last Admin: 11/08/18 00:12 Dose: 5 mg - Objective Vital Signs: Vital Signs Temperature 97.0 F L 11/08/18 08:26 Pulse Rate 67 11/08/18 08:26 Respiratory Rate 20 11/08/18 08:31 Blood Pressure 113/70 11/08/18 08:26 O2 Sat by Pulse Oximetry (%) 95 11/08/18 08:31 Constitutional: Yes: Well Nourished, Calm Eyes: Yes: WNL HENT: Yes: WNL Neck: Yes: WNL Cardiovascular: Yes: Pulse Irregular, S1, S2 Respiratory: Yes: Diminished Gastrointestinal: Yes: Normal Bowel Sounds, Soft Extremities: Yes: WNL Edema: Yes Labs: CBC, BMP 11/08/18 07:07 11/08/18 07:07 INR, PTT INR 2.19 (0.83-1.09) H 11/06/18 13:15 Assessment/Plan Problem List - Problems (1) Abdominal pain Code(s): R10.9 - UNSPECIFIED ABDOMINAL PAIN (2) Acute on chronic systolic (congestive) heart failure Code(s): I50.23 - ACUTE ON CHRONIC SYSTOLIC (CONGESTIVE) HEART FAILURE (3) Afib Code(s): I48.91 - UNSPECIFIED ATRIAL FIBRILLATION Qualifiers: Atrial fibrillation type: unspecified Qualified Code(s): I48.91 - Unspecified atrial fibrillation (4) Anterior epistaxis Code(s): R04.0 - EPISTAXIS (5) Atrial fibrillation with rapid ventricular response Code(s): I48.91 - UNSPECIFIED ATRIAL FIBRILLATION (6) CHF (congestive heart failure) Code(s): I50.9 - HEART FAILURE, UNSPECIFIED Qualifiers: Heart failure type: combined systolic and diastolic Heart failure chronicity: acute on chronic Qualified Code(s): I50.43 - Acute on chronic combined systolic (congestive) and diastolic (congestive) heart failure (7) Cellulitis Code(s): L03.90 - CELLULITIS, UNSPECIFIED Qualifiers: Site of cellulitis: extremity Laterality: left (8) Depressed affect Code(s): R45.89 - OTHER SYMPTOMS AND SIGNS INVOLVING EMOTIONAL STATE (9) Diabetes Code(s): E11.9 - TYPE 2 DIABETES MELLITUS WITHOUT COMPLICATIONS Qualifiers: Diabetes mellitus type: type 2 Diabetes mellitus complication status: without complication (10) Diabetes Code(s): E11.9 - TYPE 2 DIABETES MELLITUS WITHOUT COMPLICATIONS (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, managed as type 1 Code(s): E10.9 - TYPE 1 DIABETES MELLITUS WITHOUT COMPLICATIONS (12) Diabetes 1.5, managed as type 2 Code(s): E13.9 - OTHER SPECIFIED DIABETES MELLITUS WITHOUT COMPLICATIONS (13) Dyspepsia Code(s): R10.13 - EPIGASTRIC PAIN (14) Edema Code(s): R60.9 - EDEMA, UNSPECIFIED Qualifiers: Edema type: unspecified Qualified Code(s): R60.9 - Edema, unspecified (15) Elevated LFTs Code(s): R79.89 - OTHER SPECIFIED ABNORMAL FINDINGS OF BLOOD CHEMISTRY (16) HTN (hypertension) Code(s): I10 - ESSENTIAL (PRIMARY) HYPERTENSION (17) Hyperlipidemia Code(s): E78.5 - HYPERLIPIDEMIA, UNSPECIFIED (18) IBS (irritable bowel syndrome) Code(s): K58.9 - IRRITABLE BOWEL SYNDROME WITHOUT DIARRHEA (19) Insomnia Code(s): G47.00 - INSOMNIA, UNSPECIFIED (20) Leukocytosis Code(s): D72.829 - ELEVATED WHITE BLOOD CELL COUNT, UNSPECIFIED (21) Parkinson disease Code(s): G20 - PARKINSON'S DISEASE (22) Paroxysmal atrial fibrillation Code(s): I48.0 - PAROXYSMAL ATRIAL FIBRILLATION (23) Sepsis Code(s): A41.9 - SEPSIS, UNSPECIFIED ORGANISM O2 as needed rate control as per cardiology Amiodaronpoli PASCUAL
--- NOTE | 2018-11-08 11:16 | PN ---
Progress Note, Physician History of Present Illness: PMH; AF Parkinson's disease HTN hyperlipidemia chronic constipation anxiety/depression - Current Medication List Current Medications: Active Medications Alprazolam (Xanax -) 0.25 mg PO Q8H PRN PRN Reason: ANXIETY Amiodarone HCl (Cordarone -) 200 mg PO DAILY [facility] Last Admin: 11/08/18 09:25 Dose: 200 mg Apixaban (Eliquis -) 5 mg PO BID [facility] Last Admin: 11/08/18 09:25 Dose: 5 mg Atorvastatin Calcium (Lipitor -) 10 mg PO HS [facility] Last Admin: 11/07/18 21:34 Dose: 10 mg Carbidopa/Levodopa (Sinemet *Cr* 50/200 -) 1 combo PO QID [facility] Last Admin: 11/08/18 09:25 Dose: 1 combo Furosemide (Lasix Injection -) 40 mg IVPUSH DAILY [facility] Last Admin: 11/08/18 09:25 Dose: 40 mg Glimepiride (Amaryl -) 1 mg PO DAILY@0700 [facility] Last Admin: 11/08/18 06:12 Dose: 1 mg Insulin Aspart (Novolog Vial Sliding Scale -) 1 vial SQ ACHS [facility]; Protocol Last Admin: 11/08/18 06:09 Dose: Not Given Metoprolol Succinate (Toprol Xl -) 25 mg PO BID [facility] Last Admin: 11/08/18 09:25 Dose: 25 mg Mirtazapine (Remeron -) 45 mg PO HS [facility] Last Admin: 11/07/18 21:35 Dose: 45 mg Potassium Chloride (K-Dur -) 20 meq PO DAILY [facility] Last Admin: 11/08/18 09:25 Dose: 20 meq Zolpidem Tartrate (Ambien -) 5 mg PO HS PRN PRN Reason: INSOMNIA Last Admin: 11/08/18 00:12 Dose: 5 mg - Objective Vital Signs: Vital Signs Temperature 97.0 F L 11/08/18 08:26 Pulse Rate 67 11/08/18 08:26 Respiratory Rate 20 11/08/18 08:31 Blood Pressure 113/70 11/08/18 08:26 O2 Sat by Pulse Oximetry (%) 95 11/08/18 08:31 Eyes: Yes: WNL, Conjunctiva Clear, EOM Intact HENT: Yes: WNL, Atraumatic, Normocephalic Neck: Yes: WNL, Supple, Trachea Midline Cardiovascular: Yes: WNL, Regular Rate and Rhythm Respiratory: Yes: WNL, Regular, CTA Bilaterally Gastrointestinal: Yes: WNL, Normal Bowel Sounds Genitourinary: Yes: WNL Musculoskeletal: Yes: WNL Extremities: Yes: WNL Edema: No Integumentary: Yes: WNL Neurological: Yes: WNL, Alert, Oriented ...Motor Strength: WNL Psychiatric: Yes: WNL Labs: CBC, BMP 11/08/18 07:07 11/08/18 07:07 INR, PTT INR 2.19 (0.83-1.09) H 11/06/18 13:15 Problem List - Problems (1) Abdominal pain Code(s): R10.9 - UNSPECIFIED ABDOMINAL PAIN (2) Acute on chronic systolic (congestive) heart failure Code(s): I50.23 - ACUTE ON CHRONIC SYSTOLIC (CONGESTIVE) HEART FAILURE (3) Afib Code(s): I48.91 - UNSPECIFIED ATRIAL FIBRILLATION Qualifiers: Atrial fibrillation type: unspecified Qualified Code(s): I48.91 - Unspecified atrial fibrillation (4) Anterior epistaxis Code(s): R04.0 - EPISTAXIS (5) Atrial fibrillation with rapid ventricular response Code(s): I48.91 - UNSPECIFIED ATRIAL FIBRILLATION (6) CHF (congestive heart failure) Code(s): I50.9 - HEART FAILURE, UNSPECIFIED Qualifiers: Heart failure type: combined systolic and diastolic Heart failure chronicity: acute on chronic Qualified Code(s): I50.43 - Acute on chronic combined systolic (congestive) and diastolic (congestive) heart failure (7) Cellulitis Code(s): L03.90 - CELLULITIS, UNSPECIFIED Qualifiers: Site of cellulitis: extremity Laterality: left (8) Depressed affect Code(s): R45.89 - OTHER SYMPTOMS AND SIGNS INVOLVING EMOTIONAL STATE (9) Diabetes Code(s): E11.9 - TYPE 2 DIABETES MELLITUS WITHOUT COMPLICATIONS Qualifiers: Diabetes mellitus type: type 2 Diabetes mellitus complication status: without complication (10) Diabetes Code(s): E11.9 - TYPE 2 DIABETES MELLITUS WITHOUT COMPLICATIONS (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, managed as type 1 Code(s): E10.9 - TYPE 1 DIABETES MELLITUS WITHOUT COMPLICATIONS (12) Diabetes 1.5, managed as type 2 Code(s): E13.9 - OTHER SPECIFIED DIABETES MELLITUS WITHOUT COMPLICATIONS (13) Dyspepsia Code(s): R10.13 - EPIGASTRIC PAIN (14) Edema Code(s): R60.9 - EDEMA, UNSPECIFIED Qualifiers: Edema type: unspecified Qualified Code(s): R60.9 - Edema, unspecified (15) Elevated LFTs Code(s): R79.89 - OTHER SPECIFIED ABNORMAL FINDINGS OF BLOOD CHEMISTRY (16) HTN (hypertension) Code(s): I10 - ESSENTIAL (PRIMARY) HYPERTENSION (17) Hyperlipidemia Code(s): E78.5 - HYPERLIPIDEMIA, UNSPECIFIED (18) IBS (irritable bowel syndrome) Code(s): K58.9 - IRRITABLE BOWEL SYNDROME WITHOUT DIARRHEA (19) Insomnia Code(s): G47.00 - INSOMNIA, UNSPECIFIED (20) Leukocytosis Code(s): D72.829 - ELEVATED WHITE BLOOD CELL COUNT, UNSPECIFIED (21) Parkinson disease Code(s): G20 - PARKINSON'S DISEASE (22) Paroxysmal atrial fibrillation Code(s): I48.0 - PAROXYSMAL ATRIAL FIBRILLATION (23) Sepsis Code(s): A41.9 - SEPSIS, UNSPECIFIED ORGANISM (24) Skin infection Code(s): L08.9 - LOCAL INFECTION OF THE SKIN AND SUBCUTANEOUS TISSUE, UNSP Assessment/Plan AF in sr Parkinson's disease HTN hyperlipidemia chronic constipation anxiety/depression cghf reduced EF Plan cont ac rate controlled with metoprolol and PO amiodarone, no cardizem due to reduced EF, Did not tolerated higher dose of metoprolol due to hypotension. cardiac marquez stable to d/c home on po amiodarone 200 QD bb and ac
--- NOTE | 2018-11-08 11:47 | CONSULT ---
Consult - text type - Consultation Consultation Note: NEUROLOGY CONSULT GREATLY APPRECIATED: Events reviewed and discussed with staff. Son at bedside aiding in translation. This 78 yo LH Chinese woman lives with her and well known to me in office for Parkinson's disease, last seen 09/04/18. Ambulates with cane. On Sinemet CR 50/200 QID @ 7--3-7, More recently rasagline 0.5 mg qAM was added to regimen along with buproprion XL 150 mg po qd for depression. She c/o meds causing increased swelling in her legs and stopped rasagiline. bupropion continuing only Sinemet. PMHX: HTN, HLD, Afib, DM, depression, insomnia, anxiety. On atorvastatin, metoprolol, metformin, abixaban, furosemide, mirtazapine 45 mg HS, zolpidem 5 mg, xanax 0.25 TID prn. Admitted with palpitations, found in Afib with RVR, requiring amiodarone drip. Episodic bradycardia and hypotension also noted, requiring reduction of BP medications. Here for request to today to evaluate Parkinson's medications. Review of systems sig for ongoing depression as well as insomnia and nocturnal "aches" in the extremities that prevent her from sleep. She denies falls or dysphagia. DARA: Cor irregular. No bruit. Neck supple. Neg SLR. 2+ pitting edema both legs. BP's 102-118/70 NEURO: Awake, alert Ox "[facility]" "March, no November" "Close to November 09" 2018. TRUMP. Recall 06/11 @ 3 min. + glabella CNII-CNXII: Masked facies. Sl reduced rapid tongue. Gag ok. Motor: No drift or tremor. Cogwheeling R > L. Decreased Blanquita R > L. Strength normal. Reflexes normal except absent AJ's. Plantars silent. Coordination: No FTN dystaxia but slowed. Sensation: Reduced vibration toes. Romberg - Gait: Flexed, sl shuffle. 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 D/C ambien. Taper and D/C alprazolam. Continue Mirtazepine 45 mg qHS for now Avoid SSRI's (which can worsen RLS and increase insomnia) Thank you very much, Gold Ramirez MD
[2018-11-08] MEDS ORDERED: SERTRALINE HCL 50 MG TABLET (FP) PO ONE (14:40)
--- NOTE | 2018-11-08 14:53 | PN ---
Progress Note (short form) - Note Progress Note: Current Medications Alprazolam (Xanax -) 0.25 mg PO Q8H PRN PRN Reason: ANXIETY Amiodarone HCl (Cordarone -) 200 mg PO DAILY [facility] Last Admin: 11/08/18 09:25 Dose: 200 mg Apixaban (Eliquis -) 5 mg PO BID [facility] Last Admin: 11/08/18 09:25 Dose: 5 mg Atorvastatin Calcium (Lipitor -) 10 mg PO HS [facility] Last Admin: 11/07/18 21:34 Dose: 10 mg Carbidopa/Levodopa (Sinemet *Cr* 50/200 -) 1 combo PO QID [facility] Last Admin: 11/08/18 14:01 Dose: 1 combo Furosemide (Lasix Injection -) 40 mg IVPUSH DAILY [facility] Last Admin: 11/08/18 09:25 Dose: 40 mg Glimepiride (Amaryl -) 1 mg PO DAILY@0700 [facility] Last Admin: 11/08/18 06:12 Dose: 1 mg Insulin Aspart (Novolog Vial Sliding Scale -) 1 vial SQ ACHS [facility]; Protocol Last Admin: 11/08/18 12:11 Dose: Not Given Metoprolol Succinate (Toprol Xl -) 25 mg PO BID [facility] Stop: 11/09/18 08:00 Last Admin: 11/08/18 09:25 Dose: 25 mg Metoprolol Succinate (Toprol Xl -) 50 mg PO DAILY [facility] Mirtazapine (Remeron -) 45 mg PO HS [facility] Last Admin: 11/07/18 21:35 Dose: 45 mg Potassium Chloride (K-Dur -) 20 meq PO DAILY [facility] Last Admin: 11/08/18 09:25 Dose: 20 meq Sertraline HCl (Zoloft -) 50 mg PO ONCE ONE Stop: 11/08/18 14:41 Spironolactone (Aldactone -) 25 mg PO HS [facility] Zolpidem Tartrate (Ambien -) 5 mg PO HS PRN PRN Reason: INSOMNIA Last Admin: 11/08/18 00:12 Dose: 5 mg Laboratory Results - last 24 hr 11/07/18 11/07/18 11/08/18 17:01 21:33 06:00 WBC RBC Hgb Hct MCV MCH MCHC RDW Plt Count MPV Sodium Potassium Chloride Carbon Dioxide Anion Gap BUN Creatinine Est GFR (CKD-EPI)AfAm Est GFR (CKD-EPI)NonAf POC Glucometer 227 128 140 Random Glucose Calcium Magnesium Total Bilirubin AST ALT Alkaline Phosphatase Total Protein Albumin 11/08/18 11/08/18 11/08/18 07:07 07:07 11:58 WBC 11.6 H RBC 4.26 Hgb 13.5 Hct 40.6 MCV 95.3 MCH 31.7 MCHC 33.3 RDW 13.7 Plt Count 337 MPV 8.9 Sodium 142 Potassium 3.5 Chloride 108 H Carbon Dioxide 23 Anion Gap 11 BUN 36.0 H Creatinine 0.8 Est GFR (CKD-EPI)AfAm 81.84 Est GFR (CKD-EPI)NonAf 70.61 POC Glucometer 132 Random Glucose 138 H Calcium 8.3 L Magnesium 2.1 Total Bilirubin 0.8 AST 66 H ALT 35 Alkaline Phosphatase 123 H Total Protein 5.2 L Albumin 3.0 L Vital Signs Temperature 97.0 F L 11/08/18 08:26 Pulse Rate 132 H 11/08/18 12:00 Respiratory Rate 20 11/08/18 12:00 Blood Pressure 113/70 11/08/18 08:26 O2 Sat by Pulse Oximetry (%) 95 11/08/18 08:31 CC: feels "better"; no CP ```````````````````````````````````````````````````````````````````` skin--NL color lungs--distant BS; unlabored heart--RR abd--benign ext--bilat edema L>R neuro--alert; coherent; in better spirits; some gen'l rigidity ```````````````````````````````````````````````````` Summ > rapid ATF--controlled with amiodarone; a/c and BB; but had 18 beat run of ATF this AM > Hypertensive heart & renal dz--component of CHF (could be 2nd rapid ATF) receiving BB; lasix; echo does not mention actual Ej Fx but suggest impaired relaxation PLAN: watch chemistries; check CXR, add aldactone > high LFTs--again noted; check abd US > DM--uncontrolled (a1c> 7);FSBS under 200; resume Sulfanyl urea in AM > Leukocytosis--much less today > Lipidemia--levels well controlled > PD--seen by Neuro; Sinemet adjusted > anxiety--chronic w/ depression; did NOT fare well with Wellbutrin; did not respond to most SSRis (but may not have taken Zoloft)PLAN: add Zoloft 50mg Qd ~~~~~~~~~~~~~~~~~~~~~~~~~\\ Dr Betts
[2018-11-08] MEDS ORDERED: SERTRALINE HCL 25 MG TABLET (FP) PO ONE (14:54)
[2018-11-08] MEDS ORDERED: INSULIN (NOVOLOG) ASPART 100 UNITS/ML 10ML VIAL ONE (16:40)
[2018-11-08] MEDS: ATORVASTATIN CA 10 MG TABLET (FP) PO SCH (22:09)
[2018-11-08] MEDS: MIRTAZAPINE 15 MG TABLET (FP) PO SCH (22:11)
[2018-11-08] MEDS: SPIRONOLACTONE 25 MG TABLET (FP) PO SCH (22:13)
[2018-11-09] MEDS: INSULIN SLIDING SCALE (NOVOLOG) 1 VIAL SQ SCH ×4 (06:33→22:19)
[2018-11-09] MEDS: GLIMEPIRIDE 1 MG TABLET (FP) PO SCH (06:34)
--- NOTE | 2018-11-09 08:34 | PN ---
Progress Note, Physician History of Present Illness: pulmonary alert,no distress,-sob,-cp. HR sinus isaiah 52 - Current Medication List Current Medications: Active Medications Alprazolam (Xanax -) 0.25 mg PO Q8H PRN PRN Reason: ANXIETY Amiodarone HCl (Cordarone -) 200 mg PO DAILY [facility] Last Admin: 11/08/18 09:25 Dose: 200 mg Apixaban (Eliquis -) 5 mg PO BID [facility] Last Admin: 11/08/18 22:09 Dose: 5 mg Atorvastatin Calcium (Lipitor -) 10 mg PO HS [facility] Last Admin: 11/08/18 22:09 Dose: 10 mg Carbidopa/Levodopa (Sinemet *Cr* 50/200 -) 1 combo PO 0600,1000,1400,1800 [facility] Last Admin: 11/09/18 05:50 Dose: Not Given Furosemide (Lasix Injection -) 40 mg IVPUSH DAILY [facility] Last Admin: 11/08/18 09:25 Dose: 40 mg Glimepiride (Amaryl -) 1 mg PO DAILY@0700 [facility] Last Admin: 11/09/18 06:34 Dose: Not Given Insulin Aspart (Novolog Vial Sliding Scale -) 1 vial SQ [facility]; Protocol Last Admin: 11/09/18 06:33 Dose: Not Given Metoprolol Succinate (Toprol Xl -) 50 mg PO DAILY [facility] Mirtazapine (Remeron -) 45 mg PO HS [facility] Last Admin: 11/08/18 22:11 Dose: 45 mg Potassium Chloride (K-Dur -) 20 meq PO DAILY [facility] Last Admin: 11/08/18 09:25 Dose: 20 meq Spironolactone (Aldactone -) 25 mg PO HS [facility] Last Admin: 11/08/18 22:13 Dose: 25 mg Zolpidem Tartrate (Ambien -) 5 mg PO HS PRN PRN Reason: INSOMNIA Last Admin: 11/08/18 22:09 Dose: 5 mg - Objective Vital Signs: Vital Signs Temperature 97.8 F 11/09/18 06:46 Pulse Rate 60 11/09/18 06:46 Respiratory Rate 20 11/09/18 06:46 Blood Pressure 126/76 11/09/18 06:46 O2 Sat by Pulse Oximetry (%) 93 L 11/08/18 20:33 Constitutional: Yes: Well Nourished, Calm Eyes: Yes: WNL HENT: Yes: WNL Neck: Yes: WNL Cardiovascular: Yes: Bradycardia, S1, S2 Respiratory: Yes: CTA Bilaterally Gastrointestinal: Yes: Normal Bowel Sounds, Soft Extremities: Yes: WNL Edema: Yes Labs: Assessment/Plan Problem List - Problems (1) Abdominal pain Code(s): R10.9 - UNSPECIFIED ABDOMINAL PAIN (2) Acute on chronic systolic (congestive) heart failure Code(s): I50.23 - ACUTE ON CHRONIC SYSTOLIC (CONGESTIVE) HEART FAILURE (3) Afib Code(s): I48.91 - UNSPECIFIED ATRIAL FIBRILLATION Qualifiers: Atrial fibrillation type: unspecified Qualified Code(s): I48.91 - Unspecified atrial fibrillation (4) Anterior epistaxis Code(s): R04.0 - EPISTAXIS (5) Atrial fibrillation with rapid ventricular response Code(s): I48.91 - UNSPECIFIED ATRIAL FIBRILLATION (6) CHF (congestive heart failure) Code(s): I50.9 - HEART FAILURE, UNSPECIFIED Qualifiers: Heart failure type: combined systolic and diastolic Heart failure chronicity: acute on chronic Qualified Code(s): I50.43 - Acute on chronic combined systolic (congestive) and diastolic (congestive) heart failure (7) Cellulitis Code(s): L03.90 - CELLULITIS, UNSPECIFIED Qualifiers: Site of cellulitis: extremity Laterality: left (8) Depressed affect Code(s): R45.89 - OTHER SYMPTOMS AND SIGNS INVOLVING EMOTIONAL STATE (9) Diabetes Code(s): E11.9 - TYPE 2 DIABETES MELLITUS WITHOUT COMPLICATIONS Qualifiers: Diabetes mellitus type: type 2 Diabetes mellitus complication status: without complication (10) Diabetes Code(s): E11.9 - TYPE 2 DIABETES MELLITUS WITHOUT COMPLICATIONS (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, managed as type 1 Code(s): E10.9 - TYPE 1 DIABETES MELLITUS WITHOUT COMPLICATIONS (12) Diabetes 1.5, managed as type 2 Code(s): E13.9 - OTHER SPECIFIED DIABETES MELLITUS WITHOUT COMPLICATIONS (13) Dyspepsia Code(s): R10.13 - EPIGASTRIC PAIN (14) Edema Code(s): R60.9 - EDEMA, UNSPECIFIED Qualifiers: Edema type: unspecified Qualified Code(s): R60.9 - Edema, unspecified (15) Elevated LFTs Code(s): R79.89 - OTHER SPECIFIED ABNORMAL FINDINGS OF BLOOD CHEMISTRY (16) HTN (hypertension) Code(s): I10 - ESSENTIAL (PRIMARY) HYPERTENSION (17) Hyperlipidemia Code(s): E78.5 - HYPERLIPIDEMIA, UNSPECIFIED (18) IBS (irritable bowel syndrome) Code(s): K58.9 - IRRITABLE BOWEL SYNDROME WITHOUT DIARRHEA (19) Insomnia Code(s): G47.00 - INSOMNIA, UNSPECIFIED (20) Leukocytosis Code(s): D72.829 - ELEVATED WHITE BLOOD CELL COUNT, UNSPECIFIED (21) Parkinson disease Code(s): G20 - PARKINSON'S DISEASE (22) Paroxysmal atrial fibrillation Code(s): I48.0 - PAROXYSMAL ATRIAL FIBRILLATION (23) Sepsis Code(s): A41.9 - SEPSIS, UNSPECIFIED ORGANISM O2 as needed rate control as per cardiology Amiodarone sharlene PASCUAL
[2018-11-09] MEDS: APIXABAN 5 MG TABLET PO SCH ×2 (10:04→22:18)
[2018-11-09] MEDS: POTASSIUM CHLORIDE TABS 20 MEQ TABLET.ER (FP) PO SCH (10:04)
[2018-11-09] MEDS: FUROSEMIDE 40 MG/4 ML INJECTABLE VIAL IVPUSH SCH (10:04)
[2018-11-09] MEDS: AMIODARONE HCL 200 MG TABLET (FP) PO SCH (10:04)
--- NOTE | 2018-11-09 10:15 | PN ---
Progress Note (short form) - Note Progress Note: Coverage for Makayla Nix Chief Complaint: Events noted, nortes reviewed, sitting in a chair, denies any chest pain or dyepnea History of Present Illness: Seen and examined on telemetry. Events noted, nortes reviewed, sitting in a chair, denies any chest pain or dyepnea - Current Medication List Current Medications Alprazolam (Xanax -) 0.25 mg PO Q8H PRN PRN Reason: ANXIETY Amiodarone HCl (Cordarone -) 200 mg PO DAILY [facility] Last Admin: 11/09/18 10:04 Dose: 200 mg Apixaban (Eliquis -) 5 mg PO BID [facility] Last Admin: 11/09/18 10:04 Dose: 5 mg Atorvastatin Calcium (Lipitor -) 10 mg PO HS [facility] Last Admin: 11/08/18 22:09 Dose: 10 mg Carbidopa/Levodopa (Sinemet *Cr* 50/200 -) 1 combo PO 0600,1000,1400,1800 [facility] Last Admin: 11/09/18 10:04 Dose: 1 combo Furosemide (Lasix Injection -) 40 mg IVPUSH DAILY [facility] Last Admin: 11/09/18 10:04 Dose: 40 mg Glimepiride (Amaryl -) 1 mg PO DAILY@0700 [facility] Last Admin: 11/09/18 06:34 Dose: Not Given Insulin Aspart (Novolog Vial Sliding Scale -) 1 vial SQ [facility]; Protocol Last Admin: 11/09/18 06:33 Dose: Not Given Metoprolol Succinate (Toprol Xl -) 50 mg PO DAILY [facility] Last Admin: 11/09/18 10:04 Dose: 50 mg Mirtazapine (Remeron -) 45 mg PO [facility] Last Admin: 11/08/18 22:11 Dose: 45 mg Potassium Chloride (K-Dur -) 20 meq PO DAILY [facility] Last Admin: 11/09/18 10:04 Dose: 20 meq Spironolactone (Aldactone -) 25 mg PO HS [facility] Last Admin: 11/08/18 22:13 Dose: 25 mg Zolpidem Tartrate (Ambien -) 5 mg PO HS PRN PRN Reason: INSOMNIA Last Admin: 11/08/18 22:09 Dose: 5 mg Review of Systems Cardiovascular: As noted above Respiratory: denies Cough or Sputum Production Gastrointestinal: denies: Nausea, Vomiting, Diarrhea, Constipation or Abdominal Discomfort Musculoskeletal: Degenerate Joint Disease - Objective Vital Signs: Last Vital Signs Temp Pulse Resp BP Pulse Ox 97.8 F 60 20 126/76 93 L 11/09/18 06:46 11/09/18 06:46 11/09/18 06:46 11/09/18 06:46 11/08/18 20:33 Intake & Output 11/06/18 11/07/18 11/08/18 11/09/18 23:59 23:59 23:59 23:59 Intake Total 333.2 719 600 Output Total 1200 800 Balance 333.2 -481 -200 Weight 154 lb 1.65 oz 153 lb 155 lb 3.2 oz 149 lb 9.6 oz Constitutional: No Distress, Calm Neck: Supple Negative JVD No Bruit Respiratory: Clear to A&P Bilaterally Cardiovascular: S1 S2 Irregularly Irregular Gastrointestinal: Soft Benign Normal Bowel Sounds Ext: Negative Edema Labs: CBC, BMP 11/08/18 07:07 11/08/18 07:07 Hepatic Panel Total Bilirubin 0.8 mg/dL (0.2-1) 11/08/18 07:07 AST 66 U/L (15-37) H 11/08/18 07:07 ALT 35 U/L (13-61) 11/08/18 07:07 Alkaline Phosphatase 123 U/L (45-117) H 11/08/18 07:07 Albumin 3.0 g/dl (3.4-5.0) L 11/08/18 07:07 INR, PTT INR 2.19 (0.83-1.09) H 11/06/18 13:15 ASSESSMENT: 1. Systolic/diastolic LV dysfunction with clinical class I-II NYHA classification LV failure, resolved 2. CAD angina pectoris 3. Persistent atrial fibrillation [id number] score of 6 on DOAC's/Eliquis 4. HTN 5. DM 6. Hypercholersterolemia 7. Parkinson's disease 8. Pre-renal azotemia PLAN: 1. Continue Toprol XL 2. Continue Lasix but change to PO 3. Continue Aldactone 4. Continue Eliquis, adequate dosage 5. Continue Lipitor 6. Recommend the addition of ACEI or ARBS unless contraindicated Saulat Ganga, M.D. rate controlled with metoprolol and PO amiodarone, no cardizem due to reduced EF, Did not tolerated higher dose of metoprolol due to hypotension. cc time spent 70 min
[2018-11-09] MEDS ORDERED: SERTRALINE HCL 50 MG TABLET (FP) PO ONE (10:24)
[2018-11-09] MEDS: VALSARTAN 40 MG TABLET (FP) PO SCH (11:04)
[2018-11-09 11:36] LABS: BLOOD UREA NITROGEN 28.4 mg/dL (7-18); CALCIUM 8.7 mg/dL (8.5-10.1); CREATININE 0.9 mg/dL (0.55-1.3); POTASSIUM 3.8 mmol/L (3.5-5.1)
--- NOTE | 2018-11-09 14:10 | PN ---
Progress Note (short form) - Note Progress Note: Current Medications Alprazolam (Xanax -) 0.25 mg PO Q8H PRN PRN Reason: ANXIETY Amiodarone HCl (Cordarone -) 200 mg PO DAILY [facility] Last Admin: 11/09/18 10:04 Dose: 200 mg Apixaban (Eliquis -) 5 mg PO BID [facility] Last Admin: 11/09/18 10:04 Dose: 5 mg Atorvastatin Calcium (Lipitor -) 10 mg PO HS [facility] Last Admin: 11/08/18 22:09 Dose: 10 mg Carbidopa/Levodopa (Sinemet *Cr* 50/200 -) 1 combo PO 0600,1000,1400,1800 [facility] Last Admin: 11/09/18 13:32 Dose: 1 combo Furosemide (Lasix -) 40 mg PO DAILY [facility] Glimepiride (Amaryl -) 1 mg PO DAILY@0700 [facility] Last Admin: 11/09/18 06:34 Dose: Not Given Insulin Aspart (Novolog Vial Sliding Scale -) 1 vial SQ ACHS [facility]; Protocol Last Admin: 11/09/18 11:25 Dose: 6 units Metoprolol Succinate (Toprol Xl -) 50 mg PO DAILY [facility] Last Admin: 11/09/18 10:04 Dose: 50 mg Mirtazapine (Remeron -) 45 mg PO HS [facility] Last Admin: 11/08/18 22:11 Dose: 45 mg Potassium Chloride (K-Dur -) 20 meq PO DAILY [facility] Last Admin: 11/09/18 10:04 Dose: 20 meq Spironolactone (Aldactone -) 25 mg PO HS [facility] Last Admin: 11/08/18 22:13 Dose: 25 mg Valsartan (Diovan -) 40 mg PO DAILY [facility] Last Admin: 11/09/18 11:04 Dose: 40 mg Zolpidem Tartrate (Ambien -) 5 mg PO HS PRN PRN Reason: INSOMNIA Last Admin: 11/08/18 22:09 Dose: 5 mg Laboratory Results - last 24 hr 11/08/18 11/08/18 11/09/18 16:34 22:14 05:48 Sodium Potassium Chloride Carbon Dioxide Anion Gap BUN Creatinine Est GFR (CKD-EPI)AfAm Est GFR (CKD-EPI)NonAf POC Glucometer 201 146 146 Random Glucose Calcium 11/09/18 11/09/18 11:01 11:17 Sodium 142 Potassium 3.8 Chloride 105 Carbon Dioxide 30 Anion Gap 7 L BUN 28.4 H Creatinine 0.9 Est GFR (CKD-EPI)AfAm 70.98 Est GFR (CKD-EPI)NonAf 61.24 POC Glucometer 251 Random Glucose 224 H Calcium 8.7 Vital Signs Temperature 98.1 F 11/09/18 10:00 Pulse Rate 57 L 11/09/18 10:00 Respiratory Rate 20 11/09/18 10:00 Blood Pressure 127/73 11/09/18 10:00 O2 Sat by Pulse Oximetry (%) 97 11/09/18 10:00 CC: feels "better"; no CP ```````````````````````````````````````````````````````````````````` skin--NL color lungs--unlabored heart--RR abd--benign ext--bilat edema L>R neuro--alert; coherent; in better spirits; some gen'l rigidity; able to ambulate slowly ```````````````````````````````````````````````````` Summ > rapid ATF--controlled with amiodarone; a/c and BB > Hypertensive heart & renal dz--CXR with Rt costophrenic haziness; she is receiving BB; lasix, aldactone; ; echo does not mention actual Ej Fx but suggest impaired relaxation PLAN: watch chemistries. > high LFTs--check abd US > DM--uncontrolled (a1c> 7)resume Metformin in AM > Leukocytosis--much less today > Lipidemia--levels well controlled > PD--seen by Neuro; Sinemet adjusted > anxiety--chronic w/ depression; did NOT fare well with Wellbutrin; did not respond to most SSRis (but may not have taken Zoloft)PLAN: add Zoloft 50mg Qd ~~~~~~~~~~~~~~~~~~~~~~~~~\\ Dr Commentucci
[2018-11-09] MEDS ORDERED: PT OWN MED DRAWER 7, Y5N ONE (16:32)
[2018-11-09] MEDS: ZOLPIDEM TARTRATE 5 MG TABLET PO PRN (22:18)
[2018-11-09] MEDS: MIRTAZAPINE 15 MG TABLET (FP) PO SCH (22:18)
[2018-11-09] MEDS: SPIRONOLACTONE 25 MG TABLET (FP) PO SCH (22:18)
[2018-11-09] MEDS: ATORVASTATIN CA 10 MG TABLET (FP) PO SCH (22:18)
[2018-11-10] MEDS: INSULIN SLIDING SCALE (NOVOLOG) 1 VIAL SQ SCH ×4 (06:56→21:58)
[2018-11-10] MEDS: GLIMEPIRIDE 1 MG TABLET (FP) PO SCH (06:57)
--- NOTE | 2018-11-10 09:25 | PN ---
Progress Note (short form) - Note Progress Note: PULMONARY OOB TO CHAIR COMPLAINING OF LEGS BEING SWOLLEN BREATHING IS IMPROVED VSS Constitutional: Yes: Well Nourished, Calm Eyes: Yes: WNL HENT: Yes: WNL Neck: Yes: WNL Cardiovascular: Yes: Bradycardia, S1, S2 Respiratory: Yes: CTA Bilaterally Gastrointestinal: Yes: Normal Bowel Sounds, Soft Extremities: Yes: WNL Edema: Yes Labs: reviewed/images/notes/meds (1) Abdominal pain Code(s): R10.9 - UNSPECIFIED ABDOMINAL PAIN (2) Acute on chronic systolic (congestive) heart failure Code(s): I50.23 - ACUTE ON CHRONIC SYSTOLIC (CONGESTIVE) HEART FAILURE (3) Afib Code(s): I48.91 - UNSPECIFIED ATRIAL FIBRILLATION Qualifiers: Atrial fibrillation type: unspecified Qualified Code(s): I48.91 - Unspecified atrial fibrillation (4) Anterior epistaxis Code(s): R04.0 - EPISTAXIS (5) Atrial fibrillation with rapid ventricular response Code(s): I48.91 - UNSPECIFIED ATRIAL FIBRILLATION (6) CHF (congestive heart failure) Code(s): I50.9 - HEART FAILURE, UNSPECIFIED Qualifiers: Heart failure type: combined systolic and diastolic Heart failure chronicity: acute on chronic Qualified Code(s): I50.43 - Acute on chronic combined systolic (congestive) and diastolic (congestive) heart failure (7) Cellulitis Code(s): L03.90 - CELLULITIS, UNSPECIFIED Qualifiers: Site of cellulitis: extremity Laterality: left (8) Depressed affect Code(s): R45.89 - OTHER SYMPTOMS AND SIGNS INVOLVING EMOTIONAL STATE (9) Diabetes Code(s): E11.9 - TYPE 2 DIABETES MELLITUS WITHOUT COMPLICATIONS Qualifiers: Diabetes mellitus type: type 2 Diabetes mellitus complication status: without complication (10) Diabetes Code(s): E11.9 - TYPE 2 DIABETES MELLITUS WITHOUT COMPLICATIONS (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, managed as type 1 Code(s): E10.9 - TYPE 1 DIABETES MELLITUS WITHOUT COMPLICATIONS (12) Diabetes 1.5, managed as type 2 Code(s): E13.9 - OTHER SPECIFIED DIABETES MELLITUS WITHOUT COMPLICATIONS (13) Dyspepsia Code(s): R10.13 - EPIGASTRIC PAIN (14) Edema Code(s): R60.9 - EDEMA, UNSPECIFIED Qualifiers: Edema type: unspecified Qualified Code(s): R60.9 - Edema, unspecified (15) Elevated LFTs Code(s): R79.89 - OTHER SPECIFIED ABNORMAL FINDINGS OF BLOOD CHEMISTRY (16) HTN (hypertension) Code(s): I10 - ESSENTIAL (PRIMARY) HYPERTENSION (17) Hyperlipidemia Code(s): E78.5 - HYPERLIPIDEMIA, UNSPECIFIED (18) IBS (irritable bowel syndrome) Code(s): K58.9 - IRRITABLE BOWEL SYNDROME WITHOUT DIARRHEA (19) Insomnia Code(s): G47.00 - INSOMNIA, UNSPECIFIED (20) Leukocytosis Code(s): D72.829 - ELEVATED WHITE BLOOD CELL COUNT, UNSPECIFIED (21) Parkinson disease Code(s): G20 - PARKINSON'S DISEASE (22) Paroxysmal atrial fibrillation Code(s): I48.0 - PAROXYSMAL ATRIAL FIBRILLATION (23) Sepsis Code(s): A41.9 - SEPSIS, UNSPECIFIED ORGANISM O2/a/c glycemic/rate control daily weights continue current meds Hina DUTTA MD
[2018-11-10] MEDS: SERTRALINE HCL 50 MG TABLET (FP) PO SCH (09:28)
[2018-11-10] MEDS: AMIODARONE HCL 200 MG TABLET (FP) PO SCH (09:28)
[2018-11-10] MEDS: POTASSIUM CHLORIDE TABS 20 MEQ TABLET.ER (FP) PO SCH (09:29)
[2018-11-10] MEDS: APIXABAN 5 MG TABLET PO SCH ×2 (09:29→21:57)
[2018-11-10] MEDS: VALSARTAN 40 MG TABLET (FP) PO SCH (09:29)
[2018-11-10] MEDS ORDERED: FUROSEMIDE 40 MG TABLET (FP) PO SCH (10:00)
[2018-11-10] MEDS ORDERED: FUROSEMIDE 20 MG TABLET (FP) PO SCH (10:00)
--- NOTE | 2018-11-10 11:30 | PN ---
Progress Note, Physician History of Present Illness: PMH; AF Parkinson's disease HTN hyperlipidemia chronic constipation anxiety/depression - Current Medication List Current Medications: Active Medications Alprazolam (Xanax -) 0.25 mg PO Q8H PRN PRN Reason: ANXIETY Amiodarone HCl (Cordarone -) 200 mg PO DAILY [facility] Last Admin: 11/10/18 09:28 Dose: 200 mg Apixaban (Eliquis -) 5 mg PO BID [facility] Last Admin: 11/10/18 09:29 Dose: 5 mg Atorvastatin Calcium (Lipitor -) 10 mg PO HS [facility] Last Admin: 11/09/18 22:18 Dose: 10 mg Carbidopa/Levodopa (Sinemet *Cr* 50/200 -) 1 combo PO 0600,1000,1400,1800 [facility] Last Admin: 11/10/18 09:29 Dose: 1 combo Furosemide (Lasix -) 60 mg PO DAILY [facility] Last Admin: 11/10/18 09:28 Dose: 60 mg Glimepiride (Amaryl -) 1 mg PO DAILY@0700 [facility] Last Admin: 11/10/18 06:57 Dose: 1 mg Insulin Aspart (Novolog Vial Sliding Scale -) 1 vial SQ [facility]; Protocol Last Admin: 11/10/18 06:56 Dose: Not Given Metformin HCl (Glucophage Xr -) 500 mg PO DAILY@0700 [facility] Last Admin: 11/10/18 06:56 Dose: 500 mg Metoprolol Succinate (Toprol Xl -) 50 mg PO DAILY [facility] Last Admin: 11/10/18 09:28 Dose: 50 mg Mirtazapine (Remeron -) 45 mg PO [facility] Last Admin: 11/09/18 22:18 Dose: 45 mg Potassium Chloride (K-Dur -) 20 meq PO DAILY [facility] Last Admin: 11/10/18 09:29 Dose: 20 meq Sertraline HCl (Zoloft -) 50 mg PO DAILY [facility] Last Admin: 11/10/18 09:28 Dose: 50 mg Spironolactone (Aldactone -) 25 mg PO HS [facility] Last Admin: 11/09/18 22:18 Dose: 25 mg Valsartan (Diovan -) 40 mg PO DAILY [facility] Last Admin: 11/10/18 09:29 Dose: Not Given Zolpidem Tartrate (Ambien -) 5 mg PO HS PRN PRN Reason: INSOMNIA Last Admin: 11/09/18 22:18 Dose: 5 mg - Objective Vital Signs: Vital Signs Temperature 98 F 11/10/18 09:32 Pulse Rate 54 L 11/10/18 09:32 Respiratory Rate 18 11/10/18 09:32 Blood Pressure 100/60 11/10/18 09:32 O2 Sat by Pulse Oximetry (%) 95 11/09/18 21:37 Eyes: Yes: WNL, Conjunctiva Clear, EOM Intact HENT: Yes: WNL, Atraumatic, Normocephalic Neck: Yes: WNL, Supple, Trachea Midline Cardiovascular: Yes: WNL, Regular Rate and Rhythm Respiratory: Yes: WNL, Regular, CTA Bilaterally Gastrointestinal: Yes: WNL, Normal Bowel Sounds Genitourinary: Yes: WNL Musculoskeletal: Yes: WNL Extremities: Yes: WNL Edema: No Integumentary: Yes: WNL Neurological: Yes: WNL, Alert, Oriented ...Motor Strength: WNL Psychiatric: Yes: WNL Labs: CBC, BMP 11/08/18 07:07 11/09/18 11:01 INR, PTT INR 2.19 (0.83-1.09) H 11/06/18 13:15 Problem List - Problems (1) Abdominal pain Code(s): R10.9 - UNSPECIFIED ABDOMINAL PAIN (2) Acute on chronic systolic (congestive) heart failure Code(s): I50.23 - ACUTE ON CHRONIC SYSTOLIC (CONGESTIVE) HEART FAILURE (3) Afib Code(s): I48.91 - UNSPECIFIED ATRIAL FIBRILLATION Qualifiers: Atrial fibrillation type: unspecified Qualified Code(s): I48.91 - Unspecified atrial fibrillation (4) Anterior epistaxis Code(s): R04.0 - EPISTAXIS (5) Atrial fibrillation with rapid ventricular response Code(s): I48.91 - UNSPECIFIED ATRIAL FIBRILLATION (6) CHF (congestive heart failure) Code(s): I50.9 - HEART FAILURE, UNSPECIFIED Qualifiers: Heart failure type: combined systolic and diastolic Heart failure chronicity: acute on chronic Qualified Code(s): I50.43 - Acute on chronic combined systolic (congestive) and diastolic (congestive) heart failure (7) Cellulitis Code(s): L03.90 - CELLULITIS, UNSPECIFIED Qualifiers: Site of cellulitis: extremity Laterality: left (8) Depressed affect Code(s): R45.89 - OTHER SYMPTOMS AND SIGNS INVOLVING EMOTIONAL STATE (9) Diabetes Code(s): E11.9 - TYPE 2 DIABETES MELLITUS WITHOUT COMPLICATIONS Qualifiers: Diabetes mellitus type: type 2 Diabetes mellitus complication status: without complication (10) Diabetes Code(s): E11.9 - TYPE 2 DIABETES MELLITUS WITHOUT COMPLICATIONS (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, managed as type 1 Code(s): E10.9 - TYPE 1 DIABETES MELLITUS WITHOUT COMPLICATIONS (12) Diabetes 1.5, managed as type 2 Code(s): E13.9 - OTHER SPECIFIED DIABETES MELLITUS WITHOUT COMPLICATIONS (13) Dyspepsia Code(s): R10.13 - EPIGASTRIC PAIN (14) Edema Code(s): R60.9 - EDEMA, UNSPECIFIED Qualifiers: Edema type: unspecified Qualified Code(s): R60.9 - Edema, unspecified (15) Elevated LFTs Code(s): R79.89 - OTHER SPECIFIED ABNORMAL FINDINGS OF BLOOD CHEMISTRY (16) HTN (hypertension) Code(s): I10 - ESSENTIAL (PRIMARY) HYPERTENSION (17) Hyperlipidemia Code(s): E78.5 - HYPERLIPIDEMIA, UNSPECIFIED (18) IBS (irritable bowel syndrome) Code(s): K58.9 - IRRITABLE BOWEL SYNDROME WITHOUT DIARRHEA (19) Insomnia Code(s): G47.00 - INSOMNIA, UNSPECIFIED (20) Leukocytosis Code(s): D72.829 - ELEVATED WHITE BLOOD CELL COUNT, UNSPECIFIED (21) Parkinson disease Code(s): G20 - PARKINSON'S DISEASE (22) Paroxysmal atrial fibrillation Code(s): I48.0 - PAROXYSMAL ATRIAL FIBRILLATION (23) Sepsis Code(s): A41.9 - SEPSIS, UNSPECIFIED ORGANISM (24) Skin infection Code(s): L08.9 - LOCAL INFECTION OF THE SKIN AND SUBCUTANEOUS TISSUE, UNSP Assessment/Plan AF in sr Parkinson's disease HTN hyperlipidemia chronic constipation anxiety/depression cghf reduced EF Plan cont ac rate controlled with metoprolol and PO amiodarone, no cardizem due to reduced EF, Did not tolerated higher dose of metoprolol due to hypotension. cardiac marquez stable to d/c home on po amiodarone 200 QD bb and ac
[2018-11-10] MEDS ORDERED: FUROSEMIDE 40 MG/4 ML INJECTABLE VIAL IVPUSH ONE (15:59)
--- NOTE | 2018-11-10 16:07 | PN ---
Progress Note (short form) - Note Progress Note: Current Medications Amiodarone HCl (Cordarone -) 200 mg PO DAILY [facility] Last Admin: 11/10/18 09:28 Dose: 200 mg Apixaban (Eliquis -) 5 mg PO BID [facility] Last Admin: 11/10/18 09:29 Dose: 5 mg Atorvastatin Calcium (Lipitor -) 10 mg PO HS [facility] Last Admin: 11/09/18 22:18 Dose: 10 mg Carbidopa/Levodopa (Sinemet *Cr* 50/200 -) 1 combo PO 0600,1000,1400,1800 [facility] Last Admin: 11/10/18 09:29 Dose: 1 combo Furosemide (Lasix -) 60 mg PO DAILY [facility] Last Admin: 11/10/18 09:28 Dose: 60 mg Glimepiride (Amaryl -) 1 mg PO DAILY@0700 [facility] Last Admin: 11/10/18 06:57 Dose: 1 mg Insulin Aspart (Novolog Vial Sliding Scale -) 1 vial SQ ACHS [facility]; Protocol Last Admin: 11/10/18 11:37 Dose: Not Given Metformin HCl (Glucophage Xr -) 500 mg PO DAILY@0700 [facility] Last Admin: 11/10/18 06:56 Dose: 500 mg Metoprolol Succinate (Toprol Xl -) 50 mg PO DAILY [facility] Last Admin: 11/10/18 09:28 Dose: 50 mg Mirtazapine (Remeron -) 45 mg PO HS [facility] Last Admin: 11/09/18 22:18 Dose: 45 mg Potassium Chloride (K-Dur -) 20 meq PO DAILY [facility] Last Admin: 11/10/18 09:29 Dose: 20 meq Sertraline HCl (Zoloft -) 50 mg PO DAILY [facility] Last Admin: 11/10/18 09:28 Dose: 50 mg Spironolactone (Aldactone -) 25 mg PO HS [facility] Last Admin: 11/09/18 22:18 Dose: 25 mg Valsartan (Diovan -) 40 mg PO DAILY [facility] Last Admin: 11/10/18 09:29 Dose: Not Given Zolpidem Tartrate (Ambien -) 5 mg PO HS PRN PRN Reason: INSOMNIA Last Admin: 11/09/18 22:18 Dose: 5 mg Laboratory Results - last 24 hr 11/09/18 11/09/18 11/10/18 16:24 22:17 05:41 POC Glucometer 130 234 148 11/10/18 11:31 POC Glucometer 107 Vital Signs Temperature 98.1 F 11/10/18 14:00 Pulse Rate 63 11/10/18 14:00 Respiratory Rate 18 11/10/18 14:00 Blood Pressure 132/63 11/10/18 14:00 O2 Sat by Pulse Oximetry (%) 95 11/10/18 09:00 CC: legs swollen ```````````````````````````````````````````````````````````````````` skin--NL color lungs--unlabored heart--RR abd--benign ext--bilat edema L>R neuro--alert; coherent; in better spirits; some gen'l rigidity; able to ambulate slowly ```````````````````````````````````````````````````` Summ > rapid ATF--controlled with amiodarone; a/c and BB > Hypertensive heart & renal dz--CXR with Rt costophrenic haziness (effusion); she is receiving BB; lasix, aldactone;and ARB ; echo does not mention actual Ej Fx but suggest impaired relaxation PLAN: watch chemistries. > high LFTs--US suggestes vascular congestion of liver & GB; which may account for the high Alk Ph and LFts; will order Hepatitis screen as well > DM--uncontrolled (a1c> 7)resume Metformin in AM; glucose better today > Leukocytosis--much less today > Lipidemia--levels well controlled > PD--seen by Neuro; Sinemet adjusted > anxiety--chronic w/ depression; on Mirtazapine and Zoloft 50mg Qd ~~~~~~~~~~~~~~~~~~~~~~~~~\ Dr Betts
[2018-11-10] MEDS: SPIRONOLACTONE 25 MG TABLET (FP) PO SCH (21:57)
[2018-11-10] MEDS: ZOLPIDEM TARTRATE 5 MG TABLET PO PRN (21:57)
[2018-11-10] MEDS: MIRTAZAPINE 15 MG TABLET (FP) PO SCH (21:57)
[2018-11-10] MEDS: ATORVASTATIN CA 10 MG TABLET (FP) PO SCH (21:57)
[2018-11-10 22:19] VITALS: BMI 24.6
[2018-11-11] MEDS: INSULIN SLIDING SCALE (NOVOLOG) 1 VIAL SQ SCH ×3 (06:24→16:52)
[2018-11-11] MEDS: GLIMEPIRIDE 1 MG TABLET (FP) PO SCH (06:24)
--- NOTE | 2018-11-11 07:05 | PN ---
Progress Note (short form) - Note Progress Note: Coverage for Makayla Nix Chief Complaint: Events noted, notes reviewed, sitting in a chair, denies any chest pain or dyepnea, complaining of constipation History of Present Illness: Seen and examined on telemetry. Events noted, notes reviewed, sitting in a chair , denies any chest pain or dyepnea, complaining of constipation - Current Medication List Current Medications Amiodarone HCl (Cordarone -) 200 mg PO DAILY [facility] Last Admin: 11/10/18 09:28 Dose: 200 mg Apixaban (Eliquis -) 5 mg PO BID [facility] Last Admin: 11/10/18 21:57 Dose: 5 mg Atorvastatin Calcium (Lipitor -) 10 mg PO [facility] Last Admin: 11/10/18 21:57 Dose: 10 mg Carbidopa/Levodopa (Sinemet *Cr* 50/200 -) 1 combo PO 0600,1000,1400,1800 [facility] Last Admin: 11/11/18 06:24 Dose: 1 combo Furosemide (Lasix -) 60 mg PO DAILY [facility] Last Admin: 11/10/18 09:28 Dose: 60 mg Glimepiride (Amaryl -) 1 mg PO DAILY@0700 [facility] Last Admin: 11/11/18 06:24 Dose: 1 mg Insulin Aspart (Novolog Vial Sliding Scale -) 1 vial SQ [facility]; Protocol Last Admin: 11/11/18 06:24 Dose: Not Given Losartan Potassium (Cozaar -) 25 mg PO DAILY [facility] Metformin HCl (Glucophage Xr -) 500 mg PO DAILY@0700 [facility] Last Admin: 11/11/18 06:24 Dose: 500 mg Metoprolol Succinate (Toprol Xl -) 50 mg PO DAILY [facility] Last Admin: 11/10/18 09:28 Dose: 50 mg Mirtazapine (Remeron -) 45 mg PO [facility] Last Admin: 11/10/18 21:57 Dose: 45 mg Potassium Chloride (K-Dur -) 20 meq PO DAILY [facility] Last Admin: 11/10/18 09:29 Dose: 20 meq Sertraline HCl (Zoloft -) 50 mg PO DAILY [facility] Last Admin: 11/10/18 09:28 Dose: 50 mg Spironolactone (Aldactone -) 25 mg PO [facility] Last Admin: 11/10/18 21:57 Dose: 25 mg Zolpidem Tartrate (Ambien -) 5 mg PO HS PRN PRN Reason: INSOMNIA Last Admin: 11/10/18 21:57 Dose: 5 mg Review of Systems Cardiovascular: As noted above Respiratory: denies Cough or Sputum Production Gastrointestinal: denies: Nausea, Vomiting, Diarrhea, Constipation or Abdominal Discomfort Musculoskeletal: Degenerate Joint Disease - Objective Vital Signs: Last Vital Signs Temp Pulse Resp BP Pulse Ox 97.8 F 59 L 18 128/76 96 11/11/18 02:00 11/11/18 02:00 11/11/18 02:00 11/11/18 02:00 11/10/18 22:00 Intake & Output 11/08/18 11/09/18 11/10/18 11/11/18 23:59 23:59 23:59 23:59 Intake Total 600 1040 920 Output Total 800 Balance -200 1040 920 Weight 155 lb 3.2 oz 149 lb 9.6 oz 148 lb 147 lb 3.2 oz Constitutional: No Distress, Calm Neck: Supple Negative JVD No Bruit Respiratory: Clear to A&P Bilaterally Cardiovascular: S1 S2 Irregularly Irregular Gastrointestinal: Soft Benign Normal Bowel Sounds Ext: Negative Edema Labs: CBC, BMP 11/11/18 06:39 11/11/18 06:39 CBC, BMP 11/08/18 07:07 11/09/18 11:01 Hepatic Panel Total Bilirubin 0.8 mg/dL (0.2-1) 11/08/18 07:07 AST 66 U/L (15-37) H 11/08/18 07:07 ALT 35 U/L (13-61) 11/08/18 07:07 Alkaline Phosphatase 123 U/L (45-117) H 11/08/18 07:07 Albumin 3.0 g/dl (3.4-5.0) L 11/08/18 07:07 INR, PTT INR 2.19 (0.83-1.09) H 11/06/18 13:15 ASSESSMENT: 1. Systolic/diastolic LV dysfunction with clinical class I-II NYHA classification LV failure, resolved 2. CAD angina pectoris 3. Persistent atrial fibrillation [id number] score of 6 on DOAC's/Eliquis 4. HTN 5. DM 6. Hypercholersterolemia 7. Parkinson's disease 8. Pre-renal azotemia 9. Constipation PLAN: 1. Continue Toprol XL 2. Continue Cozaar 3. Continue PO Lasix 4. Continue Aldactone 5. Continue Eliquis, adequate dosage 6. Continue Lipitor Ember Schuler M.D.
[2018-11-11 07:28] LABS: HEMATOCRIT 38.2 % (32.4-45.2); HEMOGLOBIN 12.8 GM/dL (10.7-15.3); MCH 31.9 pg (25.7-33.7); MCHC 33.5 g/dl (32.0-36.0); MEAN CELL VOLUME 95.3 fl (80-96); MEAN PLT VOLUME 8.3 fl (7.5-11.1); RBC 4.01 M/mm3 (3.60-5.2); RDW 13.6 % (11.6-15.6); WHITE BLOOD COUNT 8.6 K/mm3 (4.0-10.0)
[2018-11-11 07:59] LABS: BLOOD UREA NITROGEN 25.6 mg/dL (7-18); CALCIUM 8.4 mg/dL (8.5-10.1); CREATININE 0.9 mg/dL (0.55-1.3); MAGNESIUM 2.1 mg/dL (1.8-2.4); POTASSIUM 3.8 mmol/L (3.5-5.1)
[2018-11-11] MEDS ORDERED: PT OWN MED DRAWER 7, Y5N ONE ×2 (08:08→08:12)
[2018-11-11 08:22] LABS: PLATELET COUNT 335 K/MM3 (134-434)
[2018-11-11] MEDS ORDERED: FUROSEMIDE 40 MG TABLET (FP) PO SCH (09:48)
[2018-11-11] MEDS ORDERED: BISACODYL 10 MG SUPP.RECT RC ONE (09:50)
[2018-11-11] MEDS ORDERED: POLYETHYLENE GLYCOL 3350 119 GM BTL PO SCH (10:00)
[2018-11-11] MEDS ORDERED: LOSARTAN POTASSIUM 25 MG TABLET PO SCH (10:00)
[2018-11-11] MEDS: SERTRALINE HCL 50 MG TABLET (FP) PO SCH (10:20)
[2018-11-11] MEDS: POTASSIUM CHLORIDE TABS 20 MEQ TABLET.ER (FP) PO SCH (10:20)
[2018-11-11] MEDS: AMIODARONE HCL 200 MG TABLET (FP) PO SCH (10:20)
[2018-11-11] MEDS: APIXABAN 5 MG TABLET PO SCH (10:21)
[2018-11-11 16:13] VITALS: BP 127/80; PULSE 58; TEMP 98
--- NOTE | 2018-11-11 16:57 | DS ---
Physical Examination Vital Signs: Vital Signs Temperature 98 F 11/11/18 10:00 Pulse Rate 58 L 11/11/18 10:00 Respiratory Rate 20 11/11/18 10:00 Blood Pressure 127/80 11/11/18 10:00 O2 Sat by Pulse Oximetry (%) 97 11/11/18 10:00 Constitutional: Yes: Well Nourished, No Distress, Anxious Eyes: Yes: Conjunctiva Clear HENT: Yes: Atraumatic Neck: Yes: Supple Cardiovascular: Yes: Bradycardia Respiratory: Yes: Regular, CTA Bilaterally Gastrointestinal: Yes: Normal Bowel Sounds, Soft ...Rectal Exam: Yes: Deferred Musculoskeletal: Yes: Joint Stiffness Extremities: Yes: WNL Edema: Yes Edema: LLE: 1+, RLE: 1+ Integumentary: Yes: WNL Neurological: Yes: Pre-Existing Deficit ...Motor Strength: WNL Psychiatric: Yes: WNL Labs: CBC, BMP 11/11/18 06:39 11/11/18 06:39 Discharge Summary Reason For Visit: DM AFIB PK Current Active Problems Atrial fibrillation with rapid ventricular response (Acute) DM ASHD Depression elevated LFTs lipidemia constipation insomnia Parkinsons Hospital Course: 78 YO w/ known Hx of ATF; admitted for rapid ATF; and 2nd CHF; was given IV Amiodarone, and HR brought under control. Enzymes NL. Was found to be volume overloaded and diuresed with improvement. her Bun was elevated on admission but improved. WBC count was high but came down to NL. No signs to suggest infection.Her a1c was over 7; and placed on insulin coverage. She was seen by neuro who adjusted her Parkinson meds. LFts were mildly high and had abd US which revelaed portal vein congestion as he likley cause. Hepatitis profile ordered but not resulted at time of discharge. She improved slowly each day; she was seen by PT who felt she walked well with a walker. Her d/c meds were reviewed with the family. Condition: Improved - Instructions Diet, Activity, Other Instructions: low salt low carb diet as explained see Dr peraza next week Referrals: Denis Peraza MD [Primary Care Provider] - Disposition: VNS/HOME HEALTH CARE - Home Medications Comprehensive Discharge Medication List: Ambulatory Orders Carbidopa/Levodopa [Carbidopa-Levo ER 50-200 Tab] 1 each PO QID 02/24/17 Amiodarone HCl [Cordarone -] 200 mg PO DAILY #30 tablet 11/11/18 Apixaban [Eliquis -] 5 mg PO BID tablet 11/11/18 Atorvastatin Ca [Lipitor] 10 mg PO HS tablet 11/11/18 Furosemide [Lasix -] 80 mg PO DAILY #30 tablet 11/11/18 Glimepiride [Glimepiride -] 1 mg PO DAILY@0700 tablet 11/11/18 Losartan Potassium [Cozaar -] 25 mg PO DAILY #30 tablet 11/11/18 Metoprolol Succinate [Toprol XL -] 50 mg PO DAILY #30 tab.sr.24h 11/11/18 Mirtazapine [Remeron -] 45 mg PO HS tablet 11/11/18 Polyethylene Glycol 3350 [Miralax 119 gm Btl -] 17 gm PO BID bottle 11/11/18 Potassium Chloride [K-Dur -] 20 meq PO DAILY tablet.er 11/11/18 Sertraline HCl [Zoloft -] 50 mg PO DAILY #30 tablet 11/11/18 Spironolactone [Aldactone -] 25 mg PO HS #30 tablet 11/11/18 metFORMIN XR [Glucophage Xr -] 500 mg PO DAILY@0700 tab.sr.24h 11/11/18
[2018-11-12 03:10] LABS: HEP.C VIRUS AB <0.1 s/co ratio (0.0-0.9)
--- NOTE | 2019-01-02 09:38 | EKG ---
Test Reason : Blood Pressure : / mmHG Vent. Rate : 055 BPM Atrial Rate : 084 BPM P-R Int : 000 ms QRS Dur : 102 ms QT Int : 518 ms P-R-T Axes : 000 -43 -71 degrees QTc Int : 495 ms JUNCTIONAL RHYTHM WITH OCCASIONAL PREMATURE VENTRICULAR COMPLEXES LEFT AXIS DEVIATION PROLONGED QT ABNORMAL ECG Confirmed by Anurag Garsia MD ([id number]) on 01/02/2019 9:37:51 AM Referred By: Confirmed By:Anurag Garsia MD
== END 2018-11-11 18:41 | disposition home health service (06) | DRG 308 ==
LOC: JER 12:33 → JERBED 15:24 → JICU 18:22 → J4W 11-07 19:07
PROVIDERS: ADMIT Internal Medicine; ATTEND Internal Medicine
DX: I48.91 Unspecified atrial fibrillation (principal); I50.23 Acute on chronic systolic (congestive) heart failure; K59.00 Constipation, unspecified; G47.00 Insomnia, unspecified; G20 Parkinson's disease; E78.5 Hyperlipidemia, unspecified; I25.119 Atherosclerotic heart disease of native coronary artery with unspecified angina pectoris; E11.65 Type 2 diabetes mellitus with hyperglycemia; D72.829 Elevated white blood cell count, unspecified; F41.8 Other specified anxiety disorders; G25.81 Restless legs syndrome; E11.42 Type 2 diabetes mellitus with diabetic polyneuropathy
CPT/HCPCS: 36415; 71045-TC-FY; 76705-TC; 80048; 80053; 80061; 80074; 81003; 82550; 82962; 83036; 83721; 83735; 83880; 84100; 84443; 84484; 85025; 85027; 85610; 85730; 93005; 93010; 93306-TC; 97116-GP; 97161-GP; 99284-25; J0282

== ENCOUNTER 2022-07-14 09:12 | Inpatient (IN) | payer OTHER, MEDICARE ==
[2022-07-14] MEDS ORDERED: SODIUM CHLORIDE 0.9% 500 ML INFUS.BAG IV ONE (11:00)
[2022-07-14 13:53] LABS: BASO % 0.2 % (0-2.0); EOS % 0.1 % (0-4.5); HEMATOCRIT 37.4 % (32.4-45.2); HEMOGLOBIN 12.3 GM/dL (10.7-15.3); LYMPH % 5.9 % (8-40); MCH 31.8 pg (25.7-33.7); MCHC 32.9 g/dl (32.0-36.0); MEAN CELL VOLUME 96.7 fl (80-96); MEAN PLT VOLUME 8.1 fl (7.5-11.1); MONO % 9.5 % (3.8-10.2); NEUT % 84.3 % (42.8-82.8); PLATELET COUNT 309 10^3/uL (134-434); RBC 3.86 M/mm3 (3.60-5.2); WHITE BLOOD COUNT 12.5 K/mm3 (4.0-10.0)
[2022-07-14 14:02] LABS: BLOOD UREA NITROGEN 16.9 mg/dL (7-18); CALCIUM 8.3 mg/dL (8.5-10.1)
[2022-07-14 14:05] LABS: ALBUMIN 3.2 g/dl (3.4-5.0); CREATININE 0.6 mg/dL (0.55-1.3)
[2022-07-14 14:07] LABS: BILIRUBIN,TOTAL 0.2 mg/dL (0.2-1); TOT PROT 6.3 g/dl (6.4-8.2)
[2022-07-14 14:11] LABS: N-TERMINAL BNP 1314.7 pg/ml (5-450)
[2022-07-14] MEDS ORDERED: DEXTROSE 5%-NORMAL SALINE 1,000 ML IV SCH ×2 (14:30→19:00)
[2022-07-14] MEDS ORDERED: ACETAMINOPHEN 1000 MG/100 ML BAG IVPB ONE ×2 (15:31→21:33)
[2022-07-14] MEDS ORDERED: ACETAMINOPHEN INJECTION 100 ML IVPB ONE ×2 (15:33→22:02)
[2022-07-14] MEDS ORDERED: DEXAMETHASONE SOD PHOSPHATE 10 MG/1 ML VIAL IVPUSH ONE (18:49)
[2022-07-14] MEDS ORDERED: REMDESIVIR 200 MG in SODIUM CHLORIDE 250 ML IVPB ONE (18:49)
[2022-07-14] MEDS ORDERED: DEXAMETHASONE SOD PHOSPHATE 10 MG/1 ML VIAL ONE (19:34)
[2022-07-14] MEDS ORDERED: APIXABAN 5 MG TABLET PO SCH (22:00)
[2022-07-14] MEDS ORDERED: ATORVASTATIN CA 10 MG TABLET (FP) ONE (22:01)
[2022-07-14] MEDS ORDERED: POLYETHYLENE GLYCOL (HEALTHYLAX) 3350 17 GM PACKET ONE (22:01)
[2022-07-14] MEDS ORDERED: MELATONIN 5 MG TABLETS ONE (22:02)
[2022-07-14] MEDS ORDERED: MIRTAZAPINE 15 MG TABLET (FP) ONE (22:02)
[2022-07-14] MEDS ORDERED: HEPARIN NA (PORCINE) 5,000 UNITS/ML 1ML VIAL ONE (22:02)
[2022-07-14] MEDS: POLYETHYLENE GLYCOL (HEALTHYLAX) 3350 17 GM PACKET PO SCH (22:33)
[2022-07-14] MEDS: HEPARIN NA (PORCINE) 5,000 UNITS/ML 1ML VIAL SQ SCH (22:33)
[2022-07-14] MEDS: MELATONIN 5 MG TABLETS PO PRN (22:34)
[2022-07-14] MEDS: ATORVASTATIN CA 10 MG TABLET (FP) PO SCH (22:34)
[2022-07-14] MEDS: MIRTAZAPINE 15 MG TABLET (FP) PO SCH (22:34)
[2022-07-15 07:17] LABS: INR 1.46 (0.83-1.09); PROTHROMBIN TIME (PATIENT) 16.9 SEC (9.7-13.0)
[2022-07-15 07:19] LABS: ACTIVATED PTT 31.2 SECONDS (25.2-36.5)
[2022-07-15 07:22] LABS: CALCIUM 8.9 mg/dL (8.5-10.1)
[2022-07-15 07:23] LABS: BLOOD UREA NITROGEN 16.9 mg/dL (7-18)
[2022-07-15] MEDS ORDERED: metFORMIN HCL 500 MG TABLET (FP) ONE (07:25)
[2022-07-15 07:26] LABS: CREATININE 0.7 mg/dL (0.55-1.3); PHOSPHOROUS 3.1 mg/dL (2.5-4.9)
[2022-07-15] MEDS ORDERED: INSULIN REGULAR HUMAN 100 UNITS/ML *VIAL ONE (07:29)
[2022-07-15] MEDS: INSULIN (NOVOLOG) ASPART 100 UNITS/ML 10ML VIAL SQ SCH ×3 (07:33→18:11)
[2022-07-15 07:36] LABS: BASO % 0.2 % (0-2.0); HEMATOCRIT 38.4 % (32.4-45.2); HEMOGLOBIN 12.7 GM/dL (10.7-15.3); LYMPH % 6.9 % (8-40); MCH 31.9 pg (25.7-33.7); MEAN CELL VOLUME 96.7 fl (80-96); MEAN PLT VOLUME 8.2 fl (7.5-11.1); MONO % 3.7 % (3.8-10.2); NEUT % 89.2 % (42.8-82.8); PLATELET COUNT 320 10^3/uL (134-434); RBC 3.97 M/mm3 (3.60-5.2); WHITE BLOOD COUNT 9.5 K/mm3 (4.0-10.0)
[2022-07-15] MEDS ORDERED: DEXAMETHASONE SOD PHOSPHATE 10 MG/1 ML VIAL ONE (09:22)
[2022-07-15] MEDS ORDERED: AMIODARONE HCL 200 MG TABLET PO SCH (10:00)
[2022-07-15] MEDS: DEXAMETHASONE SOD PHOSPHATE 10 MG/1 ML VIAL IVPUSH SCH (10:00)
[2022-07-15] MEDS: REMDESIVIR 100 MG in SODIUM CHLORIDE 250 ML IVPB SCH (10:10)
[2022-07-15] MEDS ORDERED: POLYETHYLENE GLYCOL (HEALTHYLAX) 3350 17 GM PACKET ONE (10:54)
[2022-07-15] MEDS ORDERED: HEPARIN NA (PORCINE) 5,000 UNITS/ML 1ML VIAL ONE (10:54)
[2022-07-15] MEDS: POLYETHYLENE GLYCOL (HEALTHYLAX) 3350 17 GM PACKET PO SCH ×2 (11:01→21:54)
[2022-07-15] MEDS: HEPARIN NA (PORCINE) 5,000 UNITS/ML 1ML VIAL SQ SCH (11:01)
[2022-07-15 18:44] VITALS: BMI 23.8
[2022-07-15] MEDS: APIXABAN 2.5 MG TABLET PO SCH (21:53)
[2022-07-15] MEDS: ATORVASTATIN CA 10 MG TABLET (FP) PO SCH (21:54)
[2022-07-15] MEDS: MIRTAZAPINE 15 MG TABLET (FP) PO SCH (22:03)
[2022-07-15] MEDS: SPIRONOLACTONE 25 MG TABLET PO SCH (22:06)
[2022-07-15] MEDS: rOPINIRole HCL 0.5 MG TABLET PO SCH (22:09)
[2022-07-16] MEDS: LEVOTHYROXINE NA 25 MCG TABLET (FP) PO SCH (06:21)
[2022-07-16] MEDS: INSULIN (NOVOLOG) ASPART 100 UNITS/ML 10ML VIAL SQ SCH ×3 (06:21→18:48)
[2022-07-16 09:16] LABS: BASO % 0.1 % (0-2.0); HEMATOCRIT 35.7 % (32.4-45.2); HEMOGLOBIN 12.1 GM/dL (10.7-15.3); LYMPH % 11.5 % (8-40); MCH 32.8 pg (25.7-33.7); MCHC 33.9 g/dl (32.0-36.0); MEAN CELL VOLUME 96.7 fl (80-96); MEAN PLT VOLUME 8.6 fl (7.5-11.1); MONO % 8.1 % (3.8-10.2); NEUT % 80.3 % (42.8-82.8); PLATELET COUNT 378 10^3/uL (134-434); RDW 12.8 % (11.6-15.6); WHITE BLOOD COUNT 12.7 K/mm3 (4.0-10.0)
[2022-07-16 09:56] LABS: CALCIUM 9.3 mg/dL (8.5-10.1)
[2022-07-16 09:57] LABS: ALBUMIN 3.1 g/dl (3.4-5.0); BLOOD UREA NITROGEN 30.7 mg/dL (7-18)
[2022-07-16 09:59] LABS: CREATININE 0.8 mg/dL (0.55-1.3)
[2022-07-16 10:00] LABS: TOT PROT 6.4 g/dl (6.4-8.2)
[2022-07-16 10:01] LABS: BILIRUBIN,TOTAL 0.4 mg/dL (0.2-1)
[2022-07-16] MEDS: APIXABAN 2.5 MG TABLET PO SCH ×2 (12:38→21:36)
[2022-07-16] MEDS: FUROSEMIDE 40 MG TABLET (FP) PO SCH (12:38)
[2022-07-16] MEDS: POLYETHYLENE GLYCOL (HEALTHYLAX) 3350 17 GM PACKET PO SCH ×2 (12:38→21:36)
[2022-07-16] MEDS: DEXAMETHASONE SOD PHOSPHATE 10 MG/1 ML VIAL IVPUSH SCH (12:38)
[2022-07-16] MEDS: PANTOPRAZOLE 20 MG TABLET PO SCH (12:39)
[2022-07-16] MEDS: LOSARTAN POTASSIUM 25 MG TABLET PO SCH (12:40)
[2022-07-16] MEDS: ACETAMINOPHEN 325 MG TABLET (FP) PO PRN (12:40)
[2022-07-16] MEDS: REMDESIVIR 100 MG in SODIUM CHLORIDE 250 ML IVPB SCH (12:47)
[2022-07-16] MEDS: SELEGILINE HCL 5 MG CAPSULE PO SCH (12:48)
[2022-07-16] MEDS ORDERED: INSULIN (NOVOLOG) ASPART 100 UNITS/ML 10ML VIAL ONE (13:09)
[2022-07-16] MEDS: SPIRONOLACTONE 25 MG TABLET PO SCH (21:36)
[2022-07-16] MEDS: MIRTAZAPINE 15 MG TABLET (FP) PO SCH (21:37)
[2022-07-16] MEDS: ATORVASTATIN CA 10 MG TABLET (FP) PO SCH (21:37)
[2022-07-16] MEDS: rOPINIRole HCL 0.5 MG TABLET PO SCH (21:41)
[2022-07-17] MEDS: LEVOTHYROXINE NA 25 MCG TABLET (FP) PO SCH (06:34)
[2022-07-17] MEDS: INSULIN (NOVOLOG) ASPART 100 UNITS/ML 10ML VIAL SQ SCH ×3 (06:37→17:19)
[2022-07-17] MEDS: PANTOPRAZOLE 20 MG TABLET PO SCH (09:59)
[2022-07-17] MEDS: FUROSEMIDE 40 MG TABLET (FP) PO SCH (09:59)
[2022-07-17] MEDS: APIXABAN 2.5 MG TABLET PO SCH ×2 (09:59→22:27)
[2022-07-17] MEDS: metoPROLOL SUCCINATE 25 MG TAB.SR.24H (FP) PO SCH (10:00)
[2022-07-17] MEDS: LOSARTAN POTASSIUM 25 MG TABLET PO SCH (10:00)
[2022-07-17] MEDS: POLYETHYLENE GLYCOL (HEALTHYLAX) 3350 17 GM PACKET PO SCH ×2 (10:00→22:28)
[2022-07-17] MEDS: SELEGILINE HCL 5 MG CAPSULE PO SCH (10:00)
[2022-07-17] MEDS: DEXAMETHASONE SOD PHOSPHATE 10 MG/1 ML VIAL IVPUSH SCH (15:52)
[2022-07-17] MEDS: ACETAMINOPHEN 325 MG TABLET (FP) PO PRN (17:21)
[2022-07-17] MEDS: ATORVASTATIN CA 10 MG TABLET (FP) PO SCH (22:27)
[2022-07-17] MEDS: MIRTAZAPINE 15 MG TABLET (FP) PO SCH (22:28)
[2022-07-17] MEDS: SPIRONOLACTONE 25 MG TABLET PO SCH (22:28)
[2022-07-17] MEDS: MELATONIN 5 MG TABLETS PO PRN (22:28)
[2022-07-17] MEDS: rOPINIRole HCL 0.5 MG TABLET PO SCH (22:30)
[2022-07-18] MEDS: LEVOTHYROXINE NA 25 MCG TABLET (FP) PO SCH (06:28)
[2022-07-18] MEDS: INSULIN (NOVOLOG) ASPART 100 UNITS/ML 10ML VIAL SQ SCH ×3 (06:35→17:15)
[2022-07-18] MEDS: FUROSEMIDE 40 MG TABLET (FP) PO SCH (10:24)
[2022-07-18] MEDS: PANTOPRAZOLE 20 MG TABLET PO SCH (10:24)
[2022-07-18] MEDS: metoPROLOL SUCCINATE 25 MG TAB.SR.24H (FP) PO SCH (10:24)
[2022-07-18] MEDS: LOSARTAN POTASSIUM 25 MG TABLET PO SCH (10:25)
[2022-07-18] MEDS: POLYETHYLENE GLYCOL (HEALTHYLAX) 3350 17 GM PACKET PO SCH ×2 (10:25→22:06)
[2022-07-18] MEDS: DEXAMETHASONE 4 MG TABLET (FP) PO SCH (10:25)
[2022-07-18] MEDS: APIXABAN 2.5 MG TABLET PO SCH ×2 (10:25→22:00)
[2022-07-18] MEDS: SELEGILINE HCL 5 MG CAPSULE PO SCH (10:25)
[2022-07-18] MEDS: DEXAMETHASONE SOD PHOSPHATE 10 MG/1 ML VIAL IVPUSH SCH (12:05)
[2022-07-18 15:08] VITALS: RESP 20
[2022-07-18] MEDS: MIRTAZAPINE 15 MG TABLET (FP) PO SCH (22:00)
[2022-07-18] MEDS: ATORVASTATIN CA 10 MG TABLET (FP) PO SCH (22:00)
[2022-07-18] MEDS: SPIRONOLACTONE 25 MG TABLET PO SCH (22:00)
[2022-07-18] MEDS: MELATONIN 5 MG TABLETS PO PRN (22:01)
[2022-07-18] MEDS: rOPINIRole HCL 0.5 MG TABLET PO SCH (22:06)
[2022-07-19] MEDS: INSULIN (NOVOLOG) ASPART 100 UNITS/ML 10ML VIAL SQ SCH ×2 (06:58→12:26)
[2022-07-19] MEDS: LEVOTHYROXINE NA 25 MCG TABLET (FP) PO SCH (06:59)
[2022-07-19] MEDS: DEXAMETHASONE SOD PHOSPHATE 10 MG/1 ML VIAL IVPUSH SCH (11:15)
[2022-07-19] MEDS: APIXABAN 2.5 MG TABLET PO SCH (11:29)
[2022-07-19] MEDS: PANTOPRAZOLE 20 MG TABLET PO SCH (11:29)
[2022-07-19] MEDS: DEXAMETHASONE 4 MG TABLET (FP) PO SCH (11:29)
[2022-07-19] MEDS: LOSARTAN POTASSIUM 25 MG TABLET PO SCH (11:29)
[2022-07-19] MEDS: metoPROLOL SUCCINATE 25 MG TAB.SR.24H (FP) PO SCH (11:29)
[2022-07-19] MEDS: FUROSEMIDE 40 MG TABLET (FP) PO SCH (11:29)
[2022-07-19] MEDS: POLYETHYLENE GLYCOL (HEALTHYLAX) 3350 17 GM PACKET PO SCH (11:31)
[2022-07-19] MEDS: SELEGILINE HCL 5 MG CAPSULE PO SCH (11:31)
[2022-07-19 16:38] VITALS: BP 120/55; PULSE 58; TEMP 97.7
== END 2022-07-19 15:00 | disposition home health service (06) | DRG 178 ==
LOC: JER 09:12 → JERBED 14:09 → J8W 07-15 15:37
PROVIDERS: ADMIT Internal Medicine; ATTEND Internal Medicine
DX: U07.1 COVID-19 (principal); I50.42 Chronic combined systolic (congestive) and diastolic (congestive) heart failure; E11.9 Type 2 diabetes mellitus without complications; G20 Parkinson's disease; Z79.84 Long term (current) use of oral hypoglycemic drugs; F41.9 Anxiety disorder, unspecified; F32.A Depression, unspecified; R53.1 Weakness; I48.0 Paroxysmal atrial fibrillation; I10 Essential (primary) hypertension; E78.5 Hyperlipidemia, unspecified
CPT/HCPCS: 0241U-QW; 36415; 70450-TC; 71045-TC-FY; 72125-TC; 72170-TC-FY; 80048; 80053; 82550; 82553; 82728; 82962; 83605; 83615; 83690; 83735; 83880; 84100; 84484; 85025; 85610; 85730; 86140; 93005; 93010; 97116-GP; 99285-25; C9399; J1100; J1644

== ENCOUNTER 2024-01-03 13:21 | Inpatient (IN) | payer OTHER, MEDICARE ==
[2024-01-03] MEDS ORDERED: METOPROLOL TARTRATE 5 MG/5 ML VIAL ONE ×3 (14:09→16:05)
[2024-01-03] MEDS: SODIUM CHLORIDE 0.9% 500 ML INFUS.BAG IV ONE ×2 (15:01→16:28)
[2024-01-03] MEDS: METOPROLOL TARTRATE 5 MG/5 ML VIAL IVPUSH ONE ×3 (15:01→16:19)
[2024-01-03 15:03] LABS: BASO % 0.9 % (0-2.0); EOS % 0.5 % (0-4.5); HEMATOCRIT 41.7 % (32.4-45.2); HEMOGLOBIN 14.4 GM/dL (10.7-15.3); LYMPH % 21.9 % (8-40); MCH 33.2 pg (25.7-33.7); MCHC 34.5 g/dl (32.0-36.0); MEAN CELL VOLUME 96.4 fl (80-96); MEAN PLT VOLUME 7.9 fl (7.5-11.1); MONO % 8.2 % (3.8-10.2); NEUT % 68.5 % (42.8-82.8); PLATELET COUNT 441 10^3/uL (134-434); RBC 4.33 M/mm3 (3.60-5.2); RDW 13.1 % (11.6-15.6); WHITE BLOOD COUNT 12.5 K/mm3 (4.0-10.0)
[2024-01-03 15:13] LABS: INR 1.53 (0.83-1.09); PROTHROMBIN TIME (PATIENT) 17.4 SEC (9.7-13.0)
[2024-01-03 15:15] LABS: ACTIVATED PTT 34.1 SECONDS (25.2-36.5)
[2024-01-03 15:20] LABS: POTASSIUM 4.3 mmol/L (3.5-5.1)
[2024-01-03 15:22] LABS: BLOOD UREA NITROGEN 30.6 mg/dL (7-18); CALCIUM 9.7 mg/dL (8.5-10.1); MAGNESIUM 2.3 mg/dL (1.8-2.4)
[2024-01-03 15:26] LABS: CREATININE 1.1 mg/dL (0.55-1.3)
[2024-01-03 15:27] LABS: BILIRUBIN,TOTAL 0.5 mg/dL (0.2-1); TOT PROT 7.6 g/dl (6.4-8.2)
[2024-01-03 15:31] LABS: N-TERMINAL BNP 492.4 pg/ml (5-450)
[2024-01-03] MEDS ORDERED: METOPROLOL TARTRATE 50 MG TABLET (FP) ONE (16:05)
[2024-01-03] MEDS: METOPROLOL TARTRATE 50 MG TABLET (FP) PO ONE (16:19)
[2024-01-03] MEDS ORDERED: metoPROLOL SUCCINATE 25 MG TAB.SR.24H (FP) PO ONE (17:31)
[2024-01-03] MEDS: metoPROLOL SUCCINATE 25 MG TAB.SR.24H (FP) PO ONE (17:55)
[2024-01-03 18:23] LABS: EPI CELLS 6 /uL (0-25.1); HYALINE CASTS 0 /uL (0-3.1); PH,URINE 5.5 (5.0-8.0); URINE APPEARANCE CLEAR; URINE BILIRUBIN NEGATIVE (NEGATIVE); URINE COLOR YELLOW; URINE GLUCOSE (UA) NEGATIVE (NEGATIVE); URINE KETONE NEGATIVE (NEGATIVE); URINE LEUK ESTERASE 2+ (NEGATIVE); URINE NITRITE POSITIVE (NEGATIVE); URINE PROTEIN NEGATIVE (NEGATIVE); URINE RBC 13 /uL (0-23.9); URINE UROBILINOGEN 0.2 mg/dL (0.2-1.0); URINE WBC 81 /uL (0-25.8)
[2024-01-03] MEDS ORDERED: MAGNESIUM 1GM/D5W - 1 GM/100 ML IVPB IVPB ONE (18:36)
[2024-01-03] MEDS: MAGNESIUM 1GM/D5W - 1 GM/100 ML IVPB IVPB ONE (18:43)
[2024-01-03 20:34] VITALS: BMI 23.9
[2024-01-03] MEDS: CEFTRIAXONE 1 GM in DEXTROSE 5%-WATER - 50 ML IVPB ONE (22:12)
[2024-01-03] MEDS: APIXABAN 2.5 MG TABLET PO SCH (22:12)
[2024-01-03] MEDS: PNEUMOC 20-VAL CONJ-DIP CRM/PF 0.5 ML SYRINGE IM ONE (22:19)
[2024-01-03] MEDS: diazePAM 5 MG TABLET PO ONE (23:13)
[2024-01-03] MEDS: CARBIDOPA/LEVODOPA 25/250 TABLET (FP) PO ONE (23:13)
[2024-01-04 08:09] LABS: BASO % 0.5 % (0-2.0); EOS % 0.7 % (0-4.5); HEMATOCRIT 42.2 % (32.4-45.2); HEMOGLOBIN 14.2 GM/dL (10.7-15.3); LYMPH % 13.8 % (8-40); MCH 33.1 pg (25.7-33.7); MCHC 33.7 g/dl (32.0-36.0); MEAN CELL VOLUME 98.2 fl (80-96); MEAN PLT VOLUME 8.6 fl (7.5-11.1); MONO % 6.3 % (3.8-10.2); NEUT % 78.7 % (42.8-82.8); PLATELET COUNT 387 10^3/uL (134-434); RDW 13.3 % (11.6-15.6); WHITE BLOOD COUNT 14.5 K/mm3 (4.0-10.0)
[2024-01-04 08:24] LABS: POTASSIUM 4.1 mmol/L (3.5-5.1)
[2024-01-04 08:53] LABS: CALCIUM 9.2 mg/dL (8.5-10.1)
[2024-01-04] MEDS: CARBIDOPA/LEVODOPA 25/250 TABLET (FP) PO SCH (10:46)
[2024-01-04] MEDS: CEFTRIAXONE 1 GM in DEXTROSE 5%-WATER - 50 ML IVPB SCH (10:46)
[2024-01-04] MEDS ORDERED: INSULIN ASPART SLIDING SCALE (NOVOLOG) 1 VIAL SQ ONE (14:04)
[2024-01-04] MEDS: INSULIN (NOVOLOG) ASPART 100 UNITS/ML 10ML VIAL SQ ONE (14:09)
[2024-01-04] MEDS: EMPAGLIFLOZIN (JARDIANCE) 25 MG TABLET PO SCH (17:47)
[2024-01-04] MEDS: INSULIN ASPART SLIDING SCALE (NOVOLOG) 1 VIAL SQ SCH (17:54)
[2024-01-04] MEDS: GABAPENTIN 100 MG CAPSULE PO SCH (21:55)
[2024-01-04] MEDS: MIRTAZAPINE 15 MG TABLET (FP) PO SCH (21:55)
[2024-01-04] MEDS: rOPINIRole HCL 0.5 MG TABLET PO SCH (21:56)
[2024-01-04] MEDS: ATORVASTATIN CA 10 MG TABLET (FP) PO SCH (21:56)
[2024-01-05] MEDS: METOPROLOL TARTRATE 5 MG/5 ML VIAL IVPUSH ONE (04:56)
[2024-01-05] MEDS: LEVOTHYROXINE NA 25 MCG TABLET (FP) PO SCH (07:41)
[2024-01-05] MEDS ORDERED: SELEGILINE HCL 5 MG CAPSULE PO SCH (10:00)
[2024-01-05] MEDS: METOPROLOL TARTRATE 5 MG/5 ML VIAL IVPUSH PRN (13:33)
[2024-01-06] MEDS: EMPAGLIFLOZIN (JARDIANCE) 25 MG TABLET PO SCH (06:25)
[2024-01-06 08:42] LABS: BASO % 0.7 % (0-2.0); EOS % 1.4 % (0-4.5); HEMATOCRIT 37.9 % (32.4-45.2); HEMOGLOBIN 13.2 GM/dL (10.7-15.3); LYMPH % 22.8 % (8-40); MCH 34.3 pg (25.7-33.7); MCHC 34.8 g/dl (32.0-36.0); MEAN CELL VOLUME 98.5 fl (80-96); MEAN PLT VOLUME 8.5 fl (7.5-11.1); MONO % 8.6 % (3.8-10.2); NEUT % 66.5 % (42.8-82.8); PLATELET COUNT 351 10^3/uL (134-434); RBC 3.84 M/mm3 (3.60-5.2); RDW 13.3 % (11.6-15.6); WHITE BLOOD COUNT 8.6 K/mm3 (4.0-10.0)
[2024-01-06 08:56] LABS: POTASSIUM 4.4 mmol/L (3.5-5.1)
[2024-01-06 09:13] LABS: ALBUMIN 3.4 g/dl (3.4-5.0); BLOOD UREA NITROGEN 25.1 mg/dL (7-18); CALCIUM 9.1 mg/dL (8.5-10.1)
[2024-01-06 09:16] LABS: CREATININE 0.9 mg/dL (0.55-1.3)
[2024-01-06 09:18] LABS: BILIRUBIN,TOTAL 0.4 mg/dL (0.2-1); TOT PROT 6.4 g/dl (6.4-8.2)
[2024-01-06] MEDS ORDERED: ALPRAZolam 0.25 MG TABLET PO PRN (14:23)
[2024-01-08 07:58] LABS: POTASSIUM 4.6 mmol/L (3.5-5.1)
[2024-01-08 08:09] LABS: ALBUMIN 3.5 g/dl (3.4-5.0); BLOOD UREA NITROGEN 25.9 mg/dL (7-18); CALCIUM 9.1 mg/dL (8.5-10.1)
[2024-01-08 08:10] LABS: CREATININE 0.9 mg/dL (0.55-1.3)
[2024-01-08 08:11] LABS: BILIRUBIN,TOTAL 0.6 mg/dL (0.2-1); TOT PROT 6.5 g/dl (6.4-8.2)
[2024-01-08 08:15] LABS: BASO % 1.1 % (0-2.0); EOS % 1.5 % (0-4.5); HEMATOCRIT 40.3 % (32.4-45.2); HEMOGLOBIN 13.7 GM/dL (10.7-15.3); LYMPH % 19.5 % (8-40); MCH 33.6 pg (25.7-33.7); MEAN CELL VOLUME 98.6 fl (80-96); MEAN PLT VOLUME 8.7 fl (7.5-11.1); MONO % 7.5 % (3.8-10.2); NEUT % 70.4 % (42.8-82.8); PLATELET COUNT 365 10^3/uL (134-434); RBC 4.09 M/mm3 (3.60-5.2); RDW 13.3 % (11.6-15.6); WHITE BLOOD COUNT 9.7 K/mm3 (4.0-10.0)
[2024-01-08] MEDS: POLYETHYLENE GLYCOL (HEALTHYLAX) 3350 17 GM PACKET PO PRN (11:07)
[2024-01-08] MEDS: LIDOCAINE 5% TOPICAL PATCH TP SCH (11:43)
[2024-01-08] MEDS: ACETAMINOPHEN 325 MG TABLET (FP) PO PRN (14:00)
[2024-01-08] MEDS: LIDOCAINE PATCH REMOVAL MC SCH (21:23)
[2024-01-10] MEDS: glipiZIDE-XL 2.5 MG TAB.ER.24 PO SCH (06:32)
[2024-01-10 09:27] VITALS: RESP 18
[2024-01-10] MEDS ORDERED: diazePAM 5 MG TABLET PO PRN (10:06)
[2024-01-10] MEDS: dilTIAZem HCL 50 MG/10 ML - 10 ML VIAL IVPUSH ONE (11:16)
[2024-01-10] MEDS ORDERED: dilTIAZem HCL 30 MG TABLET PO SCH (12:00)
[2024-01-10] MEDS: dilTIAZem HCL 30 MG TABLET PO SCH (13:39)
[2024-01-10] MEDS: SELEGILINE PO SCH (15:23)
[2024-01-10] MEDS: GABAPENTIN 100 MG CAPSULE PO SCH (21:58)
[2024-01-11 07:10] VITALS: TEMP 97.7
[2024-01-11 12:06] VITALS: BP 95/78; PULSE 67
== END 2024-01-11 12:55 | disposition home or self-care (01) | DRG 309 ==
LOC: JER 13:21 → JERBED 17:53 → J4W 19:46
PROVIDERS: ADMIT Internal Medicine; ATTEND Internal Medicine
DX: I48.91 Unspecified atrial fibrillation (principal); I50.32 Chronic diastolic (congestive) heart failure; N39.0 Urinary tract infection, site not specified; E11.9 Type 2 diabetes mellitus without complications; F41.9 Anxiety disorder, unspecified; F32.A Depression, unspecified; G20.A1 Parkinson's disease without dyskinesia, without mention of fluctuations; I11.0 Hypertensive heart disease with heart failure; Z86.16 Personal history of COVID-19
CPT/HCPCS: 0241U-QW; 36415; 71045-TC-FY; 80048; 80053; 81003; 82962; 83036; 83735; 83880; 84443; 84484; 85025; 85610; 85730; 90677; 93005; 93010; 93306-TC; 97116-GP; 97161-GP; 99291; G0009